=== PATIENT | female | born 1985 | race Caucasian/White ===

== ENCOUNTER 2021-03-14 20:47 | Observation (INO) ==
[2021-03-14] MEDS ORDERED: SODIUM CHLORIDE 0.9% 1000ML 1,000 ML IV SCH (21:45)
[2021-03-14] MEDS ORDERED: SODIUM CHLORIDE 0.9% 1000ML 1,000 ML IV ONE (21:47)
--- NOTE | 2021-03-14 21:53 | XRay Report ---
XR chest 1V portable INDICATION: MN ^ams. TECHNIQUE: Single frontal radiograph of the chest was obtained. Comparison: Comparison is made to chest one view 08/15/2019 FINDINGS: No lines and tubes are seen. The cardiomediastinal silhouette is normal. Lungs are underinflated but clear. No evidence of pleural effusion or pneumothorax. IMPRESSION: No acute chest disease. ACT 112: Negative or not required by law. Electronically signed by: Bryan Taylor M.D. 03/14/2021 9:52 PM
[2021-03-14 22:26] LABS: Basophils # (auto) 0.01 K/uL (0-0.2); Basophils % (auto) 0.1 %; Hematocrit (blood only) 42.4 % (37-47); Hemoglobin 13.7 g/dL (12.0-16.0); Immature Granulocytes # (auto) 0.06 K/uL (0.00-0.02); Immature Granulocytes % (auto) 0.3 %; Lymphocytes # (auto) 1.46 K/uL (1.2-3.4); Lymphocytes % (auto) 8.4 %; Mean Corpuscular Hemoglobin 27.5 pg (25-34); Mean Corpuscular Hgb Conc 32.3 g/dL (32-36); Mean Corpuscular Volume 85.1 fL (80-100); Mean Platelet Volume 10.5 fL (7.4-10.4); Monocytes # (auto) 0.64 K/uL (0.11-0.59); Monocytes % (auto) 3.7 %; Neutrophils # (auto) 15.21 K/uL (1.4-6.5); Neutrophils % (auto) 87.5 %; Platelet Count 231 K/uL (130-400); RDW Coefficient of Variation 13.3 % (11.5-14.5); RDW Standard Deviation 41.5 fL (36.4-46.3); Red Blood Count 4.98 M/uL (4.2-5.4); White Blood Count 17.38 K/uL (4.8-10.8)
[2021-03-14 22:35] LABS: INR 1.1 (0.9-1.1); Prothrombin Time 10.9 Seconds (9.0-12.0)
[2021-03-14 22:43] LABS: Alanine Aminotransferase 16 U/L (12-78); Albumin Level 3.2 gm/dl (3.4-5.0); Aspartate Aminotransferase 12 U/L (15-37); BUN Creatinine Ratio 7.7 (10-20); Blood Urea Nitrogen 6 mg/dl (7-18); Calcium 8.2 mg/dl (8.5-10.1); Carbon Dioxide 22 mmol/L (21-32); Chloride 112 mmol/L (98-107); Creatinine Clr Calc Pharmacy 108.5 ml/min; Est GFR (African American) 107.4 ml/min; Est GFR (Non-African American) 92.7 ml/min; Glucose 115 mg/dl (70-99); Magnesium 2.3 mg/dl (1.8-2.4); Potassium 3.7 mmol/L (3.5-5.1); Sodium 142 mmol/L (136-145)
[2021-03-14 22:47] LABS: Albumin Globulin Ratio 0.8 (0.9-2); Alkaline Phosphatase 53 U/L (45-117); Bilirubin,Total 0.5 mg/dl (0.2-1); Creatine Kinase 106 U/L (26-192); Globulin 3.9 gm/dl (2.5-4.0); Total Protein 7.1 gm/dl (6.4-8.2); Troponin I < 0.015 ng/ml (0-0.045)
[2021-03-14 22:50] LABS: Pregnancy Test, Serum Negative (Negative)
[2021-03-14 22:58] LABS: Acetaminophen < 2 ug/ml (10-30); Salicylate < 1.7 mg/dl (2.8-20)
[2021-03-14] MEDS ORDERED: LACTATED RINGER'S 1,000 ML IV ONE (22:58)
[2021-03-14 23:05] LABS: Appearance Urine Turbid (Clear); Bacteria Urine Automated Negative (Negative); Bilirubin Urine Negative (Negative); Blood Urine 3+ (Negative); Color Urine Dark Yellow; Epithelial Cell Urine Auto >30 /lpf (0-5); Glucose Urine UA Negative (Negative); Ketones Urine 3+ (Negative); Leukocyte Esterase Urine 2+ (Negative); Nitrite Urine Negative (Negative); Protein Urine Trace (Negative); RBC Urine Automated >30 /hpf (0-4); Specific Gravity Urine 1.021 (1.000-1.030); Urobilinogen Urine Negative (Negative)
[2021-03-14 23:29] LABS: Renal Epithelial Cells Urine 0-5 /lpf (0-5)
[2021-03-14] MEDS ORDERED: cefTRIAXone SODIUM 2,000 MG/70 ML BAG IV STA (23:36)
[2021-03-15 00:04] LABS: Amphetamines+Metham, Urine Neg (Neg); Barbiturates, Urine Neg (Neg); Benzodiazepine, Urine Neg (Neg); Cocaine, Urine Neg (Neg); MDMA (Ecstacy), Urine Neg (Neg); Methadone, Urine Neg (Neg); Opiate, Urine Neg (Neg); Phencyclidine, Urine Neg (Neg)
[2021-03-15 00:21] LABS: Adenovirus PCR Not Detected (NotDetected); Bordetella parapertussis PCR Not Detected (NotDetected); Bordetella pertussis PCR Not Detected (NotDetected); Chlamydia pneumoniae PCR Not Detected (NotDetected); Coronavirus 229E PCR Not Detected (NotDetected); Coronavirus CoV-2 (COVID19)PCR Not Detected (NotDetected); Coronavirus HKU1 PCR Not Detected (NotDetected); Coronavirus NL63 PCR Not Detected (NotDetected); Coronavirus OC43PCR Not Detected (NotDetected); Human Metapneumovirus PCR Not Detected (NotDetected); Influenza A PCR Not Detected (NotDetected); Influenza B PCR Not Detected (NotDetected); Mycoplasma pneumoniae PCR Not Detected (NotDetected); Parainfluenza Virus 1 PCR Not Detected (NotDetected); Parainfluenza Virus 2 PCR Not Detected (NotDetected); Parainfluenza Virus 3 PCR Not Detected (NotDetected); Parainfluenza Virus 4 PCR Not Detected (NotDetected); Respiratory Syncytial VirusPCR Not Detected (NotDetected); Rhinovirus/Enterovirus PCR Not Detected (NotDetected)
[2021-03-15] MEDS ORDERED: LORazepam 1 MG/2 ML VIAL IV STA (01:02)
--- NOTE | 2021-03-15 01:17 | History & Physical Report ---
Date of Service March 15, 2021 Assessment & Plan (1) Epilepsy: Plan: She reports breakthrough seizures starting yesterday morning including convulsive seizures followed by times when she cannot remember what happened, which she is reporting as multiple intermittent petit mal seizures. All of this was unwitnessed. Mom came to her apt at 8pm and brought her in because of her delayed response to questions. Patient is on several antiepileptic medications including cenobamate which she is titrating up currently, clobazam 40mg BID, Keppra 1500mg BID, Fycompa 4mg nightly, and topiramate 200mg BID. She is followed by [facility] outside of the [place] area and was last seen in early Feb (note not currently available as EMR link is down). She was given 1mg of Ativan in the ER, started on abx for ?UTI. Although WBC is up, prolactin level is normal. Also UDS not reflecting benzos reportedly taken. Will give her an additional 1 gram of Keppra now as she appears symptomatic to a certain extent, cannot remember if she took her medications this evening, and has a h/o nonconvulsive status in the past. She also has a h/o conversion disorder and mentioned something to the nurse about intentionally overdosing on Ativan today. She appears apathetic to questioning or to what is happening. When I asked what she would like me to do for her in the hospital re: treatment, her response was "it doesn't matter." Consider possible side effects of drugs? Suicidality is a side effect of cenobamate as is somnolence. (2) UTI (urinary tract infection): Plan: Cover with Rocephin empirically and if no culture, would consider short course of antibiotics. Notably cephalosporins may lower the seizure threshold. Reassess risk/benefit in am. (3) Leukocytosis: Plan: WBC 17K likely related to the events of the day vs UTI, however, what actually happened is not clear. Ceftriaxone as above. Repeat CBC in am. (4) DVT prophylaxis: Plan: Lovenox Full Code Dispo-uncertain, pending Neurology and psychiatry evaluations. Out of an abundance of caution will place her on suicide precautions with a 1:1 until psych can see her. Rhiannon Pizarro DO [facility] Hospitalist History of Present Illness Chief Complaint: seizure history Primary Care Provider: Nely Solorio The patient is a 35-year-old female with a history of epilepsy since age 14 who presented to the hospital after reporting multiple seizures today. She was recently seen by her neurologist as outpatient in early February with a few medication changes. She reported feeling well on these changes and states this seizure is the first breakthrough seizure since the change. It is difficult to gather a history from her, because she has a delayed response time in answering. She appears to stare into space but then will come back and having clearly received the information correctly, will be able to appropriately answer the question. She appears to have some apathy and answering questions and is not elaborating into detail. Most answers are yes and no or agreeing with what is said. When asked if she is depressed or if she had any intention of hurting herself, she said no. Per the ER medical provider, there was concern she might have deliberately taken too much medication. The patient reported to me she l pura alone and doses herself with her medications without assistance. She seemed to recall the correct frequency and doses of medications when asked. However, when her mother entered the room she deferred to her on doses and strategies. It is questionable if she is compliant with medications and certainly does not know if she had her evening meds or morning meds during the last 24-hour. She reports waking up and while lying in bed had a grand mal seizure. This was subsequently followed by petit mall seizures that were intermittent throughout the day. When asked how she knows the difference, she reports that with the grand mal type she will shake and with petit mal (absence seizure) she will not. These events were unwitnessed. As a result of her seizures she subsequently reports taking 6-7 Ativan tablets. When asked what dose Ativan tablet she took I had to offer a questionable 1 mg to which she confirmed. However, per her records she is prescribed 2 mg dose tablets. Mother was helpful in stating that in 20 years of epilepsy she is never heard her daughter have delayed response time that she is currently exhibiting. Mother is also concerned that the patient is flipping into and out of absence seizure's and is questioning if she should have more medication at this time. The difficulty is that the patient is able to understand the question being asked during her's staring spell. She is also very tired and needs to in the morning. She has had little sleep. Review of systems is positive for "pain all over". She denies any recent illness. She denies any dysuria, urinary urgency or incontinence. She denies any fevers, chills, chest pain or other shortness of breath or other symptoms. She denies any suicidal ideations or thoughts to hurt herself. She denies any depression symptoms. She denies any stress in her life. She denies any drug use or other substance use including no alcohol. She does have a history of conversion disorder. She also has a history of migraines and uses Topamax for seizures, not migraine prophylaxis. Currently denies headache. Allergies Allergy/AdvReac Type Severity Reaction Status Date / Time Iodinated Contrast Media Allergy Unknown Hives Verified 03/14/21 22:10 Home Medications Medication Instructions Recorded Confirmed Type levetiracetam 1,000 mg tablet 1,000 mg PO BID 04/18/19 03/15/21 History levetiracetam 250 mg tablet 500 mg PO BID 08/15/19 03/15/21 History clobazam 10 mg tablet 40 mg PO AMPM 12/24/20 03/15/21 History lorazepam 2 mg tablet 2 mg PO Q6H PRN 12/24/20 03/15/21 History magnesium oxide 400 mg PO BID 12/24/20 03/15/21 History perampanel 4 mg tablet (Fycompa) 4 mg PO HS 12/24/20 03/15/21 History topiramate 200 mg tablet 200 mg PO BID 12/24/20 03/15/21 History cenobamate 12.5 mg (14)-25 mg (14) 1 ea PO UD 03/14/21 03/15/21 History tablets in a dose pack (Xcopri Titration Pack) cenobamate 150 mg (14)-200 mg (14) 1 ea PO UD 03/14/21 03/15/21 History tablets in a dose pack (Xcopri Titration Pack) cenobamate 50 mg (14)-100 mg (14) 1 ea PO UD 03/14/21 03/15/21 History tablets in a dose pack (Xcopri Titration Pack) diclofenac potassium 50 mg tablet 50 mg PO UD PRN MDD 3 tabs 03/14/21 03/15/21 History diclofenac sodium 1 % topical gel 2 g TOPICAL QID 03/14/21 03/15/21 History naloxone 4 mg/actuation nasal 1 spray INTRANASAL UD PRN 03/14/21 03/15/21 History spray (Narcan) ondansetron HCl 8 mg tablet 8 mg PO .EVERY 4-6 HRS PRN 03/14/21 03/15/21 History riboflavin (vitamin B2) 400 mg 400 mg PO DAILY 03/14/21 03/15/21 History tablet sumatriptan succinate 100 mg tablet 50 - 100 mg PO UD PRN 03/14/21 03/15/21 History Past Med/Surg History Medical History Adverse drug effect Closed dislocation of right ankle Closed fracture of ankle, trimalleolar Contusion of both upper extremities Conversion disorder Dehydration Fall Open wound of tongue due to bite Seizure Seizures Surgical History History of ankle surgery (~08/2019) Family History Mother Breast cancer Grandmother Cancer Grandfather Cancer Father Diabetes Hypertension Other No pertinent family history in first degree relatives Social History Smoking Status: Unknown if ever smoked Hx Alcohol Use: No Hx Substance Use: No Preferred Language: Portuguese marital status: Single current occupational status: employed 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 Feels Safe at Home: Declines to Answer Review of Systems Review of Systems: At least ten systems were reviewed and negative except as indicated in HPI above. Physical Exam Physical Exam: CONSTITUTIONAL: WNWD, vitals as above, generally ill- appearing, NAD, fatigued. EYES: EOMI bilaterally, PERRL, normal conjunctivae, no scleral icterus ENT: external ear and nose normal, oropharynx clear, MMM NECK: trachea midline RESPIRATORY: clear to auscultation bilaterally, no crackles, rales or wheezes, normal respiratory effort CARDIOVASCULAR: regular rate and rhythm, S1 and 2 heard without murmurs, gallops or rubs, no JVD, no peripheral edema GASTROINTESTINAL: soft, nontender, ND, no guarding MUSCULOSKELETAL: strength 5/5 throughout, head is normocephalic and atraumatic SKIN: warm and dry NEUROLOGIC: No facial palsy, no dysarthria. Touch, pain and proprioception normal. CN 2-12 grossly intact, no sensory deficit, normal cognition, normal speech, no tremor. Eyes do twitch but there is no clear, consistent nystagmus. Patient is able to receive information in the form of questions while eyes are twitching or she appears to be staring off into space and she is able to appropriately answer the question asked. PSYCHIATRIC: alert, sppears somewhat reluctant to cooperate with questions and exam, although does. ?apathy. Oriented to person, place and time. Language intact Results & Data Results & Data ([facility]) Vital Signs (Past 12 Hours) Vital Signs Temp Pulse Pulse Resp BP BP Pulse Ox 03/15/21 00:18 114 H 03/15/21 00:02 20 137/80 97 03/15/21 00:00 37 C 140 H 03/14/21 21:00 36.3 C L 91 H 20 129/74 99 Laboratory Results Short CBC 03/14/21 Range/Units 22:15 WBC 17.38 H (4.8-10.8) K/uL Hgb 13.7 (12.0-16.0) g/dL Hct 42.4 (37-47) % Plt Count 231 (130-400) K/uL BMP 03/14/21 22:15 Sodium 142 Potassium 3.7 Chloride 112 H Carbon Dioxide 22 BUN 6 L Creatinine 0.83 Glucose 115 H Calcium 8.2 L Cardiac Enzymes 03/14/21 Range/Units 22:15 Total Creatine Kinase 106 (26-192) U/L Troponin I < 0.015 (0-0.045) ng/ml Liver Function 03/14/21 Range/Units 22:15 Total Bilirubin 0.5 (0.2-1) mg/dl AST 12 L (15-37) U/L ALT 16 (12-78) U/L Alkaline Phosphatase 53 (45-117) U/L Albumin 3.2 L (3.4-5.0) gm/dl Urine 03/14/21 Range/Units 22:50 Urine Color Dark Yellow Urine Appearance Turbid A (Clear) Urine pH 5.0 (4.5-7.5) Ur Specific [place] 1.021 (1.000-1.030) Urine Protein Trace H (Negative) Urine Glucose (UA) Negative (Negative) Diagnostic Findings Chest X-Ray 03/14/21 21:39 XR chest 1V portable INDICATION: MN ^ams. TECHNIQUE: Single frontal radiograph of the chest was obtained. Comparison: Comparison is made to chest one view 08/15/2019 FINDINGS: No lines and tubes are seen. The cardiomediastinal silhouette is normal. Lungs are underinflated but clear. No evidence of pleural effusion or pneumothorax. IMPRESSION: No acute chest disease. ACT 112: Negative or not required by law. Electronically signed by: Bryan Taylor M.D. 03/14/2021 9:[address] head without contrast CT head reveals no intracranial hemorrhage mass-effect or edema. There is no evidence of acute cortical stroke and no space-occupying lesion. Medications Administered Lorazepam 1mg IV Rocephin 3 L IVF Code Status & VTE Plan VTE Prophylaxis Plan VTE Prophylaxis will be ordered: Yes
[2021-03-15] MEDS ORDERED: levETIRAcetam 1,000 MG in 0.9 % SODIUM CHLORIDE 100 ML IV STA (03:08)
--- NOTE | 2021-03-15 03:51 | Emergency Department Note ---
History of Present Illness General Chief complaint: Altered Mental Status Stated complaint: AMS Time Seen by Provider: 03/14/21 21:30 History of Present Illness This 35-year-old presents to the ER complaining of possible seizures with increased confusion and possible overdose of Ativan Location: Generalized Quality: weak Severity: Moderate Duration: Today Timing: Today Context: Mother was concerned and called EMS Modifying factors: better with Ativan; worse with activity Patient states she took extra Ativan. She states she thought she had some seizures today. Patient denies overdosing on Ativan. She did tell the nurse she took a lot of Ativan. Patient states she feels weak. Patient denies chest pain, dyspnea, abdominal pain, flulike illness. She denies any alcohol or drugs today. Home Medications Medication Instructions Recorded Confirmed Type levetiracetam 1,000 mg tablet 1,000 mg PO BID 04/18/19 03/15/21 History levetiracetam 250 mg tablet 500 mg PO BID 08/15/19 03/15/21 History clobazam 10 mg tablet 40 mg PO AMPM 12/24/20 03/15/21 History lorazepam 2 mg tablet 2 mg PO Q6H PRN 12/24/20 03/15/21 History magnesium oxide 400 mg PO BID 12/24/20 03/15/21 History perampanel 4 mg tablet (Fycompa) 4 mg PO HS 12/24/20 03/15/21 History topiramate 200 mg tablet 200 mg PO BID 12/24/20 03/15/21 History cenobamate 12.5 mg (14)-25 mg (14) 1 ea PO UD 03/14/21 03/15/21 History tablets in a dose pack (Xcopri Titration Pack) cenobamate 150 mg (14)-200 mg (14) 1 ea PO UD 03/14/21 03/15/21 History tablets in a dose pack (Xcopri Titration Pack) cenobamate 50 mg (14)-100 mg (14) 1 ea PO UD 03/14/21 03/15/21 History tablets in a dose pack (Xcopri Titration Pack) diclofenac potassium 50 mg tablet 50 mg PO UD PRN MDD 3 tabs 03/14/21 03/15/21 History diclofenac sodium 1 % topical gel 2 g TOPICAL QID 03/14/21 03/15/21 History naloxone 4 mg/actuation nasal 1 spray INTRANASAL UD PRN 03/14/21 03/15/21 History spray (Narcan) ondansetron HCl 8 mg tablet 8 mg PO .EVERY 4-6 HRS PRN 03/14/21 03/15/21 History riboflavin (vitamin B2) 400 mg 400 mg PO DAILY 03/14/21 03/15/21 History tablet sumatriptan succinate 100 mg tablet 50 - 100 mg PO UD PRN 03/14/21 03/15/21 History Allergies Allergy/AdvReac Type Severity Reaction Status Date / Time Iodinated Contrast Media Allergy Unknown Hives Verified 03/14/21 22:10 Past Med/Surg History Medical History Adverse drug effect Closed dislocation of right ankle Closed fracture of ankle, trimalleolar Contusion of both upper extremities Conversion disorder Dehydration Fall Open wound of tongue due to bite Seizure Seizures Surgical History History of ankle surgery (~08/2019) Family History Mother Breast cancer Grandmother Cancer Grandfather Cancer Father Diabetes Hypertension Other No pertinent family history in first degree relatives Social History Smoking Status: Unknown if ever smoked Hx Alcohol Use: No Hx Substance Use: No Preferred Language: Kazakh marital status: Single current occupational status: employed 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 Feels Safe at Home: Declines to Answer Review of Systems A total of 10 systems reviewed and were otherwise negative Physical Exam Vital Signs Vital Signs - 24 hr 03/14/21 21:00 03/14/21 22:52 03/15/21 00:00 Temperature 36.3 C L 37 C Temperature Source Oral Oral Pulse Rate 91 H Pulse Rate [Brachial] 140 H Respiratory Rate 20 Respiratory Effort / Characteristics Non-Labored Spontaneous Respiratory Depth Normal Respiratory Pattern Regular Blood Pressure 129/74 Blood Pressure [Right Arm] Blood Pressure Mean 92 Blood Pressure Mean [Right Arm] Blood Pressure Position Lying Pulse Oximetry 99 Oxygen Delivery Method Room Air Room Air Sepsis Recent Fever Within 48 Hours No Sepsis New/Unexplained Change in Mental Status Yes Sepsis Action Taken by Nursing No Action Required 03/15/21 00:02 03/15/21 00:18 03/15/21 01:59 Temperature Temperature Source Pulse Rate Pulse Rate [Brachial] 114 H 89 Respiratory Rate 20 20 Respiratory Effort / Characteristics Respiratory Depth Respiratory Pattern Blood Pressure Blood Pressure [Right Arm] 137/80 125/83 Blood Pressure Mean Blood Pressure Mean [Right Arm] 99 97 Blood Pressure Position Pulse Oximetry 97 97 Oxygen Delivery Method Room Air Room Air Sepsis Recent Fever Within 48 Hours Sepsis New/Unexplained Change in Mental Status Sepsis Action Taken by Nursing 03/15/21 02:33 Temperature 37.5 C Temperature Source Oral Pulse Rate Pulse Rate [Brachial] 89 Respiratory Rate 18 Respiratory Effort / Characteristics Non-Labored Spontaneous Respiratory Depth Normal Respiratory Pattern Regular Blood Pressure Blood Pressure [Right Arm] Blood Pressure Mean Blood Pressure Mean [Right Arm] Blood Pressure Position Pulse Oximetry 95 Oxygen Delivery Method Sepsis Recent Fever Within 48 Hours Sepsis New/Unexplained Change in Mental Status Sepsis Action Taken by Nursing VITALS: Vitals are noted on the nurse's note and reviewed by myself. Vital signs stable. GENERAL: White female unkempt following commands, in no acute distress, nondiaphoretic, well-developed well-nourished. SKIN: The skin was without rashes, erythema, edema, or bruising. There is no tenting of the skin. Capillary reflex less than 2 seconds. HEAD: Normocephalic atraumatic. EARS: External auditory canals clear, tympanic membranes pearly arroyo without erythema or effusion bilaterally. EYES: Pupils equal round and reactive to light and accommodation. Conjunctivae without injection, sclerae without icterus. Extraocular movements intact. NOSE: Patent, turbinates without inflammation or discharge. MOUTH: Mucous membranes moist. Pharynx without erythema or exudate. Uvula midline. Airway patent. Tongue does not deviate. NECK: Supple without nuchal rigidity. No lymphadenopathy. No thyromegaly. Cervical spine is nontender. No JVD. HEART: Regular rate and rhythm LUNGS: Clear to auscultation bilaterally without wheezes, rales or rhonchi. No retractions or accessory muscle use. ABDOMEN: Positive bowel sounds x 4. Normal tympanic percussion. Soft, nontender, without masses or organomegaly. Gonzalez sign negative. No guarding or rebound tenderness. No CVA tenderness MUSCULOSKELETAL: No muscle atrophy, erythema, or edema noted. 5 out of 5 strength throughout NEURO: Patient was alert and oriented to person place and time. Normal sensation to light and sharp touch. No focal neurological deficits. Course Administered Medications Discontinued Medications Sodium Chloride (Nss 1000ml) 1,000 mls @ 999 mls/hr IV .Q1H1M SATISH Stop: 03/14/21 22:45 Last Infusion: 03/15/21 00:01 Dose: 0 mls/hr Documented by: [id number] Admin: 03/14/21 22:43 Dose: 999 mls/hr Documented by: [id number] Sodium Chloride (Nss 1000ml) 1,000 mls @ 999 mls/hr IV .Q1H1M ONE Stop: 03/14/21 22:47 Last Infusion: 03/15/21 00:00 Dose: 0 mls/hr Documented by: [id number] Admin: 03/14/21 22:43 Dose: 999 mls/hr Documented by: [id number] Lactated Ringer's (Lr) 1,000 mls @ 999 mls/hr IV .Q1H1M ONE Stop: 03/14/21 23:58 Last Infusion: 03/15/21 01:02 Dose: 0 mls/hr Documented by: [id number] Admin: 03/15/21 00:00 Dose: 999 mls/hr Documented by: [id number] Ceftriaxone Sodium (Rocephin) 2,000 mg in 70 mls @ 140 mls/hr IV NOW STA Stop: 03/15/21 00:05 Last Infusion: 03/15/21 00:56 Dose: 0 mls/hr Documented by: [id number] Admin: 03/15/21 00:00 Dose: 140 mls/hr Documented by: [id number] Lorazepam (Ativan) 1 mg in 2 mls @ 2 mls/min IV NOW STA Stop: 03/15/21 01:03 Last Admin: 03/15/21 01:09 Dose: 2 mls/min Documented by: [id number] Levetiracetam 1,000 mg/ Sodium (Chloride) 110 mls @ 440 mls/hr IV NOW STA Stop: 03/15/21 03:22 Last Admin: 03/15/21 03:26 Dose: 440 mls/hr Documented by: [id number] Medical Decision Making Medical Records Attestation: I reviewed the patient's medical records. Home Medications Current Medication List: was personally reviewed by me Laboratory Data Attestation: I reviewed the patient's lab results. Result diagrams: 03/14/21 22:15 03/14/21 22:15 Lab Results 03/14/21 03/14/21 03/14/21 Range/Units 22:14 22:15 22:15 WBC (4.8-10.8) K/uL RBC (4.2-5.4) M/uL Hgb (12.0-16.0) g/dL Hct (37-47) % MCV (80-100) fL MCH (25-34) pg MCHC (32-36) g/dL RDW Std Deviation (36.4-46.3) fL RDW Coeff of Hue (11.5-14.5) % Plt Count (130-400) K/uL MPV (7.4-10.4) fL Immature Gran % (Auto) % Neut % (Auto) % Lymph % (Auto) % [place] % (Auto) % Eos % (Auto) % Baso % (Auto) % Neut # (Auto) (1.4-6.5) K/uL Lymph # (Auto) (1.2-3.4) K/uL [place] # (Auto) (0.11-0.59) K/uL Eos # (Auto) (0-0.5) K/uL Baso # (Auto) (0-0.2) K/uL Immature Gran # (Auto) (0.00-0.02) K/uL PT 10.9 (9.0-12.0) Seconds INR 1.1 (0.9-1.1) Sodium 142 (136-145) mmol/L Potassium 3.7 (3.5-5.1) mmol/L Chloride 112 H (98-107) mmol/L Carbon Dioxide 22 (21-32) mmol/L Anion Gap 8.0 (3-11) BUN 6 L (7-18) mg/dl Creatinine 0.83 (0.6-1.2) mg/dl Est Cr Clr Drug Dosing 108.5 ml/min Est GFR ( Amer) 107.4 ml/min Est GFR (Non-Af Amer) 92.7 ml/min BUN/Creatinine Ratio 7.7 L (10-20) Glucose 115 H (70-99) mg/dl Lactate (0.4-2.0) mmol/L Calcium 8.2 L (8.5-10.1) mg/dl Magnesium 2.3 (1.8-2.4) mg/dl Total Bilirubin 0.5 (0.2-1) mg/dl AST 12 L (15-37) U/L ALT 16 (12-78) U/L Alkaline Phosphatase 53 (45-117) U/L Total Creatine Kinase 106 (26-192) U/L Troponin I < 0.015 (0-0.045) ng/ml Total Protein 7.1 (6.4-8.2) gm/dl Albumin 3.2 L (3.4-5.0) gm/dl Globulin 3.9 (2.5-4.0) gm/dl Albumin/Globulin Ratio 0.8 L (0.9-2) Prolactin 2.44 ng/ml HCG, Qual (Negative) Urine Color Urine Appearance (Clear) Urine pH (4.5-7.5) Ur Specific [place] (1.000-1.030) Urine Protein (Negative) Urine Glucose (UA) (Negative) Urine Ketones (Negative) Urine Blood (Negative) Urine Nitrite (Negative) Urine Bilirubin (Negative) Urine Urobilinogen (Negative) Ur Leukocyte Esterase (Negative) Urine WBC (Auto) (0-5) /hpf Urine RBC (Auto) (0-4) /hpf U Hyaline Cast (Auto) (0-5) /lpf U Epithel Cells (Auto) (0-5) /lpf Urine Bacteria (Auto) (Negative) Ur Renal Epithelial Cell (0-5) /lpf Granular Casts (0) /lpf Salicylates (2.8-20) mg/dl Urine Opiates Screen (Neg) Ur Methadone, Qual (Neg) Acetaminophen (10-30) ug/ml Urine Barbiturates (Neg) Ur Phencyclidine (PCP) (Neg) U Amphetamin/Meth Scrn (Neg) MDMA (Ecstasy) Screen (Neg) U Benzodiazepines Scrn (Neg) Ur Cocaine Metabolite (Neg) U Marijuana (THC) Screen (Neg) Ethyl Alcohol mg/dL (0-3) mg/dl Adenovirus (PCR) (NotDetected) B. pertussis DNA (PCR) (NotDetected) B.parapertussis DNA PCR (NotDetected) C. pneumoniae DNA (PCR) (NotDetected) Coronavirus OC43 (PCR) (NotDetected) Coronavirus HKU1 (PCR) (NotDetected) Coronavirus 229E (PCR) (NotDetected) COVID-19 Eval Order SARS-CoV-2 (PCR) (NotDetected) Coronavirus NL63 (PCR) (NotDetected) Human Metapneumovir PCR (NotDetected) Influenza Type A (PCR) (NotDetected) Influenza Type B (PCR) (NotDetected) M. pneumoniae (PCR) (NotDetected) Parainfluenza 1 (PCR) (NotDetected) Parainfluenza 2 (PCR) (NotDetected) Parainfluenza 3 (PCR) (NotDetected) Parainfluenza 4 (PCR) (NotDetected) RSV (PCR) (NotDetected) Entero/Rhino (PCR) (NotDetected) 03/14/21 03/14/21 03/14/21 Range/Units 22:15 22:15 22:15 WBC (4.8-10.8) K/uL RBC (4.2-5.4) M/uL Hgb (12.0-16.0) g/dL Hct (37-47) % MCV (80-100) fL MCH (25-34) pg MCHC (32-36) g/dL RDW Std Deviation (36.4-46.3) fL RDW Coeff of Hue (11.5-14.5) % Plt Count (130-400) K/uL MPV (7.4-10.4) fL Immature Gran % (Auto) % Neut % (Auto) % Lymph % (Auto) % [place] % (Auto) % Eos % (Auto) % Baso % (Auto) % Neut # (Auto) (1.4-6.5) K/uL Lymph # (Auto) (1.2-3.4) K/uL [place] # (Auto) (0.11-0.59) K/uL Eos # (Auto) (0-0.5) K/uL Baso # (Auto) (0-0.2) K/uL Immature Gran # (Auto) (0.00-0.02) K/uL PT (9.0-12.0) Seconds INR (0.9-1.1) Sodium (136-145) mmol/L Potassium (3.5-5.1) mmol/L Chloride (98-107) mmol/L Carbon Dioxide (21-32) mmol/L Anion Gap (3-11) BUN (7-18) mg/dl Creatinine (0.6-1.2) mg/dl Est Cr Clr Drug Dosing ml/min Est GFR ( Amer) ml/min Est GFR (Non-Af Amer) ml/min BUN/Creatinine Ratio (10-20) Glucose (70-99) mg/dl Lactate (0.4-2.0) mmol/L Calcium (8.5-10.1) mg/dl Magnesium (1.8-2.4) mg/dl Total Bilirubin (0.2-1) mg/dl AST (15-37) U/L ALT (12-78) U/L Alkaline Phosphatase (45-117) U/L Total Creatine Kinase (26-192) U/L Troponin I (0-0.045) ng/ml Total Protein (6.4-8.2) gm/dl Albumin (3.4-5.0) gm/dl Globulin (2.5-4.0) gm/dl Albumin/Globulin Ratio (0.9-2) Prolactin ng/ml HCG, Qual Negative (Negative) Urine Color Urine Appearance (Clear) Urine pH (4.5-7.5) Ur Specific [place] (1.000-1.030) Urine Protein (Negative) Urine Glucose (UA) (Negative) Urine Ketones (Negative) Urine Blood (Negative) Urine Nitrite (Negative) Urine Bilirubin (Negative) Urine Urobilinogen (Negative) Ur Leukocyte Esterase (Negative) Urine WBC (Auto) (0-5) /hpf Urine RBC (Auto) (0-4) /hpf U Hyaline Cast (Auto) (0-5) /lpf U Epithel Cells (Auto) (0-5) /lpf Urine Bacteria (Auto) (Negative) Ur Renal Epithelial Cell (0-5) /lpf Granular Casts (0) /lpf Salicylates < 1.7 L (2.8-20) mg/dl Urine Opiates Screen (Neg) Ur Methadone, Qual (Neg) Acetaminophen < 2 L (10-30) ug/ml Urine Barbiturates (Neg) Ur Phencyclidine (PCP) (Neg) U Amphetamin/Meth Scrn (Neg) MDMA (Ecstasy) Screen (Neg) U Benzodiazepines Scrn (Neg) Ur Cocaine Metabolite (Neg) U Marijuana (THC) Screen (Neg) Ethyl Alcohol mg/dL < 3.0 (0-3) mg/dl Adenovirus (PCR) (NotDetected) B. pertussis DNA (PCR) (NotDetected) B.parapertussis DNA PCR (NotDetected) C. pneumoniae DNA (PCR) (NotDetected) Coronavirus OC43 (PCR) (NotDetected) Coronavirus HKU1 (PCR) (NotDetected) Coronavirus 229E (PCR) (NotDetected) COVID-19 Eval Order SARS-CoV-2 (PCR) (NotDetected) Coronavirus NL63 (PCR) (NotDetected) Human Metapneumovir PCR (NotDetected) Influenza Type A (PCR) (NotDetected) Influenza Type B (PCR) (NotDetected) M. pneumoniae (PCR) (NotDetected) Parainfluenza 1 (PCR) (NotDetected) Parainfluenza 2 (PCR) (NotDetected) Parainfluenza 3 (PCR) (NotDetected) Parainfluenza 4 (PCR) (NotDetected) RSV (PCR) (NotDetected) Entero/Rhino (PCR) (NotDetected) 03/14/21 03/14/21 03/14/21 Range/Units 22:15 22:15 22:50 WBC 17.38 H (4.8-10.8) K/uL RBC 4.98 (4.2-5.4) M/uL Hgb 13.7 (12.0-16.0) g/dL Hct 42.4 (37-47) % MCV 85.1 (80-100) fL MCH 27.5 (25-34) pg MCHC 32.3 (32-36) g/dL RDW Std Deviation 41.5 (36.4-46.3) fL RDW Coeff of Hue 13.3 (11.5-14.5) % Plt Count 231 (130-400) K/uL MPV 10.5 H (7.4-10.4) fL Immature Gran % (Auto) 0.3 % Neut % (Auto) 87.5 % Lymph % (Auto) 8.4 % [place] % (Auto) 3.7 % Eos % (Auto) 0.0 % Baso % (Auto) 0.1 % Neut # (Auto) 15.21 H (1.4-6.5) K/uL Lymph # (Auto) 1.46 (1.2-3.4) K/uL [place] # (Auto) 0.64 H (0.11-0.59) K/uL Eos # (Auto) 0.00 (0-0.5) K/uL Baso # (Auto) 0.01 (0-0.2) K/uL Immature Gran # (Auto) 0.06 H (0.00-0.02) K/uL PT (9.0-12.0) Seconds INR (0.9-1.1) Sodium (136-145) mmol/L Potassium (3.5-5.1) mmol/L Chloride (98-107) mmol/L Carbon Dioxide (21-32) mmol/L Anion Gap (3-11) BUN (7-18) mg/dl Creatinine (0.6-1.2) mg/dl Est Cr Clr Drug Dosing ml/min Est GFR ( Amer) ml/min Est GFR (Non-Af Amer) ml/min BUN/Creatinine Ratio (10-20) Glucose (70-99) mg/dl Lactate 1.3 (0.4-2.0) mmol/L Calcium (8.5-10.1) mg/dl Magnesium (1.8-2.4) mg/dl Total Bilirubin (0.2-1) mg/dl AST (15-37) U/L ALT (12-78) U/L Alkaline Phosphatase (45-117) U/L Total Creatine Kinase (26-192) U/L Troponin I (0-0.045) ng/ml Total Protein (6.4-8.2) gm/dl Albumin (3.4-5.0) gm/dl Globulin (2.5-4.0) gm/dl Albumin/Globulin Ratio (0.9-2) Prolactin ng/ml HCG, Qual (Negative) Urine Color Dark Yellow Urine Appearance Turbid A (Clear) Urine pH 5.0 (4.5-7.5) Ur Specific [place] 1.021 (1.000-1.030) Urine Protein Trace H (Negative) Urine Glucose (UA) Negative (Negative) Urine Ketones 3+ H (Negative) Urine Blood 3+ H (Negative) Urine Nitrite Negative (Negative) Urine Bilirubin Negative (Negative) Urine Urobilinogen Negative (Negative) Ur Leukocyte Esterase 2+ H (Negative) Urine WBC (Auto) 10-30 H (0-5) /hpf Urine RBC (Auto) >30 H (0-4) /hpf U Hyaline Cast (Auto) 10-30 H (0-5) /lpf U Epithel Cells (Auto) >30 H (0-5) /lpf Urine Bacteria (Auto) Negative (Negative) Ur Renal Epithelial Cell 0-5 (0-5) /lpf Granular Casts 10-20 H (0) /lpf Salicylates (2.8-20) mg/dl Urine Opiates Screen (Neg) Ur Methadone, Qual (Neg) Acetaminophen (10-30) ug/ml Urine Barbiturates (Neg) Ur Phencyclidine (PCP) (Neg) U Amphetamin/Meth Scrn (Neg) MDMA (Ecstasy) Screen (Neg) U Benzodiazepines Scrn (Neg) Ur Cocaine Metabolite (Neg) U Marijuana (THC) Screen (Neg) Ethyl Alcohol mg/dL (0-3) mg/dl Adenovirus (PCR) (NotDetected) B. pertussis DNA (PCR) (NotDetected) B.parapertussis DNA PCR (NotDetected) C. pneumoniae DNA (PCR) (NotDetected) Coronavirus OC43 (PCR) (NotDetected) Coronavirus HKU1 (PCR) (NotDetected) Coronavirus 229E (PCR) (NotDetected) COVID-19 Eval Order SARS-CoV-2 (PCR) (NotDetected) Coronavirus NL63 (PCR) (NotDetected) Human Metapneumovir PCR (NotDetected) Influenza Type A (PCR) (NotDetected) Influenza Type B (PCR) (NotDetected) M. pneumoniae (PCR) (NotDetected) Parainfluenza 1 (PCR) (NotDetected) Parainfluenza 2 (PCR) (NotDetected) Parainfluenza 3 (PCR) (NotDetected) Parainfluenza 4 (PCR) (NotDetected) RSV (PCR) (NotDetected) Entero/Rhino (PCR) (NotDetected) 03/14/21 03/14/21 03/14/21 Range/Units 22:50 23:07 23:07 WBC (4.8-10.8) K/uL RBC (4.2-5.4) M/uL Hgb (12.0-16.0) g/dL Hct (37-47) % MCV (80-100) fL MCH (25-34) pg MCHC (32-36) g/dL RDW Std Deviation (36.4-46.3) fL RDW Coeff of Hue (11.5-14.5) % Plt Count (130-400) K/uL MPV (7.4-10.4) fL Immature Gran % (Auto) % Neut % (Auto) % Lymph % (Auto) % [place] % (Auto) % Eos % (Auto) % Baso % (Auto) % Neut # (Auto) (1.4-6.5) K/uL Lymph # (Auto) (1.2-3.4) K/uL [place] # (Auto) (0.11-0.59) K/uL Eos # (Auto) (0-0.5) K/uL Baso # (Auto) (0-0.2) K/uL Immature Gran # (Auto) (0.00-0.02) K/uL PT (9.0-12.0) Seconds INR (0.9-1.1) Sodium (136-145) mmol/L Potassium (3.5-5.1) mmol/L Chloride (98-107) mmol/L Carbon Dioxide (21-32) mmol/L Anion Gap (3-11) BUN (7-18) mg/dl Creatinine (0.6-1.2) mg/dl Est Cr Clr Drug Dosing ml/min Est GFR ( Amer) ml/min Est GFR (Non-Af Amer) ml/min BUN/Creatinine Ratio (10-20) Glucose (70-99) mg/dl Lactate (0.4-2.0) mmol/L Calcium (8.5-10.1) mg/dl Magnesium (1.8-2.4) mg/dl Total Bilirubin (0.2-1) mg/dl AST (15-37) U/L ALT (12-78) U/L Alkaline Phosphatase (45-117) U/L Total Creatine Kinase (26-192) U/L Troponin I (0-0.045) ng/ml Total Protein (6.4-8.2) gm/dl Albumin (3.4-5.0) gm/dl Globulin (2.5-4.0) gm/dl Albumin/Globulin Ratio (0.9-2) Prolactin ng/ml HCG, Qual (Negative) Urine Color Urine Appearance (Clear) Urine pH (4.5-7.5) Ur Specific [place] (1.000-1.030) Urine Protein (Negative) Urine Glucose (UA) (Negative) Urine Ketones (Negative) Urine Blood (Negative) Urine Nitrite (Negative) Urine Bilirubin (Negative) Urine Urobilinogen (Negative) Ur Leukocyte Esterase (Negative) Urine WBC (Auto) (0-5) /hpf Urine RBC (Auto) (0-4) /hpf U Hyaline Cast (Auto) (0-5) /lpf U Epithel Cells (Auto) (0-5) /lpf Urine Bacteria (Auto) (Negative) Ur Renal Epithelial Cell (0-5) /lpf Granular Casts (0) /lpf Salicylates (2.8-20) mg/dl Urine Opiates Screen Neg (Neg) Ur Methadone, Qual Neg (Neg) Acetaminophen (10-30) ug/ml Urine Barbiturates Neg (Neg) Ur Phencyclidine (PCP) Neg (Neg) U Amphetamin/Meth Scrn Neg (Neg) MDMA (Ecstasy) Screen Neg (Neg) U Benzodiazepines Scrn Neg (Neg) Ur Cocaine Metabolite Neg (Neg) U Marijuana (THC) Screen Neg (Neg) Ethyl Alcohol mg/dL (0-3) mg/dl Adenovirus (PCR) Not Detected (NotDetected) B. pertussis DNA (PCR) Not Detected (NotDetected) B.parapertussis DNA PCR Not Detected (NotDetected) C. pneumoniae DNA (PCR) Not Detected (NotDetected) Coronavirus OC43 (PCR) Not Detected (NotDetected) Coronavirus HKU1 (PCR) Not Detected (NotDetected) Coronavirus 229E (PCR) Not Detected (NotDetected) COVID-19 Eval Order [facility] at [facility] SARS-CoV-2 (PCR) Not Detected (NotDetected) Coronavirus NL63 (PCR) Not Detected (NotDetected) Human Metapneumovir PCR Not Detected (NotDetected) Influenza Type A (PCR) Not Detected (NotDetected) Influenza Type B (PCR) Not Detected (NotDetected) M. pneumoniae (PCR) Not Detected (NotDetected) Parainfluenza 1 (PCR) Not Detected (NotDetected) Parainfluenza 2 (PCR) Not Detected (NotDetected) Parainfluenza 3 (PCR) Not Detected (NotDetected) Parainfluenza 4 (PCR) Not Detected (NotDetected) RSV (PCR) Not Detected (NotDetected) Entero/Rhino (PCR) Not Detected (NotDetected) Imaging Data Attestation: I personally reviewed and interpreted this imaging study as follows: Radiologist's Impression: Chest X-Ray 03/14/21 21:39 XR chest 1V portable INDICATION: MN ^ams. TECHNIQUE: Single frontal radiograph of the chest was obtained. Comparison: Comparison is made to chest one view 08/15/2019 FINDINGS: No lines and tubes are seen. The cardiomediastinal silhouette is normal. Lungs are underinflated but clear. No evidence of pleural effusion or pneumothorax. IMPRESSION: No acute chest disease. ACT 112: Negative or not required by law. Electronically signed by: Bryan Taylor M.D. 03/14/2021 9:52 PM MDM Narrative Prior records/ancillary studies reviewed and summarized above. Nursing notes reviewed. Additional history obtained from family. The patient's history was concerning for altered mental status. Differential diagnosis: Etiologies such as metabolic, infection, hypoglycemia, electrolyte abnormalities, cardiac sources, intracerebral event, toxicologic, neurologic, as well as others were entertained. Physical examination: As above. ER treatment provided: IV Lock Normal saline hydration at IV fluids, Ativan, Rocephin. An order was placed for continuous cardiac monitoring. The monitor shows a rate of 60-1 50 with a sinus rhythm. Patient was observed On reassessment the patients mental status improved. Diagnostics interpretation by me: ECG: Ordered for possible overdose EKG: Normal sinus, normal intervals, no acute ST-T wave changes. Impression normal sinus rhythm interpreted by myself I think arrhythmia is unlikely. EKG shows normal sinus rhythm with no interval abnormalities such as QT prolongation or WPW. There are no findings to suggest Brugada syndrome. Cardiac monitoring in the emergency department reveals no tachycardic or bradycardic dysrhythmia. Hypertrophic cardiomyopathy was considered but there are no clear historical elements pointing toward this. EKG is not suggestive. The QRS voltage is not extremely large and there are no suggestive Q waves. The labs revealed leukocytosis, urine concerning for infection sent for culture Negative drug screen negative prolactin Imaging studies: CT was negative per radiology Given the above diagnostic work-up and treatment, this episode appears to be consistent with possible overdose of Ativan but patient was not lethargic. She was able to follow commands. Patient does have a UTI. The history is inconsistent. The mother is concerned she keeps on having seizures. Patient is able to follow commands but sometimes does not answer me. She was better after the Ativan. Medicine was consulted. She will be admitted. Further treatment will be required. Consultation: A consultation was placed with the hospitalist. The case was discussed and diagnostics were reviewed. The patient was evaluated in the ER for further treatment. The chart was completed utilizing [employer] Speech voice recognition software. Grammatical errors, random word insertions, pronoun errors, and incomplete sentences are an occassional consequence of this system due to software limitations, ambient noise, and hardware issues. Any formal questions or concerns about the content, text, or information contained within the body of this dictation should be directly addressed to the physician personal injury legal assistant for clarification. Impression & Plan Altered mental status, UTI (urinary tract infection) Discharge Plan Visit Data Chief Complaint: Altered Mental Status Stated Complaint: AMS ED Provider: Alber Reilly ED Midlevel Provider: Luisa Rose Discharge Problem: Altered mental status, UTI (urinary tract infection) Patient Disposition: Admitted As Inpatient Condition: Good Forms Stand Alone Forms: My [employer] Prescriptions Prescriptions: No Action levetiracetam 1,000 mg tablet 1,000 mg PO BID RF: 0 levetiracetam 250 mg tablet 500 mg PO BID RF: 0 lorazepam 2 mg tablet 2 mg PO Q6H PRN (Reason: cluster seizure) RF: 0 clobazam 10 mg tablet 40 mg PO AMPM RF: 0 Fycompa 4 mg tablet 4 mg PO HS RF: 0 topiramate 200 mg tablet 200 mg PO BID RF: 0 magnesium oxide 400 mg magnesium capsule 400 mg PO BID RF: 0 sumatriptan succinate 100 mg tablet 50 - 100 mg PO UD PRN (Reason: Headache) RF: 0 ondansetron HCl 8 mg tablet 8 mg PO .EVERY 4-6 HRS PRN (Reason: head pain and nausea) RF: 0 diclofenac potassium 50 mg tablet 50 mg PO UD MDD 3 tabs PRN (Reason: head pain) RF: 0 diclofenac sodium [Voltaren] 1 % Gel 2 g TOPICAL QID RF: 0 riboflavin (vitamin B2) 400 mg Tablet 400 mg PO DAILY RF: 0 Narcan 4 mg/actuation spray,non-aerosol 1 spray INTRANASAL UD PRN (Reason: opiod overdose) RF: 0 Xcopri Titration Pack 12.5 mg (14)- 25 mg (14) tablets,dose pack 1 ea PO UD RF: 0 Xcopri Titration Pack 50 mg (14)- 100 mg (14) tablets,dose pack 1 ea PO UD RF: 0 Xcopri Titration Pack 150 mg (14)- 200 mg (14) tablets,dose pack 1 ea PO UD RF: 0 Referrals Referrals: Nely Solorio, [Primary Care Provider] -
[2021-03-15] MEDS ORDERED: LORazepam 1 MG/2 ML VIAL IV PRN (07:03)
--- NOTE | 2021-03-15 07:14 | CT Scan Report ---
CT SCAN OF THE BRAIN WITHOUT IV CONTRAST CLINICAL HISTORY: Change in mental status. COMPARISON STUDY: CT of the brain dated 02/11/2021. TECHNIQUE: Unenhanced axial CT scan of the brain is performed from the vertex to the skull base. A d ose lowering technique was utilized adhering to the principles of ALARA. CT DOSE: 614.27 mGy.cm FINDINGS: Brain parenchyma: The brain parenchyma is normal in appearance. There is no hemorrhage, mass effect, or evidence of acute territorial ischemia by CT criteria. Moise-white matter differentiation is preser stefany. A punctate colloid cyst is noted at the roof of the third ventricle. No extra-axial fluid collec tion is seen. Ventricles, sulci, cisterns: Normal in configuration. Intracranial vasculature: The visualized intracranial vasculature at the skull base is normal in appe arance. Calvarium: Unremarkable. Sinuses and mastoids: The visualized paranasal sinuses are clear. The mastoid air cells are well pneu matized. Orbits: The bony orbits are grossly intact. IMPRESSION: No acute intracranial abnormality. ACT 112: Negative or not required by law. Electronically signed by: Wale Lockett M.D. 03/15/2021 7:13 AM
[2021-03-15] MEDS ORDERED: levETIRAcetam 500 MG TAB PO SCH (09:00)
[2021-03-15] MEDS ORDERED: NON-FORMULARY MEDICATION (Riboflavin (Vitamin B2) 400 mg Tablet) PO SCH (09:00)
[2021-03-15] MEDS: MAGNESIUM OXIDE 400 MG TAB PO SCH ×2 (09:11→20:43)
[2021-03-15] MEDS: levETIRAcetam 500 MG TAB PO SCH ×2 (09:11→20:44)
[2021-03-15] MEDS: TOPIRAMATE 100 MG TAB PO SCH ×2 (09:11→20:42)
--- NOTE | 2021-03-15 14:48 | Hospitalist Progress Note ---
Date of Service March 15, 2021 Assessment & Plan (1) Breakthrough seizure: Plan: (1) Epilepsy: - per Neuro service, transfer to [facility] due to complexity of case, patient follows with [facility] as well -Discussed with [facility] neurologist Dr. Danielle, recommend to continue patient's usual antiepileptic regimen, give IV Ativan as needed for breakthrough seizure Accepted for transfer to [facility] (2) possible UTI (urinary tract infection): Plan: Urinalysis showed positive WBCs, leukocyte Estrace, but positive for many epithelial cells and negative for bacteria Blood culture and urine culture pending Was given IV ceftriaxone 2 g 1 dose at the ER Discussed with neurology service here at [facility], UTI unlikely contributing to patient's presentation, recommend to DC antibiotics as it can lower seizure threshold Monitor closely, follow-up final blood and urine cultures results drawn from [facility] (3) Leukocytosis: Plan: From seizure episode versus UTI Monitor (4) questionable suicidal ideation Apparently, per ER history, patient took Ativan to harm herself Patient adamantly denies any depression or suicidal ideation Psych liaison AYDEN Bernal evaluated the patient, does not feel patient has suicidal ideation or depression Recommend to discontinue one-to-one observation Monitor closely (4) DVT prophylaxis: Plan: Lovenox Disposition Transfer to [facility] today for further evaluation and management plan of care discussed with patient in detail and at length all questions answered She is understanding, agreeable, comfortable with the plan of care Admission and Anticipated Discharge Date Admission Date: March 15, 2021 Subjective ff up for breakthrough seizure, etc seen with AYDEN Jimenez at bedside throughout whole encounter seen sitting up, comfortable, oriented x 3, answers questions appropriately pleasant states she feels better this morning no recurrence of any seizure as per patient, none observed per 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 operations manager has chronic back pain from seizures spells reports left side of the tongue pain from seizure denies headache, dizziness, chest pain, cough, palpitations, abdominal pain ,nausea/vomiting, diarrhea no other symptoms Review of Systems Review of Systems: all noted and negative except for above Physical Exam Physical Exam: General- oriented x 3, not in distress, speaks in sentences with no effort or accessory muscle use Head- atraumatic Eyes- PERRL, EOMI, anicteric ENT- oropharynx clear tongue- left lateral side- small bite wound, no bleeding Neck- supple, no JVD, no adenopathy, no thyromegaly; carotids +2/2, no bruits appreciated Lungs- clear to auscultation bilaterally, no rales/wheezes Heart- normal rate, regular rhythm; no murmur, no gallop, no rub appreciated Abdomen- normal bowel sounds, nondistended, soft, nontender, no masses or hepatosplenomegaly (+) mild Left cVA tenderness Extremities- no pretibial edema, no calf tenderness; peripheral pulses intact Neuro- alert, oriented x 3; CN 2-12 grossly intact; motor 5/5 bilaterally;sensation 100% on all extremities; no other gross focal neurologic deficits Skin- warm & dry Psych- pleasant mood, smiling, normal affect Results & Data Results & Data ([facility]) Vital Signs (Past 12 Hours) Vital Signs Temp Pulse Pulse Resp BP BP Pulse Ox 03/15/21 11:18 37.0 C 78 18 113/73 95 03/15/21 10:18 03/15/21 07:36 84 03/15/21 07:05 36.7 C 69 18 126/84 97 03/15/21 06:00 80 18 119/71 98 03/15/21 05:00 68 20 117/69 95 03/15/21 04:00 77 22 117/66 95 03/15/21 03:00 90 14 117/71 96 Pulse Ox 03/15/21 11:18 03/15/21 10:18 95 03/15/21 07:36 03/15/21 07:05 03/15/21 06:00 03/15/21 05:00 03/15/21 04:00 03/15/21 03:00 all noted and reviewed including below
--- NOTE | 2021-03-15 14:52 | Neurology Consultation ---
Date of Consultation March 15, 2021 Assessment & Plan (1) Breakthrough seizure: 1. continue current medications and dosing- use IV Ativan for breakthrough seizure 2. VNS setting was increased at last neurology visit in [place] 3. Continue Keppra 1500 mg q 12 hours 4. continue perampanel 4 mg at bedtime 5. continue topiramate 200 mg twice daily 6. ativan prn rescue 7. continue Onfi 40 mg twice daily 8. Cenobamate titration as directed 9. her home meds which her mother brought to the hospital should be transferred with her to [place]- pending bed availability 10. she will continue to follow with [place] for further recommendations 11. would stop antibiotics WBC due to seizure events- not febrile 12. lab pending- Lamictal, Keppra, topiramate (2) Altered mental status: (3) Epilepsy: Supervising Physician Co-Signing Physician Notes I have seen and discussed above patient with Dr Kendy Bruno, neurology The patient was seen and examined I reviewed her lab work as well as her CT of the head. I also reviewed her outpatient neurology note dated 02/14/2021. The patient had presumed to several unwitnessed seizures yesterday. It does not sound as if she fell out of bed but she lacerated her tongue. Her mother was concerned and came to her home. The patient denies illness or that she has been noncompliant with medications. She did indicate that she took several Ativan prior to the seizures although it is interesting that on her tox screen no benzodiazepines were identified. On a prior ER visit in January her Topamax level was 0.5 and her Keppra level was 1 this may suggest some element in the past of noncompliance When the patient was seen last her VNS was reprogrammed. She had an increase in the dose of her Onfi and was given a titration of Xcopri. She notes no adverse effects including sedation or mood related changes. She notes mild dysarthria since she bit her tongue with the seizure. The patient is awake and alert mild dysarthria related to tongue laceration normal extraocular motility facial symmetry. 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 Refractory to multiple medications. Breakthrough seizure. Given that tox screen was negative for benzodiazepines which the patient took on the prior to the seizure raises the question of some noncompliance. Continue home meds and ask appropriate dose titration transfer to [facility] when bed available, apparently 1 is currently available. By report the patient refused DBS or RNS. Defer to their higher level of care with ability to monitor and epileptologist service. Kendy Bruno MD History of Present Illness Reason for Consultation: breakthrough seizure Requesting Physician: Jassi Duque MD Attending Physician: Jassi Duque MD History of Present Illness She starting having break through seizures yesterday morning including a grand mal followed by confusion which she is reporting as multiple intermittent petit mal seizures. Her mom lives in [place] and came to her apartment because she was concerned she was having seizures. She is on numerous antiepileptic medications including cenobamate which she is titrating up currently, clobazam 40mg BID, Keppra 1500mg BID, Fycompa 4mg nightly, and topiramate 200mg BID. She is followed by [facility] because of her complex seizure history and was last seen in early Feb 21. She was given Ativan 1 mg in the ER, started on abx for ?UTI. Her tox screen does not show benzo which she reported took at home. she was also given an additional 1 gram of Keppra. She states she is compliant with her meds. She also has a conversion disorder and mentioned something to the nurse about intentionally overdosing on Ativan today. but as above the tox screen was negative for benzos. 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 She appears lethargic but she is cooperative. denies CP, SOB, abdominal pain, + back pain (which is chronic), did not fall this time was in her bed but did lacerate her tongue, no loss of bowel or bladder Allergies Allergy/AdvReac Type Severity Reaction Status Date / Time Iodinated Contrast Media Allergy Unknown Hives Verified 03/14/21 22:10 Home Medications Medication Instructions Recorded Confirmed Type levetiracetam 1,000 mg tablet 1,000 mg PO BID 04/18/19 03/15/21 History levetiracetam 250 mg tablet 500 mg PO BID 08/15/19 03/15/21 History clobazam 10 mg tablet 40 mg PO AMPM 12/24/20 03/15/21 History lorazepam 2 mg tablet 2 mg PO Q6H PRN 12/24/20 03/15/21 History magnesium oxide 400 mg PO BID 12/24/20 03/15/21 History perampanel 4 mg tablet (Fycompa) 4 mg PO HS 12/24/20 03/15/21 History topiramate 200 mg tablet 200 mg PO BID 12/24/20 03/15/21 History cenobamate 12.5 mg (14)-25 mg (14) 1 ea PO UD 03/14/21 03/15/21 History tablets in a dose pack (Xcopri Titration Pack) cenobamate 150 mg (14)-200 mg (14) 1 ea PO UD 03/14/21 03/15/21 History tablets in a dose pack (Xcopri Titration Pack) cenobamate 50 mg (14)-100 mg (14) 1 ea PO UD 03/14/21 03/15/21 History tablets in a dose pack (Xcopri Titration Pack) diclofenac potassium 50 mg tablet 50 mg PO UD PRN MDD 3 tabs 03/14/21 03/15/21 History diclofenac sodium 1 % topical gel 2 g TOPICAL QID 03/14/21 03/15/21 History naloxone 4 mg/actuation nasal 1 spray INTRANASAL UD PRN 03/14/21 03/15/21 History spray (Narcan) ondansetron HCl 8 mg tablet 8 mg PO .EVERY 4-6 HRS PRN 03/14/21 03/15/21 History riboflavin (vitamin B2) 400 mg 400 mg PO DAILY 03/14/21 03/15/21 History tablet sumatriptan succinate 100 mg tablet 50 - 100 mg PO UD PRN 03/14/21 03/15/21 History Patient History Medical History Adverse drug effect Closed dislocation of right ankle Closed fracture of ankle, trimalleolar Contusion of both upper extremities Conversion disorder Dehydration Fall Open wound of tongue due to bite Seizure Seizures Surgical History History of ankle surgery (~08/2019) Family History Mother Breast cancer Grandmother Cancer Grandfather Cancer Father Diabetes Hypertension Other No pertinent family history in first degree relatives Social History Smoking Status: Never smoker Hx Alcohol Use: No Hx Substance Use: No Preferred Language: Amharic Communication Ability: Effective Beliefs That Will Affect Care: None marital status: Single Current Living Situation: Alone current occupational status: employed 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 Feels Safe at Home: Yes Assistive Devices: None Review of Systems Review of Systems: All systems reviewed & are unremarkable except as noted in HPI & below Physical Exam Physical Exam: Physical Exam: Constitutional: appearance over nourished, healthy and normal Ears, Nose, Mouth and Throat: mucous membranes moist, no injection and skin normal, eyes normal, tongue right side laceration Cardiovascular: normal S-1 and S-2 and regular rate and rhythm Respiratory: course breath sounds Musculoskeletal: no peripheral edema and good distal pulses Skin: no stigmata of neurocutaneous disease noted and normal and intact Eyes: extraocular muscles intact (EOMI) and pupils equal, round and reactive to light (PERRL), rhythmic fluttering of her eyes NEUROLOGIC EXAMINATION: Mental status: Alert and interactive Oriented to full date and location Oriented to person Speech fluent with no evidence of aphasia Cranial Nerves smile eye brow raise symmetric Reflexes: Deep tendon reflexes were symmetrical and graded 2/5. Sensory: light cool and vibration intact Coordination: Romberg absent Gait/Stance: Posture normal lying in bed Motor: Negative for pronator drift of out stretched arms with eyes closed. Strength: hand senior research scientist biceps triceps bilaterally 5/5. hip flex patellar/plantar flex ext bilaterally 5/5 Results & Data ([place]) Vital Signs (Past 12 Hours) Vital Signs Temp Pulse Pulse Resp BP BP Pulse Ox 03/15/21 11:18 37.0 C 78 18 113/73 95 03/15/21 10:18 03/15/21 07:36 84 03/15/21 07:05 36.7 C 69 18 126/84 97 03/15/21 06:00 80 18 119/71 98 03/15/21 05:00 68 20 117/69 95 03/15/21 04:00 77 22 117/66 95 03/15/21 03:00 90 14 117/71 96 Pulse Ox 03/15/21 11:18 03/15/21 10:18 95 03/15/21 07:36 03/15/21 07:05 03/15/21 06:00 03/15/21 05:00 03/15/21 04:00 03/15/21 03:00 Laboratory Results Abnormal lab results 03/14/21 03/14/21 03/14/21 Range/Units 22:15 22:15 22:15 WBC 17.38 H (4.8-10.8) K/uL MPV 10.5 H (7.4-10.4) fL Neut # (Auto) 15.21 H (1.4-6.5) K/uL [place] # (Auto) 0.64 H (0.11-0.59) K/uL Immature Gran # (Auto) 0.06 H (0.00-0.02) K/uL Chloride 112 H (98-107) mmol/L BUN 6 L (7-18) mg/dl BUN/Creatinine Ratio 7.7 L (10-20) Glucose 115 H (70-99) mg/dl Calcium 8.2 L (8.5-10.1) mg/dl AST 12 L (15-37) U/L Albumin 3.2 L (3.4-5.0) gm/dl Albumin/Globulin Ratio 0.8 L (0.9-2) Urine Appearance (Clear) Urine Protein (Negative) Urine Ketones (Negative) Urine Blood (Negative) Ur Leukocyte Esterase (Negative) Urine WBC (Auto) (0-5) /hpf Urine RBC (Auto) (0-4) /hpf U Hyaline Cast (Auto) (0-5) /lpf U Epithel Cells (Auto) (0-5) /lpf Granular Casts (0) /lpf Salicylates < 1.7 L (2.8-20) mg/dl Acetaminophen < 2 L (10-30) ug/ml 03/14/21 Range/Units 22:50 WBC (4.8-10.8) K/uL MPV (7.4-10.4) fL Neut # (Auto) (1.4-6.5) K/uL [place] # (Auto) (0.11-0.59) K/uL Immature Gran # (Auto) (0.00-0.02) K/uL Chloride (98-107) mmol/L BUN (7-18) mg/dl BUN/Creatinine Ratio (10-20) Glucose (70-99) mg/dl Calcium (8.5-10.1) mg/dl AST (15-37) U/L Albumin (3.4-5.0) gm/dl Albumin/Globulin Ratio (0.9-2) Urine Appearance Turbid A (Clear) Urine Protein Trace H (Negative) Urine Ketones 3+ H (Negative) Urine Blood 3+ H (Negative) Ur Leukocyte Esterase 2+ H (Negative) Urine WBC (Auto) 10-30 H (0-5) /hpf Urine RBC (Auto) >30 H (0-4) /hpf U Hyaline Cast (Auto) 10-30 H (0-5) /lpf U Epithel Cells (Auto) >30 H (0-5) /lpf Granular Casts 10-20 H (0) /lpf Salicylates (2.8-20) mg/dl Acetaminophen (10-30) ug/ml Diagnostic Findings CXR-o lines and tubes are seen. The cardiomediastinal silhouette is normal. Lung s are underinflated but clear. No evidence of pleural effusion or pneumothorax. CT head-No acute intracranial abnormality. EEG-This is an abnormal drowsy routine EEG due to 1. Generalized spike and wave discharge consistent with known history of primary generalized epilepsy, 2. intermittent mild generalized slowing suggestive of a nonspecific encephalopathy. No electrographic seizures are recorded. Increased. beta activity is a normal variant and can be seen as a medication side effect, i.e. benzodiazepines (1) Altered mental status Altered mental status type: unspecified Qualified Code(s): R41.82 - Altered mental status, unspecified
--- NOTE | 2021-03-15 15:06 | Electroencephalogram ---
EEG Procedure Note Date of Service March 15, 2021 Start / End Times Start Time: 12:29 End Time: 12:[address] Rhiannon Pizarro, DO History A 35-year-old female with known primary generalized epilepsy admitted with suspected breakthrough seizure. EEG performed for evaluation epileptiform activity. Home Medication List Medication Instructions Recorded Confirmed Type levetiracetam 1,000 mg tablet 1,000 mg PO BID 04/18/19 03/15/21 History levetiracetam 250 mg tablet 500 mg PO BID 08/15/19 03/15/21 History clobazam 10 mg tablet 40 mg PO AMPM 12/24/20 03/15/21 History lorazepam 2 mg tablet 2 mg PO Q6H PRN 12/24/20 03/15/21 History magnesium oxide 400 mg PO BID 12/24/20 03/15/21 History perampanel 4 mg tablet (Fycompa) 4 mg PO HS 12/24/20 03/15/21 History topiramate 200 mg tablet 200 mg PO BID 12/24/20 03/15/21 History cenobamate 12.5 mg (14)-25 mg (14) 1 ea PO UD 03/14/21 03/15/21 History tablets in a dose pack (Xcopri Titration Pack) cenobamate 150 mg (14)-200 mg (14) 1 ea PO UD 03/14/21 03/15/21 History tablets in a dose pack (Xcopri Titration Pack) cenobamate 50 mg (14)-100 mg (14) 1 ea PO UD 03/14/21 03/15/21 History tablets in a dose pack (Xcopri Titration Pack) diclofenac potassium 50 mg tablet 50 mg PO UD PRN MDD 3 tabs 03/14/21 03/15/21 History diclofenac sodium 1 % topical gel 2 g TOPICAL QID 03/14/21 03/15/21 History naloxone 4 mg/actuation nasal 1 spray INTRANASAL UD PRN 03/14/21 03/15/21 His tory spray (Narcan) ondansetron HCl 8 mg tablet 8 mg PO .EVERY 4-6 HRS PRN 03/14/21 03/15/21 History riboflavin (vitamin B2) 400 mg 400 mg PO DAILY 03/14/21 03/15/21 History tablet sumatriptan succinate 100 mg tablet 50 - 100 mg PO UD PRN 03/14/21 03/15/21 History Inpatient Medication List Levetiracetam (Levetiracetam 500 Mg Tab) 1,500 mg PO BID SATISH Stop: 04/14/21 08:59 Last Admin: 03/15/21 09:11 Dose: 1,500 mg Documented by: [id number] Magnesium Oxide (Magnesium Oxide 400 Mg Tab) 400 mg PO BID SATISH Stop: 04/14/21 08:59 Last Admin: 03/15/21 09:11 Dose: 400 mg Documented by: [id number] Topiramate (Topiramate 100 Mg Tab) 200 mg PO BID SATISH Stop: 04/14/21 08:59 Last Admin: 03/15/21 09:11 Dose: 200 mg Documented by: [id number] Discontinued Medications Sodium Chloride (Nss 1000ml) 1,000 mls @ 999 mls/hr IV .Q1H1M SATISH Stop: 03/14/21 22:45 Last Infusion: 03/15/21 00:01 Dose: 0 mls/hr Documented by: [id number] Admin: 03/14/21 22:43 Dose: 999 mls/hr Documented by: [id number] Sodium Chloride (Nss 1000ml) 1,000 mls @ 999 mls/hr IV .Q1H1M ONE Stop: 03/14/21 22:47 Last Infusion: 03/15/21 00:00 Dose: 0 mls/hr Documented by: [id number] Admin: 03/14/21 22:43 Dose: 999 mls/hr Documented by: [id number] Lactated Ringer's (Lr) 1,000 mls @ 999 mls/hr IV .Q1H1M ONE Stop: 03/14/21 23:58 Last Infusion: 03/15/21 01:02 Dose: 0 mls/hr Documented by: [id number] Admin: 03/15/21 00:00 Dose: 999 mls/hr Documented by: [id number] Ceftriaxone Sodium (Rocephin) 2,000 mg in 70 mls @ 140 mls/hr IV NOW STA Stop: 03/15/21 00:05 Last Infusion: 03/15/21 00:56 Dose: 0 mls/hr Documented by: [id number] Admin: 03/15/21 00:00 Dose: 140 mls/hr Documented by: [id number] Lorazepam (Ativan) 1 mg in 2 mls @ 2 mls/min IV NOW STA Stop: 03/15/21 01:03 Last Admin: 03/15/21 01:09 Dose: 2 mls/min Documented by: [id number] Levetiracetam 1,000 mg/ Sodium (Chloride) 110 mls @ 440 mls/hr IV NOW STA Stop: 03/15/21 03:22 Last Infusion: 03/15/21 03:41 Dose: 0 mls/hr Documented by: [id number] Admin: 03/15/21 03:26 Dose: 440 mls/hr Documented by: [id number] Description This is a 21 electrode EEG with a single channel dedicated to limited EKG. The electrodes were placed in accordance with the International 10-20 system. REPORT: At the onset of the EEG the patient is drowsy. The background is symmetric. The posterior dominant rhythm is 9 Hz. The background predominantly consisted of 5-7 Hz theta activity with some intermixed low amplitude beta activity throughout. No stage 2 sleep transients are recorded. There is some intermixed 1-2 second burst of 2-3 Hz delta activity. There is 1 generalized spike and wave discharge seen near the end of the study. No electrographic seizures are recorded. Interpretation IMPRESSION: This is an abnormal drowsy routine EEG due to 1. Generalized spike and wave discharge consistent with known history of primary generalized epilepsy, 2. intermittent mild generalized slowing suggestive of a nonspecific encephalopathy. No electrographic seizures are recorded. Increased. beta activity is a normal variant and can be seen as a medication side effect, i.e. benzodiazepines
--- NOTE | 2021-03-15 15:29 | Discharge Summary ---
Date of Service March 15, 2021 Admission HPI Per Admitting Provider The patient is a 35-year-old female with a history of epilepsy since age 14 who presented to the hospital after reporting multiple seizures today. She was recently seen by her neurologist as outpatient in early February with a few medication changes. She reported feeling well on these changes and states this seizure is the first breakthrough seizure since the change. It is difficult to gather a history from her, because she has a delayed response time in answering. She appears to stare into space but then will come back and having clearly received the information correctly, will be able to appropriately answer the question. She appears to have some apathy and answering questions and is not elaborating into detail. Most answers are yes and no or agreeing with what is said. When asked if she is depressed or if she had any intention of hurting herself, she said no. Per the ER medical provider, there was concern she might have deliberately taken too much medication. The patient reported to me she lives alone and doses herself with her medications without assistance. She seemed to recall the correct frequency and doses of medications when asked. However, when her mother entered the room she deferred to her on doses and strategies. It is questionable if she is compliant with medications and certainly does not know if she had her evening meds or morning meds during the last 24-hour. She reports waking up and while lying in bed had a grand mal seizure. This was subsequently followed by petit mall seizures that were intermittent throughout the day. When asked how she knows the difference, she reports that with the grand mal type she will shake and with petit mal (absence seizure) she will not. These events were unwitnessed. As a result of her seizures she subsequently reports taking 6-7 Ativan tablets. When asked what dose Ativan tablet she took I had to offer a questionable 1 mg to which she confirmed. However, per her records she is prescribed 2 mg dose tablets. Mother was helpful in stating that in 20 years of epilepsy she is never heard her daughter have delayed response time that she is currently exhibiting. Mother is also concerned that the patient is flipping into and out of absence seizure's and is questioning if she should have more medication at this time. The difficulty is that the patient is able to understand the question being asked during her's staring spell. She is also very tired and needs to in the morning. She has had little sleep. Review of systems is positive for "pain all over". She denies any recent illness. She denies any dysuria, urinary urgency or incontinence. She denies any fevers, chills, chest pain or other shortness of breath or other symptoms. She denies any suicidal ideations or thoughts to hurt herself. She denies any depression symptoms. She denies any stress in her life. She denies any drug use or other substance use including no alcohol. She does have a history of conversion disorder. She also has a history of migraines and uses Topamax for seizures, not migraine prophylaxis. Currently denies headache. Admission Exam (Per Admitting) Constitutional CONSTITUTIONAL: WNWD, vitals as above, generally ill-appearing, NAD, fatigued. EYES: EOMI bilaterally, PERRL, normal conjunctivae, no scleral icterus ENT: external ear and nose normal, oropharynx clear, MMM NECK: trachea midline RESPIRATORY: clear to auscultation bilaterally, no crackles, rales or wheezes, normal respiratory effort CARDIOVASCULAR: regular rate and rhythm, S1 and 2 heard without murmurs, gallops or rubs, no JVD, no peripheral edema GASTROINTESTINAL: soft, nontender, ND, no guarding MUSCULOSKELETAL: strength 5/5 throughout, head is normocephalic and atraumatic SKIN: warm and dry NEUROLOGIC: No facial palsy, no dysarthria. Touch, pain and proprioception normal. CN 2-12 grossly intact, no sensory deficit, normal cognition, normal speech, no tremor. Eyes do twitch but there is no clear, consistent nystagmus. Patient is able to receive information in the form of questions while eyes are twitching or she appears to be staring off into space and she is able to appropriately answer the question asked. PSYCHIATRIC: alert, sppears somewhat reluctant to cooperate with questions and exam, although does. ?apathy. Oriented to person, place and time. Language intact Discharge Data Consultations 03/15/21 00:42 ED Decision to Admit Stat 03/15/21 03:10 Consult Neurology Routine Procedures Performed CT SCAN OF THE BRAIN WITHOUT IV CONTRAST CLINICAL HISTORY: Change in mental status. COMPARISON STUDY: CT of the brain dated 02/11/2021. TECHNIQUE: Unenhanced axial CT scan of the brain is performed from the vertex to the skull base. A dose lowering technique was utilized adhering to the principles of ALARA. CT DOSE: 614.27 mGy.cm FINDINGS: Brain parenchyma: The brain parenchyma is normal in appearance. There is no hemorrhage, mass effect, or evidence of acute territorial ischemia by CT criteria. Moise-white matter differentiation is preserved. A punctate colloid cyst is noted at the roof of the third ventricle. No extra-axial fluid collection is seen. Ventricles, sulci, cisterns: Normal in configuration. Intracranial vasculature: The visualized intracranial vasculature at the skull base is normal in appearance. Calvarium: Unremarkable. Sinuses and mastoids: The visualized paranasal sinuses are clear. The mastoid air cells are well pneumatized. Orbits: The bony orbits are grossly intact. IMPRESSION: No acute intracranial abnormality. ACT 112: Negative or not required by law. XR chest 1V portable INDICATION: MN ^ams. TECHNIQUE: Single frontal radiograph of the chest was obtained. Comparison: Comparison is made to chest one view 08/15/2019 FINDINGS: No lines and tubes are seen. The cardiomediastinal silhouette is normal. Lungs are underinflated but clear. No evidence of pleural effusion or pneumothorax. IMPRESSION: No acute chest disease. ACT 112: Negative or not required by law. Hospital Course (1) Breakthrough seizure: (1) Epilepsy: - per Neuro service, transfer to [facility] due to complexity of case, patient follows with [facility] Neuro Service as well -Discussed with [facility] neurologist Dr. Danielle, recommend to continue patient's usual antiepileptic regimen, give IV Ativan as needed for breakthrough seizure Accepted for transfer to [facility] (2) possible UTI (urinary tract infection): Plan: Urinalysis showed positive WBCs, leukocyte Estrace, but positive for many epithelial cells and negative for bacteria Blood culture and urine culture pending Was given IV ceftriaxone 2 g 1 dose at the ER Discussed with neurology service here at [facility], UTI unlikely contributing to patient's presentation, recommend to DC antibiotics as it can lower seizure threshold Monitor closely, follow-up final blood and urine cultures results drawn from [facility] (3) Leukocytosis: Plan: From seizure episode versus UTI Monitor (4) questionable suicidal ideation Apparently, per ER history, patient took Ativan to harm herself Patient adamantly denies any depression or suicidal ideation Psych liaison AYDEN Bernal evaluated the patient, does not feel patient has suicidal ideation or depression Recommend to discontinue one-to-one observation Monitor closely (4) DVT prophylaxis: Plan: Lovenox Disposition Transfer to [facility] today for further evaluation and management plan of care discussed with patient in detail and at length all questions answered She is understanding, agreeable, comfortable with the plan of care
[2021-03-15] MEDS ORDERED: cefTRIAXone SODIUM 2,000 MG in DEXTROSE 5% 50 ML IV SCH (21:00)
[2021-03-15] MEDS: CLOBAZAM PO SCH (21:59)
[2021-03-15] MEDS: ACETAMINOPHEN 325 MG TAB PO PRN (22:06)
--- NOTE | 2021-03-15 22:24 | Electrocardiogram Report ---
Test Reason : Blood Pressure : / mmHG Vent. Rate : 070 BPM Atrial Rate : 070 BPM P-R Int : 144 ms QRS Dur : 082 ms QT Int : 420 ms P-R-T Axes : 068 073 049 degrees QTc Int : 453 ms Normal sinus rhythm with sinus arrhythmia Normal ECG When compared with ECG of 10-FEB-2021 22:15, Vent. rate has decreased BY 37 BPM Confirmed by Alex Verdin ([id number]) on 03/15/2021 10:24:35 PM Referred By: REFERRED SELF Confirmed By:Alex Verdin
--- NOTE | 2021-03-15 22:29 | Electrocardiogram Report ---
Test Reason : Blood Pressure : / mmHG Vent. Rate : 129 BPM Atrial Rate : 129 BPM P-R Int : 130 ms QRS Dur : 074 ms QT Int : 314 ms P-R-T Axes : 062 100 039 degrees QTc Int : 460 ms Sinus tachycardia Rightward axis Abnormal ECG When compared with ECG of 14-MAR-2021 22:40, Vent. rate has increased BY 59 BPM Confirmed by Alex Verdin ([id number]) on 03/15/2021 10:28:34 PM Referred By: REFERRED SELF Confirmed By:Alex Verdin
[2021-03-16 07:17] LABS: Hematocrit (blood only) 39.8 % (37-47); Hemoglobin 12.7 g/dL (12.0-16.0); Mean Corpuscular Hemoglobin 27.5 pg (25-34); Mean Corpuscular Hgb Conc 31.9 g/dL (32-36); Mean Corpuscular Volume 86.1 fL (80-100); Mean Platelet Volume 10.9 fL (7.4-10.4); Platelet Count 202 K/uL (130-400); RDW Coefficient of Variation 13.8 % (11.5-14.5); RDW Standard Deviation 43.6 fL (36.4-46.3); Red Blood Count 4.62 M/uL (4.2-5.4)
[2021-03-16 07:33] LABS: BUN Creatinine Ratio 4.9 (10-20); Calcium 8.4 mg/dl (8.5-10.1); Creatinine Clr Calc Pharmacy 101.8 ml/min; Est GFR (African American) 100.1 ml/min; Est GFR (Non-African American) 86.3 ml/min; Potassium 4.1 mmol/L (3.5-5.1)
[2021-03-16] MEDS: MAGNESIUM OXIDE 400 MG TAB PO SCH ×2 (08:13→21:44)
[2021-03-16] MEDS: TOPIRAMATE 100 MG TAB PO SCH ×2 (08:14→21:45)
[2021-03-16] MEDS: levETIRAcetam 500 MG TAB PO SCH ×2 (08:14→21:46)
[2021-03-16] MEDS: CLOBAZAM PO SCH ×2 (08:14→21:47)
[2021-03-16] MEDS: ACETAMINOPHEN 325 MG TAB PO PRN (08:22)
--- NOTE | 2021-03-16 11:23 | Progress Notes ---
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 She has not had any seizures at night. Her EKG was notable for a generalized spike and wave discharge consistent with a known history of primary generalized epilepsy, intermittent mild generalized slowing suggestive of a nonspecific encephalopathy. No electrographic seizures are recorded. Increased beta activity, which can be a side effect of benzodiazepine. The patient's Lamictal and Topamax levels are pending, but are likely send outs. The patient notes since the seizure prior to admission, she has some upper thoracic back pain, which is modestly severe. She has a history of a prior thoracic compression fracture from a seizure. She notes no new weakness or numbness. OBJECTIVE: On exam, she is awake and alert. There is minor dysarthria, which I believe is related to her tongue laceration. There is normal extraocular motility and facial symmetry. There is no upper extremity drift. Lower extremities are symmetric. Gdybea-pg-mofy is without significant tremor. moderate upper thoracic spinal tenderness is noted. No deformity noted. Trunk sensation intact to LT IMPRESSION AND PLAN: 1. Medically intractable primary generalized epilepsy: Continue current anticonvulsants and escalation of cenobamate. My understanding is that the patient should be transferred today to [facility] for adjustments of anticonvulsants. I spoke to Dr. Duque about having the patient on seizure precautions. 2. Thoracic pain post-seizure: Thoracic x-ray ordered to rule out compression fracture. We will sign off. Job ID: [id number] [facility]
--- NOTE | 2021-03-16 11:34 | XRay Report ---
XR thoracic spine 3V routine INDICATION: MN ^sz with upper thoracic back pain, hx prior T fx. TECHNIQUE: 2 views of the thoracic spine were obtained. Comparison: Comparison is made to x-ray thoracic spine 06/23/2020 FINDINGS: Redemonstration of multilevel compression fractures in the thoracic spine, unchanged from prior exam. Degenerative changes are seen in the lumbar spine Alignment appears unremarkable. Multiple gas-dist ended bowel loops are noted. IMPRESSION: No evidence of acute fracture. Multiple gas-distended bowel loops are seen. ACT 112: Negative or not required by law. Electronically signed by: Bryan Taylor M.D. 03/16/2021 11:33 AM
--- NOTE | 2021-03-16 14:27 | Hospitalist Progress Note ---
Date of Service March 16, 2021 Assessment & Plan (1) Breakthrough seizure: Plan: (1) Epilepsy: - per Neuro service, transfer to [facility] due to complexity of case, patient follows with [facility] Neuro Service as well -Discussed with [facility] neurologist Dr. Danielle, recommend to continue patient's usual antiepileptic regimen, give IV Ativan as needed for breakthrough seizure Accepted for transfer to [facility] Awaiting for transportation Continue usual antiseizure regimen Seizure precautions Thoracic spine x-ray: No acute fractures (2) possible UTI (urinary tract infection): Plan: Urinalysis showed positive WBCs, leukocyte Estrace, but positive for many epithelial cells and negative for bacteria Blood culture and urine culture pending Was given IV ceftriaxone 2 g 1 dose at the ER Discussed with neurology service here at [facility], UTI unlikely contributing to patient's presentation, recommend to DC antibiotics as it can lower seizure threshold Monitor closely, follow-up final blood and urine cultures results drawn from [facility] Blood culture: Negative so far Urine culture: Negative so far (3) Leukocytosis: Plan: From seizure episode versus UTI Resolved (4) questionable suicidal ideation Apparently, per ER history, patient took Ativan to harm herself Patient adamantly denies any depression or suicidal ideation Psych liaison AYDEN Bernal evaluated the patient, does not feel patient has suicidal ideation or depression Recommend to discontinue one-to-one observation Mood stable today Monitor closely (4) DVT prophylaxis: Plan: SCDs Disposition Transfer to [facility] today for further evaluation and management plan of care discussed with patient in detail and at length all questions answered She is understanding, agreeable, comfortable with the plan of care Admission and Anticipated Discharge Date Admission Date: March 15, 2021 Subjective Follow-up for breakthrough seizure, history of epilepsy, etc. Seen with AYDEN Castro at the bedside throughout all encounter Patient seen sitting up in bed, comfortable, smiling, pleasant States she feels fine overall No recurrence of seizures while admitted Has low back pain which is chronic but seems to have increased after seizure episode No abdominal pain, nausea vomiting, fevers chills, urinary symptoms No headache, dizziness, chest pain, palpitations Mood is fine, denies anxiety or depression No other symptoms Review of Systems Review of Systems: all noted and negative except for above Physical Exam Physical Exam: General- oriented x 3, not in distress, speaks in sentences with no effort or accessory muscle use Eyes- anicteric Neck- no JVD Lungs- clear to auscultation bilaterally Heart- normal rate, regular rhythm; no murmurs Abdomen- normal bowel sounds, nondistended, soft, nontender Extremities- no pretibial edema, no calf tenderness Neuro- alert, oriented x 3; no gross focal neurologic deficits Skin- warm & dry Results & Data Results & Data ([facility]) Vital Signs (Past 12 Hours) Vital Signs Temp Pulse Pulse Resp BP BP Pulse Ox 03/16/21 11:28 37.3 C 67 18 109/70 97 03/16/21 07:54 37.0 C 65 16 116/75 95 03/16/21 07:37 56 L 03/16/21 03:53 36.9 C 62 18 97/66 L 97 all noted and reviewed including below
[2021-03-16] MEDS ORDERED: FYCOMPA PO SCH (21:00)
[2021-03-17] MEDS: CLOBAZAM PO SCH (10:08)
[2021-03-17] MEDS: MAGNESIUM OXIDE 400 MG TAB PO SCH (10:08)
[2021-03-17] MEDS: TOPIRAMATE 100 MG TAB PO SCH (10:08)
[2021-03-17] MEDS: levETIRAcetam 500 MG TAB PO SCH (10:08)
--- NOTE | 2021-03-17 11:19 | Progress Notes ---
DATE OF SERVICE: 03/17/2021. SUBJECTIVE: I am seeing the patient in followup. She has a primary generalized epilepsy, which has been intractable. She has had no seizures overnight. She continues to have some upper thoracic back pain. Her plain films showed no acute fracture. OBJECTIVE: GENERAL: On exam, she is awake and alert. Her speech and language are normal and her affect is appropriate. VITAL SIGNS: Blood pressure 129/84, 69, 18, 36.9. IMPRESSION: Intractable primary generalized epilepsy. The patient is stable without seizures overnight. The patient awaits transfer through higher level of care for management of her epilepsy to [place]. Thoracic back pain, no acute fracture, treat as needed. Job ID: [id number] Discussed with Dr Shashi Rai. Pt has been stable without sz since admission. Dr Danielle communicated with pt epileptologist Dr Tripathi who recommended a soon outpt appt for the pt. MD Dar [facility]
--- NOTE | 2021-03-17 12:47 | Hospitalist Progress Note ---
Date of Service March 17, 2021 Assessment & Plan (1) Breakthrough seizure: Plan: (1) Epilepsy: Evaluated by Dr. Solorzano Recommended transfer to [facility] for further evaluation and management due to complexity of the case and also with the fact that patient follows with [facility] for seizure disorder While admitted, patient's usual antiseizure medications were resumed No recurrence of seizures noted since hospital day [address] [facility] neurolog[address] Irene can followed up on hospital day #3 over the phone, and since patient has had no breakthrough seizures while admitted, recommend to consult transfer to [place] and discharge patient to home He also discussed with patient's regular epilepsy specialist Dr. Tripathi, who agreed that patient may be discharged and for patient to call his office day after discharge for further advice Discharge to home today after physical therapy Continue usual antiseizure medications Follow-up with PCP in 1 week Follow-up with periodontist in 1 week Back pain secondary to seizure Thoracic spine x-ray: No acute fractures Continue Tylenol and warm compress at home Patient declines any additional medication at this time (2) possible UTI (urinary tract infection): Plan: Urinalysis showed positive WBCs, leukocyte Estrace, but positive for many epithelial cells and negative for bacteria Blood culture and urine culture negative so far Was given IV ceftriaxone 2 g 1 dose at the ER Discussed with neurology service here at [facility], UTI unlikely contributing to patient's presentation, recommend to DC antibiotics as it can lower seizure threshold Monitor closely, follow-up final blood and urine cultures results drawn from [facility] Blood culture: Negative so far Urine culture: Negative so far (3) Leukocytosis: Plan: From seizure episode versus UTI Resolved (4) Questionable suicidal ideation Apparently, per ER history, there was suggestion that patient took Ativan to intentionally harm herself Patient adamantly denies any depression or suicidal ideation Psych liaison AYDEN Bernal evaluated the patient, does not feel patient has suicidal ideation or depression Recommend to discontinue one-to-one observation Mood remained stable during admission Follow-up with PCP (4) DVT prophylaxis: Plan: SCDs Disposition Discharge to home Advised that patient stays with her family for a few days, until after follow-up with neurologist plan of care discussed with patient in detail and at length all questions answered She is understanding, agreeable, comfortable with the plan of care Admission and Anticipated Discharge Date Admission Date: March 15, 2021 Subjective ff up for breakthrough seizure, etc seen with RN at bedside throughout whole encounter seen resting in bed, comfortable in good spirits, smiling states she feels better overall no recurrence of seizure since Thursday no headache, dizziness, chest pain, cough, dyspnea, abdominal pain, problems with urination or BM still has some back pain- Tylenol, warm compress helping, does not prefer to take additional medications no other symptoms Review of Systems Review of Systems: all noted and negative except for above Physical Exam Physical Exam: General- oriented x 3, not in distress, speaks in sentences with no effort or accessory muscle use Eyes- anicteric Neck- no JVD Lungs- clear breath sounds , no crackles or wheezing bilaterally Heart- normal rate, regular rhythm; no murmurs Abdomen- normal bowel sounds, nondistended, soft, nontender Extremities- no pretibial edema, no calf tenderness Neuro- alert, oriented x 3; no gross focal neurologic deficits Skin- warm & dry Psych- normal affect, pleasant, smiling Results & Data Results & Data ([facility]) Vital Signs (Past 12 Hours) Vital Signs Temp Pulse Pulse Resp BP Pulse Ox 03/17/21 11:51 36.7 C 88 18 126/84 95 03/17/21 08:24 36.9 C 69 18 129/84 97 03/17/21 03:00 36.6 C 66 16 121/82 98 03/17/21 01:27 79 all noted and reviewed including below
[2021-03-17] MEDS ORDERED: LORazepam 1 MG TAB PO STA (13:09)
[2021-03-21 17:52] LABS: Lamictal(Lamotrigine) <0.5 mcg/mL (4.0-18.0); Topiramate 3.5 mcg/mL (see note)
== END 2021-03-17 15:30 | disposition short-term general hospital (02) ==
LOC: 2W 20:47 → ED 20:47 → 2W 03-15 06:25

== ENCOUNTER 2022-05-21 12:08 | Inpatient (IN) ==
[2022-05-21 13:43] LABS: Basophils # (auto) 0.04 K/uL (0-0.2); Basophils % (auto) 0.3 %; Eosinophils # (auto) 0.03 K/uL (0-0.50); Eosinophils % (auto) 0.2 %; Hematocrit (blood only) 44.2 % (34.1-44.9); Hemoglobin 14.7 g/dl (12.0-16.0); Immature Granulocytes # (auto) 0.06 K/uL (0.00-0.02); Immature Granulocytes % (auto) 0.4 %; Lymphocytes # (auto) 2.08 K/uL (1.2-3.4); Lymphocytes % (auto) 13.1 %; Mean Corpuscular Hemoglobin 28.7 pg (25.0-34.0); Mean Corpuscular Hgb Conc 33.3 g/dL (32.0-36.0); Mean Corpuscular Volume 86.3 fL (80.0-100.0); Mean Platelet Volume 10.8 fL (9.4-12.3); Monocytes # (auto) 0.88 K/uL (0.24-0.82); Monocytes % (auto) 5.6 %; Neutrophils # (auto) 12.75 K/uL (1.4-6.5); Neutrophils % (auto) 80.4 %; Platelet Count 307 K/uL (130-400); RDW Coefficient of Variation 13.6 % (11.5-14.5); Red Blood Count 5.12 M/uL (3.93-5.22); White Blood Count 15.84 K/ul (4.8-10.8)
[2022-05-21 14:09] LABS: Alanine Aminotransferase 12 U/L (7-52); Albumin Globulin Ratio 1.2 (0.9-2); Albumin Level 4.3 gm/dl (3.4-5.0); Alkaline Phosphatase 64 U/L (34-104); Anion Gap 8 (3-11); Aspartate Aminotransferase 23 U/L (13-39); BUN Creatinine Ratio 11.4 (10-20); Bilirubin,Total 0.8 mg/dl (0.2-1.0); Blood Urea Nitrogen 9 mg/dl (6-23); Calcium 9.5 mg/dl (8.5-10.1); Carbon Dioxide 29 mmol/L (21-32); Chloride 102 mmol/L (98-107); Est GFR (African American) 112.4 ml/min; Globulin 3.5 gm/dl (2.5-4.0); Glucose 105 mg/dl (70-99(Fasting)); Potassium 3.4 mmol/L (3.5-5.1); Sodium 139 mmol/L (136-145); Total Protein 7.8 gm/dl (6.0-8.3)
--- NOTE | 2022-05-21 14:40 | Electrocardiogram Report ---
Test Reason : Blood Pressure : / mmHG Vent. Rate : 106 BPM Atrial Rate : 106 BPM P-R Int : 122 ms QRS Dur : 080 ms QT Int : 342 ms P-R-T Axes : 034 -55 -05 degrees QTc Int : 454 ms Poor data quality, interpretation may be adversely affected Sinus tachycardia Left anterior fascicular block Poor R wave progression, consider anterior IL vs. lead placement vs. LVH T wave abnormality, consider lateral ischemia Abnormal ECG When compared with ECG of 05-MAY-2021 16:39, Left anterior fascicular block is now Present T wave inversion now evident in Anterolateral leads Confirmed by Adriel Mccracken ([id number]) on 05/21/2022 2:39:49 PM Referred By: Confirmed By:Adriel Mccracken
--- NOTE | 2022-05-21 16:01 | Emergency Department Note ---
Impression & Plan Seizures, Fracture of tibia and fibula, Acute dehydration ED Provider Note NAME: JESSICA MOYA AGE: 37 SEX: F : 1985 ARRIVES VIA: Ambulance INFORMANT: Patient, ED PROVIDER(S): Adriel Kee DO CHIEF COMPLAINT: Multiple seizures HPI: The patient is a 37-year-old female who is a history of seizure disorder who presented to the emergency department for an evaluation of multiple seizures. The patient states that she has been having multiple seizures especially over the course of the last week. She states that she did not see her primary neurologist for this. She has not been seen by her primary care physician. She denies having any trauma but she states she does have lower extremity pain. She states that she cannot ambulate because of the amount of pain in her lower extremities. She states she last had a seizure yesterday. She states that she is had no new changes to her medications. She has been compliant with her outpatient medications. She states that she has not had neuroimaging in quite some time. She has not seen her family doctor for the symptoms. She denies having any chest pain or difficulty breathing. ROS: See above HPI for pertinent positives & negatives. A total of 10 systems reviewed and were otherwise negative. PAST MEDICAL HISTORY: See Below PAST SURGICAL HISTORY: See Below FAMILY HISTORY: See Below SOCIAL HISTORY: See Below HOME MEDICATIONS: See Below ALLERGIES: See Below VITALS: See Below PHYSICAL EXAMINATION: GENERAL: Patient is awake alert in no acute distress patient is resting comfortably and showing no signs of anxiety EYES: The conjunctivae are clear. The pupils are round and reactive. EARS, NOSE, MOUTH AND THROAT: The nose is without any evidence of any deformity. NECK: The neck is nontender and supple. RESPIRATORY: Normal respiratory effort is noted there is no evidence of wheezing rhonchi or rales CARDIOVASCULAR: Regular rate and rhythm noted there no murmurs rubs or gallops normal S1 normal S2. GASTROINTESTINAL: The abdomen is soft. Abdomen is nontender. MUSCULOSKELETAL/EXTREMITIES: There is no evidence of gross deformity full range of motion is noted in the hips and shoulders. The patient does appear to have swelling and ecchymosis over the right lower leg. There is palpable tenderness especially over the proximal fibular head. SKIN: Skin is cool and dry. There is trace pedal edema noted bilaterally. Capi llary refill appears symmetric. There does appear to be some temperature difference with the right leg warmer than the left however pulses do appear to be symmetric. NEUROLOGIC: Patient is awake alert and oriented x3. Strength was symmetric but diminished in both lower extremities. Patellar tendon reflexes are 1+ bilaterally. MEDICAL DECISION MAKING: The patient is a 37-year-old female who presented to the emergency department for an evaluation after having multiple seizures. The patient self admits that she has had multiple seizures over the course of the last few days but she does have a strong seizure history with frequent seizures. She states that she did fall at one point and injured her right leg. She also states that she has had very severe pain in both lower extremities as well as difficulty ambulating. I discussed the patient's laboratory and radiographic studies with her. She was found to have signs of dehydration on urinalysis but also had a fracture of her right lower leg. This was treated with a splint. [facility]. She has multiple issues at this time and may require further inpatient management to further work-up her overall status and ensure the patient is safe at home. The patient was agreeable with this plan. Triage Nursing notes reviewed. Prior medical records reviewed Vital Signs: reviewed and remarkable for no significant abnormalities Differential diagnosis: Epilepsy, infection, hypoglycemia, electrolyte abnormalities, cardiac sources, intracerebral event, trauma, toxicologic, neurologic, syncope, as well as other pathologies. ER treatment provided: See below Diagnostics interpreted by me: ECG: EKG was obtained in the emergency department. My interpretation is sinus tachycardia 106 bpm. No PVCs were noted. Widespread T wave inversions with ST segment abnormalities were noted. This was compared to a tracing from May 05, 2021. The changes are new compared to the previous tracing. Cardiac Monitoring: An order was placed for continuous cardiac monitoring. The monitor shows a rate of 69 bpm with sinus rhythm. Laboratory studies: As stated above and show below. Imaging studies: See below Consultation(s): I discussed this case with Dr. Lorenzo who [facility]. Past Med/Surg History Medical History Adverse drug effect Closed dislocation of right ankle Closed fracture of ankle, trimalleolar Contusion of both upper extremities Conversion disorder Dehydration Fall Open wound of tongue due to bite Seizure Seizures Surgical History History of ankle surgery (~08/2019) Family History Mother Breast cancer Grandmother Cancer Grandfather Cancer Father Diabetes Hypertension Other No pertinent family history in first degree relatives Social History Smoking Status: Never smoker Second Hand Exposure: No; Do You Dip or Chew Tobacco: No; Tobacco Cessation Education Requested by Patient: No Hx Alcohol Use: No Hx Substance Use: No Preferred Language: American Communication Ability: Effective 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 Beliefs That Will Affect Care: None marital status: Single Current Living Situation: Alone current occupational status: employed 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 Other Information That Helps Us Care for You: No Feels Safe at Home: Yes Safety Concerns: Feels Safe At This Time Assistive Devices: None Allergies Allergies Allergy/AdvReac Type Severity Reaction Status Date / Time Iodinated Contrast Media Allergy Unknown Hives Verified 05/21/22 20:32 Home Meds Home Medications Medication Instructions Recorded Confirmed levetiracetam 1,000 mg tablet 1,000 mg PO BID 04/18/19 05/21/22 levetiracetam 250 mg tablet 500 mg PO BID 08/15/19 05/21/22 clobazam 10 mg tablet 40 mg PO AMPM 12/24/20 05/21/22 magnesium oxide 400 mg PO BID 12/24/20 05/21/22 topiramate 200 mg tablet 200 mg PO AMHS 12/24/20 05/21/22 cenobamate 12.5 mg (14)-25 mg (14) 1 ea PO UD 03/14/21 05/21/22 tablets in a dose pack (Xcopri Titration Pack) diclofenac potassium 50 mg tablet 50 mg PO UD PRN head pain 03/14/21 05/21/22 riboflavin (vitamin B2) 400 mg 400 mg PO DAILY 03/14/21 05/21/22 tablet sumatriptan succinate 100 mg tablet 50 - 100 mg PO UD PRN Headache 03/14/21 1201/03 perampanel 6 mg tablet (Fycompa) 6 mg PO HS 05/21/22 05/21/22 Previous Rx's Medication Instructions Recorded lorazepam 2 mg tablet 2 mg PO Q6H PRN cluster seizure 03/17/21 #10 tabs Results & Data (ED) Vital Signs Vital Signs - 24 hr 05/21/22 12:26 05/21/22 16:09 05/21/22 17:31 Temperature 36.8 C Temperature Source Temporal Artery Scan Pulse Rate 107 H Pulse Rate [Apical] 98 H Pulse Rate from SpO2 Sensor Pulse Rhythm [Apical] Regular Pulse Strength [Apical] Normal Respiratory Rate 20 20 Respiratory Effort / Characteristics Non-Labored Spontaneous Non-Labored Respiratory Depth Normal Normal Respiratory Pattern Regular Regular Blood Pressure 132/81 Blood Pressure [Right Arm] 112/82 Blood Pressure Mean 98 Blood Pressure Mean [Right Arm] 92 Blood Pressure Position Sitting Pulse Oximetry 93 100 98 Oxygen Delivery Method Room Air Room Air Room Air Sepsis Recent Fever Within 48 Hours No Sepsis New/Unexplained Change in Mental Status No Sepsis Action Taken by Nursing No Action Required 05/21/22 17:31 05/21/22 20:00 05/21/22 21:57 Temperature Temperature Source Pulse Rate 90 95 H Pulse Rate [Apical] Pulse Rate from SpO2 Sensor 95 H Pulse Rhythm [Apical] Pulse Strength [Apical] Respiratory Rate 16 37 H Respiratory Effort / Characteristics Non-Labored Respiratory Depth Normal Respiratory Pattern Blood Pressure Blood Pressure [Right Arm] Blood Pressure Mean Blood Pressure Mean [Right Arm] Blood Pressure Position Pulse Oximetry 98 99 Oxygen Delivery Method Room Air Sepsis Recent Fever Within 48 Hours Sepsis New/Unexplained Change in Mental Status Sepsis Action Taken by Nursing 05/21/22 22:00 05/21/22 22:00 05/21/22 22:30 Temperature Temperature Source Pulse Rate 98 H Pulse Rate [Apical] Pulse Rate from SpO2 Sensor 96 H Pulse Rhythm [Apical] Pulse Strength [Apical] Respiratory Rate 31 H Respiratory Effort / Characteristics Respiratory Depth Respiratory Pattern Blood Pressure 148/104 H 144/89 H Blood Pressure [Right Arm] Blood Pressure Mean 118 107 Blood Pressure Mean [Right Arm] Blood Pressure Position Pulse Oximetry 99 Oxygen Delivery Method Sepsis Recent Fever Within 48 Hours Sepsis New/Unexplained Change in Mental Status Sepsis Action Taken by Nursing 05/21/22 22:30 05/21/22 23:00 05/21/22 23:00 Temperature Temperature Source Pulse Rate 91 H 100 H Pulse Rate [Apical] Pulse Rate from SpO2 Sensor 91 H 97 H Pulse Rhythm [Apical] Pulse Strength [Apical] Respiratory Rate 34 H 28 H Respiratory Effort / Characteristics Respiratory Depth Respiratory Pattern Blood Pressure 139/96 Blood Pressure [Right Arm] Blood Pressure Mean 110 Blood Pressure Mean [Right Arm] Blood Pressure Position Pulse Oximetry 96 99 Oxygen Delivery Method Sepsis Recent Fever Within 48 Hours Sepsis New/Unexplained Change in Mental Status Sepsis Action Taken by Nursing 05/21/22 23:30 05/21/22 23:30 05/21/22 21:37 Temperature Temperature Source Pulse Rate 91 H Pulse Rate [Apical] Pulse Rate from SpO2 Sensor 91 H Pulse Rhythm [Apical] Pulse Strength [Apical] Respiratory Rate 34 H Respiratory Effort / Characteristics Non-Labored Respiratory Depth Normal Respiratory Pattern Blood Pressure 134/93 Blood Pressure [Right Arm] Blood Pressure Mean 106 Blood Pressure Mean [Right Arm] Blood Pressure Position Pulse Oximetry 99 Oxygen Delivery Method Sepsis Recent Fever Within 48 Hours Sepsis New/Unexplained Change in Mental Status Sepsis Action Taken by Usp Medications Current Medication List: was personally reviewed by me Laboratory Data Attestation: I reviewed the patient's lab results. Result diagrams: 05/22/22 04:03 05/22/22 04:03 Lab Results 05/21/22 05/21/22 05/21/22 Range/Units 13:15 13:29 13:29 WBC 15.84 H (4.8-10.8) K/ul RBC 5.12 (3.93-5.22) M/uL Hgb 14.7 (12.0-16.0) g/dl Hct 44.2 (34.1-44.9) % MCV 86.3 (80.0-100.0) fL MCH 28.7 (25.0-34.0) pg MCHC 33.3 (32.0-36.0) g/dL RDW Std Deviation 43.0 (36.4-46.3) fL RDW Coeff of Hue 13.6 (11.5-14.5) % Plt Count 307 (130-400) K/uL MPV 10.8 (9.4-12.3) fL Immature Gran % (Auto) 0.4 % Neut % (Auto) 80.4 % Lymph % (Auto) 13.1 % [place] % (Auto) 5.6 % Eos % (Auto) 0.2 % Baso % (Auto) 0.3 % Neut # (Auto) 12.75 H (1.4-6.5) K/uL Lymph # (Auto) 2.08 (1.2-3.4) K/uL [place] # (Auto) 0.88 H (0.24-0.82) K/uL Eos # (Auto) 0.03 (0-0.50) K/uL Baso # (Auto) 0.04 (0-0.2) K/uL Immature Gran # (Auto) 0.06 H (0.00-0.02) K/uL PT (9.0-12.0) Seconds INR (0.9-1.1) APTT (21.0-31.0) Seconds PTT Ratio Sodium 139 (136-145) mmol/L Potassium 3.4 L (3.5-5.1) mmol/L Chloride 102 (98-107) mmol/L Carbon Dioxide 29 (21-32) mmol/L Anion Gap 8 (3-11) BUN 9 (6-23) mg/dl Creatinine 0.79 (0.6-1.2) mg/dl Est Cr Clr Drug Dosing Not Reportable Est GFR ( Amer) 112.4 ml/min Est GFR (Non-Af Amer) 97.0 ml/min BUN/Creatinine Ratio 11.4 (10-20) Glucose 105 H (70-99(Fasting)) mg/dl POC Glucose 111 H (70-99) mg/dl Estimat Average Glucose mg/dl Hemoglobin A1c (4.5-5.6) % Calcium 9.5 (8.5-10.1) mg/dl Magnesium (1.7-2.4) mg/dl Total Bilirubin 0.8 (0.2-1.0) mg/dl AST 23 (13-39) U/L ALT 12 (7-52) U/L Alkaline Phosphatase 64 (34-104) U/L Total Creatine Kinase (26-192) U/L Troponin I High Sens (0-14) pg/ml Total Protein 7.8 (6.0-8.3) gm/dl Albumin 4.3 (3.4-5.0) gm/dl Globulin 3.5 (2.5-4.0) gm/dl Albumin/Globulin Ratio 1.2 (0.9-2) Procalcitonin (0-0.5) ng/ml TSH (0.300-4.500) uIu/ml Urine Color Urine Appearance (Clear) Urine pH (4.5-7.5) Ur Specific [place] (1.000-1.030) Urine Protein (Negative) Urine Glucose (UA) (Negative) Urine Ketones (Negative) Urine Blood (Negative) Urine Nitrite (Negative) Urine Bilirubin (Negative) Urine Urobilinogen (Negative) Ur Leukocyte Esterase (Negative) Urine WBC (Auto) (0-5) /hpf Urine RBC (Auto) (0-4) /hpf U Hyaline Cast (Auto) (0-5) /lpf U Epithel Cells (Auto) (0-5) /lpf Urine Bacteria (Auto) (Negative) Urine Test (Negative) Urine Opiates Screen (Neg) Ur Methadone, Qual (Neg) Urine Barbiturates (Neg) Ur Phencyclidine (PCP) (Neg) U Amphetamin/Meth Scrn (Neg) MDMA (Ecstasy) Screen (Neg) U Benzodiazepines Scrn (Neg) Ur Cocaine Metabolite (Neg) U Marijuana (THC) Screen (Neg) SARS-CoV-2, RNA, NAAT (NEGATIVE) 05/21/22 05/21/22 05/21/22 Range/Units 13:29 13:29 13:29 WBC (4.8-10.8) K/ul RBC (3.93-5.22) M/uL Hgb (12.0-16.0) g/dl Hct (34.1-44.9) % MCV (80.0-100.0) fL MCH (25.0-34.0) pg MCHC (32.0-36.0) g/dL RDW Std Deviation (36.4-46.3) fL RDW Coeff of Hue (11.5-14.5) % Plt Count (130-400) K/uL MPV (9.4-12.3) fL Immature Gran % (Auto) % Neut % (Auto) % Lymph % (Auto) % [place] % (Auto) % Eos % (Auto) % Baso % (Auto) % Neut # (Auto) (1.4-6.5) K/uL Lymph # (Auto) (1.2-3.4) K/uL [place] # (Auto) (0.24-0.82) K/uL Eos # (Auto) (0-0.50) K/uL Baso # (Auto) (0-0.2) K/uL Immature Gran # (Auto) (0.00-0.02) K/uL PT 11.5 (9.0-12.0) Seconds INR 1.1 (0.9-1.1) APTT 28.5 (21.0-31.0) Seconds PTT Ratio 1.0 Sodium (136-145) mmol/L Potassium (3.5-5.1) mmol/L Chloride (98-107) mmol/L Carbon Dioxide (21-32) mmol/L Anion Gap (3-11) BUN (6-23) mg/dl Creatinine (0.6-1.2) mg/dl Est Cr Clr Drug Dosing Est GFR ( Amer) ml/min Est GFR (Non-Af Amer) ml/min BUN/Creatinine Ratio (10-20) Glucose (70-99(Fasting)) mg/dl POC Glucose (70-99) mg/dl Estimat Average Glucose mg/dl Hemoglobin A1c (4.5-5.6) % Calcium (8.5-10.1) mg/dl Magnesium 2.3 (1.7-2.4) mg/dl Total Bilirubin (0.2-1.0) mg/dl AST (13-39) U/L ALT (7-52) U/L Alkaline Phosphatase (34-104) U/L Total Creatine Kinase (26-192) U/L Troponin I High Sens 3.9 (0-14) pg/ml Total Protein (6.0-8.3) gm/dl Albumin (3.4-5.0) gm/dl Globulin (2.5-4.0) gm/dl Albumin/Globulin Ratio (0.9-2) Procalcitonin (0-0.5) ng/ml TSH 1.213 (0.300-4.500) uIu/ml Urine Color Urine Appearance (Clear) Urine pH (4.5-7.5) Ur Specific [place] (1.000-1.030) Urine Protein (Negative) Urine Glucose (UA) (Negative) Urine Ketones (Negative) Urine Blood (Negative) Urine Nitrite (Negative) Urine Bilirubin (Negative) Urine Urobilinogen (Negative) Ur Leukocyte Esterase (Negative) Urine WBC (Auto) (0-5) /hpf Urine RBC (Auto) (0-4) /hpf U Hyaline Cast (Auto) (0-5) /lpf U Epithel Cells (Auto) (0-5) /lpf Urine Bacteria (Auto) (Negative) Urine Test (Negative) Urine Opiates Screen (Neg) Ur Methadone, Qual (Neg) Urine Barbiturates (Neg) Ur Phencyclidine (PCP) (Neg) U Amphetamin/Meth Scrn (Neg) MDMA (Ecstasy) Screen (Neg) U Benzodiazepines Scrn (Neg) Ur Cocaine Metabolite (Neg) U Marijuana (THC) Screen (Neg) SARS-CoV-2, RNA, NAAT (NEGATIVE) 05/21/22 05/21/22 05/21/22 Range/Units 13:29 13:29 13:29 WBC (4.8-10.8) K/ul RBC (3.93-5.22) M/uL Hgb (12.0-16.0) g/dl Hct (34.1-44.9) % MCV (80.0-100.0) fL MCH (25.0-34.0) pg MCHC (32.0-36.0) g/dL RDW Std Deviation (36.4-46.3) fL RDW Coeff of Hue (11.5-14.5) % Plt Count (130-400) K/uL MPV (9.4-12.3) fL Immature Gran % (Auto) % Neut % (Auto) % Lymph % (Auto) % [place] % (Auto) % Eos % (Auto) % Baso % (Auto) % Neut # (Auto) (1.4-6.5) K/uL Lymph # (Auto) (1.2-3.4) K/uL [place] # (Auto) (0.24-0.82) K/uL Eos # (Auto) (0-0.50) K/uL Baso # (Auto) (0-0.2) K/uL Immature Gran # (Auto) (0.00-0.02) K/uL PT (9.0-12.0) Seconds INR (0.9-1.1) APTT (21.0-31.0) Seconds PTT Ratio Sodium (136-145) mmol/L Potassium (3.5-5.1) mmol/L Chloride (98-107) mmol/L Carbon Dioxide (21-32) mmol/L Anion Gap (3-11) BUN (6-23) mg/dl Creatinine (0.6-1.2) mg/dl Est Cr Clr Drug Dosing Est GFR ( Amer) ml/min Est GFR (Non-Af Amer) ml/min BUN/Creatinine Ratio (10-20) Glucose (70-99(Fasting)) mg/dl POC Glucose (70-99) mg/dl Estimat Average Glucose 105 mg/dl Hemoglobin A1c 5.3 (4.5-5.6) % Calcium (8.5-10.1) mg/dl Magnesium (1.7-2.4) mg/dl Total Bilirubin (0.2-1.0) mg/dl AST (13-39) U/L ALT (7-52) U/L Alkaline Phosphatase (34-104) U/L Total Creatine Kinase 692 H (26-192) U/L Troponin I High Sens (0-14) pg/ml Total Protein (6.0-8.3) gm/dl Albumin (3.4-5.0) gm/dl Globulin (2.5-4.0) gm/dl Albumin/Globulin Ratio (0.9-2) Procalcitonin < 0.05 (0-0.5) ng/ml TSH (0.300-4.500) uIu/ml Urine Color Urine Appearance (Clear) Urine pH (4.5-7.5) Ur Specific [place] (1.000-1.030) Urine Protein (Negative) Urine Glucose (UA) (Negative) Urine Ketones (Negative) Urine Blood (Negative) Urine Nitrite (Negative) Urine Bilirubin (Negative) Urine Urobilinogen (Negative) Ur Leukocyte Esterase (Negative) Urine WBC (Auto) (0-5) /hpf Urine RBC (Auto) (0-4) /hpf U Hyaline Cast (Auto) (0-5) /lpf U Epithel Cells (Auto) (0-5) /lpf Urine Bacteria (Auto) (Negative) Urine Test (Negative) Urine Opiates Screen (Neg) Ur Methadone, Qual (Neg) Urine Barbiturates (Neg) Ur Phencyclidine (PCP) (Neg) U Amphetamin/Meth Scrn (Neg) MDMA (Ecstasy) Screen (Neg) U Benzodiazepines Scrn (Neg) Ur Cocaine Metabolite (Neg) U Marijuana (THC) Screen (Neg) SARS-CoV-2, RNA, NAAT (NEGATIVE) 05/21/22 05/21/22 05/21/22 Range/Units 16:02 19:55 19:55 WBC (4.8-10.8) K/ul RBC (3.93-5.22) M/uL Hgb (12.0-16.0) g/dl Hct (34.1-44.9) % MCV (80.0-100.0) fL MCH (25.0-34.0) pg MCHC (32.0-36.0) g/dL RDW Std Deviation (36.4-46.3) fL RDW Coeff of Hue (11.5-14.5) % Plt Count (130-400) K/uL MPV (9.4-12.3) fL Immature Gran % (Auto) % Neut % (Auto) % Lymph % (Auto) % [place] % (Auto) % Eos % (Auto) % Baso % (Auto) % Neut # (Auto) (1.4-6.5) K/uL Lymph # (Auto) (1.2-3.4) K/uL [place] # (Auto) (0.24-0.82) K/uL Eos # (Auto) (0-0.50) K/uL Baso # (Auto) (0-0.2) K/uL Immature Gran # (Auto) (0.00-0.02) K/uL PT (9.0-12.0) Seconds INR (0.9-1.1) APTT (21.0-31.0) Seconds PTT Ratio Sodium (136-145) mmol/L Potassium (3.5-5.1) mmol/L Chloride (98-107) mmol/L Carbon Dioxide (21-32) mmol/L Anion Gap (3-11) BUN (6-23) mg/dl Creatinine (0.6-1.2) mg/dl Est Cr Clr Drug Dosing Est GFR ( Amer) ml/min Est GFR (Non-Af Amer) ml/min BUN/Creatinine Ratio (10-20) Glucose (70-99(Fasting)) mg/dl POC Glucose (70-99) mg/dl Estimat Average Glucose mg/dl Hemoglobin A1c (4.5-5.6) % Calcium (8.5-10.1) mg/dl Magnesium (1.7-2.4) mg/dl Total Bilirubin (0.2-1.0) mg/dl AST (13-39) U/L ALT (7-52) U/L Alkaline Phosphatase (34-104) U/L Total Creatine Kinase (26-192) U/L Troponin I High Sens (0-14) pg/ml Total Protein (6.0-8.3) gm/dl Albumin (3.4-5.0) gm/dl Globulin (2.5-4.0) gm/dl Albumin/Globulin Ratio (0.9-2) Procalcitonin (0-0.5) ng/ml TSH (0.300-4.500) uIu/ml Urine Color [place] Urine Appearance Turbid A (Clear) Urine pH 5.5 (4.5-7.5) Ur Specific [place] 1.032 H (1.000-1.030) Urine Protein 1+ H (Negative) Urine Glucose (UA) Negative (Negative) Urine Ketones 2+ H (Negative) Urine Blood Negative (Negative) Urine Nitrite Negative (Negative) Urine Bilirubin 1+ H (Negative) Urine Urobilinogen Negative (Negative) Ur Leukocyte Esterase Negative (Negative) Urine WBC (Auto) 1-5 (0-5) /hpf Urine RBC (Auto) 0-4 (0-4) /hpf U Hyaline Cast (Auto) 10-30 H (0-5) /lpf U Epithel Cells (Auto) 10-20 H (0-5) /lpf Urine Bacteria (Auto) Negative (Negative) Urine Test (Negative) Urine Opiates Screen Neg (Neg) Ur Methadone, Qual Neg (Neg) Urine Barbiturates Neg (Neg) Ur Phencyclidine (PCP) Neg (Neg) U Amphetamin/Meth Scrn Neg (Neg) MDMA (Ecstasy) Screen Neg (Neg) U Benzodiazepines Scrn Pos H (Neg) Ur Cocaine Metabolite Neg (Neg) U Marijuana (THC) Screen Neg (Neg) SARS-CoV-2, RNA, NAAT NEGATIVE (NEGATIVE) 12/07/22 Range/Units 20:10 WBC (4.8-10.8) K/ul RBC (3.93-5.22) M/uL Hgb (12.0-16.0) g/dl Hct (34.1-44.9) % MCV (80.0-100.0) fL MCH (25.0-34.0) pg MCHC (32.0-36.0) g/dL RDW Std Deviation (36.4-46.3) fL RDW Coeff of Hue (11.5-14.5) % Plt Count (130-400) K/uL MPV (9.4-12.3) fL Immature Gran % (Auto) % Neut % (Auto) % Lymph % (Auto) % [place] % (Auto) % Eos % (Auto) % Baso % (Auto) % Neut # (Auto) (1.4-6.5) K/uL Lymph # (Auto) (1.2-3.4) K/uL [place] # (Auto) (0.24-0.82) K/uL Eos # (Auto) (0-0.50) K/uL Baso # (Auto) (0-0.2) K/uL Immature Gran # (Auto) (0.00-0.02) K/uL PT (9.0-12.0) Seconds INR (0.9-1.1) APTT (21.0-31.0) Seconds PTT Ratio Sodium (136-145) mmol/L Potassium (3.5-5.1) mmol/L Chloride (98-107) mmol/L Carbon Dioxide (21-32) mmol/L Anion Gap (3-11) BUN (6-23) mg/dl Creatinine (0.6-1.2) mg/dl Est Cr Clr Drug Dosing Est GFR ( Amer) ml/min Est GFR (Non-Af Amer) ml/min BUN/Creatinine Ratio (10-20) Glucose (70-99(Fasting)) mg/dl POC Glucose (70-99) mg/dl Estimat Average Glucose mg/dl Hemoglobin A1c (4.5-5.6) % Calcium (8.5-10.1) mg/dl Magnesium (1.7-2.4) mg/dl Total Bilirubin (0.2-1.0) mg/dl AST (13-39) U/L ALT (7-52) U/L Alkaline Phosphatase (34-104) U/L Total Creatine Kinase (26-192) U/L Troponin I High Sens (0-14) pg/ml Total Protein (6.0-8.3) gm/dl Albumin (3.4-5.0) gm/dl Globulin (2.5-4.0) gm/dl Albumin/Globulin Ratio (0.9-2) Procalcitonin (0-0.5) ng/ml TSH (0.300-4.500) uIu/ml Urine Color Urine Appearance (Clear) Urine pH (4.5-7.5) Ur Specific [place] (1.000-1.030) Urine Protein (Negative) Urine Glucose (UA) (Negative) Urine Ketones (Negative) Urine Blood (Negative) Urine Nitrite (Negative) Urine Bilirubin (Negative) Urine Urobilinogen (Negative) Ur Leukocyte Esterase (Negative) Urine WBC (Auto) (0-5) /hpf Urine RBC (Auto) (0-4) /hpf U Hyaline Cast (Auto) (0-5) /lpf U Epithel Cells (Auto) (0-5) /lpf Urine Bacteria (Auto) (Negative) Urine Test Negative (Negative) Urine Opiates Screen (Neg) Ur Methadone, Qual (Neg) Urine Barbiturates (Neg) Ur Phencyclidine (PCP) (Neg) U Amphetamin/Meth Scrn (Neg) MDMA (Ecstasy) Screen (Neg) U Benzodiazepines Scrn (Neg) Ur Cocaine Metabolite (Neg) U Marijuana (THC) Screen (Neg) SARS-CoV-2, RNA, NAAT (NEGATIVE) Administered Medications Lactated Ringer's (Lr) 1,000 mls @ 100 mls/hr IV .Q10H SATISH Stop: 05/23/22 07:59 Last Admin: 05/22/22 07:33 Dose: 100 mls/hr Documented By: RONAKT Discontinued Medications Clobazam (Clobazam 10 Mg Tab) 40 mg PO NOW STA Stop: 05/21/22 23:07 Last Admin: 05/22/22 00:13 Dose: Not Given Documented By: MJMike Sodium Chloride (Nss 1000ml) 1,000 mls @ 999 mls/hr IV .Q1H1M ONE Stop: 05/21/22 21:03 Last Infusion: 05/21/22 21:30 Dose: 0 mls/hr Documented By: Admin: 05/21/22 20:09 Dose: 999 mls/hr Documented By: CHRISTIANO Lactated Ringer's (Lr) 1,000 mls @ 100 mls/hr IV .Q10H ONE Stop: 05/22/22 07:33 Last Infusion: 05/22/22 07:32 Dose: 0 mls/hr Documented By: Admin: 05/21/22 21:52 Dose: 100 mls/hr Documented By: CITLALY Levetiracetam 1,500 mg/ Sodium (Chloride) 115 mls @ 440 mls/hr IV NOW STA Stop: 05/21/22 23:24 Last Infusion: 05/22/22 00:35 Dose: 0 mls/hr Documented By: Admin: 05/22/22 00:14 Dose: 440 mls/hr Documented By: CITLALY Ketorolac Tromethamine (Ketorolac Tromethamine 15 Mg/Ml Vial) 15 mg IV NOW ONE Stop: 05/21/22 23:06 Last Admin: 05/21/22 23:46 Dose: 15 mg Documented By: CITLALY Potassium Chloride (Potassium Chloride Crtab 20 Meq Tabcr) 40 meq PO NOW STA Stop: 05/21/22 21:34 Last Admin: 05/21/22 21:53 Dose: 40 meq Documented By: CITLALY Topiramate (Topiramate 100 Mg Tab) 200 mg PO NOW STA Stop: 05/21/22 23:07 Last Admin: 05/22/22 00:14 Dose: 200 mg Documented By: CITLALY Imaging Data Radiologist's Impression: Tibia/Fibula X-Ray 05/21/22 20:05 XR tibia fibula RT 2V CLINICAL HISTORY: fall TECHNIQUE: 2 radiographic views of the right leg were obtained. Comparison: Comparison is made to ankle radiograph 08/22/2019 FINDINGS: Comminuted fractures of the proximal fibular diaphysis and distal tibial d iaphysis. Fixation hardware from prior ankle fractures is unremarkable. Joint spaces are well-preserved. Soft tissue swelling is seen. IMPRESSION: Comminuted fractures of the fibular and tibial shafts with surrounding soft tissue swelling. ACT 112: Negative or not required by law. Electronically signed by: Bryan Taylor M.D. 05/21/2022 8:29 PM Chest X-Ray 05/21/22 15:50 XR chest 1V portable HISTORY: weakness COMPARISON: Chest 03/14/2021. FINDINGS: Mild elevation of the right hemidiaphragm. The heart is normal in size. There is a left-sided stimulator device terminating at the cervicothoracic junction. No focal lung consolidations to suggest a pneumonia. There are low lung volumes. Right basilar linear densities favor subsegmental atelectasis. No evidence for pulmonary edema. IMPRESSION: 1. Low lung volumes with mild elevation the right hemidiaphragm. 2. Otherwise, no acute process within the chest. ACT 112: Negative or not required by law. Electronically signed by: Lowell Cordoba M.D. 05/21/2022 5:[address] 05/21/22 15:50 CT head/brain wo con CLINICAL HISTORY: sz Technique: Contiguous axial CT images of the head were acquired from the base of the skull to the vertex without intravenous contrast administration. Images were viewed in brain, subdural and bone windows. Automated dose lowering techniques and/or adjustment according to patient size were utilized for this exam. Comparison: Comparison is made to CT head 03/14/2021 Findings: The ventricles, basal cisterns, and cerebral sulci are normal. There is no acute intracranial hemorrhage or evidence of acute territorial infarction. Neither mass effect, shift of the midline structures, nor abnormal extra-axial fluid collections are shown. Imaged portions of the paranasal sinuses and mastoid air cells are clear. The orbits appear normal. There are no acute fractures of the calvaria or scalp swelling. Impression: No acute intracranial hemorrhage, no evidence of acute territorial infarction or other acute intracranial disease process. ACT 112: Negative or not required by law. Electronically signed by: Bryan Taylor M.D. 05/21/2022 5:02 PM Tibia/Fibula X-Ray 05/21/22 20:05 XR tibia fibula RT 2V CLINICAL HISTORY: fall TECHNIQUE: 2 radiographic views of the right leg were obtained. Comparison: Comparison is made to ankle radiograph 08/22/2019 FINDINGS: Comminuted fractures of the proximal fibular diaphysis and distal tibial diaphysis. Fixation hardware from prior ankle fractures is unremarkable. Joint spaces are well-preserved. Soft tissue swelling is seen. IMPRESSION: Comminuted fractures of the fibular and tibial shafts with surrounding soft tissue swelling. ACT 112: Negative or not required by law. Electronically signed by: Bryan Taylor M.D. 05/21/2022 8:29 PM Discharge Plan Visit Data Chief Complaint: Seizure ED Provider: Adriel Kee Discharge Problem: Seizures, Fracture of tibia and fibula, Acute dehydration Patient Disposition: Admitted As Inpatient Discharge Instructions Interventions: ED Discharge Assessment Last Done: 05/22/22 05:13
[2022-05-21 16:14] LABS: INR 1.1 (0.9-1.1); Partial Thromboplastin Time 28.5 Seconds (21.0-31.0); Prothrombin Time 11.5 Seconds (9.0-12.0)
[2022-05-21 16:23] LABS: Magnesium 2.3 mg/dl (1.7-2.4)
[2022-05-21 16:25] LABS: Troponin I High Sensitivity 3.9 pg/ml (0-14)
--- NOTE | 2022-05-21 17:02 | XRay Report ---
XR chest 1V portable HISTORY: weakness COMPARISON: Chest 03/14/2021. FINDINGS: Mild elevation of the right hemidiaphragm. The heart is normal in size. There is a left-marianna ed stimulator device terminating at the cervicothoracic junction. No focal lung consolidations to sug gest a pneumonia. There are low lung volumes. Right basilar linear densities favor subsegmental atele ctasis. No evidence for pulmonary edema. IMPRESSION: 1. Low lung volumes with mild elevation the right hemidiaphragm. 2. Otherwise, no acute process within the chest. ACT 112: Negative or not required by law. Electronically signed by: Lowell Cordoba M.D. 05/21/2022 5:00 PM
--- NOTE | 2022-05-21 17:03 | CT Scan Report ---
CT head/brain wo con CLINICAL HISTORY: sz Technique: Contiguous axial CT images of the head were acquired from the base of the skull to the doreen aurelio without intravenous contrast administration. Images were viewed in brain, subdural and bone [facility]. Automated dose lowering techniques and/or adjustment according to patient size were utilized for this exam. Comparison: Comparison is made to CT head 03/14/2021 Findings: The ventricles, basal cisterns, and cerebral sulci are normal. There is no acute intracranial hemorrh age or evidence of acute territorial infarction. Neither mass effect, shift of the midline structures , nor abnormal extra-axial fluid collections are shown. Imaged portions of the paranasal sinuses and mastoid air cells are clear. The orbits appear normal. There are no acute fractures of the calvaria or scalp swelling. Impression: No acute intracranial hemorrhage, no evidence of acute territorial infarction or other acute intracra nial disease process. ACT 112: Negative or not required by law. Electronically signed by: Bryan Taylor M.D. 05/21/2022 5:02 PM
[2022-05-21] MEDS ORDERED: SODIUM CHLORIDE 0.9% 1000ML 1,000 ML IV ONE (20:03)
[2022-05-21 20:21] LABS: Appearance Urine Turbid (Clear); Bacteria Urine Automated Negative (Negative); Blood Urine Negative (Negative); Color Urine Orange; Glucose Urine UA Negative (Negative); Ketones Urine 2+ (Negative); Leukocyte Esterase Urine Negative (Negative); Nitrite Urine Negative (Negative); Protein Urine 1+ (Negative); RBC Urine Automated 0-4 /hpf (0-4); Specific Gravity Urine 1.032 (1.000-1.030); Urobilinogen Urine Negative (Negative); pH Urine 5.5 (4.5-7.5)
[2022-05-21 20:22] LABS: Bilirubin Urine 1+ (Negative)
--- NOTE | 2022-05-21 20:31 | XRay Report ---
XR tibia fibula RT 2V CLINICAL HISTORY: fall TECHNIQUE: 2 radiographic views of the right leg were obtained. Comparison: Comparison is made to ankle radiograph 08/22/2019 FINDINGS: Comminuted fractures of the proximal fibular diaphysis and distal tibial diaphysis. Fixation hardware from prior ankle fractures is unremarkable. Joint spaces are well-preserved. Soft tissue swelling is seen. IMPRESSION: Comminuted fractures of the fibular and tibial shafts with surrounding soft tissue swelling. ACT 112: Negative or not required by law. Electronically signed by: Bryan Taylor M.D. 05/21/2022 8:29 PM
[2022-05-21 20:46] LABS: Amphetamines+Metham, Urine Neg (Neg); Barbiturates, Urine Neg (Neg); Benzodiazepine, Urine Pos (Neg); Cocaine, Urine Neg (Neg); MDMA (Ecstacy), Urine Neg (Neg); Methadone, Urine Neg (Neg); Opiate, Urine Neg (Neg); Phencyclidine, Urine Neg (Neg)
[2022-05-21] MEDS ORDERED: POTASSIUM CHLORIDE CRTAB 20 MEQ TABCR PO STA (21:33)
[2022-05-21] MEDS ORDERED: LACTATED RINGER'S 1,000 ML IV ONE (21:34)
[2022-05-21] MEDS ORDERED: KETOROLAC TROMETHAMINE 15 MG/ML VIAL IV ONE (23:05)
[2022-05-21] MEDS ORDERED: CLOBAZAM 10 MG PO STA (23:06)
[2022-05-21] MEDS ORDERED: TOPIRAMATE 100 MG TAB PO STA (23:06)
[2022-05-21] MEDS ORDERED: levETIRAcetam 1,500 MG in 0.9 % SODIUM CHLORIDE 100 ML IV STA (23:09)
--- NOTE | 2022-05-21 23:37 | History & Physical Report ---
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 Elizabeth recommends continuing current medications for now). Follow CPK response to IVF Orthopedics consult Re: Right tibia fibula fracture Check hemoglobin A1c Replace potassium DVT prophylaxis. Lovenox subcu Full code Text document was generated using [employer] voice recognition software. It may contain grammatical or spelling errors. Kindly contact undersigned for clarification of any documentation item in question. History of Present Illness Chief Complaint: Uncontrolled seizures, fall, right leg pain Primary Care Provider: Nely Solorio, History obtained from patient and records. 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 Last [facility] confinement March 2021 for breakthrough seizure. Neurology recommended [facility] transfer due to complexity of patient case. Patient subsequently discharged home due to after being seizure-free during [facility] confinement. 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 Usual seizure frequency of about 4-5 episodes per month. Last [facility] epileptologist visit February 2022 (Dr. Su). As per documentation, future medication options for patient include adjusting perampanel or increasing Keppra to 2 g twice daily. Should patient events continue to worsen, service will consider admission at [facility]. VNS interrogated during visit and programming adjusted. Battery life okay and in good range as per note. 2 weeks ago, patient noted increased frequency of seizures about 10-15 episodes daily. Tongue biting without incontinence. Patient compliant with medications. No unusual stress at home. No unusual headache symptoms. Patient fell down yesterday after another seizure. Trouble getting up and worsening of chronic right ankle pain. No fever, no chills, no chest pain, no shortness of breath. Patient consulted ER. 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 Allergies Allergy/AdvReac Type Severity Reaction Status Date / Time Iodinated Contrast Media Allergy Unknown Hives Verified 05/21/22 20:32 Home Medications Medication Instructions Recorded Confirmed Type levetiracetam 1,000 mg tablet 1,000 mg PO BID 04/18/19 05/21/22 History levetiracetam 250 mg tablet 500 mg PO BID 08/15/19 05/21/22 History clobazam 10 mg tablet 40 mg PO AMPM 12/24/20 05/21/22 History magnesium oxide 400 mg PO BID 12/24/20 05/21/22 History topiramate 200 mg tablet 200 mg PO AMHS 12/24/20 05/21/22 History cenobamate 12.5 mg (14)-25 mg (14) 1 ea PO UD 03/14/21 05/21/22 History tablets in a dose pack (Xcopri Titration Pack) diclofenac potassium 50 mg tablet 50 mg PO UD PRN head pain 03/14/21 05/21/22 History riboflavin (vitamin B2) 400 mg 400 mg PO DAILY 03/14/21 05/21/22 History tablet sumatriptan succinate 100 mg tablet 50 - 100 mg PO UD PRN Headache 03/14/21 05/21/22 History lorazepam 2 mg tablet 2 mg PO Q6H PRN cluster seizure 03/17/21 05/21/22 Rx #10 tabs perampanel 6 mg tablet (Fycompa) 6 mg PO HS 05/21/22 05/21/22 History Past Med/Surg History Medical History Adverse drug effect Closed dislocation of right ankle Closed fracture of ankle, trimalleolar Contusion of both upper extremities Conversion disorder Dehydration Fall Open wound of tongue due to bite Seizure Seizures Surgical History History of ankle surgery (~08/2019) Family History Mother Breast cancer Grandmother Cancer Grandfather Cancer Father Diabetes Hypertension Other No pertinent family history in first degree relatives Social History Smoking Status: Never smoker Hx Alcohol Use: No Hx Substance Use: No Preferred Language: Occitan Communication Ability: Effective Beliefs That Will Affect Care: None marital status: Single Current Living Situation: Alone current occupational status: employed 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 [employer] Feels Safe at Home: Yes Assistive Devices: None Review of Systems Review of Systems: As per HPI, all other systems reviewed and negative Physical Exam Physical Exam: GENERAL: Slightly uncomfortable, unkempt, obese, pleasant, no respiratory distress SKIN: Normal color, warm HEENT: [place] palpebral conjunctivae, no ptosis, dry buccal mucosa, multiple tongue abrasions NECK : Supple, short neck, no tenderness CHEST : CTA, no tenderness HEART : RRR, no obvious murmurs ABDOMEN: Some distention, nontender EXTREMITIES : RLE splint, minimal LE swelling NEUROLOGIC : Coherent, no facial asymmetry, no other gross focality Results & Data Results & Data ([facility]) Vital Signs (Past 12 Hours) Vital Signs Temp Pulse Pulse Resp BP BP Pulse Ox 05/21/22 17:31 90 16 98 05/21/22 17:31 98 05/21/22 16:09 98 H 20 112/82 100 05/21/22 12:26 36.8 C 107 H 20 132/81 93 O2 Del Method 05/21/22 17:31 Room Air 05/21/22 17:31 Room Air 05/21/22 16:09 Room Air 05/21/22 12:26 Room Air Laboratory Results Laboratory Results WBC 15.84 K/ul (4.8-10.8) H 05/21/22 13:29 RBC 5.12 M/uL (3.93-5.22) 05/21/22 13:29 Hgb 14.7 g/dl (12.0-16.0) 05/21/22 13:29 Hct 44.2 % (34.1-44.9) 05/21/22 13:29 MCV 86.3 fL (80.0-100.0) 05/21/22 13:29 MCH 28.7 pg (25.0-34.0) 05/21/22 13:29 MCHC 33.3 g/dL (32.0-36.0) 05/21/22 13:29 RDW Std Deviation 43.0 fL (36.4-46.3) 05/21/22 13:29 RDW Coeff of Hue 13.6 % (11.5-14.5) 05/21/22 13:29 Plt Count 307 K/uL (130-400) 05/21/22 13:29 MPV 10.8 fL (9.4-12.3) 05/21/22 13:29 Immature Gran % (Auto) 0.4 % 05/21/22 13:29 Neut % (Auto) 80.4 % 05/21/22 13:29 Lymph % (Auto) 13.1 % 05/21/22 13:29 [place] % (Auto) 5.6 % 05/21/22 13:29 Eos % (Auto) 0.2 % 05/21/22 13:29 Baso % (Auto) 0.3 % 05/21/22 13:29 Neut # (Auto) 12.75 K/uL (1.4-6.5) H 05/21/22 13:29 Lymph # (Auto) 2.08 K/uL (1.2-3.4) 05/21/22 13:29 [place] # (Auto) 0.88 K/uL (0.24-0.82) H 05/21/22 13:29 Eos # (Auto) 0.03 K/uL (0-0.50) 05/21/22 13:29 Baso # (Auto) 0.04 K/uL (0-0.2) 05/21/22 13:29 Immature Gran # (Auto) 0.06 K/uL (0.00-0.02) H 05/21/22 13:29 PT 11.5 Seconds (9.0-12.0) 05/21/22 13:29 INR 1.1 (0.9-1.1) 05/21/22 13:29 APTT 28.5 Seconds (21.0-31.0) 05/21/22 13: PTT Ratio 1.0 05/21/22 13:29 Sodium 139 mmol/L (136-145) 05/21/22 13:29 Potassium 3.4 mmol/L (3.5-5.1) L 05/21/22 13:29 Chloride 102 mmol/L (98-107) 05/21/22 13:29 Carbon Dioxide 29 mmol/L (21-32) 05/21/22 13:29 Anion Gap 8 (3-11) 05/21/22 13:29 BUN 9 mg/dl (6-23) 05/21/22 13:29 Creatinine 0.79 mg/dl (0.6-1.2) 05/21/22 13:29 Est Cr Clr Drug Dosing Not Reportable 05/21/22 13:29 Est GFR ( Amer) 112.4 ml/min 05/21/22 13:29 Est GFR (Non-Af Amer) 97.0 ml/min 05/21/22 13:29 BUN/Creatinine Ratio 11.4 (10-20) 05/21/22 13:29 Glucose 105 mg/dl (70-99(Fasting)) H 05/21/22 13:29 POC Glucose 111 mg/dl (70-99) H 05/21/22 13:15 Calcium 9.5 mg/dl (8.5-10.1) 05/21/22 13:29 Magnesium 2.3 mg/dl (1.7-2.4) 05/21/22 13:29 Total Bilirubin 0.8 mg/dl (0.2-1.0) 05/21/22 13:29 AST 23 U/L (13-39) 05/21/22 13:29 ALT 12 U/L (7-52) 05/21/22 13:29 Alkaline Phosphatase 64 U/L (34-104) 05/21/22 13:29 Total Creatine Kinase 692 U/L (26-192) H 05/21/22 13:29 Troponin I High Sens 3.9 pg/ml (0-14) 05/21/22 13:29 Total Protein 7.8 gm/dl (6.0-8.3) 05/21/22 13:29 Albumin 4.3 gm/dl (3.4-5.0) 05/21/22 13:29 Globulin 3.5 gm/dl (2.5-4.0) 05/21/22 13:29 Albumin/Globulin Ratio 1.2 (0.9-2) 05/21/22 13:29 Procalcitonin < 0.05 ng/ml (0-0.5) 05/21/22 13:29 TSH 1.213 uIu/ml (0.300-4.500) 05/21/22 13:29 Urine Color [place] 05/21/22 19:55 Urine Appearance Turbid (Clear) A 05/21/22 19:55 Urine pH 5.5 (4.5-7.5) 05/21/22 19:55 Ur Specific [place] 1.032 (1.000-1.030) H 05/21/22 19:55 Urine Protein 1+ (Negative) H 05/21/22 19:55 Urine Glucose (UA) Negative (Negative) 05/21/22 19:55 Urine Ketones 2+ (Negative) H 05/21/22 19:55 Urine Blood Negative (Negative) 05/21/22 19:55 Urine Nitrite Negative (Negative) 05/21/22 19:55 Urine Bilirubin 1+ (Negative) H 05/21/22 19:55 Urine Urobilinogen Negative (Negative) 05/21/22 19:55 Ur Leukocyte Esterase Negative (Negative) 05/21/22 19:55 Urine WBC (Auto) 1-5 /hpf (0-5) 05/21/22 19:55 Urine RBC (Auto) 0-4 /hpf (0-4) 05/21/22 19:55 U Hyaline Cast (Auto) 10-30 /lpf (0-5) H 05/21/22 19:55 U Epithel Cells (Auto) 10-20 /lpf (0-5) H 05/21/22 19:55 Urine Bacteria (Auto) Negative (Negative) 05/21/22 19:55 Urine Opiates Screen Neg (Neg) 05/21/22 19:55 Ur Methadone, Qual Neg (Neg) 05/21/22 19:55 Urine Barbiturates Neg (Neg) 05/21/22 19:55 Ur Phencyclidine (PCP) Neg (Neg) 05/21/22 19:55 U Amphetamin/Meth Scrn Neg (Neg) 05/21/22 19:55 MDMA (Ecstasy) Screen Neg (Neg) 05/21/22 19:55 U Benzodiazepines Scrn Pos (Neg) H 05/21/22 19:55 Ur Cocaine Metabolite Neg (Neg) 05/21/22 19:55 U Marijuana (THC) Screen Neg (Neg) 05/21/22 19:55 SARS-CoV-2, RNA, NAAT NEGATIVE (NEGATIVE) 05/21/22 16:02 Impressions Chest X-Ray 05/21/22 15:50 XR chest 1V portable HISTORY: weakness COMPARISON: Chest 03/14/2021. FINDINGS: Mild elevation of the right hemidiaphragm. The heart is normal in size. There is a left-sided stimulator device terminating at the cervicothoracic junction. No focal lung consolidations to suggest a pneumonia. There are low lung volumes. Right basilar linear densities favor subsegmental atelectasis. No evidence for pulmonary edema. IMPRESSION: 1. Low lung volumes with mild elevation the right hemidiaphragm. 2. Otherwise, no acute process within the chest. ACT 112: Negative or not required by law. Electronically signed by: Lowell Cordoba M.D. 05/21/2022 5:[address] 05/21/22 15:50 CT head/brain wo con CLINICAL HISTORY: sz Technique: Contiguous axial CT images of the head were acquired from the base of the skull to the vertex without intravenous contrast administration. Images were viewed in brain, subdural and bone windows. Automated dose lowering techniques and/or adjustment according to patient size were utilized for this exam. Comparison: Comparison is made to CT head 03/14/2021 Findings: The ventricles, basal cisterns, and cerebral sulci are normal. There is no acute intracranial hemorrhage or evidence of acute territorial infarction. Neither mass effect, shift of the midline structures, nor abnormal extra-axial fluid collections are shown. Imaged portions of the paranasal sinuses and mastoid air cells are clear. The orbits appear normal. There are no acute fractures of the calvaria or scalp swelling. Impression: No acute intracranial hemorrhage, no evidence of acute territorial infarction or other acute intracranial disease process. ACT 112: Negative or not required by law. Electronically signed by: Bryan Taylor M.D. 05/21/2022 5:02 PM Tibia/Fibula X-Ray 05/21/22 20:05 XR tibia fibula RT 2V CLINICAL HISTORY: fall TECHNIQUE: 2 radiographic views of the right leg were obtained. Comparison: Comparison is made to ankle radiograph 08/22/2019 FINDINGS: Comminuted fractures of the proximal fibular diaphysis and distal tibial diaphysis. Fixation hardware from prior ankle fractures is unremarkable. Joint spaces are well-preserved. Soft tissue swelling is seen. IMPRESSION: Comminuted fractures of the fibular and tibial shafts with surrounding soft tissue swelling. ACT 112: Negative or not required by law. Electronically signed by: Bryan Taylor M.D. 05/21/2022 8:29 PM Diagnostic Findings RLE arterial Dopplers initial read: Normal left lower extremityarterial ultrasound. No comparisons Code Status & VTE Plan VTE Prophylaxis Plan VTE Prophylaxis will be ordered: Yes
[2022-05-22 04:11] LABS: Pregnancy Test, Urine Negative (Negative)
[2022-05-22 04:45] LABS: Basophils # (auto) 0.05 K/uL (0-0.2); Basophils % (auto) 0.4 %; Eosinophils # (auto) 0.14 K/uL (0-0.50); Eosinophils % (auto) 1.1 %; Hemoglobin 11.9 g/dl (12.0-16.0); Immature Granulocytes # (auto) 0.05 K/uL (0.00-0.02); Immature Granulocytes % (auto) 0.4 %; Lymphocytes # (auto) 3.41 K/uL (1.2-3.4); Lymphocytes % (auto) 27.3 %; Mean Corpuscular Hemoglobin 27.9 pg (25.0-34.0); Mean Corpuscular Hgb Conc 32.2 g/dL (32.0-36.0); Mean Corpuscular Volume 86.7 fL (80.0-100.0); Mean Platelet Volume 10.7 fL (9.4-12.3); Monocytes # (auto) 1.01 K/uL (0.24-0.82); Monocytes % (auto) 8.1 %; Neutrophils # (auto) 7.85 K/uL (1.4-6.5); Neutrophils % (auto) 62.7 %; Platelet Count 224 K/uL (130-400); RDW Coefficient of Variation 13.8 % (11.5-14.5); RDW Standard Deviation 43.9 fL (36.4-46.3); Red Blood Count 4.27 M/uL (3.93-5.22); White Blood Count 12.51 K/ul (4.8-10.8)
[2022-05-22] MEDS ORDERED: PROMETHAZINE HCL 12.5 MG in SODIUM CHLORIDE 0.9% 50 ML IV PRN (05:12)
[2022-05-22] MEDS ORDERED: ACETAMINOPHEN 325 MG TAB PO PRN (05:12)
[2022-05-22] MEDS ORDERED: oxyCODONE HCL IR 5 MG TAB (IMMEDIATE RELEASE) PO PRN (05:12)
[2022-05-22] MEDS ORDERED: LORazepam 2 MG/1 ML VIAL IV PRN (05:12)
[2022-05-22] MEDS ORDERED: LORazepam 1 MG in SYRINGE 0 ML IV PRN (05:18)
[2022-05-22 05:28] LABS: Anion Gap 6 (3-11); BUN Creatinine Ratio 11.3 (10-20); Blood Urea Nitrogen 9 mg/dl (6-23); Calcium 8.3 mg/dl (8.5-10.1); Carbon Dioxide 26 mmol/L (21-32); Chloride 107 mmol/L (98-107); Creatine Kinase 494 U/L (26-192); Est GFR (African American) 110.7 ml/min; Est GFR (Non-African American) 95.5 ml/min; Glucose 95 mg/dl (70-99(Fasting)); Potassium 3.7 mmol/L (3.5-5.1); Sodium 139 mmol/L (136-145)
[2022-05-22] MEDS: LACTATED RINGER'S 1,000 ML IV SCH ×2 (07:33→20:19)
[2022-05-22 07:56] LABS: Estimated Average Glucose 105 mg/dl; Hemoglobin A1C 5.3 % (4.5-5.6)
--- NOTE | 2022-05-22 08:47 | Neurology Consultation ---
Date of Consultation May 22, 2022 Assessment & Plan (1) Epilepsy: (2) Common migraine without aura: (3) Fracture of tibia and fibula: Plan this patient has a longstanding history of refractory primary generalized epilepsy and PNES, followed very closely by epileptologist at [facility]. She is on multiple medications plus a vagus nerve stimulator and still has breakthrough seizures on a regular basis. A recent seizure this week likely resulted in a fall ( she has no recall ) that ended up fracturing her right tibia above the ankle and the proximal right fibula. Currently, she is stable and has had no seizures in the last 24-48 hours. She has no other focal neurologic findings, meningeal signs, or encephalopathy. It is very interesting that this patient has seizures such that she can fall and shot her her bones. I wonder about any underlying bone issue that puts her at risk for fractures. Recommendations: 1. Continue current epilepsy treatment with VNS and four medications. 2. Awaiting orthopedic evaluation 3. An MRI of the brain was ordered, but I do not believe this is necessary , at this time. 4. There is no need for an EEG at this time either. overall, I spent a total of 90 minutes with this case including review of ying rds, direct evaluation the patient at bedside, and discussion of the case with the patient and RN at bedside, and Dr. Cage including differential diagnosis and treatment options. History of Present Illness Reason for Consultation: Patient is a 37-year-old, who I was asked to see at the request of Dr. Chavez, for neurologic evaluation regarding seizures. Requesting Physician: Dr. Chavez Attending Physician: Tee Cage MD History of Present Illness This patient has a history of primary generalized epilepsy since childhood of the somewhat intractable nature. She also carries a diagnosis of psychogenic nonepileptic seizures. She is on multiple medications and has a vagal nerve stimulator implanted for her seizure disorder. She is followed by Dr. Su, epileptologist at [facility]. currently, she is taking levetiracetam 1500 mg twice a day, clobazam 40 mg twice a day, topiramate 200 mg twice a day, and Fycompa 6 mg in the evening. She has been on a vagal nerve stimulator over 20 years. She carries a diagnosis of primary generalized epilepsy of a refractory nature and psychogenic non epileptic seizures. Her seizures typically occur without any warning in all the next thing she knows she is waking up on the. They can occur multiple times within 2 weeks or she may go 2 weeks without a seizure. In August of 2019 she had a seizure and then up fracturing her right ankle requiring surgery plates and screws ( Done at [place]). Over the last week or so she has had an increase in seizures their most recent seizure May 20. she noted that she could not walk on her leg on May 20. She ended up coming to the emergency room in the evening of May 21. She has not a seizure since May 20. CBC, Chem profile, TSH, unremarkable although the white count was mildly elevated. CK was elevated at 692 and has come to less than 100. Chest x-ray and CT scan of the head was unremarkable. Patient has a history of migraine headaches for many years. She will average 1 every 5-6 days and weather fronts will trigger them. She will pain with nausea vomiting photophobia and phonophobia. X-rays revealed significant distal right tibia and proximal right fibula fractures. Allergies Allergy/AdvReac Type Severity Reaction Status Date / Time Iodinated Contrast Media Allergy Unknown Hives Verified 05/21/22 20:32 Home Medications Medication Instructions Recorded Confirmed Type levetiracetam 1,000 mg tablet 1,000 mg PO BID 04/18/19 05/21/22 History levetiracetam 250 mg tablet 500 mg PO BID 08/15/19 05/21/22 History clobazam 10 mg tablet 40 mg PO AMPM 12/24/20 05/21/22 History magnesium oxide 400 mg PO BID 12/24/20 05/21/22 History topiramate 200 mg tablet 200 mg PO AMHS 12/24/20 05/21/22 History cenobamate 12.5 mg (14)-25 mg (14) 1 ea PO UD 03/14/21 05/21/22 History tablets in a dose pack (Xcopri Titration Pack) diclofenac potassium 50 mg tablet 50 mg PO UD PRN head pain 03/14/21 05/21/22 History riboflavin (vitamin B2) 400 mg 400 mg PO DAILY 03/14/21 05/21/22 History tablet sumatriptan succinate 100 mg tablet 50 - 100 mg PO UD PRN Headache 03/14/21 05/21/22 History lorazepam 2 mg tablet 2 mg PO Q6H PRN cluster seizure 03/17/21 05/21/22 Rx #10 tabs perampanel 6 mg tablet (Fycompa) 6 mg PO HS 05/21/22 05/21/22 History Patient History Medical History Adverse drug effect Closed dislocation of right ankle Closed fracture of ankle, trimalleolar Contusion of both upper extremities Conversion disorder Dehydration Fall Open wound of tongue due to bite Seizure Seizures Surgical History History of ankle surgery (~08/2019) Family History Mother Breast cancer Grandmother Cancer Grandfather Cancer Father Diabetes Hypertension Other No pertinent family history in first degree relatives Social History Smoking Status: Never smoker Second Hand Exposure: No; Do You Dip or Chew Tobacco: No; Tobacco Cessation Education Requested by Patient: No Hx Alcohol Use: No Hx Substance Use: No Preferred Language: Swedish Communication Ability: Effective Chief Recordist Required: No Beliefs That Will Affect Care: None marital status: Single Current Living Situation: Alone current occupational status: employed 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 Other Information That Helps Us Care for You: No Feels Safe at Home: Yes Safety Concerns: Feels Safe At This Time Assistive Devices: None Review of Systems Constitutional: no fever, no fatigue and no weakness Eyes: no diplopia, no eye pain and no worsening vision Ear, Nose, Mouth, Throat: no ear pain, no tinnitus, no hearing loss, no dizziness, no snoring, no hoarseness and no dysphagia Respiratory: no cough and no dyspnea Cardiovascular: no chest pain, no palpitations and no lightheadedness Gastrointestinal: no abdominal pain, no nausea and no vomiting Genitourinary: no dysuria, no urinary frequency and no urinary incontinence Musculoskeletal: no back pain, no neck pain, no radicular pain, no joint pain and no myalgia Integumentary: no rash and no lesions Neurologic: + localized weakness; no gait abnormality, no generalized weakness, no tingling, no numbness, no tremor(s), no abnormal movements, no headache(s), no abnormal speech, no confusion and no memory loss Psychiatric: no depression, no irritability, no anxiety, no difficulty concentrating, no confusion and no hallucinations Endocrine: no fatigue and no flushing Hematologic / Lymphatic: no easy bleeding and no easy bruising Allergy / Immunological: no urticaria and no problem reported Exam (Neuro) Physical Exam: The patient is right-handed. The patient is awake, alert, and attentive. Speech is normal without any aphasia or dysarthria. The patient can name objects, repeat phrases, and has normal spontaneous speech. Mentation and thought processes are intact, with orientation to person, place and time, and normal fund of knowledge. Attention and concentration are normal. Mood and affect are normal and appropriate. General appearance and grooming are normal. Short and long-term memory are intact. The discs are sharp with positive venous pulsations bilaterally. There are no exudates, hemorrhages, or blood vessel changes seen. Pupils are 4 mm bilaterally and reactive to light. Extraocular eye muscles are intact without nystagmus. Visual acuity and visual mcadams seem normal grossly to confrontation. There are no deficits to sensation in the face in all 3 distributions of the fifth cranial nerve bilaterally. Corneal reflexes are positive bilaterally. Facial strength and symmetry was normal bilaterally. Hearing seems normal bilaterally. Palate moves well without asymmetry. There is normal sternocleidomastoid and trapezius (shoulder shrug) strength bilaterally. Tongue is midline with good strength bilaterally. Neck has a full range of motion without discomfort. There are no cervical bruits bilaterally. There are no cranial or ocular bruits. Heart is without murmur. There is a regular rhythm and rate. Cervical, thoracic, and lumbar spine are nontender to palpation. Gait and stance could not be tested as she was lying in the bed. With outstretched arms there is no drift. There are no resting, postural, or action tremors. There is no ataxia with finger to nose testing. There is good facility in the hands. No other abnormal involuntary movements are noted. Motor strength is 5/5 diffusely in the arms bilaterally including deltoids, biceps, triceps, brachioradialis, wrist flexors and extensors, implementation advisor, and intrinsic hand muscles. Motor strength is 5/5 diffusely in the Left lower extremity including hip flexors, quadriceps, hamstrings, gastrocnemius, tibialis anterior, tibialis posterior, and Peroneii muscles. right lower extremity strength exam was limited due to her being wrapped up from the toes up past the knee. Hip flexors, ankle flexion extension and toe flexion extension seem 5/5.Toe extensors are normal and there is good bulk in the extensor digitorum brevis muscles bilaterally. The limbs have good tone without rigidity or spasticity. There is no atrophy noted in the muscles. Muscle bulk is normal, there is no tenderness to palpation, no myotonia to percussion, and no fasciculations seen. Sensory examination is intact to touch and pin throughout all 4 limbs diffusely. Reflexes are 2/4 in the biceps, triceps, and brachioradialis tendons bilaterally. The left quadriceps and Achilles tendons were 2/for and the right were difficult to assess because she was wrapped in thick bandages. Toes are downgoing with plantar stimulation bilaterally. Peripheral pulses are present and of normal quality distally in all 4 limbs. There is no peripheral edema noted in the limbs. Results & Data ([facility]) Vital Signs (Past 12 Hours) Vital Signs Temp Pulse Pulse Resp BP BP Pulse Ox 05/22/22 05:00 69 17 96 05/22/22 05:00 123/77 05/22/22 04:30 65 23 98 05/22/22 04:30 107/74 05/22/22 04:00 69 19 96 05/22/22 04:00 116/80 05/22/22 03:30 70 21 97 05/22/22 03:30 114/77 05/22/22 03:00 73 22 96 05/22/22 03:00 120/79 05/22/22 02:30 74 22 96 05/22/22 02:30 114/77 05/22/22 02:00 77 21 97 05/22/22 02:00 108/74 05/22/22 01:30 82 21 96 05/22/22 01:30 122/82 05/22/22 01:00 90 27 H 95 05/22/22 01:00 124/87 05/22/22 00:30 89 29 H 96 05/22/22 00:30 150/102 H 05/22/22 05:04 05/22/22 04:57 37.0 C 70 18 107/70 99 05/22/22 00:00 86 29 H 97 05/22/22 00:00 141/86 H 05/21/22 23:30 91 H 34 H 99 05/21/22 23:30 134/93 05/21/22 23:00 100 H 28 H 99 05/21/22 23:00 139/96 05/21/22 22:30 91 H 34 H 96 05/21/22 22:30 144/89 H 05/21/22 22:00 98 H 31 H 99 05/21/22 22:00 148/104 H 05/21/22 21:57 95 H 37 H 99 O2 Del Method 05/22/22 05:00 05/22/22 05:00 05/22/22 04:30 05/22/22 04:30 05/22/22 04:00 05/22/22 04:00 05/22/22 03:30 05/22/22 03:30 05/22/22 03:00 05/22/22 03:00 05/22/22 02:30 05/22/22 02:30 05/22/22 02:00 05/22/22 02:00 05/22/22 01:30 05/22/22 01:30 05/22/22 01:00 05/22/22 01:00 05/22/22 00:30 05/22/22 00:30 05/22/22 05:04 Room Air 05/22/22 04:57 Room Air 05/22/22 00:00 05/22/22 00:00 05/21/22 23:30 05/21/22 23:30 05/21/22 23:00 05/21/22 23:00 05/21/22 22:30 05/21/22 22:30 05/21/22 22:00 05/21/22 22:00 05/21/22 21:57 PG Care Time/CCT Total # of Minutes Spent Total Time Spent with Patient: Total time spent is greater than 50% in coordination of care (as documented) at patient's floor/unit and/or counseling patient: Coding Level of Care Code 78400 Initial Inpt Care Lvl 3 Diagnoses Epilepsy G40.909 Common migraine without aura G43.009 Fracture of tibia and fibula S82.201A; S82.401A Encounter type: initial encounter Fracture type: closed Laterality: right Time Spent (min) 90 (1) Fracture of tibia and fibula Encounter type: initial encounter Fracture type: closed Laterality: right Qualified Code(s): S82.201A - Unspecified fracture of shaft of right tibia, initial encounter for closed fracture; S82.401A - Unspecified fracture of shaft of right fibula, initial encounter for closed fracture
[2022-05-22] MEDS: levETIRAcetam 500 MG TAB PO SCH ×2 (08:54→20:22)
[2022-05-22] MEDS: TOPIRAMATE 100 MG TAB PO SCH ×2 (08:54→20:22)
[2022-05-22] MEDS: MAGNESIUM OXIDE 400 MG TAB PO SCH ×2 (08:54→20:23)
[2022-05-22] MEDS: ENOXAPARIN INJ 40 MG/0.4 ML SYR SQ SCH (08:58)
[2022-05-22] MEDS ORDERED: NON-FORMULARY MEDICATION (Riboflavin (Vitamin B2) 400 mg Tablet) PO SCH (09:00)
--- NOTE | 2022-05-22 09:28 | Ultrasound Report ---
ULTRASOUND LEFT LOWER EXTREMITY ARTERIAL CLINICAL HISTORY: Cold left leg. COMPARISON STUDY: No priors. TECHNIQUE: Real-time grayscale and color Doppler sonography of the arteries of the left lower extremi ty is performed from the inguinal crease to the foot. FINDINGS: No significant atherosclerotic plaque is identified throughout the arteries of the left low er extremity. There are triphasic arterial waveforms in the common femoral artery with velocities vera suring up to 103 cm/s. The profunda femoris artery is patent with velocities measuring up to 111 cm/s . There are triphasic wave forms throughout the superficial, femoral and popliteal arteries. Velociti es in the superficial femoral artery measure up to 108 cm/s and velocities in the popliteal artery me asure up to 61 cm/s. There is three-vessel runoff to the foot. Normal Doppler waveforms are present w ithin the calf arteries. Velocities within the calf arteries measure up to 71 cm/s. The dorsalis pedi s artery is patent with velocities measuring up to 74 cm/s. IMPRESSION: There is no sonographic evidence of high-grade stenosis or focal vessel occlusion within the arteries of the left lower extremity. Dictated: 05/22/2022 8:25 AM Transcribed: 05/22/2022 9:17 AM Brenna [id number] [email or web address] Electronically signed by: Wale Lockett M.D. 05/22/2022 9:27 AM
[2022-05-22] MEDS: [UNRECOGNIZED DRUG - OTHER] SCH ×2 (10:44→17:11)
--- NOTE | 2022-05-22 12:38 | CT Scan Report ---
CT tib/fib RT wo con CLINICAL HISTORY: distal tibia fracture, proximal fibula fx TECHNIQUE: Multidetector row helical CT of the right tibia and fibula was performed without intraveno us contrast. Coronal and sagittal reformations were obtained. Automated dose lowering techniques and/ or adjustment according to patient size were utilized for this examination. CT DOSE: 586.39 mGy.cm Comparison: Comparison is made to right tibia and fibula radiographs 05/21/2022 FINDINGS: There is a comminuted fracture of the proximal fibular diaphysis as well as of the distal tibial diap hysis. Fixation hardware about the ankle is unchanged. The joint spaces are maintained. No joint effu chad is seen. Surrounding soft tissue swelling is seen. Vascular calcifications are incidentally not ed. IMPRESSION: Redemonstration of comminuted fractures of the fibular and tibial shaft with surrounding soft tissue swelling. ACT 112: Negative or not required by law. Electronically signed by: Bryan Taylor M.D. 05/22/2022 12:37 PM
[2022-05-22] MEDS: Patient's HEIGHT &/or WEIGHT Needed SCH ×2 (14:46→14:47)
--- NOTE | 2022-05-22 16:22 | Hospitalist Progress Note ---
Date of Service May 22, 2022 Assessment & Plan (1) Fracture of tibia and fibula: Plan: History of complex seizure disorder since the age of 14 [address] Su in [place] and status post implantation of vagus nerve stimulator as a child Has been taking 4 different kinds of antiseizure medications and still having breakthrough seizures Has had an episode yesterday at around 9:30 PM and was not able to get up from the floor Noted to have comminuted fractures of the distal tubular and proximal fibular shaft on right with surrounding soft tissue swelling with history of trimalleolar fracture of the right ankle which was repaired by open reduction in August [address] [place] [address] Chico White She was evaluated by orthopedic surgeon at [facility] and was advised for transfer to [place] given the complexity of the situation The patient is agreeable to go to [place] (2) Breakthrough seizure: Plan: hx childhood onset medicaly refractory primary generalized epilepsy/atypical absence seizures status post VNS hx history psychogenic nonepileptic seizures Uncontrolled seizures the last couple of weeks Unclear precipitant Seizure precautions Ativan as needed breakthrough seizures Has had an episode at around 9:30 PM yesterday which lasted for about an hour as per the patient She fell on the ground and probably lost consciousness and could not able to get up following that She had tongue bite but no incontinence No more seizures since admission Appreciate neurology input and recommendation for transfer given the complexity of seizures and requirement of possible surgery Appreciate Ortho evaluation and recommendation for transfer Migraine, baseline symptoms Hyperglycemia rule out DM Medical telemetry DVT prophylaxis. Lovenox subcu Full code (3) Common migraine without aura: Admission and Anticipated Discharge Date Admission Date: May 21, 2022 Subjective 05/22/2022 The patient was seen and examined in emergency room She has history of complex seizure disorder since the age of 14 She has had another episode of seizure yesterday and was on the floor for a long time She was found to have fracture of the distal tibia and fibula and she was evaluated by orthopedic surgeon this afternoon and is advised for transfer No more seizures since admission and the patient remains hemodynamically stable Review of Systems Review of Systems: All systems reviewed and are unremarkable except as noted below Neurologic: Alert, awake and oriented x3. Physical Exam Physical Exam: Lying in bed comfortably Constitutional: well developed, well nourished, + ill appearing and + obese Eyes: PERRL, conjunctivae normal, anicteric sclerae ENMT: external ear and nose normal, oropharynx normal Neck: trachea midline, no thyromegaly Respiratory: no respiratory distress Auscultation: lungs clear to auscultation bilaterally Cardiovascular: Rate/Rhythm: regular rate and regular rhythm; not tachycardic Heart Sounds: normal S1 and normal S2; no murmur Extremities: no edema (On left side) Gastrointestinal (Abdomen): Inspection/Auscultation: normal bowel sounds; abdomen not distended Percussion/Palpation: abdomen soft; abdomen nontender Musculoskeletal: Ankle: + ankle abnormal to inspection (Right leg is in cast from knee down to the foot. Sensation is intact) Neurologic: normal touch/pain/proprioception and moves all extremities (Except right leg due to placement of cast) Psychiatric: A+Ox3, euthymic affect Lymphatic: no cervical or axillary lymphadenopathy Results & Data Results & Data ([facility]) Vital Signs (Past 12 Hours) Vital Signs Temp Pulse Pulse Resp BP BP Pulse Ox 05/22/22 14:00 90 22 123/86 99 05/22/22 13:30 81 24 120/74 97 05/22/22 13:00 86 22 126/77 98 05/22/22 12:31 88 22 132/77 99 05/22/22 09:13 89 22 123/73 97 05/22/22 09:00 80 24 125/80 99 05/22/22 08:30 82 24 134/64 99 05/22/22 07:30 66 21 114/76 100 05/22/22 07:00 70 20 127/80 99 05/22/22 06:30 71 20 110/74 99 05/22/22 06:00 65 20 112/77 100 05/22/22 05:30 64 21 134/75 99 05/22/22 09:28 05/22/22 08:52 83 20 134/64 100 05/22/22 05:00 69 17 96 05/22/22 05:00 123/77 05/22/22 04:30 65 23 98 05/22/22 04:30 107/74 05/22/22 05:04 05/22/22 04:57 37.0 C 70 18 107/70 99 O2 Del Method 05/22/22 14:00 05/22/22 13:30 05/22/22 13:00 05/22/22 12:31 05/22/22 09:13 05/22/22 09:00 05/22/22 08:30 05/22/22 07:30 05/22/22 07:00 05/22/22 06:30 05/22/22 06:00 05/22/22 05:30 05/22/22 09:28 Room Air 05/22/22 08:52 Room Air 05/22/22 05:00 05/22/22 05:00 05/22/22 04:30 05/22/22 04:30 05/22/22 05:04 Room Air 05/22/22 04:57 Room Air Laboratory Results Short CBC 05/22/22 Range/Units 04:03 WBC 12.51 H (4.8-10.8) K/ul Hgb 11.9 L (12.0-16.0) g/dl Hct 37.0 (34.1-44.9) % Plt Count 224 (130-400) K/uL BMP 05/22/22 04:03 Sodium 139 Potassium 3.7 Chloride 107 Carbon Dioxide 26 BUN 9 Creatinine 0.80 Glucose 95 Calcium 8.3 L Cardiac Enzymes 05/22/22 Range/Units 04:03 Total Creatine Kinase 494 H (26-192) U/L Urine 05/21/22 Range/Units 19:55 Urine Color [place] Urine Appearance Turbid A (Clear) Urine pH 5.5 (4.5-7.5) Ur Specific [place] 1.032 H (1.000-1.030) Urine Protein 1+ H (Negative) Urine Glucose (UA) Negative (Negative) Medications Administered Current Inpatient Medications Acetaminophen (Acetaminophen 325 Mg Tab) 650 mg PO Q4H PRN PRN Reason: Pain or Fever Stop: 06/21/22 05:11 Enoxaparin Sodium (Enoxaparin Inj 40 Mg/0.4 Ml Syr) 40 mg SQ QAM [facility] Stop: 06/21/22 08:59 Last Admin: 05/22/22 08:58 Dose: 40 mg Lactated Ringer's (Lr) 1,000 mls @ 100 mls/hr IV .Q10H [facility] Stop: 05/23/22 07:59 Last Admin: 05/22/22 07:33 Dose: 100 mls/hr Promethazine HCl 12.5 mg/ (Sodium Chloride) 50.5 mls @ 202 mls/hr IV Q6H PRN PRN Reason: Nausea And Vomiting Stop: 06/21/22 05:11 Lorazepam 1 mg/ Syringe 1 mls @ 2 mls/min IV Q10M PRN PRN Reason: SEIZURE Stop: 06/21/22 05:17 Ketorolac Tromethamine (Ketorolac Tromethamine 15 Mg/Ml Vial) 15 mg IV Q6H PRN PRN Reason: Pain Stop: 05/27/22 05:11 Levetiracetam (Levetiracetam 500 Mg Tab) 1,500 mg PO BID [facility] Stop: 06/21/22 08:59 Last Admin: 05/22/22 08:54 Dose: 1,500 mg Magnesium Oxide (Magnesium Oxide 400 Mg Tab) 400 mg PO BID [facility] Stop: 06/21/22 08:59 Last Admin: 05/22/22 08:54 Dose: 400 mg Miscellaneous (Cenobamate [Xcopri Titration Pack] - Order Awaiting Action) 1 each N/A QS [facility] Stop: 06/21/22 07:59 Last Admin: 05/22/22 10:44 Dose: Not Given Miscellaneous (Perampanel [Fycompa] - Order Awaiting Action) 1 each N/A QS [facility] Stop: 06/21/22 07:59 Last Admin: 05/22/22 10:44 Dose: Not Given Miscellaneous (Clobazam - Order Awaiting Action) 1 each N/A QS [facility] Stop: 06/21/22 07:59 Last Admin: 05/22/22 10:44 Dose: Not Given Oxycodone HCl (Oxycodone Hcl Ir 5 Mg Tab (Immediate Release)) 5 mg PO Q4H PRN PRN Reason: Pain Stop: 06/05/22 05:11 Topiramate (Topiramate 100 Mg Tab) 200 mg PO AMHS [facility] Stop: 06/21/22 08:59 Last Admin: 05/22/22 08:54 Dose: 200 mg (1) Fracture of tibia and fibula Encounter type: initial encounter Fracture type: closed Laterality: right Qualified Code(s): S82.201A - Unspecified fracture of shaft of right tibia, initial encounter for closed fracture; S82.401A - Unspecified fracture of shaft of right fibula, initial encounter for closed fracture
--- NOTE | 2022-05-22 19:07 | Orthopedic Consultation ---
Date of Consultation May 22, 2022 Assessment & Plan (1) Fracture of tibia and fibula: Acute tibia and fibula fracture right lower extremity which is a recurrent fracture and had ORIF of a prior fracture in [facility]. Patient actually resides in that area and commutes to [facility]. Her parents are in that area. All of her doctors are there at [facility]. I think with her history of seizure disorder and complex recurrent fracture best option is open reduction term fixation. I discussed there one of my partners or 1 of my colleagues could perform procedure however she thought it would be best if she just had the procedure in [facility]. Presently no evidence of any neurovascular issues so surgery is not emergent. History of Present Illness Reason for Consultation: Right tibia and fibula fracture Attending Physician: Tee Cage MD History of Present Illness 37-year-old female with a seizure disorder had a seizure injured her right ankle could not bear weight on it and originally felt that it was related to just post ictal type seizure symptoms but she continued to not be able to bear weight the next day and sought medical care. Allergies Allergy/AdvReac Type Severity Reaction Status Date / Time Iodinated Contrast Media Allergy Unknown Hives Verified 05/21/22 20:32 Home Medications Medication Instructions Recorded Confirmed Type levetiracetam 1,000 mg tablet 1,000 mg PO BID 04/18/19 05/21/22 History levetiracetam 250 mg tablet 500 mg PO BID 08/15/19 05/21/22 History clobazam 10 mg tablet 40 mg PO AMPM 12/24/20 05/21/22 History magnesium oxide 400 mg PO BID 12/24/20 05/21/22 History topiramate 200 mg tablet 200 mg PO AMHS 12/24/20 05/21/22 History cenobamate 12.5 mg (14)-25 mg (14) 1 ea PO UD 03/14/21 05/21/22 History tablets in a dose pack (Xcopri Titration Pack) diclofenac potassium 50 mg tablet 50 mg PO UD PRN head pain 03/14/21 05/21/22 History riboflavin (vitamin B2) 400 mg 400 mg PO DAILY 03/14/21 05/21/22 History tablet sumatriptan succinate 100 mg tablet 50 - 100 mg PO UD PRN Headache 03/14/21 05/21/22 History lorazepam 2 mg tablet 2 mg PO Q6H PRN cluster seizure 03/17/21 05/21/22 Rx #10 tabs perampanel 6 mg tablet (Fycompa) 6 mg PO HS 05/21/22 05/21/22 History Patient History Medical History Adverse drug effect Closed dislocation of right ankle Closed fracture of ankle, trimalleolar Contusion of both upper extremities Conversion disorder Dehydration Fall Open wound of tongue due to bite Seizure Seizures Surgical History History of ankle surgery (~08/2019) Family History Mother Breast cancer Grandmother Cancer Grandfather Cancer Father Diabetes Hypertension Other No pertinent family history in first degree relatives Social History Smoking Status: Never smoker Second Hand Exposure: No; Hx Alcohol Use: No Hx Substance Use: No Preferred Language: Japanese Communication Ability: Effective Animal Caregiver Required: No Beliefs That Will Affect Care: None marital status: Single Current Living Situation: Alone current occupational status: employed 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 Feels Safe at Home: Yes Assistive Devices: None Review of Systems Review of Systems: Patient in telemetry upon evaluation and pain was under control and states she could feel her foot well and has not had another seizure at this point. Physical Exam Physical Exam: Patient's in a sugar-tong type splint around the ankle. She can lift up her EHL somewhat likely difficulty related to some discomfort. She has complete normal sensation to light touch and capillary refill is normal r eally no swelling of the toes. Splints are intact and good condition. Results & Data ([facility]) Vital Signs (Past 12 Hours) Vital Signs Temp Pulse Pulse Resp BP BP Pulse Ox 05/22/22 17:29 37.5 C 91 H 18 116/76 99 05/22/22 17:18 90 05/22/22 16:31 116/79 05/22/22 16:31 92 H 31 H 98 05/22/22 16:30 93 H 25 H 98 05/22/22 16:00 88 24 98 05/22/22 16:00 120/88 05/22/22 15:30 84 25 H 99 05/22/22 15:30 126/70 05/22/22 15:01 85 24 116/79 98 05/22/22 14:30 87 20 139/82 99 05/22/22 14:00 05/22/22 14:00 90 22 123/86 99 05/22/22 13:30 81 24 120/74 97 05/22/22 13:00 86 22 126/77 98 05/22/22 12:31 88 22 132/77 99 05/22/22 09:13 89 22 123/73 97 05/22/22 09:00 80 24 125/80 99 05/22/22 08:30 82 24 134/64 99 05/22/22 07:30 66 21 114/76 100 05/22/22 07:00 70 20 127/80 99 05/22/22 09:28 05/22/22 08:52 83 20 134/64 100 Pulse Ox O2 Del Method O2 Del Method 05/22/22 17:29 Room Air 05/22/22 17:18 05/22/22 16:31 05/22/22 16:31 05/22/22 16:30 05/22/22 16:00 05/22/22 16:00 05/22/22 15:30 05/22/22 15:30 05/22/22 15:01 05/22/22 14:30 05/22/22 14:00 98 Room Air 05/22/22 14:00 05/22/22 13:30 05/22/22 13:00 05/22/22 12:31 05/22/22 09:13 05/22/22 09:00 05/22/22 08:30 05/22/22 07:30 05/22/22 07:00 05/22/22 09:28 Room Air 05/22/22 08:52 Room Air Diagnostic Findings Comminuted tibia fracture and comminuted proximal fibula fracture but normal mortise and the tibia fracture is extra-articular and she has had prior bimalleolar ankle fixation with screws medially and a plate and screws lateral ly. There are some angulation and some displacement but overall reasonably good alignment despite the comminution. (1) Fracture of tibia and fibula Encounter type: initial encounter Fracture type: closed Laterality: right Qualified Code(s): S82.201A - Unspecified fracture of shaft of right tibia, initial encounter for closed fracture; S82.401A - Unspecified fracture of shaft of right fibula, initial encounter for closed fracture
[2022-05-22] MEDS: KETOROLAC TROMETHAMINE 15 MG/ML VIAL IV PRN (23:48)
[2022-05-23] MEDS: [UNRECOGNIZED DRUG - OTHER] SCH ×2 (01:18→10:15)
[2022-05-23] MEDS: LACTATED RINGER'S 1,000 ML IV SCH (06:06)
--- NOTE | 2022-05-23 08:02 | Neurology Progress Note ---
Date of Service May 23, 2022 Assessment & Plan (1) Epilepsy: (2) Common migraine without aura: (3) Fracture of tibia and fibula: Plan This patient has a longstanding history (age 14) of refractory primary generalized epilepsy and PNES, followed very closely by Dr. Su, epile ptologist at [facility]. She is on multiple medications plus a vagus nerve stimulator. Unfortunately, she still has breakthrough seizures on a regular basis. A recent seizure ( in her bedroom) this week resulted in a fall (she has no recall ) that ended up fracturing her right tibia above the ankle and the proximal right fibula. Currently, she is stable and has had no seizures in the last 48 hours. She has no other focal neurologic findings, meningeal signs, or encephalopathy. It is very interesting that this patient has seizures such that she can fall and seriously fracture her bones. I wonder about any underlying bone issue that puts her at risk for fractures. Recommendations: 1. Continue current epilepsy treatment with VNS and multiple medications. her mother is bring in all of her home medicines today since many are not formulary. 2. We are awaiting transfer to [facility] in [place] for surgical correction of her fractures and closer monitoring of her brittle seizure disorder. 3. There is no indication for any additional neurologic testing or treatment at this time ( no need for MRI or EEG). overall, I spent a total of 25 minutes with this case including review of records, direct evaluation the patient at bedside, and discussion of the case with the patient and RN at bedside, and Dr. Cage including differential diagnosis and treatment options. Admission and Anticipated Discharge Date Admission Date: May 21, 2022 Subjective patient has not had any seizures according to the nursing staff or the patient herself. Unfortunately, many of her medications are not formulary and patient's mother needs to bring in her meds ( which she will do this morning ). Blood pressure is 98/66 and she is afebrile. She has no pain lying in bed. Results & Data ([facility]) Vital Signs (Past 12 Hours) Vital Signs Temp Pulse Pulse Resp BP Pulse Ox O2 Del Method 05/23/22 04:00 37.0 C 70 18 98/66 L 99 Room Air 05/23/22 00:00 82 05/22/22 23:00 37.2 C 91 H 18 111/73 97 Room Air Exam (Neuro) Physical Exam: She is awake and alert. Speech is without aphasia or dysarthria. Mood and affect are normal appropriate. Thought processes are intact with good long and short-term memory. Extraocular muscles are intact without nystagmus. There is no facial droop. Coordination is normal in the arms and strength is symmetrical in the arms. PG Care Time/CCT Total # of Minutes Spent Total Time Spent with Patient: Total time spent is greater than 50% in coordination of care (as documented) at patient's floor/unit and/or counseling patient: Coding Level of Care Code 86620 Subseq Hosp Care Lvl 2 Diagnoses Epilepsy G40.909 Common migraine without aura G43.009 Fracture of tibia and fibula S82.201A; S82.401A Encounter type: initial encounter Fracture type: closed Laterality: right Time Spent (min) 25 (1) Fracture of tibia and fibula Encounter type: initial encounter Fracture type: closed Laterality: right Qualified Code(s): S82.201A - Unspecified fracture of shaft of right tibia, initial encounter for closed fracture; S82.401A - Unspecified fracture of shaft of right fibula, initial encounter for closed fracture
[2022-05-23 08:21] LABS: Basophils # (auto) 0.04 K/uL (0-0.2); Basophils % (auto) 0.5 %; Eosinophils # (auto) 0.25 K/uL (0-0.50); Eosinophils % (auto) 3.1 %; Hematocrit (blood only) 34.6 % (34.1-44.9); Hemoglobin 11.1 g/dl (12.0-16.0); Immature Granulocytes # (auto) 0.03 K/uL (0.00-0.02); Immature Granulocytes % (auto) 0.4 %; Lymphocytes % (auto) 30.9 %; Mean Corpuscular Hemoglobin 27.9 pg (25.0-34.0); Mean Corpuscular Hgb Conc 32.1 g/dL (32.0-36.0); Mean Corpuscular Volume 86.9 fL (80.0-100.0); Mean Platelet Volume 10.7 fL (9.4-12.3); Monocytes % (auto) 7.4 %; Neutrophils # (auto) 4.67 K/uL (1.4-6.5); Neutrophils % (auto) 57.7 %; Platelet Count 212 K/uL (130-400); RDW Coefficient of Variation 13.5 % (11.5-14.5); RDW Standard Deviation 43.1 fL (36.4-46.3); Red Blood Count 3.98 M/uL (3.93-5.22); White Blood Count 8.09 K/ul (4.8-10.8)
[2022-05-23 08:31] LABS: Calcium 8.1 mg/dl (8.5-10.1); Creatinine Clr Calc Pharmacy 126.5 ml/min; Est GFR (African American) 119.7 ml/min; Est GFR (Non-African American) 103.3 ml/min; Potassium 3.6 mmol/L (3.5-5.1)
[2022-05-23] MEDS: TOPIRAMATE 100 MG TAB PO SCH (09:50)
[2022-05-23] MEDS: MAGNESIUM OXIDE 400 MG TAB PO SCH (09:51)
[2022-05-23] MEDS: levETIRAcetam 500 MG TAB PO SCH (09:51)
[2022-05-23] MEDS: ENOXAPARIN INJ 40 MG/0.4 ML SYR SQ SCH (09:51)
[2022-05-23] MEDS: KETOROLAC TROMETHAMINE 15 MG/ML VIAL IV PRN (10:01)
--- NOTE | 2022-05-23 10:30 | Hospitalist Progress Note ---
Date of Service May 23, 2022 Assessment & Plan (1) Fracture of tibia and fibula: Plan: History of complex seizure disorder since the age of 14 [address] care [address] Su in [place] and status post implantation of vagus nerve stimulator as a child Has been taking 4 different kinds of antiseizure medications and still having breakthrough seizures Has had an episode yesterday at around 9:30 PM and was not able to get up from the floor Noted to have comminuted fractures of the distal tubular and proximal fibular shaft on right with surrounding soft tissue swelling with history of trimalleolar fracture of the right ankle which was repaired by open reduction in August [address] [place] [address] 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 Uncontrolled seizures the last couple of weeks Unclear precipitant Seizure precautions Ativan as needed breakthrough seizures Has had an episode at around 9:30 PM yesterday which lasted for about an hour as per the patient She fell on the ground and probably lost consciousness and could not be able to get up following that She had tongue bite but no incontinence Appreciate neurology input and recommendation for transfer given the complexity of seizures and requirement of possible surgery Remains free from seizure since admission Migraine, baseline symptoms Hyperglycemia rule out DM Hemoglobin A1c is 5.3 DVT prophylaxis. Lovenox subcu Full code (3) Common migraine without aura: Admission and Anticipated Discharge Date Admission Date: May 21, 2022 Subjective 05/22/2022 The patient was seen and examined in emergency room She has history of complex seizure disorder since the age of 14 She has had another episode of seizure yesterday and was on the floor for a long time She was found to have fracture of the distal tibia and fibula and she was evaluated by orthopedic surgeon this afternoon and is advised for transfer No more seizures since admission and the patient remains hemodynamically stable 05/23/2022 The patient was seen and examined in medical telemetry unit She has been stable and did not have any seizures since admission Heart pain in the right leg is controlled Denies any other symptoms Review of Systems Review of Systems: All systems reviewed and are unremarkable except as noted below Musculoskeletal: Right leg pain with movement Neurologic: Alert, awake and oriented x3. Physical Exam Physical Exam: Lying in bed comfortably Constitutional: well developed, well nourished and + obese; not ill appearing Eyes: PERRL, conjunctivae normal, anicteric sclerae ENMT: external ear and nose normal, oropharynx normal Neck: trachea midline, no thyromegaly Respiratory: no respiratory distress Auscultation: lungs clear to auscultation bilaterally Cardiovascular: Rate/Rhythm: regular rate and regular rhythm; not tachycardic Heart Sounds: normal S1 and normal S2; no murmur Extremities: no edema (On left side) Gastrointestinal (Abdomen): Inspection/Auscultation: normal bowel sounds; abdomen not distended Percussion/Palpation: abdomen soft; abdomen nontender Musculoskeletal: Ankle: + ankle abnormal to inspection (Right leg is in cast from knee down to the foot. Sensation is intact) Neurologic: normal touch/pain/proprioception and moves all extremities (Except right leg due to placement of cast) Psychiatric: A+Ox3, euthymic affect Lymphatic: no cervical or axillary lymphadenopathy Results & Data Results & Data ([facility]) Vital Signs (Past 12 Hours) Vital Signs Temp Pulse Pulse Resp BP Pulse Ox O2 Del Method 05/23/22 08:01 36.6 C 83 20 99/66 L 97 Room Air 05/23/22 04:00 37.0 C 70 18 98/66 L 99 Room Air 05/23/22 00:00 82 05/22/22 23:00 37.2 C 91 H 18 111/73 97 Room Air Laboratory Results Short CBC 05/23/22 Range/Units 07:15 WBC 8.09 (4.8-10.8) K/ul Hgb 11.1 L (12.0-16.0) g/dl Hct 34.6 (34.1-44.9) % Plt Count 212 (130-400) K/uL BMP 05/23/22 05/23/22 07:14 07:14 Sodium 137 Potassium 3.6 Chloride 108 H Carbon Dioxide 25 BUN 9 Creatinine Cancelled 0.75 Glucose 83 Calcium 8.1 L Medications Administered Current Inpatient Medications Acetaminophen (Acetaminophen 325 Mg Tab) 650 mg PO Q4H PRN PRN Reason: Pain or Fever Stop: 06/21/22 05:11 Enoxaparin Sodium (Enoxaparin Inj 40 Mg/0.4 Ml Syr) 40 mg SQ QAM [facility] Stop: 06/21/22 08:59 Last Admin: 05/23/22 09:51 Dose: 40 mg Promethazine HCl 12.5 mg/ (Sodium Chloride) 50.5 mls @ 202 mls/hr IV Q6H PRN PRN Reason: Nausea And Vomiting Stop: 06/21/22 05:11 Lorazepam 1 mg/ Syringe 1 mls @ 2 mls/min IV Q10M PRN PRN Reason: SEIZURE Stop: 06/21/22 05:17 Ketorolac Tromethamine (Ketorolac Tromethamine 15 Mg/Ml Vial) 15 mg IV Q6H PRN PRN Reason: Pain Stop: 05/27/22 05:11 Last Admin: 05/23/22 10:01 Dose: 15 mg Levetiracetam (Levetiracetam 500 Mg Tab) 1,500 mg PO BID [facility] Stop: 06/21/22 08:59 Last Admin: 05/23/22 09:51 Dose: 1,500 mg Magnesium Oxide (Magnesium Oxide 400 Mg Tab) 400 mg PO BID [facility] Stop: 06/21/22 08:59 Last Admin: 05/23/22 09:51 Dose: 400 mg Miscellaneous (Cenobamate [Xcopri Titration Pack] - Order Awaiting Action) 1 each N/A QS [facility] Stop: 06/21/22 07:59 Last Admin: 05/23/22 10:15 Dose: Not Given Miscellaneous (Perampanel [Fycompa] - Order Awaiting Action) 1 each N/A QS [facility] Stop: 06/21/22 07:59 Last Admin: 05/23/22 10:15 Dose: Not Given Miscellaneous (Clobazam - Order Awaiting Action) 1 each N/A QS [facility] Stop: 06/21/22 07:59 Last Admin: 05/23/22 10:15 Dose: Not Given Oxycodone HCl (Oxycodone Hcl Ir 5 Mg Tab (Immediate Release)) 5 mg PO Q4H PRN PRN Reason: Pain Stop: 06/05/22 05:11 Topiramate (Topiramate 100 Mg Tab) 200 mg PO AMHS [facility] Stop: 06/21/22 08:59 Last Admin: 05/23/22 09:50 Dose: 200 mg (1) Fracture of tibia and fibula Encounter type: initial encounter Fracture type: closed Laterality: right Qualified Code(s): S82.201A - Unspecified fracture of shaft of right tibia, initial encounter for closed fracture; S82.401A - Unspecified fracture of shaft of right fibula, initial encounter for closed fracture
--- NOTE | 2022-05-23 10:36 | Discharge Summary ---
Date of Service May 23, 2022 Admission HPI Per Admitting Provider History obtained from patient and records. 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 Last [facility] confinement March 2021 for breakthrough seizure. Neurology recommended [facility] transfer due to complexity of patient case. Patient subsequently discharged home due to after being seizure-free during [facility] confinement. 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 Usual seizure frequency of about 4-5 episodes per month. Last [facility] epileptologist visit February 2022 (Dr. Su). As per documentation, future medication options for patient include adjusting perampanel or increasing Keppra to 2 g twice daily. Should patient events continue to worsen, service will consider admission at [facility]. VNS interrogated during visit and programming adjusted. Battery life okay and in good range as per note. 2 weeks ago, patient noted increased frequency of seizures about 10-15 episodes daily. Tongue biting without incontinence. Patient compliant with medications. No unusual stress at home. No unusual headache symptoms. Patient fell down yesterday after another seizure. Trouble getting up and worsening of chronic right ankle pain. No fever, no chills, no chest pain, no shortness of breath. Patient consulted ER. 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 Admission Exam Per Admitting Provider Physical Exam: GENERAL: Slightly uncomfortable, unkempt, obese, pleasant, no respiratory distress SKIN: Normal color, warm HEENT: [place] palpebral conjunctivae, no ptosis, dry buccal mucosa, multiple tongue abrasions NECK : Supple, short neck, no tenderness CHEST : CTA, no tenderness HEART : RRR, no obvious murmurs ABDOMEN: Some distention, nontender EXTREMITIES : RLE splint, minimal LE swelling NEUROLOGIC : Coherent, no facial asymmetry, no other gross focality Principal Diagnosis Rt Tibia and Fibular fracture,Seizure disorder with recurrent breakthrough seizures Discharge Exam Lying in bed comfortably Constitutional well developed, well nourished and + obese; not ill appearing Eyes PERRL, conjunctivae normal, anicteric sclerae ENMT external ear and nose normal, oropharynx normal Neck trachea midline, no thyromegaly Respiratory no respiratory distress Auscultation: lungs clear to auscultation bilaterally Cardiovascular Rate/Rhythm: regular rate and regular rhythm; not tachycardic Heart Sounds: normal S1 and normal S2; no murmur Extremities: no edema (On left side) Gastrointestinal (Abdomen) Inspection/Auscultation: normal bowel sounds; abdomen not distended Percussion/Palpation: abdomen soft; abdomen nontender Musculoskeletal Ankle: + ankle abnormal to inspection (Right leg is in cast from knee down to the foot. Sensation is intact) Neurologic normal touch/pain/proprioception and moves all extremities (Except right leg due to placement of cast) Psychiatric A+Ox3, euthymic affect Lymphatic no cervical or axillary lymphadenopathy Discharge Data Allergies Allergy/AdvReac Type Severity Reaction Status Date / Time Iodinated Contrast Media Allergy Unknown Hives Verified 05/21/22 20:32 Consultations 05/21/22 21:38 ED Decision to Admit Stat 05/21/22 23:49 Consult Orthopedic Surgery Routine 05/22/22 05:12 Consult Neurology Routine Ordered Studies 05/21/22 15:50 CT head/brain wo con Stat 05/21/22 19:44 US arterial duplex LE LT Urgent 05/22/22 11:13 CT tib/fib RT wo con Urgent Hospital Course (1) Fracture of tibia and fibula: History of complex seizure disorder since the age of 14 [address] care of [address] Su in [place] and status post implantation of vagus nerve stimulator as a child Has been taking 4 different kinds of antiseizure medications and still having breakthrough seizures Has had an episode yesterday at around 9:30 PM and was not able to get up from the floor Noted to have comminuted fractures of the distal tubular and proximal fibular shaft on right with surrounding soft tissue swelling with history of trimalleolar fracture of the right ankle which was repaired by open reduction in August [address] [place] [address] 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/atypical absence seizures status post VNS hx history psychogenic nonepileptic seizures Uncontrolled seizures the last couple of weeks Unclear precipitant Seizure precautions Ativan as needed breakthrough seizures Has had an episode at around 9:30 PM yesterday which lasted for about an hour as per the patient She fell on the ground and probably lost consciousness and could not be able to get up following that She had tongue bite but no incontinence Appreciate neurology input and recommendation for transfer given the complexity of seizures and requirement of possible surgery Remains free from seizure since admission Migraine, baseline symptoms Hyperglycemia rule out DM Hemoglobin A1c is 5.3 DVT prophylaxis. Lovenox subcu Full code (3) Common migraine without aura: Total Time Total Time Spent Total Time Spent (In Minutes): 35 minutes Discharge Plan Discharge Items Patient Disposition: Transfer Acute Care Hospital Reason For Visit: SZ, RHABDOMYOLYSIS, TIBIA FX Discharge Diagnosis: Rt Tibia and Fibular fracture,Seizure disorder with recurrent breakthrough seizures Condition on Discharge: Fair Activity: Resume your previous activity Non-emergency contact: Primary Care Provider Call non-emergency contact if: you have any medication questions and your symptoms worsen Follow-up/Referrals: Nely Solorio DO [Primary Care Provider] - Diet: Regular Addtl Attending Provider Instructions: All of her in-patient medications were continued as below: Acetaminophen (Acetaminophen 325 Mg Tab) 650 mg PO Q4H PRN PRN Reason: Pain or Fever Stop: 06/21/22 05:11 Enoxaparin Sodium (Enoxaparin Inj 40 Mg/0.4 Ml Syr) 40 mg SQ QAM SATISH Stop: 06/21/22 08:59 Last Admin: 05/23/22 09:51 Dose: 40 mg Promethazine HCl 12.5 mg/ (Sodium Chloride) 50.5 mls @ 202 mls/hr IV Q6H PRN PRN Reason: Nausea And Vomiting Stop: 06/21/22 05:11 Lorazepam 1 mg/ Syringe 1 mls @ 2 mls/min IV Q10M PRN PRN Reason: SEIZURE Stop: 06/21/22 05:17 Ketorolac Tromethamine (Ketorolac Tromethamine 15 Mg/Ml Vial) 15 mg IV Q6H PRN PRN Reason: Pain Stop: 05/27/22 05:11 Last Admin: 05/23/22 10:01 Dose: 15 mg Levetiracetam (Levetiracetam 500 Mg Tab) 1,500 mg PO BID [facility] Stop: 06/21/22 08:59 Last Admin: 05/23/22 09:51 Dose: 1,500 mg Magnesium Oxide (Magnesium Oxide 400 Mg Tab) 400 mg PO BID [facility] Stop: 06/21/22 08:59 Last Admin: 05/23/22 09:51 Dose: 400 mg Miscellaneous (Cenobamate [Xcopri Titration Pack] - Order Awaiting Action) 1 each N/A QS [facility] Stop: 06/21/22 07:59 Last Admin: 05/23/22 10:15 Dose: Not Given Miscellaneous (Perampanel [Fycompa] - Order Awaiting Action) 1 each N/A QS [facility] Stop: 06/21/22 07:59 Last Admin: 05/23/22 10:15 Dose: Not Given Miscellaneous (Clobazam - Order Awaiting Action) 1 each N/A [facility] Stop: 06/21/22 07:59 Last Admin: 05/23/22 10:15 Dose: Not Given Oxycodone HCl (Oxycodone Hcl Ir 5 Mg Tab (Immediate Release)) 5 mg PO Q4H PRN PRN Reason: Pain Stop: 06/05/22 05:11 Topiramate (Topiramate 100 Mg Tab) 200 mg PO AMHS [facility] Stop: 06/21/22 08:59 Last Admin: 05/23/22 09:50 Dose: 200 mg Pending Studies at Discharge: No Stand-Alone Forms: [facility] Skilled Items Patient informed of condition?: Yes DNR: No Discharge Level of Care: Other Communicable Disease: No Discharge Prognosis: Stable Lines: Peripheral IV Urinary Catheter: No Medications and DC Order Prescriptions: Continued levetiracetam 1,000 mg tablet 1,000 mg PO BID Rx Instructions: TAKE WITH 500mg = 1500MG TWICE DAILY. levetiracetam 250 mg tablet 500 mg PO BID Rx Instructions: TAKE 2 tablets WITH 1000 MG =1500MG TWICE DAILY. clobazam 10 mg tablet 40 mg PO AMPM topiramate 200 mg tablet 200 mg PO AMHS magnesium oxide 400 mg magnesium capsule 400 mg PO BID sumatriptan succinate 100 mg tablet 50 - 100 mg PO UD PRN (Reason: Headache) Rx Instructions: take 1/2 to 1 tablet by mouth at start of headache, may repeat once after 2 hours. may take up to 2 days a week diclofenac potassium 50 mg tablet 50 mg PO UD MDD 3 tabs PRN (Reason: head pain) Rx Instructions: take 1 tablet by mouth at start of headache,may repeat after 6-8 hrs up to 3 tablets per day. take up to 2 days a week as needed for head pain. riboflavin (vitamin B2) 400 mg Tablet 400 mg PO DAILY Xcopri Titration Pack 12.5 mg (14)- 25 mg (14) tablets,dose pack 1 ea PO UD lorazepam 2 mg tablet 2 mg PO Q6H PRN (Reason: cluster seizure) Qty: 10 0RF Fycompa 6 mg tablet 6 mg PO HS Discharge Orders: Discharge Order (Routine); Ordered 05/23/22 Ordered By: Tee Cage Admission Data Admit Date/Time: 05/21/22 23:32 Attending Provider: Tee Cage Admit Provider: Andrey Goldsmith Primary Care Provider: Nely Solorio Other Providers: Andrey Goldsmith ; Tre Holland Emile
[2022-05-23 23:37] LABS: 7-Aminoclonaz, Confirm NEGATIVE ng/mL (<25); Hydro-Alp Ur, GC/MS NEGATIVE ng/mL (<25); Hydroxyethylflurazepam, Conf NEGATIVE ng/mL (<50); Hydroxymidazolam Ur, GC/MS NEGATIVE ng/mL (<50); Hydroxytriazolam NEGATIVE ng/mL (<50); Lorazepam, Ur GC/MS NEGATIVE ng/mL (<50); Nordiazepam, Confirm NEGATIVE ng/mL (<50); Oxazepam Ur, GC/MS NEGATIVE ng/mL (<50); Temazepam, Confirm NEGATIVE ng/mL (<50)
[2022-05-27 00:52] LABS: Levetiracetam Keppra < 2.0 mcg/mL (6.0-46.0); Topiramate < 0.5 mcg/mL (see note)
== END 2022-05-23 12:20 | disposition short-term general hospital (02) | DRG 101 ==
LOC: ED 12:08 → EDINP 23:32 → 2N 05-22 17:17

== ENCOUNTER 2023-03-27 11:23 | Inpatient (IN) ==
[2023-03-27 12:39] LABS: Basophils # (auto) 0.03 K/uL (0.00-0.20); Basophils % (auto) 0.3 %; Eosinophils # (auto) 0.19 K/uL (0.00-0.50); Eosinophils % (auto) 2.1 %; Hematocrit (blood only) 43.3 % (37.0-47.0); Hemoglobin 13.6 g/dl (12.0-16.0); Immature Granulocytes # (auto) 0.03 K/uL (0.01-0.20); Immature Granulocytes % (auto) 0.3 %; Lymphocytes # (auto) 1.63 K/uL (1.20-3.40); Lymphocytes % (auto) 17.9 %; Mean Corpuscular Hemoglobin 27.7 pg (25.0-34.0); Mean Corpuscular Hgb Conc 31.4 g/dL (32.0-36.0); Mean Corpuscular Volume 88.2 fL (80.0-100.0); Mean Platelet Volume 10.2 fL (9.4-12.4); Monocytes # (auto) 0.29 K/uL (0.11-0.59); Monocytes % (auto) 3.2 %; Neutrophils # (auto) 6.92 K/uL (1.40-6.50); Neutrophils % (auto) 76.2 %; Platelet Count 272 K/uL (130-400); RDW Coefficient of Variation 13.4 % (11.5-14.5); Red Blood Count 4.91 M/uL (4.20-5.40); White Blood Count 9.09 K/ul (4.8-10.8)
--- NOTE | 2023-03-27 12:39 | XRay Report ---
SINGLE VIEW CHEST CLINICAL HISTORY: Overdose. FINDINGS: An AP, portable, upright chest radiograph is compared to study dated 05/21/2022. The examina tion is degraded by portable technique and apical lordotic positioning. Indeterminate wires project o doreen the left lower neck. The cardiomediastinal silhouette is unremarkable. There are low lung volumes with bibasilar atelectasis. The lungs and pleural spaces are otherwise clear. No pneumothorax is see n. The bony thorax is grossly intact. IMPRESSION: Low lung volumes with no acute cardiopulmonary abnormality identified. ACT 112: Negative or not required by law. Electronically signed by: Wale Lockett M.D. 03/27/2023 12:38 PM
--- NOTE | 2023-03-27 12:47 | XRay Report ---
XR ankle RT min 3V routine CLINICAL HISTORY: twisted ankle. Right ankle pain. COMPARISON STUDY: Right lower leg 05/21/2022. FINDINGS: There is an intramedullary valeriy within the tibia with interlocking distal screws. There is a lso a lateral cortical plate and screws in the distal fibula. These transfix old, healed fractures. T he bones are slightly osteopenic. No acute fracture or dislocation within the right ankle. The hardwa re appears intact. No abnormal periprosthetic lucency. Mild soft tissue swelling within the right ank le. IMPRESSION: 1. No acute fracture or dislocation within the right ankle. 2. Postoperative and old post traumatic changes within the right ankle. ACT 112: Negative or not required by law. Electronically signed by: Lowell Cordoba M.D. 03/27/2023 12:45 PM
[2023-03-27 12:58] LABS: Alanine Aminotransferase 10 U/L (7-52); Albumin Globulin Ratio 1.4 (0.9-2); Albumin Level 4.3 gm/dl (3.4-5.0); Alkaline Phosphatase 52 U/L (34-104); Anion Gap 7 (3-11); Aspartate Aminotransferase 14 U/L (13-39); BUN Creatinine Ratio 8.3 (10-20); Bilirubin,Total 0.4 mg/dl (0.2-1.0); Blood Urea Nitrogen 9 mg/dl (6-23); Calcium 9.4 mg/dl (8.6-10.3); Carbon Dioxide 23 mmol/L (21-32); Chloride 108 mmol/L (98-107); Est GFR (Non-African American) 66.5 ml/min; Globulin 3.1 gm/dl (2.5-4.0); Glucose 113 mg/dl (70-99(Fasting)); Lipase 15 U/L (11-82); Potassium 3.7 mmol/L (3.5-5.1); Sodium 138 mmol/L (136-145); Total Protein 7.4 gm/dl (6.0-8.3)
[2023-03-27 13:16] LABS: Pregnancy Test, Serum Negative (Negative)
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
[2023-03-27 13:37] LABS: Acetaminophen < 3 ug/ml (10-30); Salicylate < 3.0 mg/dl (3.0-30)
--- NOTE | 2023-03-27 13:56 | Emergency Department Note ---
Impression & Plan Drug overdose, Suicidal ideation ED Provider Note NAME: JESSICA MOYA AGE: 37 SEX: F : 1985 ARRIVES VIA: Ambulance INFORMANT: Patient, ED PROVIDER(S): Summer Anne MD CHIEF COMPLAINT: Overdose HPI: This is a 37-year-old female presenting for overdose. Patient states that she has been taking her seizure medications every 15 minutes for the past 2 hours. She mentions having 6 ideation with past 2 years and has tried multiple methods in order to kill herself. She never seek care before until today. She states that last night as well as this morning she began hang herself in the head with a hammer in order to kill herself. This did not work so she began charting taking her medications that are prescribed to her for seizures. She states she is unsure how any handfuls of medication she took today. She notes that she wanted to get help and called EMS. Otherwise he has not tried any other attempts to hurt herself. ROS: See above HPI for pertinent positives & negatives. A total of 10 systems reviewed and were otherwise negative. PAST MEDICAL HISTORY: See Below PAST SURGICAL HISTORY: See Below FAMILY HISTORY: See Below SOCIAL HISTORY: See Below HOME MEDICATIONS: See Below ALLERGIES: See Below VITALS: See Below PHYSICAL EXAMINATION: General: resting comfortably in no acute distress, fatigue but arousable Head: Normocephalic and atraumatic Eyes: Normal inspection, extraocular muscles intact, no conjunctival pallor Ear, nose, throat: Normal external exam Neck: Normal range of motion Respiratory: Patient is in no respiratory distress, lungs clear to auscultation bilaterally Cardiovascular: RRR without murmur appreciated GI: soft, nontender, no guarding or rebound Extremities: pulses intact with good cap refills, no LE pitting edema or calf tenderness Neuro: The patient awake and alert, appropriately conversive,no focal decifits Skin: Warm, dry, and intact MEDICAL DECISION MAKING: This is a 37-year-old female senting for overdose. Patient states is an active attempt to harm herself. Due to her attempt to hit herself in the head with a hammer, will get CT of the head. Otherwise we will get basic lab work to rule out for complications of her medication overdose.. There is extensive records done by technical spec showing only pills patient was prescribed, when it was last filled on the current remaining. Please see this for further clarification. Patient is on multiple seizure medications. This was made aware to poison control who will follow with us in their patient's care. They recommend initially a 12-hour observation for her sumatriptan. Unclear if that she took the sumatriptan but patient does not sure what she took. Shortly afterwards poison control called back saying that her new psychiatric medications have a half-life of between 60 and 104 hours each. She would need 24 hours of observation. Call made to inpatient team who will admit for observation of her SI and medication overdose. Patient lab work is reassuring without any significant abnormalities, negative syphilis, negative acetaminophen, positive benzos which patient is prescribed. EKG reviewed and shows no QT prolongation. Electrodes within normal limits. Head CT reveals no acute intracranial process. Ankle x-ray reveals no acute process, she mentions that she twisted this fall walking today. Triage Nursing notes reviewed. Prior medical records reviewed Vital Signs: reviewed and remarkable for no significant abnormalities Differential diagnosis: Benzodiazepine overdose, seizure medication overdose SI ER treatment provided: See below Diagnostics interpreted by me: ECG: ECG reviewed by me with normal sinus rhythm, rate of 84, normal axis, normal IN, normal QRS, normal QTc, no ST segment elevations consistent with STEMI criteria Cardiac Monitoring: An order was placed for continuous cardiac monitoring. The monitor shows a rate of 82 with sinus rhythm Laboratory studies: As stated above and show below. Imaging studies: See below. Radiographic imaging was reviewed by myself Consultation(s): None Past Med/Surg History Medical History (Updated 03/27/23 @ 18:04 by Summer Anne MD) Adverse drug effect Closed dislocation of right ankle Closed fracture of ankle, trimalleolar Contusion of both upper extremities Conversion disorder Dehydration Fall History of migraine Open wound of tongue due to bite Seizure Seizures Surgical History History of ankle surgery (~08/2019) Family History Mother Breast cancer Grandmother Cancer Grandfather Cancer Father Diabetes Hypertension Other No pertinent family history in first degree relatives Social History Smoking Status: Never smoker Second Hand Exposure: No; Do You Dip or Chew Tobacco: No; Hx Alcohol Use: No Hx Substance Use: No Preferred Language: Yi Communication Ability: Effective Vp Product Management Required: No Beliefs That Will Affect Care: None marital status: Single Current Living Situation: Alone current occupational status: employed 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 Other Information That Helps Us Care for You: No Feels Safe at Home: Yes Safety Concerns: Feels Safe At This Time Assistive Devices: None Allergies Allergies Allergy/AdvReac Type Severity Reaction Status Date / Time Iodinated Contrast Media Allergy Unknown Hives Verified 05/21/22 20:32 Home Meds Home Medications Medication Instructions Recorded Confirmed levetiracetam 1,000 mg tablet 1,000 mg PO BID 04/18/19 03/27/23 levetiracetam 250 mg tablet 500 mg PO BID 08/15/19 03/27/23 magnesium oxide 400 mg PO BID 12/24/20 03/27/23 cenobamate 12.5 mg (14)-25 mg (14) 1 ea PO UD 03/14/21 03/27/23 tablets in a dose pack (Xcopri Titration Pack) riboflavin (vitamin B2) 400 mg 400 mg PO DAILY 03/14/21 03/27/23 tablet sumatriptan succinate 100 mg tablet 50 - 100 mg PO UD PRN Headache 03/14/21 03/27/23 alpha lipoic acid 200 mg PO DAILY 03/27/23 03/27/23 calcium 600 mg PO DAILY 03/27/23 03/27/23 cenobamate 50 mg tablet (Xcopri) 25 mg PO DAILY 03/27/23 03/27/23 clobazam 20 mg tablet 20 mg PO BID 03/27/23 03/27/23 lamotrigine 150 mg tablet 150 mg PO DAILY 03/27/23 03/27/23 perampanel 10 mg tablet (Fycompa) 10 mg PO DAILY 03/27/23 03/27/23 topiramate 200 mg tablet 200 mg PO BID 03/27/23 03/27/23 Previous Rx's Medication Instructions Recorded lorazepam 2 mg tablet 2 mg PO Q6H PRN cluster seizure 03/17/21 #10 tabs Results & Data (ED) Vital Signs Vital Signs - 24 hr 03/27/23 11:48 03/27/23 12:06 03/27/23 12:37 Pulse Rate 90 85 83 Pulse Rate from SpO2 Sensor 84 Respiratory Rate 20 25 H Blood Pressure 125/82 97/68 L Blood Pressure Mean 96 77 Pulse Oximetry 96 97 Sepsis Recent Fever Within 48 Hours No Sepsis New/Unexplained Change in Mental Status N/A Sepsis Action Taken by Nursing No Action Required 03/27/23 13:00 Pulse Rate 84 Pulse Rate from SpO2 Sensor 85 Respiratory Rate 26 H Blood Pressure 111/82 Blood Pressure Mean 91 Pulse Oximetry 99 Sepsis Recent Fever Within 48 Hours Sepsis New/Unexplained Change in Mental Status Sepsis Action Taken by Nursing Laboratory Data 03/27/23 12:14 03/27/23 12:14 Lab Results 03/27/23 03/27/23 03/27/23 Range/Units 12:14 12:14 12:14 WBC 9.09 (4.8-10.8) K/ul RBC 4.91 (4.20-5.40) M/uL Hgb 13.6 (12.0-16.0) g/dl Hct 43.3 (37.0-47.0) % MCV 88.2 (80.0-100.0) fL MCH 27.7 (25.0-34.0) pg MCHC 31.4 L (32.0-36.0) g/dL RDW Std Deviation 44.0 (36.4-46.3) fL RDW Coeff of Hue 13.4 (11.5-14.5) % Plt Count 272 (130-400) K/uL MPV 10.2 (9.4-12.4) fL Immature Gran % (Auto) 0.3 % Neut % (Auto) 76.2 % Lymph % (Auto) 17.9 % Lanier % (Auto) 3.2 % Eos % (Auto) 2.1 % Baso % (Auto) 0.3 % Neut # (Auto) 6.92 H (1.40-6.50) K/uL Lymph # (Auto) 1.63 (1.20-3.40) K/uL Lanier # (Auto) 0.29 (0.11-0.59) K/uL Eos # (Auto) 0.19 (0.00-0.50) K/uL Baso # (Auto) 0.03 (0.00-0.20) K/uL Immature Gran # (Auto) 0.03 (0.01-0.20) K/uL Sodium 138 (136-145) mmol/L Potassium 3.7 (3.5-5.1) mmol/L Chloride 108 H (98-107) mmol/L Carbon Dioxide 23 (21-32) mmol/L Anion Gap 7 (3-11) BUN 9 (6-23) mg/dl Creatinine 1.08 (0.6-1.2) mg/dl Est Cr Clr Drug Dosing Not Reportable Est GFR ( Amer) 77.0 ml/min Est GFR (Non-Af Amer) 66.5 ml/min BUN/Creatinine Ratio 8.3 L (10-20) Glucose 113 H (70-99(Fasting)) mg/dl Calcium 9.4 (8.6-10.3) mg/dl Total Bilirubin 0.4 (0.2-1.0) mg/dl AST 14 (13-39) U/L ALT 10 (7-52) U/L Alkaline Phosphatase 52 (34-104) U/L Total Protein 7.4 (6.0-8.3) gm/dl Albumin 4.3 (3.4-5.0) gm/dl Globulin 3.1 (2.5-4.0) gm/dl Albumin/Globulin Ratio 1.4 (0.9-2) Lipase 15 (11-82) U/L HCG, Qual (Negative) Salicylates < 3.0 L (3.0-30) mg/dl Acetaminophen < 3 L (10-30) ug/ml SARS-CoV-2, RNA, NAAT (NEGATIVE) 03/27/23 03/27/23 Range/Units 12:14 12:14 WBC (4.8-10.8) K/ul RBC (4.20-5.40) M/uL Hgb (12.0-16.0) g/dl Hct (37.0-47.0) % MCV (80.0-100.0) fL MCH (25.0-34.0) pg MCHC (32.0-36.0) g/dL RDW Std Deviation (36.4-46.3) fL RDW Coeff of Hue (11.5-14.5) % Plt Count (130-400) K/uL MPV (9.4-12.4) fL Immature Gran % (Auto) % Neut % (Auto) % Lymph % (Auto) % Lanier % (Auto) % Eos % (Auto) % Baso % (Auto) % Neut # (Auto) (1.40-6.50) K/uL Lymph # (Auto) (1.20-3.40) K/uL Lanier # (Auto) (0.11-0.59) K/uL Eos # (Auto) (0.00-0.50) K/uL Baso # (Auto) (0.00-0.20) K/uL Immature Gran # (Auto) (0.01-0.20) K/uL Sodium (136-145) mmol/L Potassium (3.5-5.1) mmol/L Chloride (98-107) mmol/L Carbon Dioxide (21-32) mmol/L Anion Gap (3-11) BUN (6-23) mg/dl Creatinine (0.6-1.2) mg/dl Est Cr Clr Drug Dosing Est GFR ( Amer) ml/min Est GFR (Non-Af Amer) ml/min BUN/Creatinine Ratio (10-20) Glucose (70-99(Fasting)) mg/dl Calcium (8.6-10.3) mg/dl Total Bilirubin (0.2-1.0) mg/dl AST (13-39) U/L ALT (7-52) U/L Alkaline Phosphatase (34-104) U/L Total Protein (6.0-8.3) gm/dl Albumin (3.4-5.0) gm/dl Globulin (2.5-4.0) gm/dl Albumin/Globulin Ratio (0.9-2) Lipase (11-82) U/L HCG, Qual Negative (Negative) Salicylates (3.0-30) mg/dl Acetaminophen (10-30) ug/ml SARS-CoV-2, RNA, NAAT NEGATIVE (NEGATIVE) Administered Medications Discontinued Medications Ondansetron HCl (Ondansetron Inj 2 Mg/Ml 2 Ml Vial) 4 mg IV NOW STA Stop: 03/27/23 16:03 Last Admin: 03/27/23 16:13 Dose: 4 mg Documented By: FRANCISCA Imaging Data Radiologist's Impression: Chest X-Ray 03/27/23 11:41 SINGLE VIEW CHEST CLINICAL HISTORY: Overdose. FINDINGS: An AP, portable, upright chest radiograph is compared to study dated 05/21/2022. The examination is degraded by portable technique and apical lordotic positioning. Indeterminate wires project over the left lower neck. The cardiomediastinal silhouette is unremarkable. There are low lung volumes with bibasilar atelectasis. The lungs and pleural spaces are otherwise clear. No pneumothorax is seen. The bony thorax is grossly intact. IMPRESSION: Low lung volumes with no acute cardiopulmonary abnormality identifie d. ACT 112: Negative or not required by law. Electronically signed by: Wale Lockett M.D. 03/27/2023 12:38 PM Ankle X-Ray 03/27/23 12:05 XR ankle RT min 3V routine CLINICAL HISTORY: twisted ankle. Right ankle pain. COMPARISON STUDY: Right lower leg 05/21/2022. FINDINGS: There is an intramedullary valeriy within the tibia with interlocking distal screws. There is also a lateral cortical plate and screws in the distal fibula. These transfix old, healed fractures. The bones are slightly osteopenic. No acute fracture or dislocation within the right ankle. The hardware appears intact. No abnormal periprosthetic lucency. Mild soft tissue swelling within the right ankle. IMPRESSION: 1. No acute fracture or dislocation within the right ankle. 2. Postoperative and old post traumatic changes within the right ankle. ACT 112: Negative or not required by law. Electronically signed by: Lowell Cordoba M.D. 03/27/2023 12:[address] 03/27/23 12:05 CT head/brain wo con CLINICAL HISTORY: 37 years-old Female with Hammer to head (SI). Acute head trauma TECHNIQUE: Multiple axial CT images of the head were obtained without contrast. A dose lowering technique was utilized adhering to the principles of ALARA. CT DOSE: 547.75 mGy.cm COMPARISON: 02/06/2023 FINDINGS: No acute intracranial hemorrhage, midline shift, intracranial mass, hydrocephalus, territorial ischemia or abnormal extra-axial collection. The calvarium is intact. The paranasal sinuses, mastoid air cells, and middle ear cavities are clear. IMPRESSION: No acute intracranial abnormality. ACT 112: Negative or not required by law. The above report was generated using voice recognition software. It may contain grammatical, syntax or spelling errors. Electronically signed by: Romel De Santiago M.D. 03/27/2023 1:23 PM Discharge Plan Visit Data Chief Complaint: Mental Health Evaluation Stated Complaint: MHID, OVERDOSE ED Provider: Summer Anne Discharge Problem: Drug overdose, Suicidal ideation Discharge Instructions Interventions: ED Discharge Assessment Last Done: 03/27/23 16:31
--- NOTE | 2023-03-27 14:05 | History & Physical Report ---
Date of Service March 27, 2023 Assessment & Plan (1) Suicidal ideation: (2) Overdose: Plan: Patient is 37 y/o F with PMH seizure disorder, s/p vagus nerve stimulator, history migraine headache presented to ER with reported of overdose of prescription seizure medication in attempt to kill herself. Also reports hitting self in head with hammer. Patient on extensive Rx medications including Clobazam, Fycompa, Lamotrigine, Levetiracetam, Lorazepam, Topiramate, Xocpri, sumatriptan, magnesium oxide. Unclear how many pills were consumed. (Med rec and remaining pills as in HPI) In ER patient alert and oriented and without any nausea or vomiting or other symptoms. ER physician contacted poison control who recommended 24-hour observation secondary to long half-life of Xcopri and Fycompa CT Head: no acute intracranial findings CBC, CMP unremarkable Negative salicylates and acetaminophen levels Urine drug screen pending Monitor on traditional chinese herbalist QTc. Repeat EKG in am Suicidal ideations One to one observation CBC, CMP in am (3) Seizure disorder: Plan: S/P vagus nerve stimulator Reports seizures every 2-3 days and reports last seizure was 2-3 days ago Follows [place]y, [place] [facility] [place] consult for assistance with seizure medications Seizure precautions Lamotrigine, Keppra, Topamax levels pending Will hold Fycoma and Xcopri as long half lives Will resume other home seizure meds tonight (4) History of migraine: Plan: No reported GUERRERO currently Hold sumatriptan now DVT Prophylaxis SCDs Full Code as per discussion with pt Follows with Dr Solorio for routine care Pt was seen and care coordinated with Dr Presley. See addendum History of Present Illness Chief Complaint: Suicidal ideations, "took too many pills" Primary Care Provider: Nely Solorio, Patient is 37 y/o F with PMH seizure disorder, s/p vagus nerve stimulator, history migraine headache presented to ER with reported of overdose of prescription seizure medication in attempt to kill herself. History obtained from patient as well as outpatient chart review and pharmacy reconciliation. Patient tells this provider that she has been having suicidal ideations for the past 4 to 5 years. She states in the past has attempted to harm and kill herself by "taking pills". Upon further discussion patient is unable to further quantify how many pills she has taken in the past. She states she typically takes her medications as prescribed. Patient states last night she was having thoughts of harming herself and decided to google ways to commit suicide. She s tates she found that you could hit your self with a hammer. Patient states she used a very large hammer and hit herself multiple times in the head. Patient denies any loss of consciousness. States this morning she woke up and when getting out of bed she fell. Complains of right ankle pain. Reports history of right ankle fracture requiring repair in past. States around 8 AM she took her normal dose of prescribed medications. States in an attempt to kill herself she decided that she was going to take an additional dose of her morning prescribed meds. Patient states she took 8 doses of her normally prescribed medications. She is unable to tell me the names of the medications at this time. States then called for help as she decided she didn't want to . Currently she complains of feeling tired and cold. She also states in past has jumped from a balcony resulting in some scrapes and bruises but otherwise denies injury. Reports has not seen psychology, psychiatry as an adult. Reports seeing a psychologist when she was around age 17 but states they just discussed her seizure disorder and did not have further diagnoses. Reports having a seizure every 2 to 3 days. States last seizure was 2 to 3 days ago. Reports has diffuse body movements with her seizures. Patient [place]y, [place] Crist[place] [facility] [place] Denies fever, diaphoresis, N/V/D/C, GUERRERO, dizziness, syncope, vision changes, neck pain, CP, SOB, palpitations, cough, sore throat, rhinorrhea, abdominal pain, paresthesias, weakness, extremity edema, rashes, urinary symptoms. In ER patient alert and oriented and without any nausea or vomiting or other symptoms. ER physician contacted poison control who recommended 24-hour observation secondary to long half-life of Xcopri and Fycompa Medication reconciliation performed and Pharmacy recent medication fill list: -Clobazam 20 mg tablet. Prescribed 2 tablets twice daily. Filled on 02/25/2023. Quantity 120 tablets. 26 tablets remaining in bottle in ER. -Fycompa 10 mg tablet. Prescribed 1 tablet daily. Filled on 01/27/2023. Quantity 30. There were zero tab remaining in bottle in ER. -Fycompa 8 mg tablet. Prescribed 1 tab daily. Filled on 01/12/2023. Quantity 30. There were 23 tabs remaining in bottle in ER. -Fycompa 6 mg tablet. Prescribed 1 tab daily. Filled on 11/11/2022. There were 11 tabs remaining in bottle in ER. -Lamotrigine 150 mg. Prescribed 1 twice daily. Filled on 02/22/2023. Quantity 60. There were 11 tabs remaining in bottle in ER. -Levetiracetam 1000 mg tablet. Prescribed 1 twice daily. Filled on 02/07/2023. Quantity 60. There was 1 tab remaining in bottle in ER. -Levetiracetam 250 mg tablet. Prescribed 2 twice daily. Filled on 02/09/2023. Quantity 120. There was 2 tabs remaining in bottle in ER. -Lorazepam 2 mg. Prescribed 1Q6H as needed cluster seizure. Prescribed 12/30/2022. Quantity 30. 9 tablets remaining in bottle in ER. -Magnesium oxide 400 mg tablet. Prescribed 1 twice daily. Filled on 02/04/2023. Quantity 120. 61 tablets remaining in bottle in ER. -sumatriptan 100mg. Prescribed 0.5-1 tablet at onset of headache, may repeat once after 2 hours. Filled on 02/20/2023 for Quantity 9. There were 5 remaining in bottle in ER. -Topiramate 200 mg tablet. Prescribed 1 twice daily. Filled on 02/09/2023. Quantity 60. 1 tablet remaining in bottle in ER. -Xcopri 50mg. Prescribed 0.5mg daily. Filled 02/05/2023. Quantity 15. Half a tab remaining in bottle in ER. -Xcopri 12.5-25 mg titration pack. Prescribed 1 tablet daily. Filled on 05/28/2022. 10 tablets remaining in bottle in ER. -Per ER staff had Rx bottle of Xcorpi 150mg. Qty 28. Filled on 01/01/2021. 14 tablets remaining in bottle -Vitamin D3 1250mg. Filled on 12/30/2022. Qty:12. 2 pills remaining in bottle in ER. Allergies Allergy/AdvReac Type Severity Reaction Status Date / Time Iodinated Contrast Media Allergy Unknown Hives Verified 05/21/22 20:32 Home Medications Medication Instructions Recorded Confirmed Type levetiracetam 1,000 mg tablet 1,000 mg PO BID 04/18/19 03/27/23 History levetiracetam 250 mg tablet 500 mg PO BID 08/15/19 03/27/23 History magnesium oxide 400 mg PO BID 12/24/20 03/27/23 History cenobamate 12.5 mg (14)-25 mg (14) 1 ea PO UD 03/14/21 03/27/23 History tablets in a dose pack (Xcopri Titration Pack) riboflavin (vitamin B2) 400 mg 400 mg PO DAILY 03/14/21 03/27/23 History tablet sumatriptan succinate 100 mg tablet 50 - 100 mg PO UD PRN Headache 03/14/21 03/27/23 History lorazepam 2 mg tablet 2 mg PO Q6H PRN cluster seizure 03/17/21 03/27/23 Rx #10 tabs alpha lipoic acid 200 mg PO DAILY 03/27/23 03/27/23 History calcium 600 mg PO DAILY 03/27/23 03/27/23 History cenobamate 50 mg tablet (Xcopri) 25 mg PO DAILY 03/27/23 03/27/23 History clobazam 20 mg tablet 20 mg PO BID 03/27/23 03/27/23 History lamotrigine 150 mg tablet 150 mg PO DAILY 03/27/23 03/27/23 History perampanel 10 mg tablet (Fycompa) 10 mg PO DAILY 03/27/23 03/27/23 History topiramate 200 mg tablet 200 mg PO BID 03/27/23 03/27/23 History Past Med/Surg History Medical History (Updated 03/27/23 @ 16:25 by Carolyn Willams PA-C) Adverse drug effect Closed dislocation of right ankle Closed fracture of ankle, trimalleolar Contusion of both upper extremities Conversion disorder Dehydration Fall History of migraine Open wound of tongue due to bite Seizure Seizures Surgical History History of ankle surgery (~08/2019) Family History Mother Breast cancer Grandmother Cancer Grandfather Cancer Father Diabetes Hypertension Other No pertinent family history in first degree relatives Social History Smoking Status: Never smoker Second Hand Exposure: No; Do You Dip or Chew Tobacco: No; Hx Alcohol Use: No Hx Substance Use: No Preferred Language: Korean Communication Ability: Effective Lawn Specialist Required: No Beliefs That Will Affect Care: None marital status: Single Current Living Situation: Alone current occupational status: employed 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 Feels Safe at Home: Yes Assistive Devices: None Review of Systems Review of Systems: All systems reviewed & are unremarkable except as noted in HPI & below Physical Exam Physical Exam: General: no acute distress, disheveled. WDWN Head: normocephalic, atraumatic, no ecchymosis to scalp, forehead or face noted Eyes: PERRL, EOM's intact, conjunctiva non-injected, anicteric ENT: normal inspection external ears, nose, mucous membranes moist Neck: supple, trachea midline, ROM intact Lungs: clear, no respiratory distress, no wheezing/rhonchi/rales CV: RRR, no murmur, no pretibial edema Abd: normal BS, soft, non-tender Ext: no cyanosis, no calf tenderness; RLE: Right ankle without edema, erythema or ecchymosis, + diffuse tenderness to palpation and with active flexion and extension. sensation to light touch intact Neuro: A&O x 3, Has conversation with eyes closed, no focal deficits noted, some what flat affect Skin: warm, dry Results & Data Results & Data Vital Signs (Past 12 Hours) Vital Signs Pulse Resp BP Pulse Ox 03/27/23 12:06 85 03/27/23 11:48 90 20 125/82 96 Laboratory Results Short CBC 03/27/23 Range/Units 12:14 WBC 9.09 (4.8-10.8) K/ul Hgb 13.6 (12.0-16.0) g/dl Hct 43.3 (37.0-47.0) % Plt Count 272 (130-400) K/uL BMP 03/27/23 12:14 Sodium 138 Potassium 3.7 Chloride 108 H Carbon Dioxide 23 BUN 9 Creatinine 1.08 Glucose 113 H Calcium 9.4 Liver Function 03/27/23 Range/Units 12:14 Total Bilirubin 0.4 (0.2-1.0) mg/dl AST 14 (13-39) U/L ALT 10 (7-52) U/L Alkaline Phosphatase 52 (34-104) U/L Albumin 4.3 (3.4-5.0) gm/dl Urine 03/27/23 Range/Units Unknown Urine Color Dark Yellow Urine Appearance Cloudy A (Clear) Urine pH 8.0 H (4.5-7.5) Ur Specific [place] 1.015 (1.000-1.030) Urine Protein Negative (Negative) Urine Glucose (UA) Negative (Negative) Diagnostic Findings Chest X-Ray 03/27/23 11:41 SINGLE VIEW CHEST CLINICAL HISTORY: Overdose. FINDINGS: An AP, portable, upright chest radiograph is compared to study dated 05/21/2022. The examination is degraded by portable technique and apical lordotic positioning. Indeterminate wires project over the left lower neck. The cardiomediastinal silhouette is unremarkable. There are low lung volumes with b ibasilar atelectasis. The lungs and pleural spaces are otherwise clear. No pneumothorax is seen. The bony thorax is grossly intact. IMPRESSION: Low lung volumes with no acute cardiopulmonary abnormality identified. ACT 112: Negative or not required by law. Electronically signed by: Wale Lockett M.D. 03/27/2023 12:38 PM Ankle X-Ray 03/27/23 12:05 XR ankle RT min 3V routine CLINICAL HISTORY: twisted ankle. Right ankle pain. COMPARISON STUDY: Right lower leg 05/21/2022. FINDINGS: There is an intramedullary valeriy within the tibia with interlocking distal screws. There is also a lateral cortical plate and screws in the distal fibula. These transfix old, healed fractures. The bones are slightly osteopenic. No acute fracture or dislocation within the right ankle. The hardware appears intact. No abnormal periprosthetic lucency. Mild soft tissue swelling within the right ankle. IMPRESSION: 1. No acute fracture or dislocation within the right ankle. 2. Postoperative and old post traumatic changes within the right ankle. ACT 112: Negative or not required by law. Electronically signed by: Lowell Cordoba M.D. 03/27/2023 12:[address] 03/27/23 12:05 CT head/brain wo con CLINICAL HISTORY: 37 years-old Female with Hammer to head (SI). Acute head trauma TECHNIQUE: Multiple axial CT images of the head were obtained without contrast. A dose lowering technique was utilized adhering to the principles of ALARA. CT DOSE: 547.75 mGy.cm COMPARISON: 02/06/2023 FINDINGS: No acute intracranial hemorrhage, midline shift, intracranial mass, hydrocephalus, territorial ischemia or abnormal extra-axial collection. The calvarium is intact. The paranasal sinuses, mastoid air cells, and middle ear cavities are clear. IMPRESSION: No acute intracranial abnormality. ACT 112: Negative or not required by law. The above report was generated using voice recognition software. It may contain grammatical, syntax or spelling errors. Electronically signed by: Romel De Santiago M.D. 03/27/2023 1:23 PM ECG Additional Comments: sinus rhythm, rate 84, no ST elevation. Qtc: 437 per my interpretation Supervising Physician Co-Signing Physician Notes I have seen and discussed the case with the collaborating ALANA. I agree with the above H&P. I have reviewed and confirmed the patients medical history, the findings on physical examination, and the patients diagnosis and treatment plan with Carolyn Willams PA-C and agree with the information documented. In short, Ms. Glenys Bell is a 37 year old woman with history of migraines and seizure disorder who is admitted due to reported suicide attempt taking up to 12 pills every 15 minutes for 2 hours. Patient denies any active symptoms, nausea, vomiting, somnolence, or other acute concerns--noting that she feels "fine." Patient also reported multiple attempts of hitting head "all over" with hammer. Patient detailed multiple previous attempts that have "failed, obviously." Patient has not established with psychiatry/MH services since reported age of 12-14. Patient endorses persistent passive SI with bouts of active SI, stating she has "tried and researched everything" but figured she would attempt to seek help as of now. Patient denies hallucinations of any degree nor homicidal thoughts. She states that she does have "grand mal" seizures at least once a week. VS unremarkable. EKG without QTC prolongation. Labs with out acute electrolyte disturbances, renal or liver injury. PE notable for no signs of self harm--no lacerations, no bruising, swelling, or signs of blunt injury from object like hammer; patient with effect not congruent with recent SA, or ingestion of over 100 tabs of medications that would likely lead to somnolence, discomfort, etc. Overall, patient is clinically stable at this time, however, given half life of the reported medications, Poison Control recommends atleast 24 hours observation. Plan to monitor on tele. Neuro consult for antiepileptic management, discussion of overall seizure control given ?history per patient; psych consult given ongoing SI/attempts for determination of inpatient care after medically clear?
--- NOTE | 2023-03-27 15:00 | Electrocardiogram Report ---
Test Reason : Blood Pressure : / mmHG Vent. Rate : 084 BPM Atrial Rate : 084 BPM P-R Int : 150 ms QRS Dur : 084 ms QT Int : 370 ms P-R-T Axes : 033 027 013 degrees QTc Int : 437 ms Normal sinus rhythm Normal ECG When compared with ECG of 06-FEB-2023 20:25, No significant change was found Confirmed by Adriel Mccracken ([id number]) on 03/27/2023 3:00:24 PM Referred By: Confirmed By:Adriel Mccracken
[2023-03-27 15:01] LABS: Appearance Urine Cloudy (Clear); Bacteria Urine Automated 1+ (Negative); Bilirubin Urine Negative (Negative); Blood Urine Negative (Negative); Color Urine Dark Yellow; Epithelial Cell Urine Auto >30 /lpf (0-5); Glucose Urine UA Negative (Negative); Ketones Urine Negative (Negative); Leukocyte Esterase Urine 1+ (Negative); Nitrite Urine Negative (Negative); Protein Urine Negative (Negative); Specific Gravity Urine 1.015 (1.000-1.030); Urobilinogen Urine Negative (Negative)
[2023-03-27] MEDS ORDERED: ONDANSETRON INJ 2 MG/ML 2 ML VIAL IV STA (16:02)
[2023-03-27 16:10] LABS: Amphetamines+Metham, Urine Neg (Neg); Barbiturates, Urine Neg (Neg); Benzodiazepine, Urine Pos (Neg); Cocaine, Urine Neg (Neg); MDMA (Ecstacy), Urine Neg (Neg); Methadone, Urine Neg (Neg); Opiate, Urine Neg (Neg); Phencyclidine, Urine Neg (Neg)
[2023-03-27 16:15] LABS: RBC Urine Automated 0-4 /hpf (0-4)
[2023-03-27] MEDS ORDERED: LORazepam 2 MG/1 ML VIAL IV PRN (16:38)
[2023-03-27] MEDS ORDERED: POLYETHYLENE (MIRALAX) 17 GM PACK PO PRN (16:38)
--- NOTE | 2023-03-27 17:41 | Neurology Consultation ---
Date of Consultation March 27, 2023 Assessment & Plan (1) Overdose: Patient presents with overdose with reported 8-9 times her usual seizure regimen which is: -Clobazam 40mg BID -Fycompa 10 mg daily -Lamotrigine 150 mg BID -Keppra 1500mg BID. -Topiramate 200 mg BID -Xcopri 25mg daily If 8-9x the above regimen was taken she would be in a coma. As this is not the case and she has no evidence of toxicity on exam - nystagmus, tremor, ataxia. I suspect far less was taken. Should she have no worsening of her symptoms, recommend restarting her full regimen tomorrow morning. If symptoms worsen, recommend restarting tomorrow evening. -- If she remains stable, please restart the above regimen tomorrow morning -- Would be reasonable to check levels of Keppra, lamotrigine and topiramate but the turnaround time is too long to be clinically useful in this context. Would check them after she is discharged. -- Recognize that her PNEA episodes are not easily distinguishable from her seizures, in the setting of overdose seizure is very unlikely whereas in the setting of suicidal ideation PNEA is very likely. Would advise against ativan for breakthrough events in this context. -- Please contact us with further questions Telehealth Consultation Telehealth Information Telehealth Information: I performed this visit using a real-time telehealth connection between my location and the patients location ([facility]). After connecting through interactive tele-video, patient was identified by name and date of and/or wristband check.Patient (or authorized healthcare telephone sales representative) was informed that this was a telemedicine visit and it was being conducted confidentially over secure lines. My office door was closed and no one else was present in the room with me.Patient (or authorized healthcare telephone sales representative) provided consent to proceed with the visit, expressed an understanding of privacy and security of the telemedicine visit, and gave permission to have a hospital telephone sales representative in the room in order to assist with the visit and to conduct portions of the visit, as needed. I informed the patient (or authorized healthcare telephone sales representative) that I reviewed their record and presented the opportunity for them to ask any questions regarding the visit today. The patient agreed to participate. History of Present Illness Reason for Consultation: AED management Requesting Physician: Dr. Presley Attending Physician: Dania Presley MD History of Present Illness Glenys Bell is a 37 yo F with a history of epilepsy and PNEA as well as suic idal ideation and attempts in the past presenting with a suicide attempt by overdose. She reports taking 8-9x her normal morning seizure medications then calling for help. Currently she feels tired and has a headache specifically in the areas she hit herself with a hammer this morning. She denies any dizziness, tremor, weakness or vision changes. Typically she has seizures every 2-3 days and had one 2 days ago. Semiology is full body movements. Allergies Allergy/AdvReac Type Severity Reaction Status Date / Time Iodinated Contrast Media Allergy Unknown Hives Verified 05/21/22 20:32 Home Medications Medication Instructions Recorded Confirmed Type levetiracetam 1,000 mg tablet 1,000 mg PO BID 04/18/19 03/27/23 History levetiracetam 250 mg tablet 500 mg PO BID 08/15/19 03/27/23 History magnesium oxide 400 mg PO BID 12/24/20 03/27/23 History cenobamate 12.5 mg (14)-25 mg (14) 1 ea PO UD 03/14/21 03/27/23 History tablets in a dose pack (Xcopri Titration Pack) riboflavin (vitamin B2) 400 mg 400 mg PO DAILY 03/14/21 03/27/23 History tablet sumatriptan succinate 100 mg tablet 50 - 100 mg PO UD PRN Headache 03/14/21 03/27/23 History lorazepam 2 mg tablet 2 mg PO Q6H PRN cluster seizure 03/17/21 03/27/23 Rx #10 tabs alpha lipoic acid 200 mg PO DAILY 03/27/23 03/27/23 History calcium 600 mg PO DAILY 03/27/23 03/27/23 History cenobamate 50 mg tablet (Xcopri) 25 mg PO DAILY 03/27/23 03/27/23 History clobazam 20 mg tablet 20 mg PO BID 03/27/23 03/27/23 History lamotrigine 150 mg tablet 150 mg PO DAILY 03/27/23 03/27/23 History perampanel 10 mg tablet (Fycompa) 10 mg PO DAILY 03/27/23 03/27/23 History topiramate 200 mg tablet 200 mg PO BID 03/27/23 03/27/23 History Patient History Medical History (Updated 03/27/23 @ 16:25 by Carolyn Willams PA-C) Adverse drug effect Closed dislocation of right ankle Closed fracture of ankle, trimalleolar Contusion of both upper extremities Conversion disorder Dehydration Fall History of migraine Open wound of tongue due to bite Seizure Seizures Surgical History History of ankle surgery (~08/2019) Family History Mother Breast cancer Grandmother Cancer Grandfather Cancer Father Diabetes Hypertension Other No pertinent family history in first degree relatives Social History Smoking Status: Never smoker Second Hand Exposure: No; Do You Dip or Chew Tobacco: No; Hx Alcohol Use: No Hx Substance Use: No Preferred Language: Barbadian Communication Ability: Effective Brass Pourer Required: No Beliefs That Will Affect Care: None marital status: Single Current Living Situation: Alone current occupational status: employed 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 Other Information That Helps Us Care for You: No Feels Safe at Home: Yes Safety Concerns: Feels Safe At This Time Assistive Devices: None Review of Systems +Tired, headache Physical Exam Awake and alert, speech clear and fluent. Language normal. Pupils equal and reactive. No nystagmus. Face symmetric, tongue midline. No tremor, no abnormal movements. No dysmetria or ataxia. Results & Data Vital Signs (Past 12 Hours) Vital Signs Pulse Pulse Resp BP BP Pulse Ox Pulse Ox 03/27/23 17:28 97 03/27/23 17:06 83 18 106/64 94 03/27/23 15:30 79 27 H 104/75 94 03/27/23 15:00 80 24 119/76 96 03/27/23 14:36 88 20 110/68 98 03/27/23 13:00 84 26 H 111/82 99 03/27/23 12:37 83 25 H 97/68 L 97 03/27/23 12:06 85 03/27/23 11:48 90 20 125/82 96 O2 Del Method O2 Del Method 03/27/23 17:28 Room Air 03/27/23 17:06 Room Air 03/27/23 15:30 03/27/23 15:00 03/27/23 14:36 03/27/23 13:00 03/27/23 12:37 03/27/23 12:06 03/27/23 11:48 Laboratory Results Abnormal lab results 03/27/23 03/27/23 03/27/23 Range/Units 12:14 12:14 12:14 MCHC 31.4 L (32.0-36.0) g/dL Neut # (Auto) 6.92 H (1.40-6.50) K/uL Chloride 108 H (98-107) mmol/L BUN/Creatinine Ratio 8.3 L (10-20) Glucose 113 H (70-99(Fasting)) mg/dl Urine Appearance (Clear) Urine pH (4.5-7.5) Ur Leukocyte Esterase (Negative) Urine WBC (Auto) (0-5) /hpf U Epithel Cells (Auto) (0-5) /lpf Urine Bacteria (Auto) (Negative) Salicylates < 3.0 L (3.0-30) mg/dl Acetaminophen < 3 L (10-30) ug/ml U Benzodiazepines Scrn (Neg) 03/27/23 03/27/23 Range/Units Unknown Unknown MCHC (32.0-36.0) g/dL Neut # (Auto) (1.40-6.50) K/uL Chloride (98-107) mmol/L BUN/Creatinine Ratio (10-20) Glucose (70-99(Fasting)) mg/dl Urine Appearance Cloudy A (Clear) Urine pH 8.0 H (4.5-7.5) Ur Leukocyte Esterase 1+ H (Negative) Urine WBC (Auto) 5-10 H (0-5) /hpf U Epithel Cells (Auto) >30 H (0-5) /lpf Urine Bacteria (Auto) 1+ H (Negative) Salicylates (3.0-30) mg/dl Acetaminophen (10-30) ug/ml U Benzodiazepines Scrn Pos H (Neg)
[2023-03-27] MEDS ORDERED: levETIRAcetam 500 MG TAB PO SCH ×2 (21:00)
[2023-03-27] MEDS ORDERED: TOPIRAMATE 100 MG TAB PO SCH (21:00)
[2023-03-27] MEDS ORDERED: NON-FORMULARY MEDICATION (Clobazam 20 mg tablet) PO SCH (21:00)
[2023-03-27] MEDS: ACETAMINOPHEN 325 MG TAB PO PRN (21:03)
[2023-03-28] MEDS: ACETAMINOPHEN 325 MG TAB PO PRN ×2 (04:49→19:11)
[2023-03-28 07:31] LABS: Albumin Globulin Ratio 1.4 (0.9-2); Albumin Level 3.9 gm/dl (3.4-5.0); BUN Creatinine Ratio 7.2 (10-20); Bilirubin,Total 0.4 mg/dl (0.2-1.0); Calcium 8.8 mg/dl (8.6-10.3); Creatinine Clr Calc Pharmacy 81.3 ml/min; Est GFR (African American) 74.5 ml/min; Est GFR (Non-African American) 64.3 ml/min; Globulin 2.8 gm/dl (2.5-4.0); Potassium 3.9 mmol/L (3.5-5.1); Total Protein 6.7 gm/dl (6.0-8.3)
[2023-03-28 07:40] LABS: Hemoglobin 12.9 g/dl (12.0-16.0); Mean Corpuscular Hemoglobin 28.2 pg (25.0-34.0); Mean Corpuscular Hgb Conc 32.3 g/dL (32.0-36.0); Mean Corpuscular Volume 87.3 fL (80.0-100.0); Mean Platelet Volume 10.4 fL (9.4-12.4); Platelet Count 268 K/uL (130-400); RDW Coefficient of Variation 13.6 % (11.5-14.5); RDW Standard Deviation 43.5 fL (36.4-46.3); Red Blood Count 4.58 M/uL (4.20-5.40); White Blood Count 8.87 K/ul (4.8-10.8)
[2023-03-28] MEDS ORDERED: LORazepam 1 MG TAB PO PRN (08:45)
[2023-03-28] MEDS: TOPIRAMATE 100 MG TAB PO SCH ×2 (08:58→20:24)
[2023-03-28] MEDS: levETIRAcetam 500 MG TAB PO SCH ×4 (08:59→20:23)
[2023-03-28] MEDS ORDERED: lamoTRIgine 100 MG TAB PO SCH (09:00)
[2023-03-28] MEDS ORDERED: CENOBAMATE PO SCH (09:00)
[2023-03-28] MEDS: CLOBAZAM 20 MG PO SCH ×2 (09:48→20:25)
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
[2023-03-28] MEDS ORDERED: SUMAtriptan succinate 100 MG TAB PO PRN (13:13)
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
[2023-03-28] MEDS ORDERED: NON-FORMULARY MEDICATION (Alpha Lipoic Acid 200 MG) PO SCH (13:15)
[2023-03-28] MEDS ORDERED: NON-FORMULARY MEDICATION (Riboflavin (Vitamin B2) 400 mg Tablet) PO SCH (13:15)
[2023-03-28] MEDS: lamoTRIgine 25 MG TAB PO SCH (20:24)
[2023-03-28] MEDS: MAGNESIUM OXIDE 400 MG TAB PO SCH (20:24)
--- NOTE | 2023-03-28 20:32 | XRay Report ---
XR ankle RT 2V CLINICAL HISTORY: pain on ankle, rule out fracture TECHNIQUE: 3 views of the right ankle were obtained. Comparison: Comparison is made to ankle radiographs 03/28/2023 FINDINGS: Fixation hardware is unchanged. Degenerative changes are seen. The ankle mortise is intact. No soft t issue abnormality is seen. IMPRESSION: Degenerative changes without evidence of acute fracture. ACT 112: Negative or not required by law. Electronically signed by: Bryan Taylor M.D. 03/28/2023 8:30 PM
[2023-03-29] MEDS ORDERED: FYCOMPA 8 MG PO SCH (09:00)
[2023-03-29] MEDS: levETIRAcetam 500 MG TAB PO SCH ×4 (09:31→21:11)
[2023-03-29] MEDS: MAGNESIUM OXIDE 400 MG TAB PO SCH ×2 (09:31→21:12)
[2023-03-29] MEDS: lamoTRIgine 25 MG TAB PO SCH ×2 (09:32→21:11)
[2023-03-29] MEDS: TOPIRAMATE 100 MG TAB PO SCH ×2 (09:32→21:15)
[2023-03-29] MEDS: CLOBAZAM 20 MG PO SCH ×2 (09:33→21:08)
[2023-03-29] MEDS: CALCIUM CARBONATE 500 MG CHEWABLE TAB PO SCH (09:34)
--- NOTE | 2023-03-29 12:36 | Hospitalist Progress Note ---
Date of Service March 29, 2023 Assessment & Plan (1) Suicidal ideation: (2) Overdose: Plan: Patient is 37 y/o F with PMH seizure disorder, s/p vagus nerve stimulator, history migraine headache presented to ER with reported of overdose of prescription seizure medication in attempt to kill herself. Also reports hitting self in head with hammer. Patient on extensive Rx medications including Clobazam, Fycompa, Lamotrigine, Levetiracetam, Lorazepam, Topiramate, Xocpri, sumatriptan, magnesium oxide. Unclear how many pills were consumed. (Med rec and remaining pills as in HPI) In ER patient alert and oriented and without any nausea or vomiting or other symptoms. ER physician contacted poison control who recommended 24-hour observation secondary to long half-life of Xcopri and Fycompa CT Head: no acute intracranial findings CBC, CMP unremarkable Negative salicylates and acetaminophen levels EKG reviewed personally; normal sinus rhythm; no ST or T wave changes. QTc within normal is. Nephrology consulted; recommended to restart all her medication. Seizure precaution Monitor on telemetry (3) Seizure disorder: Plan: S/P vagus nerve stimulator Reports seizures every 2-3 days and reports last seizure was 2-3 days ago Follows with neurology, Dr Cristina uS at [facility] Continue home seizure medications as per nephrology (4) History of migraine: Plan: No reported GUERRERO currently sumitriptan as needed DVT Prophylaxis lovenox Full Code as per discussion with pt Follows with Dr Solorio for routine care Dispopatient stable for transfer from medical standpoint. Appreciate psychiatry's input regarding inpatient psychiatric placement. Please note the above document was generated using voice recognition software. It may contain grammatical, syntax or spelling errors. Any formal questions or concerns about the content, text or information contained within the body of this dictation should be directly addressed to the provider for clarification Admission and Anticipated Discharge Date Admission Date: March 27, 2023 Subjective Patient seen and examined at bedside. She is sitting up on the bed comfortably. No episode of seizures overnight. Hemodynamically stable and saturating well on room air. Review of Systems Review of Systems: All systems reviewed & are unremarkable except as noted in Subjective Physical Exam Physical Exam: General: Awake alert oriented x3; not in distress. Lungs: clear, no respiratory distress, no wheezing/rhonchi/rales CV: RRR, no murmur, no pretibial edema Abd: normal BS, soft, non-tender Ext: no cyanosis, no calf tenderness; Neuro: A&O x 3, Has conversation with eyes closed, no focal deficits noted, Skin: warm, dry Results & Data Results & Data Vital Signs (Past 12 Hours) Vital Signs Temp Pulse Pulse Resp BP Pulse Ox O2 Del Method 03/29/23 10:56 36.7 C 87 18 118/76 95 Room Air 03/29/23 07:12 36.8 C 80 18 106/71 97 Room Air 03/29/23 05:54 69 03/29/23 03:13 37.1 C 83 20 107/73 93 Room Air Laboratory Results Laboratory Results WBC 8.87 K/ul (4.8-10.8) 03/28/23 06:40 RBC 4.58 M/uL (4.20-5.40) 03/28/23 06:40 Hgb 12.9 g/dl (12.0-16.0) 03/28/23 06:40 Hct 40.0 % (37.0-47.0) 03/28/23 06:40 MCV 87.3 fL (80.0-100.0) 03/28/23 06:40 MCH 28.2 pg (25.0-34.0) 03/28/23 06:40 MCHC 32.3 g/dL (32.0-36.0) 03/28/23 06:40 RDW Std Deviation 43.5 fL (36.4-46.3) 03/28/23 06:40 RDW Coeff of Hue 13.6 % (11.5-14.5) 03/28/23 06:40 Plt Count 268 K/uL (130-400) 03/28/23 06:40 MPV 10.4 fL (9.4-12.4) 03/28/23 06:40 Immature Gran % (Auto) 0.3 % 03/27/23 12:14 Neut % (Auto) 76.2 % 03/27/23 12:14 Lymph % (Auto) 17.9 % 03/27/23 12:14 [place] % (Auto) 3.2 % 03/27/23 12:14 Eos % (Auto) 2.1 % 03/27/23 12:14 Baso % (Auto) 0.3 % 03/27/23 12:14 Neut # (Auto) 6.92 K/uL (1.40-6.50) H 03/27/23 12:14 Lymph # (Auto) 1.63 K/uL (1.20-3.40) 03/27/23 12:14 [place] # (Auto) 0.29 K/uL (0.11-0.59) 03/27/23 12:14 Eos # (Auto) 0.19 K/uL (0.00-0.50) 03/27/23 12:14 Baso # (Auto) 0.03 K/uL (0.00-0.20) 03/27/23 12:14 Immature Gran # (Auto) 0.03 K/uL (0.01-0.20) 03/27/23 12:14 Sodium 138 mmol/L (136-145) 03/28/23 06:40 Potassium 3.9 mmol/L (3.5-5.1) 03/28/23 06:40 Chloride 109 mmol/L (98-107) H 03/28/23 06:40 Carbon Dioxide 23 mmol/L (21-32) 03/28/23 06:40 Anion Gap 6 (3-11) 03/28/23 06:40 BUN 8 mg/dl (6-23) 03/28/23 06:40 Creatinine 1.11 mg/dl (0.6-1.2) 03/28/23 06:40 Est Cr Clr Drug Dosing 81.3 ml/min 03/28/23 06:40 Est GFR ( Amer) 74.5 ml/min 03/28/23 06:40 Est GFR (Non-Af Amer) 64.3 ml/min 03/28/23 06:40 BUN/Creatinine Ratio 7.2 (10-20) L 03/28/23 06:40 Glucose 94 mg/dl (70-99(Fasting)) 03/28/23 06:40 Calcium 8.8 mg/dl (8.6-10.3) 03/28/23 06:40 Total Bilirubin 0.4 mg/dl (0.2-1.0) 03/28/23 06:40 AST 12 U/L (13-39) L 03/28/23 06:40 ALT 8 U/L (7-52) 03/28/23 06:40 Alkaline Phosphatase 51 U/L (34-104) 03/28/23 06:40 Total Protein 6.7 gm/dl (6.0-8.3) 03/28/23 06:40 Albumin 3.9 gm/dl (3.4-5.0) 03/28/23 06:40 Globulin 2.8 gm/dl (2.5-4.0) 03/28/23 06:40 Albumin/Globulin Ratio 1.4 (0.9-2) 03/28/23 06:40 Lipase 15 U/L (11-82) 03/27/23 12:14 HCG, Qual Negative (Negative) 03/27/23 12:14 Urine Color Dark Yellow 03/27/23 Unknown Urine Appearance Cloudy (Clear) A 03/27/23 Unknown Urine pH 8.0 (4.5-7.5) H 03/27/23 Unknown Ur Specific [place] 1.015 (1.000-1.030) 03/27/23 Unknown Urine Protein Negative (Negative) 03/27/23 Unknown Urine Glucose (UA) Negative (Negative) 03/27/23 Unknown Urine Ketones Negative (Negative) 03/27/23 Unknown Urine Blood Negative (Negative) 03/27/23 Unknown Urine Nitrite Negative (Negative) 03/27/23 Unknown Urine Bilirubin Negative (Negative) 03/27/23 Unknown Urine Urobilinogen Negative (Negative) 03/27/23 Unknown Ur Leukocyte Esterase 1+ (Negative) H 03/27/23 Unknown Urine WBC (Auto) 5-10 /hpf (0-5) H 03/27/23 Unknown Urine RBC (Auto) 0-4 /hpf (0-4) 03/27/23 Unknown U Hyaline Cast (Auto) 1-5 /lpf (0-5) 03/27/23 Unknown U Epithel Cells (Auto) >30 /lpf (0-5) H 03/27/23 Unknown Urine Bacteria (Auto) 1+ (Negative) H 03/27/23 Unknown Salicylates < 3.0 mg/dl (3.0-30) L 03/27/23 12:14 Urine Opiates Screen Neg (Neg) 03/27/23 Unknown Ur Methadone, Qual Neg (Neg) 03/27/23 Unknown Acetaminophen < 3 ug/ml (10-30) L 03/27/23 12:14 Urine Barbiturates Neg (Neg) 03/27/23 Unknown Ur Phencyclidine (PCP) Neg (Neg) 03/27/23 Unknown U Amphetamin/Meth Scrn Neg (Neg) 03/27/23 Unknown MDMA (Ecstasy) Screen Neg (Neg) 03/27/23 Unknown U Benzodiazepines Scrn Pos (Neg) H 03/27/23 Unknown Ur Cocaine Metabolite Neg (Neg) 03/27/23 Unknown U Marijuana (THC) Screen Neg (Neg) 03/27/23 Unknown SARS-CoV-2, RNA, NAAT NEGATIVE (NEGATIVE) 03/27/23 12:14 Impressions Chest X-Ray 03/27/23 11:41 SINGLE VIEW CHEST CLINICAL HISTORY: Overdose. FINDINGS: An AP, portable, upright chest radiograph is compared to study dated 05/21/2022. The examination is degraded by portable technique and apical lordotic positioning. Indeterminate wires project over the left lower neck. The cardiomediastinal silhouette is unremarkable. There are low lung volumes with bibasilar atelectasis. The lungs and pleural spaces are otherwise clear. No pneumothorax is seen. The bony thorax is grossly intact. IMPRESSION: Low lung volumes with no acute cardiopulmonary abnormality identified. ACT 112: Negative or not required by law. Electronically signed by: Wale Lockett M.D. 03/27/2023 12:[address] 03/27/23 12:05 CT head/brain wo con CLINICAL HISTORY: 37 years-old Female with Hammer to head (SI). Acute head trauma TECHNIQUE: Multiple axial CT images of the head were obtained without contrast. A dose lowering technique was utilized adhering to the principles of ALARA. CT DOSE: 547.75 mGy.cm COMPARISON: 02/06/2023 FINDINGS: No acute intracranial hemorrhage, midline shift, intracranial mass, hydrocephalus, territorial ischemia or abnormal extra-axial collection. The calvarium is intact. The paranasal sinuses, mastoid air cells, and middle ear cavities are clear. IMPRESSION: No acute intracranial abnormality. ACT 112: Negative or not required by law. The above report was generated using voice recognition software. It may contain grammatical, syntax or spelling errors. Electronically signed by: Romel De Santiago M.D. 03/27/2023 1:23 PM Ankle X-Ray 03/28/23 09:33 XR ankle RT 2V CLINICAL HISTORY: pain on ankle, rule out fracture TECHNIQUE: 3 views of the right ankle were obtained. Comparison: Comparison is made to ankle radiographs 03/28/2023 FINDINGS: Fixation hardware is unchanged. Degenerative changes are seen. The ankle mortise is intact. No soft tissue abnormality is seen. IMPRESSION: Degenerative changes without evidence of acute fracture. ACT 112: Negative or not required by law. Electronically signed by: Bryan Taylor M.D. 03/28/2023 8:30 PM
[2023-03-29] MEDS: ENOXAPARIN INJ 40 MG/0.4 ML SYR SQ SCH (13:26)
[2023-03-29] MEDS ORDERED: PERAMPANEL PO SCH (21:00)
[2023-03-29] MEDS ORDERED: XCOPRI PO SCH (21:00)
[2023-03-30 07:52] LABS: 7-Aminoclonaz, Confirm NEGATIVE ng/mL (<25); Hydro-Alp Ur, GC/MS NEGATIVE ng/mL (<25); Hydroxyethylflurazepam, Conf NEGATIVE ng/mL (<50); Hydroxymidazolam Ur, GC/MS NEGATIVE ng/mL (<50); Hydroxytriazolam NEGATIVE ng/mL (<50); Lorazepam, Ur GC/MS NEGATIVE ng/mL (<50); Nordiazepam, Confirm NEGATIVE ng/mL (<50); Oxazepam Ur, GC/MS NEGATIVE ng/mL (<50); Temazepam, Confirm NEGATIVE ng/mL (<50)
[2023-03-30] MEDS: TOPIRAMATE 100 MG TAB PO SCH (07:52)
[2023-03-30] MEDS: lamoTRIgine 25 MG TAB PO SCH (07:52)
[2023-03-30] MEDS: MAGNESIUM OXIDE 400 MG TAB PO SCH (07:52)
[2023-03-30] MEDS: CALCIUM CARBONATE 500 MG CHEWABLE TAB PO SCH (07:52)
[2023-03-30] MEDS: levETIRAcetam 500 MG TAB PO SCH ×2 (07:53)
[2023-03-30] MEDS: ENOXAPARIN INJ 40 MG/0.4 ML SYR SQ SCH (07:53)
[2023-03-30] MEDS: CLOBAZAM 20 MG PO SCH (08:21)
--- NOTE | 2023-03-30 13:42 | Discharge Summary ---
Date of Service March 30, 2023 Admission HPI Per Admitting Provider Patient is 37 y/o F with PMH seizure disorder, s/p vagus nerve stimulator, history migraine headache presented to ER with reported of overdose of prescription seizure medication in attempt to kill herself. History obtained from patient as well as outpatient chart review and pharmacy reconciliation. Patient tells this provider that she has been having suicidal ideations for the past 4 to 5 years. She states in the past has attempted to harm and kill herself by "taking pills". Upon further discussion patient is unable to further quantify how many pills she has taken in the past. She states she typically grace es her medications as prescribed. Patient states last night she was having thoughts of harming herself and decided to google ways to commit suicide. She states she found that you could hit your self with a hammer. Patient states she used a very large hammer and hit herself multiple times in the head. Patient denies any loss of consciousness. States this morning she woke up and when getting out of bed she fell. Complains of right ankle pain. Reports history of right ankle fracture requiring repair in past. States around 8 AM she took her normal dose of prescribed medications. States in an attempt to kill herself she decided that she was going to take an additional dose of her morning prescribed meds. Patient states she took 8 doses of her normally prescribed medications. She is unable to tell me the names of the medications at this time. States then called for help as she decided she didn't want to . Currently she complains of feeling tired and cold. She also states in past has jumped from a balcony resulting in some scrapes and bruises but otherwise denies injury. Reports has not seen psychology, psychiatry as an adult. Reports seeing a psychologist when she was around age 17 but states they just discussed her seizure disorder and did not have further diagnoses. Reports having a seizure every 2 to 3 days. States last seizure was 2 to 3 days ago. Reports has diffuse body movements with her seizures. Patient [place] with neurology, [place] Crist[place] [facility] [place] Denies fever, diaphoresis, N/V/D/C, GUERRERO, dizziness, syncope, vision changes, neck pain, CP, SOB, palpitations, cough, sore throat, rhinorrhea, abdominal pain, paresthesias, weakness, extremity edema, rashes, urinary symptoms. In ER patient alert and oriented and without any nausea or vomiting or other sym ptoms. ER physician contacted poison control who recommended 24-hour observation secondary to long half-life of Xcopri and Fycompa Medication reconciliation performed and Pharmacy recent medication fill list: -Clobazam 20 mg tablet. Prescribed 2 tablets twice daily. Filled on 02/25/2023. Quantity 120 tablets. 26 tablets remaining in bottle in ER. -Fycompa 10 mg tablet. Prescribed 1 tablet daily. Filled on 01/27/2023. Quantity 30. There were zero tab remaining in bottle in ER. -Fycompa 8 mg tablet. Prescribed 1 tab daily. Filled on 01/12/2023. Quantity 30. There were 23 tabs remaining in bottle in ER. -Fycompa 6 mg tablet. Prescribed 1 tab daily. Filled on 11/11/2022. There were 11 tabs remaining in bottle in ER. -Lamotrigine 150 mg. Prescribed 1 twice daily. Filled on 02/22/2023. Quantity 60. There were 11 tabs remaining in bottle in ER. -Levetiracetam 1000 mg tablet. Prescribed 1 twice daily. Filled on 02/07/2023. Quantity 60. There was 1 tab remaining in bottle in ER. -Levetiracetam 250 mg tablet. Prescribed 2 twice daily. Filled on 02/09/2023. Quantity 120. There was 2 tabs remaining in bottle in ER. -Lorazepam 2 mg. Prescribed 1Q6H as needed cluster seizure. Prescribed 12/30/2022. Quantity 30. 9 tablets remaining in bottle in ER. -Magnesium oxide 400 mg tablet. Prescribed 1 twice daily. Filled on 02/04/2023. Quantity 120. 61 tablets remaining in bottle in ER. -sumatriptan 100mg. Prescribed 0.5-1 tablet at onset of headache, may repeat once after 2 hours. Filled on 02/20/2023 for Quantity 9. There were 5 remaining in bottle in ER. -Topiramate 200 mg tablet. Prescribed 1 twice daily. Filled on 02/09/2023. Quantity 60. 1 tablet remaining in bottle in ER. -Xcopri 50mg. Prescribed 0.5mg daily. Filled 02/05/2023. Quantity 15. Half a tab remaining in bottle in ER. -Xcopri 12.5-25 mg titration pack. Prescribed 1 tablet daily. Filled on 05/28/2022. 10 tablets remaining in bottle in ER. -Per ER staff had Rx bottle of Xcorpi 150mg. Qty 28. Filled on 01/01/2021. 14 tablets remaining in bottle -Vitamin D3 1250mg. Filled on 12/30/2022. Qty:12. 2 pills remaining in bottle in ER. Admission Exam Per Admitting Provider General: no acute distress, disheveled. WDWN Head: normocephalic, atraumatic, no ecchymosis to scalp, forehead or face noted Eyes: PERRL, EOM's intact, conjunctiva non-injected, anicteric ENT: normal inspection external ears, nose, mucous membranes moist Neck: supple, trachea midline, ROM intact Lungs: clear, no respiratory distress, no wheezing/rhonchi/rales CV: RRR, no murmur, no pretibial edema Abd: normal BS, soft, non-tender Ext: no cyanosis, no calf tenderness; RLE: Right ankle without edema, erythema or ecchymosis, + diffuse tenderness to palpation and with active flexion and extension. sensation to light touch intact Neuro: A&O x 3, Has conversation with eyes closed, no focal deficits noted, somewhat flat affect Skin: warm, dry Principal Diagnosis Suicidal attempt Overdose Discharge Exam General: Awake alert oriented x3; not in distress. Lungs: clear, no respiratory distress, no wheezing/rhonchi/rales CV: RRR, no murmur, no pretibial edema Abd: normal BS, soft, non-tender Ext: no cyanosis, no calf tenderness; Neuro: A&O x 3, Has conversation with eyes closed, no focal deficits noted, Skin: warm, dry Discharge Data Allergies Allergy/AdvReac Type Severity Reaction Status Date / Time Iodinated Contrast Media Allergy Unknown Hives Verified 05/21/22 20:32 Consultations 03/27/23 13:55 ED Decision to Admit Stat 03/27/23 16:38 Consult Neurology Routine Consult Psychiatry Routine 03/27/23 17:23 Consult Behavioral Health Liaison Routine Ordered Studies 03/27/23 12:05 CT head/brain wo con Stat Hospital Course (1) Suicidal ideation: (2) Overdose: (3) Seizure disorder: (4) History of migraine: Plan Patient is 37 y/o F with PMH seizure disorder, s/p vagus nerve stimulator, history migraine headache presented to ER with reported of overdose of prescription seizure medication in attempt to kill herself. Also reports hitting self in head with hammer. Patient on extensive Rx medications including Clobazam, Fycompa, Lamotrigine, Levetiracetam, Lorazepam, Topiramate, Xocpri, sumatriptan, magnesium oxide. Unclear how many pills were consumed. (Med rec and remaining pills as in HPI) In ER patient alert and oriented and without any nausea or vomiting or other symptoms. ER physician contacted poison control who recommended 24-hour observation secondary to long half-life of Xcopri and Fycompa CT Head: no acute intracranial findings CBC, CMP unremarkable Negative salicylates and acetaminophen levels EKG reviewed personally; normal sinus rhythm; no ST or T wave changes. QTc within normal is. Nephrology consulted; recommended to restart all her medication. No seizures were noted during the hospitalization. Patient transferred to behavioral health unit in the same hospital. Total Time Total Time Spent Total Time Spent (In Minutes): 45 Discharge Plan Discharge Items Patient Disposition: Transfer Behavioral Health Fac Reason For Visit: OVERDOSE Discharge Diagnosis: Suicide attempt Activity: Resume your previous activity Non-emergency contact: Primary Care Provider Call non-emergency contact if: you have any medication questions and your symptoms worsen Follow-up/Referrals: Nely Solorio DO [Primary Care Provider] - Diet: Regular Addtl Attending Provider Instructions: You were admitted to medical service due to overdose of the anti-seizure medication. You can go back to your regular medication. Follow up with PCP after discharge Pending Studies at Discharge: No Stand-Alone Forms: [facility] Skilled Items Lines: None Urinary Catheter: No Medications and DC Order Prescriptions: Continued levetiracetam 1,000 mg tablet 1,000 mg PO BID Rx Instructions: TAKE WITH 500mg = 1500MG TWICE DAILY. levetiracetam 250 mg tablet 500 mg PO BID Rx Instructions: TAKE 2 tablets WITH 1000 MG =1500MG TWICE DAILY. magnesium oxide 400 mg magnesium capsule 400 mg PO BID sumatriptan succinate 100 mg tablet 50 - 100 mg PO UD PRN (Reason: Headache) Rx Instructions: take 1/2 to 1 tablet by mouth at start of headache, may repeat once after 2 hours. may take up to 2 days a week riboflavin (vitamin B2) 400 mg Tablet 400 mg PO DAILY Xcopri Titration Pack 12.5 mg (14)- 25 mg (14) tablets,dose pack 1 ea PO UD lorazepam 2 mg tablet 2 mg PO Q6H PRN (Reason: cluster seizure) Qty: 10 0RF lamotrigine 150 mg tablet 150 mg PO BID topiramate 200 mg tablet 200 mg PO BID clobazam 20 mg tablet 40 mg PO BID Xcopri 50 mg tablet 25 mg PO DAILY alpha lipoic acid 200 mg PO DAILY calcium 600 mg PO DAILY Fycompa 8 mg tablet 8 mg PO HS Discharge Orders: Discharge Order (Routine); Ordered 03/30/23 Ordered By: Jeffrey Vega/Other Patient Handouts: Suicide Know Self Warnings Admission Data Admit Date/Time: 03/29/23 12:45 Attending Provider: Jeffrey Nazario Admit Provider: Dania Presley Primary Care Provider: Nely Solorio Other Providers: Dania Presley ; Nj Costa ; Magdalene Flores ; Priscila Cardona ; Tramaine Campbell Other Interventions: Discharge Summary Assessment (RN) Last Done: 03/30/23 10:13
--- NOTE | 2023-03-31 06:06 | Electrocardiogram Report ---
Test Reason : Blood Pressure : / mmHG Vent. Rate : 072 BPM Atrial Rate : 072 BPM P-R Int : 148 ms QRS Dur : 086 ms QT Int : 392 ms P-R-T Axes : 040 021 018 degrees QTc Int : 429 ms Poor data quality, interpretation may be adversely affected Normal sinus rhythm Normal ECG When compared with ECG of 27-MAR-2023 12:40, No significant change was found Confirmed by Jim Tobar ([id number]) on 03/31/2023 6:05:45 AM Referred By: REFERRED SELF Confirmed By:Jim Tobar
[2023-04-02 23:22] LABS: Lamictal(Lamotrigine) 8.8 mcg/mL (2.5-15.0); Levetiracetam Keppra 53.8 mcg/mL (6.0-46.0)
== END 2023-03-30 14:29 | DRG 918 ==
LOC: ED 11:23 → EDINP 11:23 → SUATTDRO 14:01 → 2W 20:08 → 3E 03-30 01:05

== ENCOUNTER 2023-03-30 12:16 | Inpatient (IN) ==
[2023-03-30] MEDS ORDERED: BISMUTH SUBSALICYLATE LIQD 236 ML PO PRN (14:16)
[2023-03-30] MEDS ORDERED: ALUMINUM/MAGNESIUM SUSP 30 ML UDC PO PRN (14:16)
[2023-03-30] MEDS ORDERED: ACETAMINOPHEN 325 MG TAB PO PRN (14:16)
[2023-03-30] MEDS ORDERED: hydrOXYzine HCl 25 MG TAB PO PRN ×2 (14:16)
[2023-03-30] MEDS ORDERED: SODIUM CHLORIDE 0.65% NA SOLN 45 ML (OCEAN) PRN (14:16)
[2023-03-30] MEDS ORDERED: MAGNESIUM HYDROXIDE SUSP 30 ML UDC PO PRN (14:16)
[2023-03-30] MEDS ORDERED: LORazepam 1 MG TAB PO PRN (16:41)
[2023-03-30] MEDS ORDERED: SUMAtriptan succinate 100 MG TAB PO PRN (16:41)
[2023-03-30] MEDS: lamoTRIgine 100 MG TAB PO SCH (21:02)
[2023-03-30] MEDS: levETIRAcetam 500 MG TAB PO SCH ×2 (21:04→21:06)
[2023-03-30] MEDS: MAGNESIUM OXIDE 400 MG TAB PO SCH (21:06)
[2023-03-30] MEDS: TOPIRAMATE 100 MG TAB PO SCH (21:07)
[2023-03-30] MEDS: CLOBAZAM 20 MG PO SCH (21:18)
[2023-03-30] MEDS: FYCOMPA 8 MG PO SCH (21:30)
[2023-03-31] MEDS ORDERED: NON-FORMULARY MEDICATION (Riboflavin (Vitamin B2) 400 mg Tablet) PO SCH (09:00)
[2023-03-31] MEDS ORDERED: NON-FORMULARY MEDICATION (Alpha Lipoic Acid 200 MG) PO SCH (09:00)
[2023-03-31] MEDS ORDERED: CENOBAMATE PO SCH (09:00)
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
[2023-03-31] MEDS: levETIRAcetam 500 MG TAB PO SCH ×4 (09:14→21:26)
[2023-03-31] MEDS: CALCIUM CARBONATE 1250MG TAB PO SCH (09:14)
[2023-03-31] MEDS: CLOBAZAM 20 MG PO SCH ×2 (09:14→21:25)
[2023-03-31] MEDS: MAGNESIUM OXIDE 400 MG TAB PO SCH ×2 (09:15→21:26)
[2023-03-31] MEDS: TOPIRAMATE 100 MG TAB PO SCH ×2 (09:15→21:26)
[2023-03-31] MEDS: CENOBAMATE PO SCH ×3 (09:15→21:25)
[2023-03-31] MEDS: lamoTRIgine 100 MG TAB PO SCH ×2 (11:24→21:26)
[2023-03-31] MEDS: FYCOMPA 8 MG PO SCH (21:24)
[2023-04-01] MEDS: CLOBAZAM 20 MG PO SCH ×2 (08:18→20:28)
[2023-04-01] MEDS: CALCIUM CARBONATE 1250MG TAB PO SCH (08:18)
[2023-04-01] MEDS: levETIRAcetam 500 MG TAB PO SCH ×4 (08:18→20:32)
[2023-04-01] MEDS: lamoTRIgine 100 MG TAB PO SCH ×2 (08:18→20:29)
[2023-04-01] MEDS: TOPIRAMATE 100 MG TAB PO SCH ×2 (08:19→20:33)
[2023-04-01] MEDS: MAGNESIUM OXIDE 400 MG TAB PO SCH ×2 (08:19→20:32)
--- NOTE | 2023-04-01 09:17 | Psychiatric Progress Note ---
Date of Service April 01, 2023 Impression / Recommendations Impression Glenys is a 37 year old woman with no formal psychiatric history (except one mention of conversion disorder in the past) but reports >20 prior suicide attempts/self-harm/rehearsal behaviors for which she has never sough treatment, history of refractory seizure disorder since childhood also with psychogenic nonepileptic seizures and migraines admitted following a suicide attempt via overdose of her medications and hitting herself in the head with a hammer requiring medical admission. Diagnostically consistent with unspecified depressive disorder (MDD vs persistent depressive disorder vs acute exacerbation of cluster B traits) in the context of social isolation and possible recent financial stressors as well as frustration with her parents involvement in her life. She has poor insight into reasons for others concerns about her level of risk and has been unwilling so far to involve her parents at all in her treatment even though they seem to be her only primary support network. 04/01/2023: Mood improving and she's been actively engaging in groups but ongoing poor insight into possible causes for her impulsive attempt and unwilling to consider involvement of her parents or additional support referr als. Ongoing focus on motivational interviewing and insight-oriented approach. She is not interested in starting any additional medications for mood,anxiety as she worries this could impact her seizures and feels she is already on enough medications. Reviewed various options, did review that lamictal can offer some mood and depression benefits. Overall, I spent a total of 35 minutes with this case including review of chart records, direct evaluation of the patient at bedside, counseling the patient, discussion during interdisciplinary treatment rounds, risk assessment, and documentation in the electronic health record. (1) Suicide attempt by drug overdose: (2) Depression, unspecified: (3) Intentional self-harm by blunt object: (4) Seizures: (5) Psychogenic nonepileptic seizure: (6) History of migraine: Plan 04/01/2023: Continue with current medications and tx plan. 03/31/2023: The patient was admitted to the [facility] ([facility] mental health unit) on q15 min checks (behavioral with suicide precautions) for safety. The patient will participate in group, recreational, and milieu therapies and will be offered additional individual and family sessions as clinically appropriate. -Continue prior to admission medications for seizure prevention and migraines including: Fycoma, Onfi, Lamictal, Keppra, Topiramate, Xcopri, Ativan prn and Imitrex prn Inventory Assets Strengths: supportive parents, enjoys her job Needs: safety and stabilization, medication adjustment, additional coping skills, increased outpatient services Suicide Risk Level Suicide Risk Level: Moderate (q15 min suicide checks) (serious suicide attempt with multiple prior attempts but mood improving, engaging with groups, feels safe in the hospital, able to safety contract and agrees to let nursing/staff know should they develop plan, intent or feel unable to remain safe.) Suicide Risk Level Comments: Risk Factors Assessment Male: No : Yes Do You Have Access To A Gun?: No Health Problems: Yes (epilepsy) Mental Health Diagnoses: Yes Substance Use Disorders: No Previous Attempt: Yes Family History of Suicide: No Previous Psychiatric Hospitalization: No Protective Factors Assessment Employed: Yes Supportive Family: Yes Interval History Identifying Information GLENYS MOYA is a 37-year-old F who currently lives in [place] alone, has a history of seizure disorder (refractory primary generalized epilepsy and psychogenic nonepileptic seizures) with vagus nerve stimulator, migraines and was admitted on 03/30/23 14:30 on a 201 voluntary commitment for suicide attempt via overdose of polypharmacy following medical admission for stabilization. Chief Complaint "I'm ok, I wish I wasn't having a seizure". Review of Systems Sleep Information Total Hours of Sleep: 6 Sleep Comments: Up in day room onces Meal Information Percent Meal Consumed - Breakfast: 100 Percent Meal Consumed - Dinner: 25 Subjective Subjective Patient was seen & assessed and interval progress reviewed with treatment team nursing and social work. Attending groups and interactive with peers. Mid-day approached the nurses station and reported "I'm having a seizure can I have some ativan". Took prn ativan and napped and then re-assessed on awakening. She reports she could tell she was having symptoms of a "petit mal" seizure due to "feeling tired and quiet as usually I'm a talker" and that she knew if she delayed getting the ativan "it would have turned into a grand mal". No evidence for any motor signs or confusion this afternoon. Reports her mood is "ok". Discussed her frustration with her parents wanting to be very involved in her life even though she is 37 years old. She stated her parents are "good people" but expressed frustration with feeling overwhelmed by them at times. She remains unwilling to involve them in any way in her treatment or to sign an BINA. Physical Exam Psychiatric Orientation: alert and oriented x 3 Apperance: appropriately dressed and appropriately groomed Eye Contact: good eye contact Motor Behavior: no abnormal motor movements Speech: normal rate/rhythm/volume of speech Affect: + constricted affect Mood: + anxious mood Thought Process: goal directed thought process and + concrete thought process Thought Content: reality based without delusions Suicidal Thoughts: denies suicidal thoughts (but s/p serious attempt), denies suicidal plan and denies suicidal intent Homicidal Thoughts: denies homicidal thoughts Hallucinations: no auditory hallucinations and no visual hallucinations Cognition: recent memory grossly intact, remote memory grossly intact, attention grossly intact and language grossly intact Estimated Intelligence: + below average estimated intelligence (vs cognitive blunting from seizure medications) Insight: + limited insight Judgment: + limited judgement Vital Signs (Past 24 Hours) Last Vital Signs Temp 36.6 C 04/01/23 06:40 Pulse 96 H 04/01/23 06:41 Resp 16 04/01/23 06:40 BP 113/79 04/01/23 06:41 Pulse Ox 98 03/30/23 15:19 O2 Del Method Room Air 03/30/23 15:19 Results & Data ([facility]) Current Inpatient Medications Current Inpatient Medications: Current Inpatient Medications Acetaminophen (Acetaminophen 325 Mg Tab) 650 mg PO Q4H PRN PRN Reason: Headache or Minor Fever Stop: 04/29/23 14:15 Al Hydrox/Mg Hydrox/Simethicone (Aluminum/Magnesium Susp 30 Ml Udc) 30 ml PO Q4H PRN PRN Reason: GI Upset Stop: 04/29/23 14:15 Bismuth Subsalicylate (Bismuth Subsalicylate Liqd 236 Ml) 15 ml PO PRN PRN PRN Reason: Loose Stool Stop: 04/29/23 14:15 Calcium Carbonate (Calcium Carbonate 1250mg Tab) 1,250 mg PO DAILY SATISH Stop: 04/30/23 08:59 Last Admin: 04/01/23 08:18 Dose: 1,250 mg Clobazam (Pt's Own Med: Clobazam 20mg) 2 each PO BID SATISH Stop: 04/29/23 20:59 Last Admin: 04/01/23 08:18 Dose: 2 each Hydroxyzine HCl (Hydroxyzine Hcl 25 Mg Tab) 50 mg PO HSZ PRN PRN Reason: Insomnia Stop: 04/29/23 14:15 Hydroxyzine HCl (Hydroxyzine Hcl 25 Mg Tab) 25 mg PO Q4H PRN PRN Reason: Anxiety Stop: 04/29/23 14:15 Lamotrigine (Lamotrigine 100 Mg Tab) 150 mg PO BID SATISH Stop: 04/29/23 20:59 Last Admin: 04/01/23 08:18 Dose: 150 mg Levetiracetam (Levetiracetam 500 Mg Tab) 1,000 mg PO BID SATISH Stop: 04/29/23 20:59 Last Admin: 04/01/23 08:18 Dose: 1,000 mg Levetiracetam (Levetiracetam 500 Mg Tab) 500 mg PO BID SATISH Stop: 04/29/23 20:59 Last Admin: 04/01/23 08:18 Dose: 500 mg Lorazepam (Lorazepam 1 Mg Tab) 2 mg PO Q6H PRN PRN Reason: cluster seizure Stop: 04/29/23 16:40 Magnesium Hydroxide (Magnesium Hydroxide Susp 30 Ml Udc) 30 ml PO DAILY PRN PRN Reason: Constipation Stop: 04/29/23 14:15 Magnesium Oxide (Magnesium Oxide 400 Mg Tab) 400 mg PO BID SATISH Stop: 04/29/23 20:59 Last Admin: 04/01/23 08:19 Dose: 400 mg Fycompa 8mg: Non- Formulary Patient's Own Med 1 each PO HS SATISH Stop: 04/29/23 21:59 Last Admin: 03/31/23 21:24 Dose: 1 ea Xcopri 12.5mg: Non- Formulary Patient's Own Med 2 each PO HS SATISH Stop: 04/30/23 21:59 Last Admin: 03/31/23 21:25 Dose: 25 mg Sodium Chloride (Sodium Chloride 0.65% Na Soln 45 Ml ([place])) 1 - 2 sprays NA PRN PRN PRN Reason: Nasal Dryness/Congestion Stop: 04/29/23 14:15 Sumatriptan Succinate (Sumatriptan Succinate 100 Mg Tab) 50 - 100 mg PO UD PRN PRN Reason: Headache Stop: 04/29/23 16:40 Topiramate (Topiramate 100 Mg Tab) 200 mg PO BID SATISH Stop: 04/29/23 20:59 Last Admin: 04/01/23 08:19 Dose: 200 mg Post Discharge Appointments Primary Care Physician Name Of Family Doctor/PCP: Vika [facility] Date of Future Appointment with PCP: 04/08/23 Time of Appointment with PCP: 3:00 PM, arrival 2:45 PM Provider Appointment Comment: [address] [place] [address], [place] [address] Neurologist Name of Neurologist: Vika Villafuerte PA-C Neurologist's Date of Appointment with Neurologist: 04/14/23 Time of Appointment with Neurologist: 2:20 PM, arrival 2:15 PM Neurology Appointment Comment: [address] [place] [address] Contact Information Discharge Discharge Address: [address] [place], [place] [address]alf[address] [place], [place] [address], [place] [address]
[2023-04-01] MEDS: CENOBAMATE PO SCH (20:34)
[2023-04-01] MEDS: FYCOMPA 8 MG PO SCH (20:34)
[2023-04-02] MEDS: CALCIUM CARBONATE 1250MG TAB PO SCH (08:21)
[2023-04-02] MEDS: lamoTRIgine 100 MG TAB PO SCH ×2 (08:21→21:32)
[2023-04-02] MEDS: CLOBAZAM 20 MG PO SCH ×2 (08:21→21:32)
[2023-04-02] MEDS: MAGNESIUM OXIDE 400 MG TAB PO SCH ×2 (08:22→21:34)
[2023-04-02] MEDS: levETIRAcetam 500 MG TAB PO SCH ×4 (08:22→21:33)
[2023-04-02] MEDS: TOPIRAMATE 100 MG TAB PO SCH ×2 (08:23→21:34)
--- NOTE | 2023-04-02 09:11 | Psychiatric Progress Note ---
Date of Service April 02, 2023 Impression / Recommendations Impression Glenys is a 37 year old woman with no formal psychiatric history (except one mention of conversion disorder in the past) but reports >20 prior suicide attempts/self-harm/rehearsal behaviors for which she has never sough treatment, history of refractory seizure disorder since childhood also with psychogenic nonepileptic seizures and migraines admitted following a suicide attempt via overdose of her medications and hitting herself in the head with a hammer requiring medical admission. Diagnostically consistent with unspecified depressive disorder (MDD vs persistent depressive disorder vs acute exacerbation of cluster B traits) in the context of social isolation and possible recent financial stressors as well as frustration with her parents involvement in her life. She has poor insight into reasons for others concerns about her level of risk and has been unwilling so far to involve her parents at all in her treatment even though they seem to be her only primary support network. 04/02/2023: Mood remains improved and stable and engaging in groups with some improved insight today into stressors leading to her suicide attempt and ways she plans to reduce her stressors moving forward. Continues to have limited interest in any type of additional outpatient supports or services but willing to consider crisis peer referral. She remains uninterested in psychiatric medication and given mood improvement and focus of relationship with her parents as main stressor and triggering event this seems reasonable. Ongoing motivational interviewing regarding consideration for family therapy but she is not interested at this time, remains precontemplative about this. Overall, I spent a total of 35 minutes with this case including review of chart records, direct evaluation of the patient at bedside, counseling the patient, discussion during interdisciplinary treatment rounds, risk assessment, and documentation in the electronic health record. (1) Suicide attempt by drug overdose: (2) Depression, unspecified: (3) Intentional self-harm by blunt object: (4) Seizures: (5) Psychogenic nonepileptic seizure: (6) History of migraine: Plan 04/02/2023: Continue current medications and tx plan. Ongoing motivational interviewing. 04/01/2023: Continue with current medications and tx plan. 03/31/2023: [facility] on q15 min checks (behavioral with suicide precautions) for safety. The patient will participate in group, recreational, and milieu therapies and will be offered additional individual and family sessions as clinically appropriate. -Continue prior to admission medications for seizure prevention and migraines including: Fycoma, Onfi, Lamictal, Keppra, Topiramate, Xcopri, Ativan prn and Imitrex prn Inventory Assets Strengths: supportive parents, enjoys her job Needs: safety and stabilization, medication adjustment, additional coping skills, increased outpatient services Suicide Risk Level Suicide Risk Level: Moderate (q15 min suicide checks) (serious suicide attempt with multiple prior attempts but mood improving, engaging with groups, feels safe in the hospital, consistently denying SI, able to safety contract and agrees to let nursing/staff know should they develop plan, intent or feel unable to remain safe.) Suicide Risk Level Comments: Risk Factors Assessment Male: No : Yes Do You Have Access To A Gun?: No Health Problems: Yes (epilepsy) Mental Health Diagnoses: Yes Substance Use Disorders: No Previous Attempt: Yes Family History of Suicide: No Previous Psychiatric Hospitalization: No Protective Factors Assessment Employed: Yes Supportive Family: Yes Interval History Identifying Information GLENYS MOYA is a 37-year-old F who currently lives in [place] alone, has a history of seizure disorder (refractory primary generalized epilepsy and psychogenic nonepileptic seizures) with vagus nerve stimulator, migraines and was admitted on 03/30/23 14:30 on a 201 voluntary commitment for suicide attempt via overdose of polypharmacy following medical admission for stabilization. Chief Complaint "I'm ok". Review of Systems Sleep Information Total Hours of Sleep: 6 Sleep Comments: Meal Information Percent Meal Consumed - Breakfast: 100 Percent Meal Consumed - Lunch: 100 Percent Meal Consumed - Dinner: 100 Subjective Subjective Patient was seen & assessed and interval progress reviewed with treatment team nursing and social work. Attending groups and participating well. Continues to report her mood is good and she feels safe but still with very limited insight and not interested in any additional supports or services in speaking with social work. In the afternoon reports her mood is "ok" expressing some sadness that a peer discharged earlier in the morning who she had befriended. Agrees to consider referral for crisis peer to add some additional support as she remains unwilling to involve her parents in her treatment or safety planning. Denies SI, feels her attempt was due to "I felt so trapped like where do I go from here?" in regard to feeling controlled by her parents. She feels this would not happen again in the future as she plans to set firmer boundaries with them. Reflects her frustration that she is almost 38 and feels her mother still gets upset if she doesn't call her back immediately "like what I'm not even allowed to go to the bathroom for a few minutes". She notes this is part of what she likes about work that it gives her an excuse not to take her mom's phone calls because she can't have her phone at work. She also described frustration about her parents commenting on her weight and giving her tasks to lose a certain amount of weight in order to then be able to go on vacation as a family. Physical Exam Psychiatric Orientation: alert and oriented x 3 Apperance: appropriately dressed and appropriately groomed Eye Contact: good eye contact Motor Behavior: no abnormal motor movements Speech: normal rate/rhythm/volume of speech Affect: + constricted affect Mood: + anxious mood Thought Process: goal directed thought process and + concrete thought process Thought Content: reality based without delusions Suicidal Thoughts: denies suicidal thoughts, denies suicidal plan and denies suicidal intent Homicidal Thoughts: denies homicidal thoughts Hallucinations: no auditory hallucinations and no visual hallucinations Cognition: recent memory grossly intact, remote memory grossly intact, attention grossly intact and language grossly intact Estimated Intelligence: + below average estimated intelligence (vs cognitive blunting from seizure medications) Insight: + limited insight Judgment: + limited judgement Vital Signs (Past 24 Hours) Last Vital Signs Temp 36.2 C L 04/02/23 06:34 Pulse 80 04/02/23 06:34 Resp 18 04/02/23 06:34 BP 110/74 04/02/23 06:34 Pulse Ox 98 04/02/23 06:34 O2 Del Method Room Air 04/02/23 06:34 Results & Data ([facility]) Current Inpatient Medications Current Inpatient Medications: Current Inpatient Medications Acetaminophen (Acetaminophen 325 Mg Tab) 650 mg PO Q4H PRN PRN Reason: Headache or Minor Fever Stop: 04/29/23 14:15 Al Hydrox/Mg Hydrox/Simethicone (Aluminum/Magnesium Susp 30 Ml Udc) 30 ml PO Q4H PRN PRN Reason: GI Upset Stop: 04/29/23 14:15 Bismuth Subsalicylate (Bismuth Subsalicylate Liqd 236 Ml) 15 ml PO PRN PRN PRN Reason: Loose Stool Stop: 04/29/23 14:15 Calcium Carbonate (Calcium Carbonate 1250mg Tab) 1,250 mg PO DAILY SATISH Stop: 04/30/23 08:59 Last Admin: 04/02/23 08:21 Dose: 1,250 mg Clobazam (Pt's Own Med: Clobazam 20mg) 2 each PO BID SATISH Stop: 04/29/23 20:59 Last Admin: 04/02/23 08:21 Dose: 2 each Hydroxyzine HCl (Hydroxyzine Hcl 25 Mg Tab) 50 mg PO HSZ PRN PRN Reason: Insomnia Stop: 04/29/23 14:15 Hydroxyzine HCl (Hydroxyzine Hcl 25 Mg Tab) 25 mg PO Q4H PRN PRN Reason: Anxiety Stop: 04/29/23 14:15 Lamotrigine (Lamotrigine 100 Mg Tab) 150 mg PO BID SATISH Stop: 04/29/23 20:59 Last Admin: 04/02/23 08:21 Dose: 150 mg Levetiracetam (Levetiracetam 500 Mg Tab) 1,000 mg PO BID SATISH Stop: 04/29/23 20:59 Last Admin: 04/02/23 08:22 Dose: 1,000 mg Levetiracetam (Levetiracetam 500 Mg Tab) 500 mg PO BID SATISH Stop: 04/29/23 20:59 Last Admin: 04/02/23 08:22 Dose: 500 mg Lorazepam (Lorazepam 1 Mg Tab) 2 mg PO Q6H PRN PRN Reason: cluster seizure Stop: 04/29/23 16:40 Last Admin: 04/01/23 14:03 Dose: 2 mg Magnesium Hydroxide (Magnesium Hydroxide Susp 30 Ml Udc) 30 ml PO DAILY PRN PRN Reason: Constipation Stop: 04/29/23 14:15 Magnesium Oxide (Magnesium Oxide 400 Mg Tab) 400 mg PO BID SATISH Stop: 04/29/23 20:59 Last Admin: 04/02/23 08:22 Dose: 400 mg Fycompa 8mg: Non- Formulary Patient's Own Med 1 each PO HS SATISH Stop: 04/29/23 21:59 Last Admin: 04/01/23 20:34 Dose: 1 ea Xcopri 12.5mg: Non- Formulary Patient's Own Med 2 each PO HS SATISH Stop: 04/30/23 21:59 Last Admin: 04/01/23 20:34 Dose: 50 mg Sodium Chloride (Sodium Chloride 0.65% Na Soln 45 Ml ([place])) 1 - 2 sprays NA PRN PRN PRN Reason: Nasal Dryness/Congestion Stop: 04/29/23 14:15 Sumatriptan Succinate (Sumatriptan Succinate 100 Mg Tab) 50 - 100 mg PO UD PRN PRN Reason: Headache Stop: 04/29/23 16:40 Topiramate (Topiramate 100 Mg Tab) 200 mg PO BID SATISH Stop: 04/29/23 20:59 Last Admin: 04/02/23 08:23 Dose: 200 mg Post Discharge Appointments Primary Care Physician Name Of Family Doctor/PCP: Vika Solorio [facility] Date of Future Appointment with PCP: 04/08/23 Time of Appointment with PCP: 3:00 PM, arrival 2:45 PM Provider Appointment Comment: [address] [place] [address], [place] [address] Neurologist Name of Neurologist: Vika Villafuerte PA-C Neurologist's Date of Appointment with Neurologist: 04/14/23 Time of Appointment with Neurologist: 2:20 PM, arrival 2:15 PM Neurology Appointment Comment: [address] [place] [address] Contact Information Discharge Discharge Address: [address] [place] [address], [place] [address]
[2023-04-02] MEDS: CENOBAMATE PO SCH (21:35)
[2023-04-02] MEDS: FYCOMPA 8 MG PO SCH (21:35)
[2023-04-03] MEDS: TOPIRAMATE 100 MG TAB PO SCH (07:35)
[2023-04-03] MEDS: levETIRAcetam 500 MG TAB PO SCH ×2 (07:36→07:39)
[2023-04-03] MEDS: CALCIUM CARBONATE 1250MG TAB PO SCH (07:37)
[2023-04-03] MEDS: CLOBAZAM 20 MG PO SCH (07:37)
[2023-04-03] MEDS: lamoTRIgine 100 MG TAB PO SCH (07:37)
[2023-04-03] MEDS: MAGNESIUM OXIDE 400 MG TAB PO SCH (07:39)
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
[2023-04-03] MEDS ORDERED: DESTROY THIS MEDICATION ONE (10:41)
== END 2023-04-03 11:28 | disposition home or self-care (01) | DRG 881 ==
LOC: 3S 14:30
DX: G40.409 Other generalized epilepsy and epileptic syndromes, not intractable, without status epilepticus; Z79.899 Other long term (current) drug therapy; F32.A Depression, unspecified; Z91.041 Radiographic dye allergy status; F44.5 Conversion disorder with seizures or convulsions; Z91.51 Personal history of suicidal behavior; R45.851 Suicidal ideations; Z96.82 Presence of neurostimulator

== ENCOUNTER 2023-04-15 05:46 | Inpatient (IN) ==
[2023-04-15] MEDS ORDERED: SODIUM CHLORIDE 0.9% 1,000 ML IV ONE ×3 (06:05→07:30)
[2023-04-15] MEDS ORDERED: ACETAMINOPHEN 1,000 MG/100 ML VIAL IV STA (06:26)
[2023-04-15] MEDS ORDERED: KETOROLAC 30 MG/ML VIAL IV STA (06:26)
[2023-04-15] MEDS ORDERED: levETIRAcetam 1,000 MG in 0.9 % SODIUM CHLORIDE 100 ML IV STA (06:26)
--- NOTE | 2023-04-15 06:30 | Emergency Department Note ---
Impression & Plan Seizures, Leukocytosis, Lactic acidosis ED Provider Note Name: JESSICA MOYA Age: 37 Sex: Female Arrives Via: Ambulance Informant: Patient ED Provider: Reyes Sahni MD Chief Complaint: Seizure Impression: As per impression above Medical Decision Makin-year-old female known to the facility for previous evaluations of seizures as well as psychiatric issues. She arrives following seizure at home which she feels likely led to her falling out of her bed. She is complaining of some low back discomfort. Reportedly prior to my evaluation patient was having seizure- like activity but was talking and able to look around the room following comm ands during this. On examination no patient is tachycardic she is dehydrated appearing she is clearly unkempt. She has some abrasions to bilateral sides of tongue. With this in mind laboratory work-up had been initiated and following evaluation some further labs were added on. Her initial white blood cell count is significantly elevated. At this point a CK was added as well as lactic acid and blood cultures. Initial VBG also shows significant acidosis. She is not significantly hyperglycemic and has no history of diabetes thus I do not feel this is DKA. Chest x-ray urinalysis do not show any evidence of clear infection and she is afebrile. At this point it is hard to say if this is truly sepsis as it may just be due to significant dehydration and possibly. She was empirically giving some IV antibiotics. She was given a significant amount of IV fluids for rehydration. I did obtain an x-ray of her low back which is fortunately unremarkable. She is not having significant further pain after some Toradol and Tylenol this CT imaging I would hold off on now. Patient has recurrent seizures and has had multiple previous CTs of the head in our system thus would hold off on that for now. Triage/Nursing Notes reviewed by Me External Chart Review by me: Extensive external chart reviewed by me including recent hospitalization records and discharge summaries Differential:Infection, dehydration, metabolic abnormality, hypo/hyperglycemia, electrolyte disturbance, anemia, hypoxia, cardiac sources, intracerebral event, toxicologic, neurologic, as well as other pathologies. Vital Signs: reviewed and remarkable for tachycardia Interventions: Normal saline bolus 3 L IV, Zosyn 4.5 g IV, Toradol IV, acetaminophen IV Labs:ED labs Reviewed by me and remarkable for elevated blood cell count, at lactic acidosis, low pH amongst other lab abnormalities Imagin view chest x-ray as per my interpretation no infiltrate or effusion appreciated. X-rays of the lumbar spine as per my interpretation. 3 views no fracture no dislocation appreciated. EKG:As per my interpretation. Indication seizure-like activity. Sinus tachycardia 118 bpm and a QTc of 456. There is no ectopy nor ischemia. There are an EKG of March 28, 2023 heart rate has increased significantly. Cardiac/Tele Monitoring: Cardiac Monitoring: An Order was placed for continuous cardiac monitoring. The monitor shows a rate of 110 with a sinus tach rhythm. [facility]: Disposition:Hospitalization. Condition: Good History of Present Illness: 37-year-old female arrives for evaluation of postseizure. Patient states she must of had a seizure while in bed this morning. She woke up on the floor assuming that she fell out of bed during the seizure. She states she does not remember the seizure. Currently she is com plaining of some low back discomfort. Denies any weakness in arms or legs. Denies any loss of bowel or bladder control. States she bit her tongue. States that seizures are fairly regular for her. Patient denies any current headache, visual changes, neck pain, chest pain, shortness of breath abdominal pain, urinary symptoms or any other concerning signs or symptoms. She has had no recent leg or calf swelling or pain. Denies any attempts to harm herself recently. Admits recent suicide attempt for which she was hospitalized 2 weeks ago. States she has been taking all of her medications. Patient is currently requesting Ativan as that seems to have helped her in the past when she has the seizure activities. Patient was witnessed by nursing to have full body flailing with purposeful mo vements and talking several times during a reported seizure while here. Past Medical History:See Below Home Medications:See Below Allergies:IV Dye Vitals:Blood Pressure: 129/94, Pulse 121, RR 16, T 37.1C, O2 95% on RA Physical Exam: GENERAL: Patient is well appearing and in minimal distress. Disheveled ENT: Abrasions bilateral tongue RESPIRATORY: No dyspnea. Clear to auscultation and equal bilaterally. CARDIOVASCULAR: Tachycardic.No murmur appreciated. GASTROINTESTINAL: Abdomen soft, non-tender, no peritonitis. BACK: No midline tenderness, no CVA tenderness. Diffuse lumbar paraspinal vague tenderness to palpation EXTREMITIES: Normal motion all extremities, no cyanosis, no edema. NEUROLOGIC: Alert and oriented. No focal neurologic deficits appreciated SKIN: No rash, no jaundice, no diaphoresis. PSYCH: Appropriate GCS: 15 ED Course: Times/Reassessments: Multiple repeat evaluations of patient. She is feeling much better after Tylenol and Toradol. Her heart rate is starting to come down nicely. She is agreeable to hospitalization. Reyes Sahni MD Past Med/Surg History Medical History Adverse drug effect Closed dislocation of right ankle Closed fracture of ankle, trimalleolar Contusion of both upper extremities Conversion disorder Dehydration Fall History of migraine Open wound of tongue due to bite Psychogenic nonepileptic seizure Seizure Seizures Surgical History History of ankle surgery (~08/2019) Family History Mother Breast cancer Grandmother Cancer Grandfather Cancer Father Diabetes Hypertension Other No pertinent family history in first degree relatives Social History Smoking Status: Never smoker Second Hand Exposure: No; Do You Dip or Chew Tobacco: No; Hx Alcohol Use: No Hx Substance Use: No Preferred Language: Slovenian Communication Ability: Effective Financial Counselor Required: No Beliefs That Will Affect Care: None marital status: Single Current Living Situation: Alone Current Living Situation Comment: Condo in [place] current occupational status: employed 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 Feels Safe at Home: Yes Safety Concerns: Feels Safe At This Time Gender Identity: Female Assistive Devices: None Allergies Allergies Allergy/AdvReac Type Severity Reaction Status Date / Time Iodinated Contrast Media Allergy Unknown Hives Verified 05/21/22 20:32 Home Meds Home Medications Medication Instructions Recorded Confirmed levetiracetam 1,000 mg tablet 1,000 mg PO BID 04/18/19 04/15/23 levetiracetam 250 mg tablet 500 mg PO BID 08/15/19 04/15/23 magnesium oxide 400 mg PO BID 12/24/20 04/15/23 sumatriptan succinate 100 mg tablet 50 - 100 mg PO UD PRN Headache 03/14/21 04/15/23 clobazam 20 mg tablet 40 mg PO BID 03/27/23 04/15/23 lamotrigine 150 mg tablet 150 mg PO BID 03/27/23 04/15/23 topiramate 200 mg tablet 200 mg PO BID 03/27/23 04/15/23 cholecalciferol (vitamin D3) 1,250 1,250 mcg PO WK 04/03/23 04/15/23 mcg (50,000 unit) capsule Previous Rx's Medication Instructions Recorded lorazepam 2 mg tablet 2 mg PO Q6H PRN cluster seizure 03/17/21 #10 tabs cenobamate 50 mg tablet (Xcopri) 25 mg PO HS #1 tab 04/03/23 perampanel 10 mg tablet (Fycompa) 10 mg PO HS #1 tab 04/03/23 Results & Data (ED) Vital Signs Vital Signs - 24 hr 04/15/23 05:59 04/15/23 05:58 04/15/23 06:00 Temperature 37.1 C Temperature Source Oral Pulse Rate 121 H 119 H 120 H Pulse Rate from SpO2 Sensor Respiratory Rate 16 15 Respiratory Effort / Characteristics Non-Labored Spontaneous Respiratory Depth Normal Respiratory Pattern Regular Blood Pressure 129/94 125/92 Blood Pressure Mean 105 103 Pulse Oximetry 95 95 Oxygen Delivery Method Room Air Sepsis Recent Fever Within 48 Hours No Sepsis New/Unexplained Change in Mental Status No Sepsis Action Taken by Nursing No Action Required 04/15/23 06:30 04/15/23 07:17 04/15/23 07:00 Temperature Temperature Source Pulse Rate 111 H Pulse Rate from SpO2 Sensor Respiratory Rate 18 Respiratory Effort / Characteristics Respiratory Depth Respiratory Pattern Blood Pressure 120/82 141/72 H Blood Pressure Mean 94 87 Pulse Oximetry 92 Oxygen Delivery Method Room Air Sepsis Recent Fever Within 48 Hours Sepsis New/Unexplained Change in Mental Status Sepsis Action Taken by Nursing 04/15/23 07:00 04/15/23 07:30 04/15/23 07:30 Temperature Temperature Source Pulse Rate 111 H 104 H Pulse Rate from SpO2 Sensor 112 H 106 H Respiratory Rate 21 16 Respiratory Effort / Characteristics Respiratory Depth Respiratory Pattern Blood Pressure 135/85 Blood Pressure Mean 104 Pulse Oximetry 98 98 Oxygen Delivery Method Room Air Room Air Sepsis Recent Fever Within 48 Hours Sepsis New/Unexplained Change in Mental Status Sepsis Action Taken by Nursing 04/15/23 08:12 04/15/23 08:30 04/15/23 08:30 Temperature Temperature Source Pulse Rate 105 H 111 H Pulse Rate from SpO2 Sensor 110 H Respiratory Rate 17 21 Respiratory Effort / Characteristics Respiratory Depth Respiratory Pattern Blood Pressure 139/87 Blood Pressure Mean 100 Pulse Oximetry 99 Oxygen Delivery Method Room Air Sepsis Recent Fever Within 48 Hours Sepsis New/Unexplained Change in Mental Status Sepsis Action Taken by Nursing Laboratory Data 04/15/23 06:12 04/15/23 06:12 Lab Results 04/15/23 04/15/23 04/15/23 Range/Units 06:11 06:12 06:12 WBC 25.84 H (4.8-10.8) K/ul RBC 5.37 (4.20-5.40) M/uL Hgb 15.1 (12.0-16.0) g/dl Hct 46.9 (37.0-47.0) % MCV 87.3 (80.0-100.0) fL MCH 28.1 (25.0-34.0) pg MCHC 32.2 (32.0-36.0) g/dL RDW Std Deviation 42.5 (36.4-46.3) fL RDW Coeff of Hue 13.4 (11.5-14.5) % Plt Count 356 (130-400) K/uL MPV 10.1 (9.4-12.4) fL Immature Gran % (Auto) 1.0 % Neut % (Auto) 88.0 % Lymph % (Auto) 7.2 % [place] % (Auto) 3.6 % Eos % (Auto) 0.0 % Baso % (Auto) 0.2 % Neut # (Auto) 22.74 H (1.40-6.50) K/uL Lymph # (Auto) 1.85 (1.20-3.40) K/uL [place] # (Auto) 0.94 H (0.11-0.59) K/uL Eos # (Auto) 0.00 (0.00-0.50) K/uL Baso # (Auto) 0.05 (0.00-0.20) K/uL Immature Gran # (Auto) 0.26 H (0.01-0.20) K/uL Hypersegmented Neuts 1+ VBG pH (7.36-7.41) VBG pCO2 (38-50) mmHg VBG pO2 mmHg VBG HCO3 mmol/L VBG O2 Saturation % VBG Base Excess mEq/L Sodium 139 (136-145) mmol/L Potassium 3.4 L (3.5-5.1) mmol/L Chloride 103 (98-107) mmol/L Carbon Dioxide 13 L (21-32) mmol/L Anion Gap 23 H (3-11) BUN 12 (6-23) mg/dl Creatinine 0.97 (0.6-1.2) mg/dl Est Cr Clr Drug Dosing 94.5 ml/min Est GFR ( Amer) 87.7 ml/min Est GFR (Non-Af Amer) 75.7 ml/min BUN/Creatinine Ratio 12.4 (10-20) Glucose 184 H (70-99(Fasting)) mg/dl POC Glucose 180 H (70-99) mg/dl Lactate (0.4-2.0) mmol/L Calcium 9.5 (8.6-10.3) mg/dl Magnesium 2.4 (1.7-2.4) mg/dl Total Bilirubin 0.6 (0.2-1.0) mg/dl AST 18 (13-39) U/L ALT 14 (7-52) U/L Alkaline Phosphatase 58 (34-104) U/L Total Creatine Kinase 85 (26-192) U/L Troponin I High Sens 4.7 (0-14) pg/ml Total Protein 8.5 H (6.0-8.3) gm/dl Albumin 4.5 (3.4-5.0) gm/dl Globulin 4.0 (2.5-4.0) gm/dl Albumin/Globulin Ratio 1.1 (0.9-2) Procalcitonin (0-0.5) ng/ml Urine Color Urine Appearance (Clear) Urine pH (4.5-7.5) Ur Specific Kenneth (1.000-1.030) Urine Protein (Negative) Urine Glucose (UA) (Negative) Urine Ketones (Negative) Urine Blood (Negative) Urine Nitrite (Negative) Urine Bilirubin (Negative) Urine Urobilinogen (Negative) Ur Leukocyte Esterase (Negative) Urine WBC (Auto) (0-5) /hpf Urine RBC (Auto) (0-4) /hpf U Hyaline Cast (Auto) (0-5) /lpf U Epithel Cells (Auto) (0-5) /lpf Urine Bacteria (Auto) (Negative) Amorphous Sediment (None Prsent) Urine Opiates Screen (Neg) Ur Methadone, Qual (Neg) Urine Barbiturates (Neg) Ur Phencyclidine (PCP) (Neg) U Amphetamin/Meth Scrn (Neg) MDMA (Ecstasy) Screen (Neg) U Benzodiazepines Scrn (Neg) Ur Cocaine Metabolite (Neg) U Marijuana (THC) Screen (Neg) SARS-CoV-2 (PCR) (Negative) Influenza Type A (PCR) (Neg) Influenza Type B (PCR) (Neg) RSV (RT-PCR) (Neg) 04/15/23 04/15/23 04/15/23 Range/Units 06:17 06:22 07:10 WBC (4.8-10.8) K/ul RBC (4.20-5.40) M/uL Hgb (12.0-16.0) g/dl Hct (37.0-47.0) % MCV (80.0-100.0) fL MCH (25.0-34.0) pg MCHC (32.0-36.0) g/dL RDW Std Deviation (36.4-46.3) fL RDW Coeff of Hue (11.5-14.5) % Plt Count (130-400) K/uL MPV (9.4-12.4) fL Immature Gran % (Auto) % Neut % (Auto) % Lymph % (Auto) % [place] % (Auto) % Eos % (Auto) % Baso % (Auto) % Neut # (Auto) (1.40-6.50) K/uL Lymph # (Auto) (1.20-3.40) K/uL [place] # (Auto) (0.11-0.59) K/uL Eos # (Auto) (0.00-0.50) K/uL Baso # (Auto) (0.00-0.20) K/uL Immature Gran # (Auto) (0.01-0.20) K/uL Hypersegmented Neuts VBG pH 7.14 L (7.36-7.41) VBG pCO2 35 L (38-50) mmHg VBG pO2 89 mmHg VBG HCO3 12 mmol/L VBG O2 Saturation 94.6 % VBG Base Excess -16.2 mEq/L Sodium (136-145) mmol/L Potassium (3.5-5.1) mmol/L Chloride (98-107) mmol/L Carbon Dioxide (21-32) mmol/L Anion Gap (3-11) BUN (6-23) mg/dl Creatinine (0.6-1.2) mg/dl Est Cr Clr Drug Dosing ml/min Est GFR ( Amer) ml/min Est GFR (Non-Af Amer) ml/min BUN/Creatinine Ratio (10-20) Glucose (70-99(Fasting)) mg/dl POC Glucose (70-99) mg/dl Lactate 3.6 H* (0.4-2.0) mmol/L Calcium (8.6-10.3) mg/dl Magnesium (1.7-2.4) mg/dl Total Bilirubin (0.2-1.0) mg/dl AST (13-39) U/L ALT (7-52) U/L Alkaline Phosphatase (34-104) U/L Total Creatine Kinase (26-192) U/L Troponin I High Sens (0-14) pg/ml Total Protein (6.0-8.3) gm/dl Albumin (3.4-5.0) gm/dl Globulin (2.5-4.0) gm/dl Albumin/Globulin Ratio (0.9-2) Procalcitonin < 0.05 (0-0.5) ng/ml Urine Color Urine Appearance (Clear) Urine pH (4.5-7.5) Ur Specific Kenneth (1.000-1.030) Urine Protein (Negative) Urine Glucose (UA) (Negative) Urine Ketones (Negative) Urine Blood (Negative) Urine Nitrite (Negative) Urine Bilirubin (Negative) Urine Urobilinogen (Negative) Ur Leukocyte Esterase (Negative) Urine WBC (Auto) (0-5) /hpf Urine RBC (Auto) (0-4) /hpf U Hyaline Cast (Auto) (0-5) /lpf U Epithel Cells (Auto) (0-5) /lpf Urine Bacteria (Auto) (Negative) Amorphous Sediment (None Prsent) Urine Opiates Screen (Neg) Ur Methadone, Qual (Neg) Urine Barbiturates (Neg) Ur Phencyclidine (PCP) (Neg) U Amphetamin/Meth Scrn (Neg) MDMA (Ecstasy) Screen (Neg) U Benzodiazepines Scrn (Neg) Ur Cocaine Metabolite (Neg) U Marijuana (THC) Screen (Neg) SARS-CoV-2 (PCR) (Negative) Influenza Type A (PCR) (Neg) Influenza Type B (PCR) (Neg) RSV (RT-PCR) (Neg) 04/15/23 04/15/23 04/15/23 Range/Units 07:15 07:15 07:15 WBC (4.8-10.8) K/ul RBC (4.20-5.40) M/uL Hgb (12.0-16.0) g/dl Hct (37.0-47.0) % MCV (80.0-100.0) fL MCH (25.0-34.0) pg MCHC (32.0-36.0) g/dL RDW Std Deviation (36.4-46.3) fL RDW Coeff of Hue (11.5-14.5) % Plt Count (130-400) K/uL MPV (9.4-12.4) fL Immature Gran % (Auto) % Neut % (Auto) % Lymph % (Auto) % [place] % (Auto) % Eos % (Auto) % Baso % (Auto) % Neut # (Auto) (1.40-6.50) K/uL Lymph # (Auto) (1.20-3.40) K/uL [place] # (Auto) (0.11-0.59) K/uL Eos # (Auto) (0.00-0.50) K/uL Baso # (Auto) (0.00-0.20) K/uL Immature Gran # (Auto) (0.01-0.20) K/uL Hypersegmented Neuts VBG pH (7.36-7.41) VBG pCO2 (38-50) mmHg VBG pO2 mmHg VBG HCO3 mmol/L VBG O2 Saturation % VBG Base Excess mEq/L Sodium (136-145) mmol/L Potassium (3.5-5.1) mmol/L Chloride (98-107) mmol/L Carbon Dioxide (21-32) mmol/L Anion Gap (3-11) BUN (6-23) mg/dl Creatinine (0.6-1.2) mg/dl Est Cr Clr Drug Dosing ml/min Est GFR ( Amer) ml/min Est GFR (Non-Af Amer) ml/min BUN/Creatinine Ratio (10-20) Glucose (70-99(Fasting)) mg/dl POC Glucose (70-99) mg/dl Lactate (0.4-2.0) mmol/L Calcium (8.6-10.3) mg/dl Magnesium (1.7-2.4) mg/dl Total Bilirubin (0.2-1.0) mg/dl AST (13-39) U/L ALT (7-52) U/L Alkaline Phosphatase (34-104) U/L Total Creatine Kinase (26-192) U/L Troponin I High Sens (0-14) pg/ml Total Protein (6.0-8.3) gm/dl Albumin (3.4-5.0) gm/dl Globulin (2.5-4.0) gm/dl Albumin/Globulin Ratio (0.9-2) Procalcitonin (0-0.5) ng/ml Urine Color Yellow Urine Appearance Cloudy A (Clear) Urine pH 5.0 (4.5-7.5) Ur Specific Kenneth 1.027 (1.000-1.030) Urine Protein 2+ H (Negative) Urine Glucose (UA) Negative (Negative) Urine Ketones 4+ H (Negative) Urine Blood 1+ H (Negative) Urine Nitrite Negative (Negative) Urine Bilirubin Negative (Negative) Urine Urobilinogen Negative (Negative) Ur Leukocyte Esterase Negative (Negative) Urine WBC (Auto) 1-5 (0-5) /hpf Urine RBC (Auto) 0-4 (0-4) /hpf U Hyaline Cast (Auto) >30 H (0-5) /lpf U Epithel Cells (Auto) >30 H (0-5) /lpf Urine Bacteria (Auto) Negative (Negative) Amorphous Sediment Present A (None Prsent) Urine Opiates Screen Neg (Neg) Ur Methadone, Qual Neg (Neg) Urine Barbiturates Neg (Neg) Ur Phencyclidine (PCP) Neg (Neg) U Amphetamin/Meth Scrn Neg (Neg) MDMA (Ecstasy) Screen Neg (Neg) U Benzodiazepines Scrn Neg (Neg) Ur Cocaine Metabolite Neg (Neg) U Marijuana (THC) Screen Neg (Neg) SARS-CoV-2 (PCR) NEGATIVE (Negative) Influenza Type A (PCR) Negative (Neg) Influenza Type B (PCR) Negative (Neg) RSV (RT-PCR) Negative (Neg) Administered Medications Bacitracin/Polymyxin B Sulfate (Bacitracin/Polymyx B Oph Oint 3.5 Gm Tube) 1 appln OP BID SATISH Stop: 05/15/23 10:44 Last Admin: 04/15/23 11:16 Dose: 1 appln Documented By: CHER Sodium Chloride (Nss) 1,000 mls @ 50 mls/hr IV .Q20H SATISH Stop: 04/16/23 06:44 Last Admin: 04/15/23 13:28 Dose: Not Given Documented By: CHER Lamotrigine (Lamotrigine 100 Mg Tab) 150 mg PO BID SATISH Stop: 05/15/23 11:29 Last Admin: 04/15/23 13:13 Dose: 150 mg Documented By: ELLIOT Magnesium Oxide (Magnesium Oxide 400 Mg Tab) 400 mg PO BID SATISH Stop: 05/15/23 11:29 Last Admin: 04/15/23 13:13 Dose: 400 mg Documented By: ELLIOT Miscellaneous (Cenobamate [Xcopri] 50 Mg Tablet~Order Awaiting Action) 1 each N/A QS [facility] Stop: 05/15/23 15:59 Last Admin: 04/15/23 16:45 Dose: Not Given Documented By: JANA Miscellaneous (Clobazam 20 Mg Tablet~Order Awaiting Action) 1 each N/A QS [facility] Stop: 05/15/23 11:29 Last Admin: 04/15/23 16:45 Dose: Not Given Documented By: Admin: 04/15/23 13:28 Dose: Not Given Documented By: CHER Robertscellaneous (Perampanel [Fycompa] 10 Mg Tablet~Order Awaiting Action) 1 each N/A QS [facility] Stop: 05/15/23 15:59 Last Admin: 04/15/23 16:45 Dose: Not Given Documented By: JANA Topiramate (Topiramate 100 Mg Tab) 200 mg PO BID [facility]ISH Stop: 05/15/23 11:14 Last Admin: 04/15/23 13:14 Dose: 200 mg Documented By: ELLIOT Discontinued Medications Doxycycline Hyclate (Doxycycline Hyclate 100 Mg Cap) 100 mg PO NOW STA Stop: 04/15/23 10:39 Last Admin: 04/15/23 10:46 Dose: 100 mg Documented By: CHER Sodium Chloride (Nss) 1,000 mls @ 999 mls/hr IV .Q1H1M ONE Stop: 04/15/23 07:05 Last Infusion: 04/15/23 07:32 Dose: 0 mls/hr Documented By: Admin: 04/15/23 06:31 Dose: 999 mls/hr Documented By: CHRISTIAN Levetiracetam 1,000 mg/ Sodium (Chloride) 110 mls @ 440 mls/hr IV NOW STA Stop: 04/15/23 06:40 Last Infusion: 04/15/23 06:55 Dose: 0 mls/hr Documented By: Admin: 04/15/23 06:40 Dose: 440 mls/hr Documented By: CHRISTIAN Acetaminophen (Ofirmev) 1,000 mg in 100 mls @ 400 mls/hr IV NOW STA Stop: 04/15/23 06:40 Last Infusion: 04/15/23 06:45 Dose: 0 mls/hr Documented By: Admin: 04/15/23 06:30 Dose: 400 mls/hr Documented By: CHRISTIAN Sodium Chloride (Nss) 1,000 mls @ 999 mls/hr IV .Q1H1M ONE Stop: 04/15/23 07:45 Last Infusion: 04/15/23 09:05 Dose: 0 mls/hr Documented By: Admin: 04/15/23 08:08 Dose: 999 mls/hr Documented By: CHER Sodium Chloride (Nss) 1,000 mls @ 999 mls/hr IV .Q1H1M ONE Stop: 04/15/23 08:30 Last Infusion: 04/15/23 12:00 Dose: 0 mls/hr Documented By: Admin: 04/15/23 09:05 Dose: 999 mls/hr Documented By: CHER Cefepime HCl (Maxipime) 2,000 mg in 20 mls @ 5 mls/min IV NOW STA Stop: 04/15/23 07:34 Last Admin: 04/15/23 08:09 Dose: 5 mls/min Documented By: CHER Potassium Chloride (K Jez / Wtr) 10 meq in 100 mls @ 100 mls/hr IV Q1H SATISH Stop: 04/15/23 11:44 Last Infusion: 04/15/23 12:43 Dose: 0 mls/hr Documented By: Admin: 04/15/23 11:43 Dose: 100 mls/hr Documented By: Infusion: 04/15/23 11:42 Dose: 0 mls/hr Documented By: Admin: 04/15/23 10:43 Dose: 100 mls/hr Documented By: CHER Sodium Chloride (Nss) 1,000 mls @ 125 mls/hr IV .Q8H SATISH Stop: 04/15/23 19:09 Last Admin: 04/15/23 13:14 Dose: 125 mls/hr Documented By: ELLIOT Ketorolac Tromethamine (Ketorolac 30 Mg/Ml Vial) 30 mg IV NOW STA Stop: 04/15/23 06:27 Last Admin: 04/15/23 06:30 Dose: 30 mg Documented By: CHRISTIAN Imaging Data Radiologist's Impression: Lumbar Spine X-Ray 04/15/23 06:27 LUMBAR SPINE 3 VIEWS CLINICAL HISTORY: Low back pain. FINDINGS: 3 views of the lumbar spine are compared to study dated 06/23/2020. The examination is degraded by suboptimal positioning. The skeletal structures are well mineralized. There is no radiographic evidence of fracture or malalignment. Vertebral body height and alignment are maintained. The transverse and spinous processes are intact. The intervertebral disc spaces are maintained. The visualized bony pelvis appears intact. There is a nonobstructed abdominal bowel gas pattern. Small phleboliths are noted in the pelvis. IMPRESSION: No acute bony abnormality is seen involving the lumbosacral spine. ACT 112: Negative or not required by law. Electronically signed by: Wale Lockett M.D. 04/15/2023 8:34 AM Chest X-Ray 04/15/23 06:45 XR chest 1V portable CLINICAL HISTORY: seizure, elevated wbc COMPARISON STUDY: Chest radiograph March 27, 2023. FINDINGS: Stimulator device is incidentally noted. Mild elevation of the right hemidiaphragm is unchanged. There is no pneumothorax or pleural effusion. There is no consolidation. Cardiomediastinal silhouette is stable. Prominence of the pulmonary vasculature is unchanged. IMPRESSION: No acute cardiopulmonary findings. No change in appearance of the chest. ACT 112: Negative or not required by law. Electronically signed by: Drew Johnson M.D. 04/15/2023 7:38 AM Discharge Plan Visit Data Chief Complaint: Seizure ED Provider: Reyes Sahni Discharge Problem: Seizures, Leukocytosis, Lactic acidosis Patient Disposition: Admitted As Inpatient Discharge Instructions Interventions: ED Discharge Assessment Last Done: 04/15/23 14:08
[2023-04-15 06:31] LABS: Base Excess VBG -16.2 mEq/L; HCO3 VBG 12 mmol/L; Oxygen Saturation VBG 94.6 %; PCO2 VBG 35 mmHg (38-50); PO2 VBG 89 mmHg; pH VBG 7.14 (7.36-7.41)
[2023-04-15 06:42] LABS: Hematocrit (blood only) 46.9 % (37.0-47.0); Hemoglobin 15.1 g/dl (12.0-16.0); Mean Corpuscular Hemoglobin 28.1 pg (25.0-34.0); Mean Corpuscular Hgb Conc 32.2 g/dL (32.0-36.0); Mean Corpuscular Volume 87.3 fL (80.0-100.0); Mean Platelet Volume 10.1 fL (9.4-12.4); Platelet Count 356 K/uL (130-400); RDW Coefficient of Variation 13.4 % (11.5-14.5); RDW Standard Deviation 42.5 fL (36.4-46.3); Red Blood Count 5.37 M/uL (4.20-5.40); White Blood Count 25.84 K/ul (4.8-10.8)
[2023-04-15 06:57] LABS: Albumin Globulin Ratio 1.1 (0.9-2); Albumin Level 4.5 gm/dl (3.4-5.0); BUN Creatinine Ratio 12.4 (10-20); Bilirubin,Total 0.6 mg/dl (0.2-1.0); Calcium 9.5 mg/dl (8.6-10.3); Creatinine Clr Calc Pharmacy 94.5 ml/min; Est GFR (African American) 87.7 ml/min; Est GFR (Non-African American) 75.7 ml/min; Magnesium 2.4 mg/dl (1.7-2.4); Potassium 3.4 mmol/L (3.5-5.1); Total Protein 8.5 gm/dl (6.0-8.3)
[2023-04-15 07:04] LABS: Troponin I High Sensitivity 4.7 pg/ml (0-14)
[2023-04-15 07:08] LABS: Basophils # (auto) 0.05 K/uL (0.00-0.20); Basophils % (auto) 0.2 %; Hypersegmented Neutrophils 1+; Immature Granulocytes # (auto) 0.26 K/uL (0.01-0.20); Lymphocytes # (auto) 1.85 K/uL (1.20-3.40); Lymphocytes % (auto) 7.2 %; Monocytes # (auto) 0.94 K/uL (0.11-0.59); Monocytes % (auto) 3.6 %; Neutrophils # (auto) 22.74 K/uL (1.40-6.50)
[2023-04-15 07:29] LABS: Appearance Urine Cloudy (Clear); Bacteria Urine Automated Negative (Negative); Bilirubin Urine Negative (Negative); Blood Urine 1+ (Negative); Color Urine Yellow; Epithelial Cell Urine Auto >30 /lpf (0-5); Glucose Urine UA Negative (Negative); Ketones Urine 4+ (Negative); Leukocyte Esterase Urine Negative (Negative); Nitrite Urine Negative (Negative); Protein Urine 2+ (Negative); RBC Urine Automated 0-4 /hpf (0-4); Specific Gravity Urine 1.027 (1.000-1.030); Urobilinogen Urine Negative (Negative)
[2023-04-15] MEDS ORDERED: CEFEPIME 2,000 MG/20 ML VIAL IV STA (07:31)
--- NOTE | 2023-04-15 07:39 | XRay Report ---
XR chest 1V portable CLINICAL HISTORY: seizure, elevated wbc COMPARISON STUDY: Chest radiograph March 27, 2023. FINDINGS: Stimulator device is incidentally noted. Mild elevation of the right hemidiaphragm is uncha nged. There is no pneumothorax or pleural effusion. There is no consolidation. Cardiomediastinal silh ouette is stable. Prominence of the pulmonary vasculature is unchanged. IMPRESSION: No acute cardiopulmonary findings. No change in appearance of the chest. ACT 112: Negative or not required by law. Electronically signed by: Drew Johnson M.D. 04/15/2023 7:38 AM
[2023-04-15 07:43] LABS: Amorphous Sediment Urine Present (None Prsent); Cast Urine Automated >30 /lpf (0-5)
[2023-04-15 08:06] LABS: Influenza A virus by PCR Negative (Neg); Influenza B virus by PCR Negative (Neg); RSV by PCR Negative (Neg); SARS CoV2 RNA(COVID-19) Ceph NEGATIVE (Negative)
[2023-04-15 08:08] LABS: Amphetamines+Metham, Urine Neg (Neg); Barbiturates, Urine Neg (Neg); Benzodiazepine, Urine Neg (Neg); Cocaine, Urine Neg (Neg); MDMA (Ecstacy), Urine Neg (Neg); Methadone, Urine Neg (Neg); Opiate, Urine Neg (Neg); Phencyclidine, Urine Neg (Neg)
--- NOTE | 2023-04-15 08:35 | XRay Report ---
LUMBAR SPINE 3 VIEWS CLINICAL HISTORY: Low back pain. FINDINGS: 3 views of the lumbar spine are compared to study dated 06/23/2020. The examination is degra ded by suboptimal positioning. The skeletal structures are well mineralized. There is no radiographic evidence of fracture or malalignment. Vertebral body height and alignment are maintained. The transv erse and spinous processes are intact. The intervertebral disc spaces are maintained. The visualized bony pelvis appears intact. There is a nonobstructed abdominal bowel gas pattern. Small phleboliths a re noted in the pelvis. IMPRESSION: No acute bony abnormality is seen involving the lumbosacral spine. ACT 112: Negative or not required by law. Electronically signed by: Wale Lockett M.D. 04/15/2023 8:34 AM
--- NOTE | 2023-04-15 08:47 | History & Physical Report ---
Date of Service April 15, 2023 Assessment & Plan (1) Seizures: (2) Leukocytosis: (3) Acute dehydration: (4) Metabolic acidosis: Plan: 37 y/o F with PMH seizure disorder, s/p vagus nerve stimulator, history migraine headache, pseudoseizure, who was recently admitted here just earlier this month for suicidal ideation requiring behavioral health admission from 03/27-03/30. Today the patient is admitted as she woke up on her floor this morning with inability to recall what happened last evening. She is concerned that she had a seizure. Seizure Disorder vs Pseudoseizure Migraine - Admit to med tele - Will check Keppra and lamotrigine levels, pending - Neurology consult, follows with neurology, Dr Cristina Su at [facility] [place] - CT of the head was not obtained on initial presentation as she has just had 1 within the past 2 weeks, which was negative. If any changes in mental status would consider repeat. No neuro symptoms on admission exam. -Urine drug tox is negative -Monitor QTc, repeat EKG in a.m. -Home medications include Xcopri and Fycompa, clobazam, lamotrigine, Keppra, topiramate, sumatriptan - pt reports she is taking medications. -- possible that she is not taking compliantly with depression,living alone? Poor living con ditions, poor hygeine noted -- need social work to assist with dc planning. Leukocytosis Metabolic Acidosis -UA appears to be slightly dirty, possibly secondary to being dehydrated, follow urine culture to rule out infection -BC x 2 pending -WBC is 25.8, left shift present -Negative drug tox screen - pt denies alcohol or illicit drug use -Started on cefepime IV in the ER, can consider holding for now, pending response Hypokalemia - K 3.4 on admission, will replace with IV Obesity - Diet and exercise should be encouraged throughout hospital stay and at discharge - BMI of 38.9 DVT PPx- teds, scds Lines: 2 PIV FEN/GI: Regular diet CODE: Full code Dispo: From home, likely to remain in the hospital x 1-2 days. CM consulted for poor living conditions at home, concern that she is not caring for herself. History of Present Illness Primary Care Provider: Nely Solorio, DO 37 y/o F with PMH seizure disorder, s/p vagus nerve stimulator, history migraine headache, pseudoseizure, who was recently admitted here just earlier this month for suicidal ideation requiring behavioral health admission from 03/27-03/30. Today the patient is admitted as she woke up on her floor this morning with inability to recall what happened last evening. She is concerned that she had a seizure. Follows with neurology, Dr Cristina Su at [facility] [place]. Pt reports hx of having seizure every 2-3 days. Her last one was a petit mall and was 2 days ago per her report. She reports she has both grand mall and petit mall seizures. Admits to currently having a headache which involves her entire head, denies any visual changes/disturbances, changes in smell, slurred speech. She feels generally tired, no other specific complaints. Denies any changes in bowels, dietary habits, dysuria/hematuria. Patient has significant body odor today, and when asked if she is caring for herself she reports that yes she is. Her closest family, parents live in [facility]. EMS reported very poor living conditions. She has not seen a provider since she was last discharged from here. Denies any changes in medications and states that she took all of her medicines last evening. On initial presentation she is noted to have a WBC of 25.84, potassium 3.4, glucose 184, anion gap 23, lactic acid 3.6, VBG is showing pH of 7.14 and PCO2 of 35 which could all possibly indicate post seizure-like lab however concern for possible infection prompted the ER to obtain blood cultures, urine culture and start her on broad-spectrum antibiotic. Allergies Allergy/AdvReac Type Severity Reaction Status Date / Time Iodinated Contrast Media Allergy Unknown Hives Verified 05/21/22 20:32 Home Medications Medication Instructions Recorded Confirmed Type levetiracetam 1,000 mg tablet 1,000 mg PO BID 04/18/19 04/15/23 History levetiracetam 250 mg tablet 500 mg PO BID 08/15/19 04/15/23 History magnesium oxide 400 mg PO BID 12/24/20 04/15/23 History sumatriptan succinate 100 mg tablet 50 - 100 mg PO UD PRN Headache 03/14/21 04/15/23 History lorazepam 2 mg tablet 2 mg PO Q6H PRN cluster seizure 03/17/21 04/15/23 Rx #10 tabs clobazam 20 mg tablet 40 mg PO BID 03/27/23 04/15/23 History lamotrigine 150 mg tablet 150 mg PO BID 03/27/23 04/15/23 History topiramate 200 mg tablet 200 mg PO BID 03/27/23 04/15/23 History cenobamate 50 mg tablet (Xcopri) 25 mg PO HS #1 tab 04/03/23 04/15/23 Rx cholecalciferol (vitamin D3) 1,250 1,250 mcg PO WK 04/03/23 04/15/23 History mcg (50,000 unit) capsule perampanel 10 mg tablet (Fycompa) 10 mg PO HS #1 tab 04/03/23 04/15/23 Rx Past Med/Surg History Medical History Adverse drug effect Closed dislocation of right ankle Closed fracture of ankle, trimalleolar Contusion of both upper extremities Conversion disorder Dehydration Fall History of migraine Open wound of tongue due to bite Psychogenic nonepileptic seizure Seizure Seizures Surgical History History of ankle surgery (~08/2019) Family History Mother Breast cancer Grandmother Cancer Grandfather Cancer Father Diabetes Hypertension Other No pertinent family history in first degree relatives Social History Smoking Status: Never smoker Second Hand Exposure: No; Do You Dip or Chew Tobacco: No; Hx Alcohol Use: No Hx Substance Use: No Preferred Language: Tajik Communication Ability: Effective Engraver Lettering Required: No Beliefs That Will Affect Care: None marital status: Single Current Living Situation: Alone Current Living Situation Comment: Condo in [place] current occupational status: employed 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 Feels Safe at Home: Yes Safety Concerns: Feels Safe At This Time Gender Identity: Female Assistive Devices: None Review of Systems Review of Systems: Constitutional: No fever, sweats or chills, generalized fatigue Eyes: No diplopia, no worsening or blurred vision ENT: normal hearing, no trouble swallowing Respiratory: No cough, sputum, dyspnea at rest or on exertion Cardiovascular: No chest pain, tightness or palpitations Abdomen: No pain, nausea, vomiting, diarrhea or constipation Musculoskeletal: No joint pain, calf pain, swelling Neurologic: No weakness, numbness/tingling, or balance problems, seizure history as above Psychiatric: No suicidal or homicidal ideation, history of seizure disorder Skin: No rash or itch Physical Exam Physical Exam: General: awake, alert, no apparent distress, slow to respond at times, obese with BMI of 38.9, white female, significantly strong body odor, unkempt Head: Normocephalic, atraumatic ENT: PERRL, EOMI, + right eye with surrounding erythema, slight purulent dis charge, no ecchymosis, no pharyngeal exudate, mucous membranes dry. Chest: Clear to auscultation, on room air, no adventitious breath sounds Cardiac: Sinus tachycardia, no murmur, no JVD, normal peripheral pulses, good capillary refill Abdominal: NABS x 4 quadrants, soft, nondistended, nontender to palpation, no rebound or guarding Extremities: Small areas of abrasion over legs, unkempt, no peripheral edema or erythema, calfs nontender to palpation Psych: Flat mood and affect Neuro: AAO x 3, strength intact bilaterally and rated 5/5, no motor deficits, speech is clear, no peripheral sensory deficits Results & Data Results & Data Vital Signs (Past 12 Hours) Vital Signs Temp Pulse Resp BP Pulse Ox O2 Del Method 04/15/23 07:30 104 H 16 98 Room Air 04/15/23 07:30 135/85 04/15/23 07:00 111 H 21 98 Room Air 04/15/23 07:00 141/72 H 04/15/23 07:17 Room Air 04/15/23 06:30 111 H 18 120/82 92 04/15/23 06:00 120 H 15 125/92 95 04/15/23 05:58 119 H 04/15/23 05:59 37.1 C 121 H 16 129/94 95 Room Air Laboratory Results 04/15/23 07:13 Aerobic Blood Culture - Pending Blood Anaerobic Blood Culture - Pending 04/15/23 07:10 Aerobic Blood Culture - Pending Blood Anaerobic Blood Culture - Pending 04/15/23 04/15/23 04/15/23 09:00 07:15 07:15 WBC RBC Hgb Hct MCV MCH MCHC RDW Std Deviation RDW Coeff of Hue Plt Count MPV Immature Gran % (Auto) Neut % (Auto) Lymph % (Auto) Custer % (Auto) Eos % (Auto) Baso % (Auto) Neut # (Auto) Lymph # (Auto) Custer # (Auto) Eos # (Auto) Baso # (Auto) Immature Gran # (Auto) Hypersegmented Neuts VBG pH VBG pCO2 VBG pO2 VBG HCO3 VBG O2 Saturation VBG Base Excess Sodium Potassium Chloride Carbon Dioxide Anion Gap BUN Creatinine Est Cr Clr Drug Dosing Est GFR ( Amer) Est GFR (Non-Af Amer) BUN/Creatinine Ratio Glucose POC Glucose Lactate 1.2 Calcium Magnesium Total Bilirubin AST ALT Alkaline Phosphatase Total Creatine Kinase Troponin I High Sens Total Protein Albumin Globulin Albumin/Globulin Ratio Urine Color Yellow Urine Appearance Cloudy A Urine pH 5.0 Ur Specific Kelley 1.027 Urine Protein 2+ H Urine Glucose (UA) Negative Urine Ketones 4+ H Urine Blood 1+ H Urine Nitrite Negative Urine Bilirubin Negative Urine Urobilinogen Negative Ur Leukocyte Esterase Negative Urine WBC (Auto) 1-5 Urine RBC (Auto) 0-4 U Hyaline Cast (Auto) >30 H U Epithel Cells (Auto) >30 H Urine Bacteria (Auto) Negative Amorphous Sediment Present A Urine Opiates Screen Ur Methadone, Qual Urine Barbiturates Ur Phencyclidine (PCP) U Amphetamin/Meth Scrn MDMA (Ecstasy) Screen U Benzodiazepines Scrn Ur Cocaine Metabolite U Marijuana (THC) Screen SARS-CoV-2 (PCR) NEGATIVE Influenza Type A (PCR) Negative Influenza Type B (PCR) Negative RSV (RT-PCR) Negative 04/15/23 04/15/23 04/15/23 07:15 07:10 06:22 WBC RBC Hgb Hct MCV MCH MCHC RDW Std Deviation RDW Coeff of Hue Plt Count MPV Immature Gran % (Auto) Neut % (Auto) Lymph % (Auto) Custer % (Auto) Eos % (Auto) Baso % (Auto) Neut # (Auto) Lymph # (Auto) Custer # (Auto) Eos # (Auto) Baso # (Auto) Immature Gran # (Auto) Hypersegmented Neuts VBG pH 7.14 L VBG pCO2 35 L VBG pO2 89 VBG HCO3 12 VBG O2 Saturation 94.6 VBG Base Excess -16.2 Sodium Potassium Chloride Carbon Dioxide Anion Gap BUN Creatinine Est Cr Clr Drug Dosing Est GFR ( Amer) Est GFR (Non-Af Amer) BUN/Creatinine Ratio Glucose POC Glucose Lactate 3.6 H* Calcium Magnesium Total Bilirubin AST ALT Alkaline Phosphatase Total Creatine Kinase Troponin I High Sens Total Protein Albumin Globulin Albumin/Globulin Ratio Urine Color Urine Appearance Urine pH Ur Specific Kelley Urine Protein Urine Glucose (UA) Urine Ketones Urine Blood Urine Nitrite Urine Bilirubin Urine Urobilinogen Ur Leukocyte Esterase Urine WBC (Auto) Urine RBC (Auto) U Hyaline Cast (Auto) U Epithel Cells (Auto) Urine Bacteria (Auto) Amorphous Sediment Urine Opiates Screen Neg Ur Methadone, Qual Neg Urine Barbiturates Neg Ur Phencyclidine (PCP) Neg U Amphetamin/Meth Scrn Neg MDMA (Ecstasy) Screen Neg U Benzodiazepines Scrn Neg Ur Cocaine Metabolite Neg U Marijuana (THC) Screen Neg SARS-CoV-2 (PCR) Influenza Type A (PCR) Influenza Type B (PCR) RSV (RT-PCR) 04/15/23 04/15/23 04/15/23 06:12 06:12 06:11 WBC 25.84 H RBC 5.37 Hgb 15.1 Hct 46.9 MCV 87.3 MCH 28.1 MCHC 32.2 RDW Std Deviation 42.5 RDW Coeff of Hue 13.4 Plt Count 356 MPV 10.1 Immature Gran % (Auto) 1.0 Neut % (Auto) 88.0 Lymph % (Auto) 7.2 Custer % (Auto) 3.6 Eos % (Auto) 0.0 Baso % (Auto) 0.2 Neut # (Auto) 22.74 H Lymph # (Auto) 1.85 Custer # (Auto) 0.94 H Eos # (Auto) 0.00 Baso # (Auto) 0.05 Immature Gran # (Auto) 0.26 H Hypersegmented Neuts 1+ VBG pH VBG pCO2 VBG pO2 VBG HCO3 VBG O2 Saturation VBG Base Excess Sodium 139 Potassium 3.4 L Chloride 103 Carbon Dioxide 13 L Anion Gap 23 H BUN 12 Creatinine 0.97 Est Cr Clr Drug Dosing 94.5 Est GFR ( Amer) 87.7 Est GFR (Non-Af Amer) 75.7 BUN/Creatinine Ratio 12.4 Glucose 184 H POC Glucose 180 H Lactate Calcium 9.5 Magnesium 2.4 Total Bilirubin 0.6 AST 18 ALT 14 Alkaline Phosphatase 58 Total Creatine Kinase 85 Troponin I High Sens 4.7 Total Protein 8.5 H Albumin 4.5 Globulin 4.0 Albumin/Globulin Ratio 1.1 Urine Color Urine Appearance Urine pH Ur Specific Kelley Urine Protein Urine Glucose (UA) Urine Ketones Urine Blood Urine Nitrite Urine Bilirubin Urine Urobilinogen Ur Leukocyte Esterase Urine WBC (Auto) Urine RBC (Auto) U Hyaline Cast (Auto) U Epithel Cells (Auto) Urine Bacteria (Auto) Amorphous Sediment Urine Opiates Screen Ur Methadone, Qual Urine Barbiturates Ur Phencyclidine (PCP) U Amphetamin/Meth Scrn MDMA (Ecstasy) Screen U Benzodiazepines Scrn Ur Cocaine Metabolite U Marijuana (THC) Screen SARS-CoV-2 (PCR) Influenza Type A (PCR) Influenza Type B (PCR) RSV (RT-PCR) Diagnostic Findings Lumbar Spine X-Ray 04/15/23 06:27 LUMBAR SPINE 3 VIEWS CLINICAL HISTORY: Low back pain. FINDINGS: 3 views of the lumbar spine are compared to study dated 06/23/2020. The examination is degraded by suboptimal positioning. The skeletal structures are well mineralized. There is no radiographic evidence of fracture or malalignment. Vertebral body height and alignment are maintained. The transverse and spinous processes are intact. The intervertebral disc spaces are maintained. The visualized bony pelvis appears intact. There is a nonobstructed abdominal bowel gas pattern. Small phleboliths are noted in the pelvis. IMPRESSION: No acute bony abnormality is seen involving the lumbosacral spine. ACT 112: Negative or not required by law. Electronically signed by: Wale Lockett M.D. 04/15/2023 8:34 AM Chest X-Ray 04/15/23 06:45 XR chest 1V portable CLINICAL HISTORY: seizure, elevated wbc COMPARISON STUDY: Chest radiograph March 27, 2023. FINDINGS: Stimulator device is incidentally noted. Mild elevation of the right hemidiaphragm is unchanged. There is no pneumothorax or pleural effusion. There is no consolidation. Cardiomediastinal silhouette is stable. Prominence of the pulmonary vasculature is unchanged. IMPRESSION: No acute cardiopulmonary findings. No change in appearance of the chest. ACT 112: Negative or not required by law. Electronically signed by: Drew Johnson M.D. 04/15/2023 7:38 AM ECG Additional Comments: Sinus tachycardia Possible Left atrial enlargement Poor R wave progression, consider anterior [place] vs. lead placement vs. LVH Abnormal ECG When compared with ECG of 28-MAR-2023 05:29, Vent. rate has increased BY 46 BPM Nonspecific T wave abnormality now evident in Anterior leads Vent. Rate : 118 BPM Atrial Rate : 118 BPM P-R Int : 142 ms QRS Dur : 080 ms QT Int : 326 ms P-R-T Axes : 061 041 030 degrees QTc Int : 456 ms Code Status & VTE Plan Code Status Full code Supervising Physician Co-Signing Physician Notes 37-year-old lady with PMH of seizure disorder, status post vagus nerve stimulator, migraine headache, pseudoseizure presented today after waking up on the floor. Patient reports being compliant with her seizure medication; does not remember how she fell on the floor last night but reported having lower back pain which woke her up and she found herself on the floor. Out of concern of having seizure last night, she called EMS. Patient reports her headache as " a little" which is her usual, denies vision changes, denies any focal weakness/numbness/tingling. Patient denies any fever, reports some sore throat x 1 day but no cough, denies any pain or burning while passing urine, denies any diarrhea. Patient does have some erythema and inflammation of eyelids bilaterally [right greater than left] patient reports that she has been scratching the eyelids more lately. She will be treated in the line of blepharitis. On exam, no discharge or redness or swelling or erythema or any signs of infection noted. Pt denies SI/HI. Patient is being managed for following: Concern of seizure, patient found herself on the floor today morning and is not aware how she landed on the floor. Getting Keppra and lamotrigine level. Toxicology screen negative. Neurology consult. Telemetry monitoring. Fall, see above. Lumbar spine x-ray with no acute finding, patient with some lower back pain, no focal neurological deficit or numbness and tingling. Pain management. Get CT of the head. Leukocytosis/blepharitis: Patient received cefepime in the ED, will use bacitracin eye ointment and p.o. doxycycline. Monitor WBC response. Follow blood culture. Increased blood lactic acid level, electrolyte abnormalities, metabolic acidosis. Gentle IV fluid. Monitor replete electrolytes. Labs in AM. On exam: GENERAL: Easily falls back to sleep, and oriented x 2 (situation, place). NAD, on RA. HEENT: No pallor, no icterus. Pupils equal, round and reactive to light. Oral mucosa moist. R> L Eyelid erythematous/swelling/dried secretions. NECK: No JVD, no neck masses. HEART: S1 and S2 heard. Regular rate and rhythm. No murmur, no gallop. RESPIRATORY SYSTEM: Normal AP diameter. No accessory muscle use. No wheezing, no crackles. ABDOMEN: Soft, bowel sounds present, nontender, no distention. CENTRAL NERVOUS SYSTEM: No facial droop. Speech is clear. Obeys simple c ommands. Moves extremities. EXTREMITIES: No edema, no erythema seen. : no erythema/swelling/drainage noted. I have seen and examined the patient and have discussed the case with the provider above. I agree with the assessment and plan as stated.
--- NOTE | 2023-04-15 08:56 | Electrocardiogram Report ---
Test Reason : Blood Pressure : / mmHG Vent. Rate : 118 BPM Atrial Rate : 118 BPM P-R Int : 142 ms QRS Dur : 080 ms QT Int : 326 ms P-R-T Axes : 061 041 030 degrees QTc Int : 456 ms Sinus tachycardia Possible Left atrial enlargement Poor R wave progression, consider anterior [place] vs. lead placement vs. LVH Abnormal ECG When compared with ECG of 28-MAR-2023 05:29, Vent. rate has increased BY 46 BPM Nonspecific T wave abnormality now evident in Anterior leads Confirmed by Obey Matamoros ([id number]) on 04/15/2023 8:55:47 AM Referred By: Confirmed By:Alfredo Matamoros
[2023-04-15] MEDS ORDERED: DOXYCYCLINE HYCLATE 100 MG CAP PO STA (10:38)
[2023-04-15] MEDS: POTASSIUM CHLORIDE / WTR 10 MEQ/100 ML PLCT IV SCH ×2 (10:43→11:43)
[2023-04-15] MEDS ORDERED: SODIUM CHLORIDE 0.9% 1,000 ML IV SCH ×2 (10:45→11:10)
[2023-04-15] MEDS ORDERED: SUMAtriptan succinate 100 MG TAB PO PRN (11:10)
--- NOTE | 2023-04-15 11:14 | CT Scan Report ---
CT SCAN OF THE BRAIN WITHOUT IV CONTRAST CLINICAL HISTORY: Seizure. Fall. COMPARISON STUDY: CT of the brain dated 03/27/2023. TECHNIQUE: Unenhanced axial CT scan of the brain is performed from the vertex to the skull base. A d ose lowering technique was utilized adhering to the principles of ALARA. CT DOSE: 547.75 mGy.cm FINDINGS: Brain parenchyma: The brain parenchyma is normal in appearance. There is no hemorrhage, mass effect, or evidence of acute territorial ischemia by CT criteria. Moise-white matter differentiation is preser stefany. No extra-axial fluid collection is seen. Ventricles, sulci, cisterns: Normal in configuration. Intracranial vasculature: The visualized intracranial vasculature at the skull base is normal in appe arance. Calvarium: Unremarkable. Sinuses and mastoids: The visualized paranasal sinuses are clear. The mastoid air cells are well pneu matized. Orbits: The bony orbits are grossly intact. IMPRESSION: No acute intracranial abnormality. ACT 112: Negative or not required by law. Electronically signed by: Wale Lockett M.D. 04/15/2023 11:12 AM
[2023-04-15] MEDS: BACITRACIN/POLYMYX B OPH OINT 3.5 GM TUBE OP SCH ×2 (11:16→22:33)
--- NOTE | 2023-04-15 11:50 | Neurology Consultation ---
Date of Consultation April 15, 2023 Assessment & Plan (1) Epilepsy: Patient has a history of intractable epilepsy and PNEA on a complicated drug regimen + VNS. There is no optimization of her regimen possible. She will continue to have seizures and if back to baseline does not need admission to the hospital. She can be discharged, no further neurologic workup. She can follow-up with Dr. Su as planned. Telehealth Consultation Telehealth Information Telehealth Information: I performed this visit using a real-time telehealth connection between my location and the patients location ([facility]). After connecting through interactive tele-video, patient was identified by name and date of and/or wristband check.Patient (or authorized healthcare textile designs sales representative) was informed that this was a telemedicine visit and it was being conducted confidentially over secure lines. My office door was closed and no one else was present in the room with me.Patient (or authorized healthcare textile designs sales representative) provided consent to proceed with the visit, expressed an understanding of privacy and security of the telemedicine visit, and gave permission to have a hospital textile designs sales representative in the room in order to assist with the visit and to conduct portions of the visit, as needed. I informed the patient (or authorized healthcare textile designs sales representative) that I reviewed their record and presented the opportunity for them to ask any questions regarding the visit today. The patient agreed to participate. History of Present Illness Reason for Consultation: Seizure Requesting Physician: Dr. Rey Attending Physician: Bruna Rey MD History of Present Illness Glenys Bell is a 37 yo F with a history of intractable epilepsy and PNEA on a complex seizure regimen. She reports having had a seizure last night with some residual back pain today. She otherwise remembers taking all her prescribed medication without any missed doses. She is unable to pinpoint anything different that might have triggered this episode. Allergies Allergy/AdvReac Type Severity Reaction Status Date / Time Iodinated Contrast Media Allergy Unknown Hives Verified 05/21/22 20:32 Home Medications Medication Instructions Recorded Confirmed Type levetiracetam 1,000 mg tablet 1,000 mg PO BID 04/18/19 04/15/23 History levetiracetam 250 mg tablet 500 mg PO BID 08/15/19 04/15/23 History magnesium oxide 400 mg PO BID 12/24/20 04/15/23 History sumatriptan succinate 100 mg tablet 50 - 100 mg PO UD PRN Headache 03/14/21 04/15/23 History lorazepam 2 mg tablet 2 mg PO Q6H PRN cluster seizure 03/17/21 04/15/23 Rx #10 tabs clobazam 20 mg tablet 40 mg PO BID 03/27/23 04/15/23 History lamotrigine 150 mg tablet 150 mg PO BID 03/27/23 04/15/23 History topiramate 200 mg tablet 200 mg PO BID 03/27/23 04/15/23 History cenobamate 50 mg tablet (Xcopri) 25 mg PO HS #1 tab 04/03/23 04/15/23 Rx cholecalciferol (vitamin D3) 1,250 1,250 mcg PO WK 04/03/23 04/15/23 History mcg (50,000 unit) capsule perampanel 10 mg tablet (Fycompa) 10 mg PO HS #1 tab 04/03/23 04/15/23 Rx Patient History Medical History Adverse drug effect Closed dislocation of right ankle Closed fracture of ankle, trimalleolar Contusion of both upper extremities Conversion disorder Dehydration Fall History of migraine Open wound of tongue due to bite Psychogenic nonepileptic seizure Seizure Seizures Surgical History History of ankle surgery (~08/2019) Family History Mother Breast cancer Grandmother Cancer Grandfather Cancer Father Diabetes Hypertension Other No pertinent family history in first degree relatives Social History Smoking Status: Never smoker Second Hand Exposure: No; Do You Dip or Chew Tobacco: No; Hx Alcohol Use: No Hx Substance Use: No Preferred Language: Telugu Communication Ability: Effective 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 Pupils reactive, face symmetric. No abnormal movements. Results & Data Vital Signs (Past 12 Hours) Vital Signs Temp Pulse Resp BP Pulse Ox O2 Del Method 04/15/23 10:00 96 H 04/15/23 09:30 103 H 14 94 Room Air 04/15/23 09:30 134/87 04/15/23 09:00 103 H 17 96 Room Air 04/15/23 09:00 132/83 04/15/23 08:30 111 H 21 99 Room Air 04/15/23 08:30 139/87 04/15/23 08:12 105 H 17 04/15/23 07:30 104 H 16 98 Room Air 04/15/23 07:30 135/85 04/15/23 07:00 111 H 21 98 Room Air 04/15/23 07:00 141/72 H 04/15/23 07:17 Room Air 04/15/23 06:30 111 H 18 120/82 92 04/15/23 06:00 120 H 15 125/92 95 04/15/23 05:58 119 H 04/15/23 05:59 37.1 C 121 H 16 129/94 95 Room Air Laboratory Results Abnormal lab results 04/15/23 04/15/23 04/15/23 Range/Units 06:11 06:12 06:12 WBC 25.84 H (4.8-10.8) K/ul Neut # (Auto) 22.74 H (1.40-6.50) K/uL [place] # (Auto) 0.94 H (0.11-0.59) K/uL Immature Gran # (Auto) 0.26 H (0.01-0.20) K/uL VBG pH (7.36-7.41) VBG pCO2 (38-50) mmHg Potassium 3.4 L (3.5-5.1) mmol/L Carbon Dioxide 13 L (21-32) mmol/L Anion Gap 23 H (3-11) Glucose 184 H (70-99(Fasting)) mg/dl POC Glucose 180 H (70-99) mg/dl Lactate (0.4-2.0) mmol/L Total Protein 8.5 H (6.0-8.3) gm/dl Urine Appearance (Clear) Urine Protein (Negative) Urine Ketones (Negative) Urine Blood (Negative) U Hyaline Cast (Auto) (0-5) /lpf U Epithel Cells (Auto) (0-5) /lpf Amorphous Sediment (None Prsent) 04/15/23 04/15/23 04/15/23 Range/Units 06:22 07:10 07:15 WBC (4.8-10.8) K/ul Neut # (Auto) (1.40-6.50) K/uL [place] # (Auto) (0.11-0.59) K/uL Immature Gran # (Auto) (0.01-0.20) K/uL VBG pH 7.14 L (7.36-7.41) VBG pCO2 35 L (38-50) mmHg Potassium (3.5-5.1) mmol/L Carbon Dioxide (21-32) mmol/L Anion Gap (3-11) Glucose (70-99(Fasting)) mg/dl POC Glucose (70-99) mg/dl Lactate 3.6 H* (0.4-2.0) mmol/L Total Protein (6.0-8.3) gm/dl Urine Appearance Cloudy A (Clear) Urine Protein 2+ H (Negative) Urine Ketones 4+ H (Negative) Urine Blood 1+ H (Negative) U Hyaline Cast (Auto) >30 H (0-5) /lpf U Epithel Cells (Auto) >30 H (0-5) /lpf Amorphous Sediment Present A (None Prsent)
[2023-04-15] MEDS: lamoTRIgine 100 MG TAB PO SCH ×2 (13:13→22:32)
[2023-04-15] MEDS: MAGNESIUM OXIDE 400 MG TAB PO SCH ×2 (13:13→22:31)
[2023-04-15] MEDS: TOPIRAMATE 100 MG TAB PO SCH ×2 (13:14→22:31)
[2023-04-15] MEDS ORDERED: levETIRAcetam 500 MG TAB PO SCH (21:00)
[2023-04-15] MEDS: levETIRAcetam 500 MG TAB PO SCH (22:31)
[2023-04-15] MEDS: DOXYCYCLINE HYCLATE 100 MG CAP PO SCH (22:31)
[2023-04-15] MEDS: ACETAMINOPHEN 325 MG TAB PO PRN (23:03)
[2023-04-16 04:31] LABS: A calco-baum cmplx NotReported Not Detected (NotDetected); Bact fragilis Not Reported Not Detected (NotDetected); C auris Not Reported Not Detected (NotDetected); Calbicans Not Reported Not Detected (NotDetected); Candida glabrata Not Reported Not Detected (NotDetected); Candida krusei Not Reported Not Detected (NotDetected); Cneoformans/gatti Not Reported Not Detected (NotDetected); Cparapsilosis Not Reported Not Detected (NotDetected); E cloacae compx Not Reported Not Detected (NotDetected); Efaecalis Not Reported Not Detected (NotDetected); Efaecium Not Reported Not Detected (NotDetected); Enterobacterales Not Reported Not Detected (NotDetected); Escherichia coli Not Reported Not Detected (NotDetected); H influenzae Not Reported Not Detected (NotDetected); K aerogenes Not Reported Not Detected (NotDetected); Koxytoca Not Reported Not Detected (NotDetected); Kpneumoniae grp Not Reported Not Detected (NotDetected); Lmonocyt Not Reported Not Detected (NotDetected); N meningitidis Not Reported Not Detected (NotDetected); P aeruginosa Not Reported Not Detected (NotDetected); Proteus spp Not Reported Not Detected (NotDetected); Salmonella spp Not Reported Not Detected (NotDetected); Smarcescens Not Reported Not Detected (NotDetected); Staph lugdunensis Not Reported Not Detected (NotDetected); Staph spp. Not Reported DETECTED (NotDetected); Staphaureus Not Reported Not Detected (NotDetected); Staphepi Not Reported Not Detected (NotDetected); Stenmaltophilia Not Reported Not Detected (NotDetected); Strep agal(GrpB) Not Reported Not Detected (NotDetected); Strep pneum Not Reported Not Detected (NotDetected); Strep pyog (GrpA) Not Reported Not Detected (NotDetected); Strep spp Not Reported Not Detected (NotDetected)
[2023-04-16 05:25] LABS: Staphylococcus spp. DETECTED (NotDetected)
[2023-04-16 06:22] LABS: BUN Creatinine Ratio 5.8 (10-20); Calcium 8.3 mg/dl (8.6-10.3); Est GFR (African American) 101.4 ml/min; Est GFR (Non-African American) 87.5 ml/min; Magnesium 2.1 mg/dl (1.7-2.4); Potassium 3.5 mmol/L (3.5-5.1)
[2023-04-16 06:27] LABS: Hematocrit (blood only) 37.2 % (37.0-47.0); Hemoglobin 12.2 g/dl (12.0-16.0); Mean Corpuscular Hemoglobin 28.5 pg (25.0-34.0); Mean Corpuscular Hgb Conc 32.8 g/dL (32.0-36.0); Mean Corpuscular Volume 86.9 fL (80.0-100.0); Mean Platelet Volume 9.9 fL (9.4-12.4); Platelet Count 240 K/uL (130-400); RDW Coefficient of Variation 13.7 % (11.5-14.5); RDW Standard Deviation 42.8 fL (36.4-46.3); Red Blood Count 4.28 M/uL (4.20-5.40); White Blood Count 9.83 K/ul (4.8-10.8)
[2023-04-16] MEDS: BACITRACIN/POLYMYX B OPH OINT 3.5 GM TUBE OP SCH ×2 (07:37→20:17)
[2023-04-16] MEDS: ACETAMINOPHEN 325 MG TAB PO PRN (07:38)
[2023-04-16] MEDS: lamoTRIgine 100 MG TAB PO SCH ×2 (09:00→20:16)
[2023-04-16] MEDS: TOPIRAMATE 100 MG TAB PO SCH ×2 (09:01→20:15)
[2023-04-16] MEDS: DOXYCYCLINE HYCLATE 100 MG CAP PO SCH ×2 (09:01→20:17)
[2023-04-16] MEDS: MAGNESIUM OXIDE 400 MG TAB PO SCH ×2 (09:01→20:17)
[2023-04-16] MEDS: levETIRAcetam 500 MG TAB PO SCH ×2 (09:01→20:16)
[2023-04-16 09:31] LABS: Estimated Average Glucose 103 mg/dl; Hemoglobin A1C 5.2 % (4.5-5.6)
[2023-04-16] MEDS ORDERED: oxyCODONE/ACETAMINOPHEN 5mg/325mg TAB PO PRN (09:57)
[2023-04-16] MEDS ORDERED: BENZOCAINE 20% (ORAJEL) 11.9 GM TUBE MT PRN (10:45)
[2023-04-16] MEDS: KETOROLAC TROMETHAMINE 15 MG/ML VIAL IV PRN ×2 (10:55→19:10)
--- NOTE | 2023-04-16 13:43 | XRay Report ---
THORACIC SPINE 3 VIEWS CLINICAL HISTORY: Thoracic back pain. FINDINGS: AP, lateral, and swimmer's views of the thoracic spine are compared to study dated 1. The skeletal structures are osteopenic. There is a dedk-ho-odsgwwaq chronic compression deformity of T12. Loss of height has modestly increased as compared to 202. There is also a moderate chronic c ompression deformity of T8, a mild chronic compression deformity of T9, and numerous mild chronic com pression deformities in the upper thoracic region. There is an age-indeterminate compression deformit y of T11 which is new from 2020. There is mild hyperkyphosis of the thoracic spine. Anterior and late ral marginal osteophytes are seen throughout. The transverse processes and pedicles are grossly intac t as seen on the frontal view. The visualized posterior ribs appear intact. The lung parenchyma is cl ear as imaged. IMPRESSION: 1. Numerous chronic thoracic compression deformities as above. Loss of height at T12 has modestly pro gressed from 2020. 2. There is an age-indeterminant compression deformity of T11 with mild loss of height, which is new from 2020. Correlate clinically. Dictated: 04/16/2023 1:16 PM Transcribed: 04/16/2023 1:37 PM Jaziel [id number] [email or web address] Electronically signed by: Wale Lockett M.D. 04/16/2023 1:41 PM
--- NOTE | 2023-04-16 16:23 | Hospitalist Progress Note ---
Date of Service April 16, 2023 Assessment & Plan (1) Seizures: (2) Leukocytosis: (3) Acute dehydration: (4) Metabolic acidosis: Plan: 37 y/o F with PMH seizure disorder, s/p vagus nerve stimulator, history migraine headache, pseudoseizure, who was recently admitted here just earlier this month for suicidal ideation requiring behavioral health admission from 03/27-03/30. Today the patient is admitted as she woke up on her floor this morning with inability to recall what happened last evening. She is concerned that she had a seizure. Suspected breakthrough Seizure Migraine H/O intractable epilepsy and psychogenic nonepileptic attacks --CT Head:No acute intracranial abnormality. -- Drug screen negative --Keppra and lamotrigine levels pending --Follows with Neurology, Dr Cristina Su at [facility] [place] -Currently on Home medications Xcopri and Fycompa, clobazam, lamotrigine, Keppra, topiramate, sumatriptan: Reports being compliant with medication use --Continue antiseizure medications Seizure precautions Appreciate neurology input Needs follow-up with neurology upon discharge Leukocytosis Metabolic Acidosis Abnormal blood culture--likely contamination Leukocytosis resolved Will repeat blood cultures Hypokalemia Replace and monitor Obesity BMI 38.9 DVT Px Teds, scds CODE STATUS: Full code Admission and Anticipated Discharge Date Admission Date: April 15, 2023 Subjective Patient is seen and examined at bedside Oriented x3 during my encounter Reports back pain and oral pain Unable to recollect events prior to suspected seizure episode Denies any chest pain, dyspnea, dizziness, nausea, vomiting, abdominal pain Review of Systems Review of Systems: All systems reviewed & are unremarkable except as noted in Subjective Physical Exam Physical Exam: Physical Exam: Vitals signs as noted above General Appearance:Obese, no apparent distress Head: normocephalic, Atraumatic Eyes: normal inspection, EOMI Neck: supple, Trachea midline Respiratory/Chest: Normal breath sounds, CTA, No accessory muscle use Cardiovascular: S1, S2, No murmur Abdomen/GI:Soft, Non tender, Bowel sounds present Extremities/Musculoskeletal:normal inspection, no edema Neurologic/Psych:AAOX3, grossly no focal neurological deficits Skin: normal color, warm Results & Data Results & Data Vital Signs (Past 12 Hours) Vital Signs Temp Pulse Pulse Resp BP Pulse Ox O2 Del Method 04/16/23 16:03 36.7 C 80 17 115/78 97 Room Air 04/16/23 14:00 80 04/16/23 11:26 37.1 C 87 18 118/73 97 Room Air 04/16/23 08:10 37.2 C 72 17 109/71 96 Room Air 04/16/23 05:58 73 Laboratory Results Short CBC 04/16/23 Range/Units 05:34 WBC 9.83 D (4.8-10.8) K/ul Hgb 12.2 D (12.0-16.0) g/dl Hct 37.2 (37.0-47.0) % Plt Count 240 (130-400) K/uL BMP 04/16/23 05:34 Sodium 140 Potassium 3.5 Chloride 110 H Carbon Dioxide 20 L BUN 5 L Creatinine 0.86 Glucose 90 Calcium 8.3 L
--- NOTE | 2023-04-16 16:30 | Electrocardiogram Report ---
Test Reason : Blood Pressure : / mmHG Vent. Rate : 085 BPM Atrial Rate : 085 BPM P-R Int : 142 ms QRS Dur : 080 ms QT Int : 376 ms P-R-T Axes : 063 025 020 degrees QTc Int : 447 ms Normal sinus rhythm Nonspecific T wave abnormality Abnormal ECG When compared with ECG of 15-APR-2023 06:03, Minimal criteria for Anterior infarct are no longer Present Confirmed by Obey Matamoros ([id number]) on 04/16/2023 4:30:03 PM Referred By: REFERRED SELF Confirmed By:Alfredo Matamoros
[2023-04-17] MEDS: KETOROLAC TROMETHAMINE 15 MG/ML VIAL IV PRN ×2 (06:06→19:14)
[2023-04-17] MEDS: BACITRACIN/POLYMYX B OPH OINT 3.5 GM TUBE OP SCH ×2 (06:51→20:28)
[2023-04-17 06:58] LABS: Hematocrit (blood only) 37.4 % (37.0-47.0); Hemoglobin 12.4 g/dl (12.0-16.0); Mean Corpuscular Hemoglobin 28.6 pg (25.0-34.0); Mean Corpuscular Hgb Conc 33.2 g/dL (32.0-36.0); Mean Corpuscular Volume 86.2 fL (80.0-100.0); Mean Platelet Volume 10.5 fL (9.4-12.4); Platelet Count 253 K/uL (130-400); RDW Coefficient of Variation 13.9 % (11.5-14.5); RDW Standard Deviation 43.2 fL (36.4-46.3); Red Blood Count 4.34 M/uL (4.20-5.40); White Blood Count 8.58 K/ul (4.8-10.8)
[2023-04-17 07:15] LABS: BUN Creatinine Ratio 8.6 (10-20); Calcium 8.5 mg/dl (8.6-10.3); Creatinine Clr Calc Pharmacy 95.2 ml/min; Est GFR (African American) 92.3 ml/min; Est GFR (Non-African American) 79.6 ml/min; Magnesium 2.2 mg/dl (1.7-2.4); Potassium 3.2 mmol/L (3.5-5.1)
[2023-04-17] MEDS: lamoTRIgine 100 MG TAB PO SCH ×2 (08:22→20:46)
[2023-04-17] MEDS: DOXYCYCLINE HYCLATE 100 MG CAP PO SCH ×2 (08:22→20:46)
[2023-04-17] MEDS: MAGNESIUM OXIDE 400 MG TAB PO SCH ×2 (08:22→20:46)
[2023-04-17] MEDS: levETIRAcetam 500 MG TAB PO SCH ×2 (08:24→20:45)
[2023-04-17] MEDS: TOPIRAMATE 100 MG TAB PO SCH ×2 (08:24→20:45)
[2023-04-17] MEDS ORDERED: POTASSIUM CHLORIDE CRTAB 20 MEQ TABCR PO ONE (08:32)
--- NOTE | 2023-04-17 12:56 | XRay Report ---
XR ankle RT min 3V routine CLINICAL HISTORY: Right ankle pain. COMPARISON STUDY: Right ankle 03/28/2023. FINDINGS: No acute fracture or dislocation within the right ankle. Old posttraumatic and postoperativ e changes again noted. The hardware appears intact. No abnormal periprosthetic lucency. Mild osteoart hritis within the right ankle and hindfoot again noted. Mild soft tissue swelling within the right an kle. IMPRESSION: 1. No acute fracture or dislocation within the right ankle. 2. Mild soft tissue swelling. 3. Postoperative changes again noted. The hardware appears intact. ACT 112: Negative or not required by law. Electronically signed by: Lowell Cordoba M.D. 04/17/2023 12:55 PM
--- NOTE | 2023-04-17 15:42 | Hospitalist Progress Note ---
Date of Service April 17, 2023 Assessment & Plan (1) Seizures: (2) Leukocytosis: (3) Acute dehydration: (4) Metabolic acidosis: Plan: 37 y/o F with PMH seizure disorder, s/p vagus nerve stimulator, history migraine headache, pseudoseizure, who was recently admitted here just earlier this month for suicidal ideation requiring behavioral health admission from 03/27-03/30. Today the patient is admitted as she woke up on her floor this morning with inability to recall what happened last evening. She is concerned that she had a seizure. Suspected breakthrough Seizure Migraine H/O intractable epilepsy and psychogenic nonepileptic attacks --CT Head:No acute intracranial abnormality. -- Drug screen negative --Keppra and lamotrigine levels pending --Follows with Neurology, Dr Cristina Su at [facility] [place]Currently on Home medications Xcopri and Fycompa, clobazam, lamotrigine, Keppra, topiramate, sumatriptan: Reports being compliant with medication use --Continue antiseizure medications Seizure precautions Appreciate neurology input Needs follow-up with neurology upon discharge Leukocytosis--resolved Metabolic Acidosis--resolved Abnormal blood culture (coagulase-negative staph not lugdunensis, gram-positive cocci clusters)--likely contamination Leukocytosis resolved Repeat blood cultures--pending Thoracic compression deformities Thoracic x RAY spine:Numerous chronic thoracic compression deformities as above. Loss of height at T12 has modestly progressed from 2020. There is an age- indeterminant compression deformity of T11 with mild loss of height, which is new from 202. Correlate clinically. Lumbar spine x-ray: No acute bony abnormality is seen involving the lumbosacral spine. Fall precautions Orthopedics consulted Right Ankle Pain H/O Ankle surgery Likely musculoskeletal due to Fall --Ankle X ray: No acute fracture or dislocation within the right ankle. Mild soft tissue swelling. Postoperative changes again noted. The hardware appears intact. Monitor Hypokalemia Replace and monitor Obesity BMI 38.9 DVT Px Teds, scds Encouraged to ambulate CODE STATUS: Full code Admission and Anticipated Discharge Date Admission Date: April 15, 2023 Subjective Patient is seen and examined at bedside No recurrence of seizure activity since hospitalization Reports having persistent back pain and right ankle pain No other complaints Denies any chest pain, dyspnea, dizziness, nausea, vomiting, abdominal pain Review of Systems Review of Systems: All systems reviewed & are unremarkable except as noted in Subjective Physical Exam Physical Exam: Physical Exam: Vitals signs as noted above General Appearance:Obese, no apparent distress Head: normocephalic, Atraumatic Eyes: normal inspection, EOMI Neck: supple, Trachea midline Respiratory/Chest: Normal breath sounds, CTA, No accessory muscle use Cardiovascular: S1, S2, No murmur Abdomen/GI:Soft, Non tender, Bowel sounds present Extremities/Musculoskeletal:normal inspection, no edema Neurologic/Psych:AAOX3, grossly no focal neurological deficits Skin: normal color, warm Results & Data Results & Data Vital Signs (Past 12 Hours) Vital Signs Temp Pulse Pulse Resp BP Pulse Ox O2 Del Method 04/17/23 15:29 37.1 C 85 18 113/76 95 Room Air 04/17/23 14:05 97 H 04/17/23 11:14 37.3 C 97 H 18 127/78 97 Room Air 04/17/23 07:51 37.0 C 62 18 118/70 93 Room Air 04/17/23 07:31 74 04/17/23 07:25 Room Air 04/17/23 05:57 73 Laboratory Results Short CBC 04/17/23 Range/Units 05:32 WBC 8.58 (4.8-10.8) K/ul Hgb 12.4 (12.0-16.0) g/dl Hct 37.4 (37.0-47.0) % Plt Count 253 (130-400) K/uL BMP 04/17/23 05:32 Sodium 140 Potassium 3.2 L Chloride 110 H Carbon Dioxide 22 BUN 8 Creatinine 0.93 Glucose 95 Calcium 8.5 L
[2023-04-17] MEDS ORDERED: PERAMPANEL 8 MG PO SCH (21:00)
[2023-04-17] MEDS: ACETAMINOPHEN 325 MG TAB PO PRN (23:13)
[2023-04-18] MEDS: KETOROLAC TROMETHAMINE 15 MG/ML VIAL IV PRN (05:46)
[2023-04-18 07:40] LABS: BUN Creatinine Ratio 11.8 (10-20); Calcium 8.6 mg/dl (8.6-10.3); Creatinine Clr Calc Pharmacy 82.9 ml/min; Est GFR (African American) 82.5 ml/min; Est GFR (Non-African American) 71.2 ml/min; Potassium 3.6 mmol/L (3.5-5.1)
[2023-04-18] MEDS: DOXYCYCLINE HYCLATE 100 MG CAP PO SCH (08:11)
[2023-04-18] MEDS: MAGNESIUM OXIDE 400 MG TAB PO SCH (08:11)
[2023-04-18] MEDS: lamoTRIgine 100 MG TAB PO SCH (08:12)
[2023-04-18] MEDS: levETIRAcetam 500 MG TAB PO SCH (08:13)
[2023-04-18] MEDS: TOPIRAMATE 100 MG TAB PO SCH (08:13)
[2023-04-18] MEDS: BACITRACIN/POLYMYX B OPH OINT 3.5 GM TUBE OP SCH (08:14)
[2023-04-18] MEDS ORDERED: CENOBAMATE PO SCH ×2 (09:00→21:00)
[2023-04-18 13:54] LABS: A calco-baum cmplx NotReported Not Detected (NotDetected); Bact fragilis Not Reported Not Detected (NotDetected); C auris Not Reported Not Detected (NotDetected); Calbicans Not Reported Not Detected (NotDetected); Candida glabrata Not Reported Not Detected (NotDetected); Candida krusei Not Reported Not Detected (NotDetected); Cneoformans/gatti Not Reported Not Detected (NotDetected); Cparapsilosis Not Reported Not Detected (NotDetected); E cloacae compx Not Reported Not Detected (NotDetected); Efaecalis Not Reported Not Detected (NotDetected); Efaecium Not Reported Not Detected (NotDetected); Enterobacterales Not Reported Not Detected (NotDetected); Escherichia coli Not Reported Not Detected (NotDetected); H influenzae Not Reported Not Detected (NotDetected); K aerogenes Not Reported Not Detected (NotDetected); Koxytoca Not Reported Not Detected (NotDetected); Kpneumoniae grp Not Reported Not Detected (NotDetected); Lmonocyt Not Reported Not Detected (NotDetected); N meningitidis Not Reported Not Detected (NotDetected); P aeruginosa Not Reported Not Detected (NotDetected); Proteus spp Not Reported Not Detected (NotDetected); Salmonella spp Not Reported Not Detected (NotDetected); Smarcescens Not Reported Not Detected (NotDetected); Staph lugdunensis Not Reported Not Detected (NotDetected); Staph spp. Not Reported Not Detected (NotDetected); Staphaureus Not Reported Not Detected (NotDetected); Staphepi Not Reported Not Detected (NotDetected); Stenmaltophilia Not Reported Not Detected (NotDetected); Strep agal(GrpB) Not Reported Not Detected (NotDetected); Strep pneum Not Reported Not Detected (NotDetected); Strep pyog (GrpA) Not Reported Not Detected (NotDetected); Strep spp Not Reported Not Detected (NotDetected)
--- NOTE | 2023-04-18 14:02 | Hospitalist Progress Note ---
Date of Service April 18, 2023 Assessment & Plan (1) Seizures: (2) Leukocytosis: (3) Acute dehydration: (4) Metabolic acidosis: Plan: 37 y/o F with PMH seizure disorder, s/p vagus nerve stimulator, history migraine headache, pseudoseizure, who was recently admitted here just earlier this month for suicidal ideation requiring behavioral health admission from 03/27-03/30. Today the patient is admitted as she woke up on her floor this morning with inability to recall what happened last evening. She is concerned that she had a seizure. Suspected breakthrough Seizure Migraine H/O intractable epilepsy and psychogenic nonepileptic attacks --CT Head:No acute intracranial abnormality. -- Drug screen negative --Keppra and lamotrigine levels pending --Follows with Neurology, Dr Cristina Su at [facility] [place]Currently on Home medications Xcopri and Fycompa, clobazam, lamotrigine, Keppra, topiramate, sumatriptan: Reports being compliant with medication use --Continue antiseizure medications Seizure precautions Appreciate neurology input Needs follow-up with neurology upon discharge Plan to discharge home today Leukocytosis--resolved Metabolic Acidosis--resolved Abnormal blood culture (coagulase-negative staph not lugdunensis, gram-positive cocci clusters)--likely contamination Leukocytosis resolved Repeat blood cultures--Negative to date Thoracic compression deformities Thoracic x RAY spine:Numerous chronic thoracic compression deformities as above. Loss of height at T12 has modestly progressed from 2020. There is an age- indeterminant compression deformity of T11 with mild loss of height, which is new from 2020. Correlate clinically. Lumbar spine x-ray: No acute bony abnormality is seen involving the lumbosacral spine. Fall precautions Advised to follow up with Orthopedics as outpatient Right Ankle Pain H/O Ankle surgery Likely musculoskeletal due to Fall --Ankle X ray: No acute fracture or dislocation within the right ankle. Mild soft tissue swelling. Postoperative changes again noted. The hardware appears intact. Monitor Hypokalemia Replace and monitor Obesity BMI 38.9 DVT Px Teds, scds Encouraged to ambulate CODE STATUS: Full code Disposition Home Admission and Anticipated Discharge Date Admission Date: April 15, 2023 Subjective Patient is seen and examined at bedside Back pain is controlled No other complaints No recurrence of seizure activity since hospitalization Denies any chest pain, dyspnea, dizziness, nausea, vomiting, abdominal pain Plan to discharge home today Review of Systems Review of Systems: All systems reviewed & are unremarkable except as noted in Subjective Physical Exam Physical Exam: Physical Exam: Vitals signs as noted above General Appearance:Obese, no apparent distress Head: normocephalic, Atraumatic Eyes: normal inspection, EOMI Neck: supple, Trachea midline Respiratory/Chest: Normal breath sounds, CTA, No accessory muscle use Cardiovascular: S1, S2, No murmur Abdomen/GI:Soft, Non tender, Bowel sounds present Extremities/Musculoskeletal:normal inspection, no edema Neurologic/Psych:AAOX3, grossly no focal neurological deficits Skin: normal color, warm Results & Data Results & Data Vital Signs (Past 12 Hours) Vital Signs Temp Pulse Pulse Resp BP Pulse Ox O2 Del Method 04/18/23 11:47 37.0 C 90 18 111/73 95 Room Air 04/18/23 07:54 36.8 C 65 18 114/78 95 Room Air 04/18/23 07:43 Room Air 04/18/23 07:08 66 04/18/23 04:06 36.6 C 63 16 100/67 96 Room Air Laboratory Results [facility] 04/18/23 05:32 Sodium 142 Potassium 3.6 Chloride 113 H Carbon Dioxide 23 BUN 12 Creatinine 1.02 Glucose 109 H Calcium 8.6
--- NOTE | 2023-04-18 14:10 | Discharge Summary ---
Date of Service April 18, 2023 Admission HPI Per Admitting Provider 37 y/o F with PMH seizure disorder, s/p vagus nerve stimulator, history migraine headache, pseudoseizure, who was recently admitted here just earlier this month for suicidal ideation requiring behavioral health admission from 03/27-03/30. Today the patient is admitted as she woke up on her floor this morning with inability to recall what happened last evening. She is concerned that she had a seizure. Follows with neurology, Dr Cristina Su at [facility] [place]. Pt reports hx of having seizure every 2-3 days. Her last one was a petit mall and was 2 days ago per her report. She reports she has both grand mall and petit mall seizures. Admits to currently having a headache which involves her entire head, denies any visual changes/disturbances, changes in smell, slurred speech. She feels generally tired, no other specific complaints. Denies any changes in bowels, dietary habits, dysuria/hematuria. Patient has significant body odor today, and when asked if she is caring for herself she reports that yes she is. Her closest family, parents live in [facility]. EMS reported very poor living conditions. She has not seen a provider since she was last discharged from here. Denies any changes in medications and states that she took all of her medicines last evening. On initial presentation she is noted to have a WBC of 25.84, potassium 3.4, glucose 184, anion gap 23, lactic acid 3.6, VBG is showing pH of 7.14 and PCO2 of 35 which could all possibly indicate post seizure-like lab however concern for possible infection prompted the ER to obtain blood cultures, urine culture and start her on broad-spectrum antibiotic. Admission Exam Per Admitting Provider General: awake, alert, no apparent distress, slow to respond at times, obese with BMI of 38.9, white female, significantly strong body odor, unkempt Head: Normocephalic, atraumatic ENT: PERRL, EOMI, + right eye with surrounding erythema, slight purulent discharge, no ecchymosis, no pharyngeal exudate, mucous membranes dry. Chest: Clear to auscultation, on room air, no adventitious breath sounds Cardiac: Sinus tachycardia, no murmur, no JVD, normal peripheral pulses, good capillary refill Abdominal: NABS x 4 quadrants, soft, nondistended, nontender to palpation, no rebound or guarding Extremities: Small areas of abrasion over legs, unkempt, no peripheral edema or erythema, calfs nontender to palpation Psych: Flat mood and affect Neuro: AAO x 3, strength intact bilaterally and rated 5/5, no motor deficits, speech is clear, no peripheral sensory deficits Principal Diagnosis Seizure disorder Abnormal blood cultures Lumbago Discharge Data Allergies Allergy/AdvReac Type Severity Reaction Status Date / Time Iodinated Contrast Media Allergy Unknown Hives Verified 05/21/22 20:32 hydrocodone [From Vicodin] AdvReac Unknown Unknown Verified 04/16/23 10:28 morphine AdvReac Unknown Unknown Verified 04/16/23 10:58 oxycodone AdvReac Unknown Unknown Verified 04/16/23 10:28 Consultations 04/15/23 08:31 ED Decision to Admit Stat 04/15/23 09:42 Consult Neurology Routine 04/17/23 10:37 Consult Orthopedic Surgery Routine Procedures Performed Laboratory Results WBC 8.58 K/ul (4.8-10.8) 04/17/23 05:32 RBC 4.34 M/uL (4.20-5.40) 04/17/23 05:32 Hgb 12.4 g/dl (12.0-16.0) 04/17/23 05:32 Hct 37.4 % (37.0-47.0) 04/17/23 05:32 MCV 86.2 fL (80.0-100.0) 04/17/23 05:32 MCH 28.6 pg (25.0-34.0) 04/17/23 05:32 MCHC 33.2 g/dL (32.0-36.0) 04/17/23 05:32 RDW Std Deviation 43.2 fL (36.4-46.3) 04/17/23 05:32 RDW Coeff of Hue 13.9 % (11.5-14.5) 04/17/23 05:32 Plt Count 253 K/uL (130-400) 04/17/23 05:32 MPV 10.5 fL (9.4-12.4) 04/17/23 05:32 Immature Gran % (Auto) 1.0 % 04/15/23 06:12 Neut % (Auto) 88.0 % 04/15/23 06:12 Lymph % (Auto) 7.2 % 04/15/23 06:12 Hamlin % (Auto) 3.6 % 04/15/23 06:12 Eos % (Auto) 0.0 % 04/15/23 06:12 Baso % (Auto) 0.2 % 04/15/23 06:12 Neut # (Auto) 22.74 K/uL (1.40-6.50) H 04/15/23 06:12 Lymph # (Auto) 1.85 K/uL (1.20-3.40) 04/15/23 06:12 Hamlin # (Auto) 0.94 K/uL (0.11-0.59) H 04/15/23 06:12 Eos # (Auto) 0.00 K/uL (0.00-0.50) 04/15/23 06:12 Baso # (Auto) 0.05 K/uL (0.00-0.20) 04/15/23 06:12 Immature Gran # (Auto) 0.26 K/uL (0.01-0.20) H 04/15/23 06:12 Hypersegmented Neuts 1+ 04/15/23 06:12 VBG pH 7.14 (7.36-7.41) L 04/15/23 06:22 VBG pCO2 35 mmHg (38-50) L 04/15/23 06:22 VBG pO2 89 mmHg 04/15/23 06:22 VBG HCO3 12 mmol/L 04/15/23 06:22 VBG O2 Saturation 94.6 % 04/15/23 06:22 VBG Base Excess -16.2 mEq/L 04/15/23 06:22 Sodium 142 mmol/L (136-145) 04/18/23 05:32 Potassium 3.6 mmol/L (3.5-5.1) 04/18/23 05:32 Chloride 113 mmol/L (98-107) H 04/18/23 05:32 Carbon Dioxide 23 mmol/L (21-32) 04/18/23 05:32 Anion Gap 6 (3-11) 04/18/23 05:32 BUN 12 mg/dl (6-23) 04/18/23 05:32 Creatinine 1.02 mg/dl (0.6-1.2) 04/18/23 05:32 Est Cr Clr Drug Dosing 82.9 ml/min 04/18/23 05:32 Est GFR ( Amer) 82.5 ml/min 04/18/23 05:32 Est GFR (Non-Af Amer) 71.2 ml/min 04/18/23 05:32 BUN/Creatinine Ratio 11.8 (10-20) 04/18/23 05:32 Glucose 109 mg/dl (70-99(Fasting)) H 04/18/23 05:32 POC Glucose 180 mg/dl (70-99) H 04/15/23 06:11 Estimat Average Glucose 103 mg/dl 04/16/23 05:34 Hemoglobin A1c 5.2 % (4.5-5.6) 04/16/23 05:34 Lactate 1.2 mmol/L (0.4-2.0) 04/15/23 09:00 Calcium 8.6 mg/dl (8.6-10.3) 04/18/23 05:32 Magnesium 2.2 mg/dl (1.7-2.4) 04/17/23 05:32 Total Bilirubin 0.6 mg/dl (0.2-1.0) 04/15/23 06:12 AST 18 U/L (13-39) 04/15/23 06:12 ALT 14 U/L (7-52) 04/15/23 06:12 Alkaline Phosphatase 58 U/L (34-104) 04/15/23 06:12 Total Creatine Kinase 85 U/L (26-192) 04/15/23 06:12 Troponin I High Sens 4.7 pg/ml (0-14) 04/15/23 06:12 Total Protein 8.5 gm/dl (6.0-8.3) H 04/15/23 06:12 Albumin 4.5 gm/dl (3.4-5.0) 04/15/23 06:12 Globulin 4.0 gm/dl (2.5-4.0) 04/15/23 06:12 Albumin/Globulin Ratio 1.1 (0.9-2) 04/15/23 06:12 Procalcitonin < 0.05 ng/ml (0-0.5) 04/15/23 06:17 Urine Color Yellow 04/15/23 07:15 Urine Appearance Cloudy (Clear) A 04/15/23 07:15 Urine pH 5.0 (4.5-7.5) 04/15/23 07:15 Ur Specific Dexter 1.027 (1.000-1.030) 04/15/23 07:15 Urine Protein 2+ (Negative) H 04/15/23 07:15 Urine Glucose (UA) Negative (Negative) 04/15/23 07:15 Urine Ketones 4+ (Negative) H 04/15/23 07:15 Urine Blood 1+ (Negative) H 04/15/23 07:15 Urine Nitrite Negative (Negative) 04/15/23 07:15 Urine Bilirubin Negative (Negative) 04/15/23 07:15 Urine Urobilinogen Negative (Negative) 04/15/23 07:15 Ur Leukocyte Esterase Negative (Negative) 04/15/23 07:15 Urine WBC (Auto) 1-5 /hpf (0-5) 04/15/23 07:15 Urine RBC (Auto) 0-4 /hpf (0-4) 04/15/23 07:15 U Hyaline Cast (Auto) >30 /lpf (0-5) H 04/15/23 07:15 U Epithel Cells (Auto) >30 /lpf (0-5) H 04/15/23 07:15 Urine Bacteria (Auto) Negative (Negative) 04/15/23 07:15 Amorphous Sediment Present (None Prsent) A 04/15/23 07:15 Urine Opiates Screen Neg (Neg) 04/15/23 07:15 Ur Methadone, Qual Neg (Neg) 04/15/23 07:15 Urine Barbiturates Neg (Neg) 04/15/23 07:15 Ur Phencyclidine (PCP) Neg (Neg) 04/15/23 07:15 U Amphetamin/Meth Scrn Neg (Neg) 04/15/23 07:15 MDMA (Ecstasy) Screen Neg (Neg) 04/15/23 07:15 U Benzodiazepines Scrn Neg (Neg) 04/15/23 07:15 Ur Cocaine Metabolite Neg (Neg) 04/15/23 07:15 U Marijuana (THC) Screen Neg (Neg) 04/15/23 07:15 SARS-CoV-2 (PCR) NEGATIVE (Negative) 04/15/23 07:15 Influenza Type A (PCR) Negative (Neg) 04/15/23 07:15 Influenza Type B (PCR) Negative (Neg) 04/15/23 07:15 RSV (RT-PCR) Negative (Neg) 04/15/23 07:15 Staphylococcus sp PCR DETECTED (NotDetected) A 04/15/23 07:10 Bld Cult ID Panel PCR PCR Panel Negative (NotDetected) 04/15/23 07:10 Bld Cult ID Panel PCR See PCR Comment (NotDetected) 04/15/23 07:10 Impressions Lumbar Spine X-Ray 04/15/23 06:27 LUMBAR SPINE 3 VIEWS CLINICAL HISTORY: Low back pain. FINDINGS: 3 views of the lumbar spine are compared to study dated 06/23/2020. The examination is degraded by suboptimal positioning. The skeletal structures are well mineralized. There is no radiographic evidence of fracture or malalignment. Vertebral body height and alignment are maintained. The transverse and spinous processes are intact. The intervertebral disc spaces are maintained. The visualized bony pelvis appears intact. There is a nonobstructed abdominal bowel gas pattern. Small phleboliths are noted in the pelvis. IMPRESSION: No acute bony abnormality is seen involving the lumbosacral spine. ACT 112: Negative or not required by law. Electronically signed by: Wale Lockett M.D. 04/15/2023 8:34 AM Chest X-Ray 04/15/23 06:45 XR chest 1V portable CLINICAL HISTORY: seizure, elevated wbc COMPARISON STUDY: Chest radiograph March 27, 2023. FINDINGS: Stimulator device is incidentally noted. Mild elevation of the right hemidiaphragm is unchanged. There is no pneumothorax or pleural effusion. There is no consolidation. Cardiomediastinal silhouette is stable. Prominence of the pulmonary vasculature is unchanged. IMPRESSION: No acute cardiopulmonary findings. No change in appearance of the chest. ACT 112: Negative or not required by law. Electronically signed by: Drew Johnson M.D. 04/15/2023 7:[address] 04/15/23 10:31 CT SCAN OF THE BRAIN WITHOUT IV CONTRAST CLINICAL HISTORY: Seizure. Fall. COMPARISON STUDY: CT of the brain dated 03/27/2023. TECHNIQUE: Unenhanced axial CT scan of the brain is performed from the vertex to the skull base. A dose lowering technique was utilized adhering to the principles of ALARA. CT DOSE: 547.75 mGy.cm FINDINGS: Brain parenchyma: The brain parenchyma is normal in appearance. There is no hemorrhage, mass effect, or evidence of acute territorial ischemia by CT criteria. Moise-white matter differentiation is preserved. No extra-axial fluid collection is seen. Ventricles, sulci, cisterns: Normal in configuration. Intracranial vasculature: The visualized intracranial vasculature at the skull base is normal in appearance. Calvarium: Unremarkable. Sinuses and mastoids: The visualized paranasal sinuses are clear. The mastoid air cells are well pneumatized. Orbits: The bony orbits are grossly intact. IMPRESSION: No acute intracranial abnormality. ACT 112: Negative or not required by law. Electronically signed by: Wale Lockett M.D. 04/15/2023 11:12 AM Thoracic Spine X-Ray 04/16/23 10:45 THORACIC SPINE 3 VIEWS CLINICAL HISTORY: Thoracic back pain. FINDINGS: AP, lateral, and swimmer's views of the thoracic spine are compared to study dated 03/16/2021. The skeletal structures are osteopenic. There is a [id number] chronic compression deformity of T12. Loss of height has modestly increased as compared to 202. There is also a moderate chronic compression deformity of T8, a mild chronic compression deformity of T9, and numerous mild chronic compression deformities in the upper thoracic region. There is an age-indeterminate compression deformity of T11 which is new from 2020. There is mild hyperkyphosis of the thoracic spine. Anterior and lateral marginal osteophytes are seen throughout. The transverse processes and pedicles are grossly intact as seen on the frontal view. The visualized posterior ribs appear intact. The lung parenchyma is clear as imaged. IMPRESSION: 1. Numerous chronic thoracic compression deformities as above. Loss of height at T12 has modestly progressed from 2020. 2. There is an age-indeterminant compression deformity of T11 with mild loss of height, which is new from 2020. Correlate clinically. Dictated: 04/16/2023 1:16 PM Transcribed: 04/16/2023 1:37 PM Jaziel [id number] [email or web address] Electronically signed by: Wale Lockett M.D. 04/16/2023 1:41 PM Ankle X-Ray 04/17/23 10:38 XR ankle RT min 3V routine CLINICAL HISTORY: Right ankle pain. COMPARISON STUDY: Right ankle 03/28/2023. FINDINGS: No acute fracture or dislocation within the right ankle. Old posttraumatic and postoperative changes again noted. The hardware appears intact. No abnormal periprosthetic lucency. 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 Mild soft tissue swelling within the right ankle. IMPRESSION: 1. No acute fracture or dislocation within the right ankle. 2. Mild soft tissue swelling. 3. Postoperative changes again noted. The hardware appears intact. ACT 112: Negative or not required by law. Electronically signed by: Lowell Cordoba M.D. 04/17/2023 12:55 PM Ordered Studies 04/15/23 10:31 CT head/brain wo con Routine Hospital Course (1) Seizures: (2) Leukocytosis: (3) Acute dehydration: (4) Metabolic acidosis: 37 y/o F with PMH seizure disorder, s/p vagus nerve stimulator, history migraine headache, pseudoseizure, who was recently admitted here just earlier this month for suicidal ideation requiring behavioral health admission from 03/27-03/30. Today the patient is admitted as she woke up on her floor this morning with inability to recall what happened last evening. She is concerned that she had a seizure. Suspected breakthrough Seizure Migraine H/O intractable epilepsy and psychogenic nonepileptic attacks --CT Head:No acute intracranial abnormality. -- Drug screen negative --Keppra and lamotrigine levels pending --Follows with Neurology, Dr Cristina Su at [facility] [place] -Currently on Home medications Xcopri and Fycompa, clobazam, lamotrigine, Keppra, topiramate, sumatriptan: Reports being compliant with medication use --Continue antiseizure medications Seizure precautions Appreciate neurology input Needs follow-up with neurology upon discharge Plan to discharge home today Leukocytosis--resolved Metabolic Acidosis--resolved Abnormal blood culture (coagulase-negative staph not lugdunensis, gram-positive cocci clusters)--likely contamination Leukocytosis resolved Repeat blood cultures--Negative to date Thoracic compression deformities Thoracic x RAY spine:Numerous chronic thoracic compression deformities as above. Loss of height at T12 has modestly progressed from 2020. There is an age- indeterminant compression deformity of T11 with mild loss of height, which is new from 2020. Correlate clinically. Lumbar spine x-ray: No acute bony abnormality is seen involving the lumbosacral spine. Fall precautions Advised to follow up with Orthopedics as outpatient Right Ankle Pain H/O Ankle surgery Likely musculoskeletal due to Fall --Ankle X ray: No acute fracture or dislocation within the right ankle. Mild soft tissue swelling. Postoperative changes again noted. The hardware appears intact. Monitor Hypokalemia Replace and monitor Obesity BMI 38.9 DVT Px Teds, scds Encouraged to ambulate CODE STATUS: Full code Disposition Home Total Time Total Time Spent Total Time Spent (In Minutes): 55 minutes Discharge Plan Discharge Items Patient Disposition: Home - Self-Care Reason For Visit: SEIZURE Discharge Diagnosis: Seizure disorder Abnormal blood cultures Lumbago Activity: Per Instructions section Exercise/Sports: Wait until after follow-up appointment Non-emergency contact: Primary Care Provider, Surgeon and Neurologist Call non-emergency contact if: you have any medication questions, your symptoms worsen, your pain is concerning for you and you have a fever Follow-up/Referrals: Nely Solorio DO [Primary Care Provider] - (Date & Time 04/21/2023 11:00 AM Provider Nely Solorio DO Department [facility] ) Cristina Su DO [Outside Practitioners] - (Date & Time 04/29/2023 3:10 PM [facility] Diet: Regular Addtl Attending Provider Instructions: Follow-up with your primary care physician on 04/21/2023 11:00 AM Follow-up with your psychiatrist/Neurologist on 04/29/2023 3:10 PM Follow-up with your orthopedic surgeon as outpatient for further evaluation of your back pain as advised. --- Your final blood culture results are pending at the time of discharge. Follow-up with your physician for results. Seek immediate medical attention if your symptoms reoccur or worsen Please take all medications as instructed on discharge list below. Please call if you have any questions or problems. You can reach a [facility] hospitalist on duty at [facility] 24 hours a day by calling [phone] Pending Studies at Discharge: Yes Studies:: Blood Cultures Stand-Alone Forms: [facility], Smoking Cessation Medications and DC Order Prescriptions: Continued levetiracetam 1,000 mg tablet 1,000 mg PO BID Rx Instructions: TAKE WITH 500mg = 1500MG TWICE DAILY. levetiracetam 250 mg tablet 500 mg PO BID Rx Instructions: TAKE 2 tablets WITH 1000 MG =1500MG TWICE DAILY. magnesium oxide 400 mg magnesium capsule 400 mg PO BID sumatriptan succinate 100 mg tablet 50 - 100 mg PO UD PRN (Reason: Headache) Rx Instructions: take 1/2 to 1 tablet by mouth at start of headache, may repeat once after 2 hours. may take up to 2 days a week lorazepam 2 mg tablet 2 mg PO Q6H PRN (Reason: cluster seizure) Qty: 10 0RF lamotrigine 150 mg tablet 150 mg PO BID topiramate 200 mg tablet 200 mg PO BID clobazam 20 mg tablet 40 mg PO BID cholecalciferol (vitamin D3) 1,250 mcg (50,000 unit) capsule 1,250 mcg PO WK Fycompa 10 mg tablet 10 mg PO HS Qty: 1 0RF Xcopri 50 mg tablet 25 mg PO HS Qty: 1 0RF Discharge Orders: Discharge Order (Routine); Ordered 04/18/23 Ordered By: Ghulam Hamilton Admission Data Admit Date/Time: 04/15/23 08:51 Attending Provider: Ghulam Hamilton Admit Provider: Bruna Rey Primary Care Provider: Nely Solorio Other Providers: Bruna Rey; Nj Costa; Mitchell Breaux
[2023-04-19 03:22] LABS: Lamictal(Lamotrigine) 0.5 mcg/mL (2.5-15.0); Levetiracetam Keppra < 2.0 mcg/mL (6.0-46.0)
== END 2023-04-18 15:17 | disposition home or self-care (01) | DRG 101 ==
LOC: ED 05:46 → SUATTDRO 08:51 → EDINP 08:51 → 2N 14:08